=== PATIENT | male | born 1975 | race Caucasian/White ===

== ENCOUNTER → 2017-08-21 | Outpatient (CLI) | payer OTHER ==
[~2017-08-21] MED LIST: ACHD5005 PO; AMOX500C2 PO; ARPZ20T PO; ASP81TEC PO; ATOR40TA70; CANA100T; CLIN300C3 PO; CYCL10TA9 PO; DICY20TA33 PO; GLIP-164; GLIP5TAB13 PO; GLYB5TAB6 PO; HYDR-707 PO; IBP800T PO; LISI1TAB6 PO; LOSA25TA5 PO; METF-380 PO; METOPROLOL; NAPR-243 PO; OMEP20CA12; OMEP20TA2 PO; PRD10T PO; PRM25T PO; QUIN20TA15 PO; SERT100T PO; SRTR100T PO; SULF1TAB35 PO; SULF1TAB38 PO
--- NOTE | 2017-08-21 11:33 | Diagnostic Imaging Report ---
INDICATION: Constipation KUB 11:43 AM Bowel gas pattern is normal. There are no pathologic masses or calcifications. IMPRESSION: Negative abdomen. There does not appear to be fecal stasis. Dictated by: Dictated on workstation # [id number]
== END ==
LOC: RAD 11:03
PROVIDERS: ATTEND Nurse Practitioner Community Health
DX: K59.00 Constipation, unspecified (principal)
CPT/HCPCS: 74018

== ENCOUNTER → 2017-12-04 | Outpatient (CLI) | payer OTHER ==
--- NOTE | 2017-12-04 17:04 | Diagnostic Imaging Report ---
CLINICAL INDICATION: Patient with right knee pain. Knee buckled Monday and having pain since then. EXAM: X-ray of the right knee, three views. COMPARISON: None. FINDINGS AND IMPRESSION: 1: There appears to be a afua of calcification or bony excrescence seen posterior to the knee on lateral view. This is seen posterior to the tibia. This is not seen on the other imaging. Correlation for pain in this region would better evaluate for fracture versus bony excrescence. 2: Possible small right knee effusion. 3: The remainder of the right knee is unremarkable. Dictated by: Dictated on workstation # [id number]
== END ==
LOC: RAD 16:00
PROVIDERS: ATTEND Nurse Practitioner Family
DX: M25.561 Pain in right knee (principal)
CPT/HCPCS: 73562

== ENCOUNTER 2018-10-04 14:30 | Outpatient (RCR) | payer OTHER ==
[~2018-10-04 14:30] MED LIST changes: -OMEP20CA12; +OMEP20CA13
== END 2018-11-06 08:55 | disposition home or self-care (01) ==
PROVIDERS: ATTEND Nurse Practitioner
DX: M94.261 Chondromalacia, right knee (principal)

== ENCOUNTER 2019-01-30 20:45 | Emergency (ER) | payer SELFPAY ==
[~2019-01-30] VITALS: Ht 177.8 cm; Wt 147.7 kg
[2019-01-30] MEDS ORDERED: AMOXICILLIN 500 MG (POLYMOX) CAP PO STA (21:00)
[2019-01-30] MEDS ORDERED: ACETAMINOPHEN 500 MG TAB (TYLENOL) PO ONE (21:00)
[2019-01-30] MEDS ORDERED: AMOX500C2 PO (21:06)
--- NOTE | 2019-01-30 21:06 | ED General ---
General Chief Complaint: Dental Problems/Pain Stated Complaint: HIGH BLOOD PRESSURE Source of Information: Patient Exam Limitations: No Limitations History of Present Illness Date Seen by Provider: Jan 30, 2019 Time Seen by Provider: 20:45 Initial Comments This 43-year-old gentleman presents to the emergency room with concerns about h ypertension. He routinely checks his blood pressure and noted systolic blood pressure in the 170s today. He complains about muscle tension and pain in the left neck and left upper mouth pain from dental decay. He took Aleve earlier today for the pain. He denies any use of stimulants or drugs that could have increased his blood pressure. Allergies and Home Medications Allergies Coded Allergies: losartan (Verified Allergy, Unknown, 02/10/16) Home Medications Amoxicillin 500 Mg Capsule, 1,000 MG PO BID Prescribed by: EDGAR HEREDIA on 01/30/192105 Dicyclomine HCl 20 Mg Tablet, 20 MG PO ACHS Prescribed by: DREW VALDIVIA on 02/11/16 0020 Patient Home Medication List Home Medication List Reviewed: Yes Review of Systems Review of Systems Constitutional: no symptoms reported EENTM: see HPI Respiratory: no symptoms reported Cardiovascular: see HPI Gastrointestinal: no symptoms reported Genitourinary: no symptoms reported Musculoskeletal: see HPI Skin: no symptoms reported Psychiatric/Neurological: No Symptoms Reported Hematologic/Lymphatic: No Symptoms Reported Immunological/Allergic: no symptoms reported Past Anykzsn-Tlbwjr-Kirumc Hx Past Med/Social Hx: Reviewed Nursing Past Med/Soc Hx Patient Social History Type Used: Cigarettes Recent Foreign Travel: No Contact w/Someone Who Travel: No Recent Hopitalizations: No Immunizations Up To Date Tetanus Booster (TDap): Unknown Date of Pneumonia Vaccine: Nov 25, 2009 Date of Influenza Vaccine: Oct 22, 2011 Past Medical History Surgeries: No Respiratory: Yes Sleep Apnea Cardiac: Yes Hypertension Neurological: No Reproductive Disorders: No Sexually Transmitted Disease: No HIV/AIDS: No Genitourinary: No Gastrointestinal: No Musculoskeletal: No Endocrine: Yes Diabetes, Non-Insulin dep HEENT: No Cancer: No Psychosocial: Yes Anxiety, Depression Integumentary: No Adverse Reaction/Blood Tranf: No Physical Exam Vital Signs Vital Signs - First Documented 01/30/19 20:46 Temp 36.6 Pulse 87 Resp 18 B/P (MAP) 151/102 (118) Pulse Ox 98 O2 Delivery Room Air Capillary Refill : Height, Weight, BMI Height: 5'10" Weight: 300lbs. oz. 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 Norm as Tested Skin: Normal Color, Warm/Dry Progress/Results/Core Measures Suspected Sepsis SIRS Temperature: Pulse: Respiratory Rate: Blood Pressure / Mean: Results/Orders My Orders Orders - EDGAR BLANC MD Tramadol Tablet (Ultram Tablet) (01/30/19 21:00) Acetaminophen Tablet (Tylenol Tablet) (01/30/19 21:00) Amoxicillin Capsule (Polymox Capsule) (01/30/19 21:00) Medications Given in ED Current Medications Medications Dose Ordered Sig/Jennifer Route Start Time Stop Time Status Last Admin Dose Admin Acetaminophen 1,000 mg ONCE ONCE PO 01/30/19 21:00 01/30/19 21:01 DC 01/30/19 21:09 1,000 MG Tramadol HCl 50 mg ONCE ONCE PO 01/30/19 21:00 01/30/19 21:01 DC 01/30/19 21:09 50 MG Vital Signs/I&O 01/30/19 01/30/19 20:46 21:11 Temp 36.6 36.6 Pulse 87 93 Resp 18 18 B/P (MAP) 151/102 (118) 157/97 (118) Pulse Ox 98 98 O2 Delivery Room Air Capillary Refill : Progress Note : Progress Note Blood pressure was trending down after rest. Pain was treated with Tylenol and Ultram. Dental pain was also treated with amoxicillin. Increase in blood pressure is likely due to pain in the tooth and neck. Follow up with the dentist and his primary care provider was recommended. Bedbugs were noted on the patient and professional extermination was recommended. Departure Impression Primary Impression: Hypertension Qualified Codes: I10 - Essential (primary) hypertension Additional Impressions: Dental decay Neck muscle strain Qualified Codes: S16.1XXA - Strain of muscle, fascia and tendon at neck level, initial encounter Infestation by bed bug Disposition: HOME, SELF-CARE Condition: Improved Departure-Patient Inst. Decision time for Depature: 21:00 Referrals: JERRY AVILEZ (PCP) Primary Care Physician [facility] (Family) Primary Care Physician Patient Instructions: Bedbugs, High Blood Pressure (DC), Tooth Decay, Adult Add. Discharge Instructions: 1. Your high blood pressure flare up is likely related to pain and dental infection. Continue taking your blood pressure medications and follow-up with your primary care provider within the next week. 2. For pain you may take a combination of Aleve (naproxen) and Tylenol (acetaminophen). You may take Aleve (naproxen) up to 500 mg twice daily and Tylenol (acetaminophen) up to 1000 mg every 6 hours. 3. Boone your teeth gently twice daily with a soft bristle toothbrush and see a dentist as soon as possible. Complete your antibiotics as prescribed. 4. Gentle heat applied to your neck may help relax your neck muscles and reduce pain. 5. Drink plenty of clear liquids and eat a low-salt diet to help with your blo od pressure. 6. Bedbugs may be difficult to day care home provider. Consider consulted with a professional day care home provider to eradicate the bedbugs. All discharge instructions reviewed with patient and/or family. Voiced understanding. Scripts Amoxicillin (Amoxicillin) 500 Mg Capsule 1000 MG PO BID, #40 CAP 0 Refills Prov: EDGAR BLANC MD 01/30/19 Copy Copies To 1: LA LINTON JOSHUA T MD Jan 30, 2019 21:06 POS
[2019-01-30 21:11] VITALS: BP 157/97
== END 2019-01-30 21:12 | disposition home or self-care (01) ==
LOC: EDUNIT# 20:45 → ER 20:46
DX: S16.1XXA Strain of muscle, fascia and tendon at neck level, initial encounter (principal); I10 Essential (primary) hypertension; K02.9 Dental caries, unspecified; B88.9 Infestation, unspecified; E11.9 Type 2 diabetes mellitus without complications; F41.9 Anxiety disorder, unspecified; F32.9 Major depressive disorder, single episode, unspecified; Z88.8 Allergy status to other drugs, medicaments and biological substances; X58.XXXA Exposure to other specified factors, initial encounter
CPT/HCPCS: 99283

== ENCOUNTER 2019-06-13 19:57 | Emergency (ER) | payer OTHER ==
[~2019-06-13] VITALS: Ht 180 cm; Wt 145.1 kg
[~2019-06-13 19:57] MED LIST changes: -OMEP20CA13; +OMEP20CA18
--- OUTSIDE RECORDS SUMMARY | 2019-06-13 20:05 | XMS REPORT ---
Author Author [employer] 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 Role Phone BILLIE, SUSAN Unavailable Unavailable HENRIK PATEL Unavailable Unavailable BILLIE, SUSAN Unavailable ELISSA BETH Unavailable Unavailable BALBINA PADILLA Unavailable Unavailable [facility] Unavailable [phone] [facility] Unavailable [phone] BILLIE, SUSAN Unavailable BILLIE, SUSAN Unavailable BILLIE, SUSAN Unavailable BILLIE, SUSAN Unavailable BILLIE, SUSAN Unavailable BILLIE, SUSAN Unavailable BILLIE, SUSAN Unavailable BILLIE, SUSAN Unavailable BILLIE, SUSAN Unavailable BILLIE, SUSAN Unavailable BILLIE, SUSAN Unavailable BILLIE, SUSAN Unavailable BILLIE, SUSAN Unavailable BILLIE, SUSAN Unavailable BILLIE, SUSAN Unavailable BILLIE, SUSAN Unavailable ELISSA BETH Unavailable BILLIE, SUSAN Unavailable BILLIE, SUSAN Unavailable BILLIE, SUSAN Unavailable BILLIE, SUSAN Unavailable BILLIE, SUSAN Unavailable BILLIE, SUSAN Unavailable BILLIE, SUSAN Unavailable BILLIE, SUSAN Unavailable BILLIE, SUSAN Unavailable BILLIE, SUSAN Unavailable BILLIE, SUSAN Unavailable BILLIE, SUSAN Unavailable BILLIE, SUSAN Unavailable BILLIE, SUSAN Unavailable BILLIE, SUSAN Unavailable BILLIE, SUSAN Unavailable BILLIE, SUSAN Unavailable BILLIE, SUSAN Unavailable BILLIE, SUSAN Unavailable BILLIE, SUSAN Unavailable TRUMAN QUIROZ Unavailable BILLIE, SUSAN Unavailable TRUMAN QUIROZ Unavailable BILLIE, SUSAN Unavailable Migration, Doctor Unavailable Unavailable Migration, Doctor Unavailable Unavailable Migration, Doctor Unavailable Unavailable BILLIE, SUSAN Unavailable BILLIE, SUSAN Unavailable BILLIE, SUSAN Unavailable BILLIE, SUSAN Unavailable BILLIE, SUSAN Unavailable GUILLAUME, KATARZYNA Unavailable BILLIE, SUSAN Unavailable JERRY AVILEZ Unavailable Unavailable DREW VALDIVIA MD Unavailable Unavailable BILLIE, SUSAN ROLLER MACHINE OPERATOR Unavailable Unavailable ANGELES YANEZ DO Unavailable Unavailable LEIDY WHITNEYP Unavailable Unavailable BILLIE, SUSAN Unavailable BILLIE, SUSAN Unavailable Migration, Doctor Unavailable Unavailable JERRY AVILEZP PCP Migration, Doctor Unavailable Unavailable Migration, Doctor Unavailable Unavailable BILLIE, SUSAN S Unavailable Unavailable [facility] PCP JAYASHREE GAMEZ, EDGAR Monae Unavailable Unavailable Migration, Doctor Unavailable Unavailable BILLIE, SUSAN Unavailable BILLIE, SUSAN Unavailable mariselVickeyJAVANVASU CARRASCO Unavailable Migration, Doctor Unavailable Unavailable BILLIE, SUSAN Unavailable BILLIE, SUSNA Unavailable Migration, Doctor Unavailable Unavailable BILLIE, SUSAN Unavailable Unavailable Unavailable BILLIE, SUSAN Unavailable BILLIE, SUSAN Unavailable Migration, Doctor Unavailable Unavailable BILLIE, SUSAN Unavailable Migration, Doctor Unavailable Unavailable BILLIE, SUSAN Unavailable BILLIE, SUSAN Unavailable BILLIE, SUSAN Unavailable Allergies The data below is from unstructured sourcesNo Known Allergies No Known Allergies No Known Allergies No Known Allergies No Known Allergies No Known Allergies No Known Allergies No Known Allergies No Known Allergies No Known Allergies No Known Allergies No Known Allergies No Known Allergies No Known Allergies No Known Allergies No Known Allergies No Known Allergies No Known Allergies No Known Allergies No Known Allergies No Known Allergies Unknown Allergies Unknown Allergies Unknown Allergies Unknown Allergies No Information No Information No Information No Information No Information No Information No Information No Information No Information No Information No Information No Information No Information No Information No Information No Information No Information No Information No Information No Information No Information No Information No Information No Information No Information No Information No Information No Information No Information No Information No Information No Information No Information No Information No Information No Information No Information No Information No Information No Information No Information No Information No Information No Information No Information No Information No Information No Information No Information No Information No Information No Information No Information No Information No Information No Information No Information No Information No Information No Information No Information No Information No Information No Information No Information No Information No Information No Information No Information No Information No Information No Information No Information No Information No Information No Information No Information No Information No Information No Information No Information No Information No Information No Information No Information No Information No Information No Information No Information No Information No Information No Information No Information No Information No Information No Information No Information No Information No Information No Information No Information No Information No Information No Information Medications Current Medications Medication Ingredient Drug Dose Dates Status Sig Sig Care Class(es) (Normalized) (Original) Provid er no BD Pen no 10-28-19 Active no BD Pen no information Needle Claudia information 18 information Needle Claudia name (1 source.) U/F 32G X 4 U/F 32G X 4 (no MM MM as phone) Translation directed 07 s: [ BD Pen Oct, 2017 Needle Claudia Active U/F 32G X 4 MM] no Blood no 05-18-19 Active no Blood no information Glucose information 17 information Glucose name (1 source.) Monitor Monitor (no System System phone) w/Device w/Device Translation test blood s: [ Blood sugar 12h 28 Glucose Apr, 2016 Monitor Active System w/Device] diclofenac diclofenac Nonsteroida 50 mg 10-17-19 Active no Diclofenac no sodium 50 Translation l 18 - information Sodium 50 mg name mg delayed s: [ Anti-inflam 02-14-20 Orally Three (no release Diclofenac matory Drug 18 times a day phone) oral tablet Sodium 50 1 tablet (2 mg, with food or sources.) Diclofenac milk 8h 27 Sodium 50 Sep, 2017 25 mg] Jan, 2018 30 day(s) Active no Ventolin no 2 08-29-19 Active take 2 Ventolin HF A no information HFA 90 information puff(s 14 puff(s) by 90 n heydi (1 source.) mcg/actuati ) inhalation mcg/actuatio (no on every six n inhale 2 phone) hours as puff by needed Inhalation route as needed every 6 hours Use prn shortness of breath Aug, Active Completed/Discontinued Medications Medication Ingredient Drug Dose Dates Status Sig Sig Care Class(es) (Normalized) (Original) Provid er no Acetaminoph no 02-13-20 Complete no Acetaminophe Timoth information en/Hydrocod information 12 - d information n/ Hydrocodon y D (1 source.) one Bitart 04-12-19 e Bitart Stebbi (Lortab 5 13 (Lortab 5 Mg ns (no Mg Tablet) Tablet) 1 phone) 1 Each Each Tablet, Tablet, 1 - 1 - 2 Each 2 Each Oral Oral Every 6 Hours as needed 02/13/12 Discontinued no Acetaminoph no 06-20-19 Complete no Acetaminophe Chester information en/Hydrocod information 10 - d information n/ Hydrocodon W (1 source.) one Bitart 04-25-19 e Bitart Eppler (Lortab 12 (Lortab (no 5-500 5-500 phone) Tablet) 1 Tablet) 1 Each Each Tablet, Tablet, 1 1 Each Oral Each Oral Q 4 - 6 Hr Prn 06/19/09 Discontinued no Amoxicillin no 12-14-19 Complete no Amoxicillin ( no information 500 Mg information 12 d information 500 Mg phone) (1 source.) Capsule, 1 Capsule, 1 Each Oral Each Oral Give Every 8 Hrs On Schedule Discontinued no Aripiprazol no 02-10-20 Complete take 1 Aripiprazole (no information e (Abilify information 16 d tablet by (Abil olya 20 phone) (1 source.) 20 Mg) 20 mouth once Mg) 20 Mg Mg Tab, 1 daily Tab, 1 Tab Tab Oral Oral Daily Discontinued no Aspirin no 02-10-20 Complete no Aspirin (no information (Aspirin Ec information 16 d information (A spirin Ec phone) (1 source.) 81 Mg) 81 81 Mg) 81 Mg Mg Tabec, Tabec, 81 Mg 81 Mg Oral Oral Daily Discontinued no Cyclobenzap no 12-14-19 Complete no Cyclobenzapr [place] K information rine Hcl 10 information 12 - d information in e Hcl 10 [place] (1 source.) Mg Tablet, 02-12-20 Mg Tablet, 1 (no 1 Each Oral 12 Each Oral phone) Q8hr Prn 12/14/11 Discontinued dicyclomine Dicyclomine Anticholine 20 mg 02-11-20 Complete take 1 Dicyclomine Drew hydrochlori rgic 16 d tablet by Hcl (Bentyl) A de 20 mg mouth at 20 Mg Tablet Maria Teresa oral tablet bedtime 20 Mg ORAL (no (2 Before Meals phone) sources.) And At Bedtime 14 Tab 02/11/16 02-11-2016 Completed no Dicyclom no name - inform ine Hcl (no 02-11-2016 ation Disconti phone) - nued 20 02-11-2016 ORAL Before Meals And At Bedtime February 11, 2016 12:20am (One-Yuan e) no Glipizide 5 no 02-10-20 Complete no Glipizide 5 ( no information Mg Tablet, information 16 d information Mg Tablet, 1 phone) (1 source.) 1 Each Oral Each Oral Twice A Day Discontinued no Glyburide 5 no 03-23-19 Complete no Glyburide 5 ( no information Mg Tablet, information 15 d information Mg Tablet, 1 phone) (1 source.) 1 Each Oral Each Oral Daily Discontinued no Hctz/Lisino no 04-12-19 Complete no Hctz/Lisinop no information pril information 13 d information ril name (1 source.) Discontinued (no 1 ORAL Daily phone) April 12, 2012 no Hctz/Lisino no 04-12-19 Complete take 10-12.5 Hctz/Lis inop (no information pril information 13 d tablets by ril phone) (1 source.) (Lisinopril mouth once (Lisinopril- -Hctz daily Hctz 10-12.5 10-12.5 Mg Mg Tab) 1 Tab) 1 Each Each Tablet, Tablet, 1 1 Each Oral Each Oral Daily Discontinued no Ibuprofen no 02-13-20 Complete no Ibuprofen Timot h information (Motrin) information 12 - d information (Motr in) 800 y D (1 source.) 800 Mg Tab, 02-09-20 Mg Tab, 800 Stebbi 800 Mg Oral 16 Mg Oral Give ns (no Every 8 Hrs phone) On Schedule as needed 02/13/12 Discontinued no Metformin no 02-10-20 Complete no Metformin (no information Hcl information 16 d information Hcl phone) (1 source.) (Metformin (Metformin 1000 Mg) 1000 Mg) 1,000 Mg 1,000 Mg Tablet, 1 Tablet, 1 Each Oral Each Oral Twice A Day With Meals Discontinued no Metoprolol no 02-10-20 Complete no Metoprolol , ( no information , Not information 16 d information Not phone) (1 source.) Applicable Applicable Discontinued no Omeprazole no 02-10-20 Complete no Omeprazole (no information 20 Mg information 16 d information 20 Mg phone) (1 source.) Tablet.dr, Tablet.dr, 20 Mg Oral 20 Mg Oral Daily Discontinued no Prednisone no 12-14-19 Complete no Prednisone (no information 10 Mg Tab, information 12 d information 10 Mg Tab, phone) (1 source.) 10 Mg Oral 10 Mg Oral Three Times A Day Discontinued no Trimethopri no 06-20-19 Complete no Trimethoprim [place] information m/Sulfameth information 10 - d information /S ulfamethox W (1 source.) oxazole 04-25-19 azole Eppler (Bactrim 12 (Bactrim Ds) (no Ds) 1 Ea 1 Ea Tablet, phone) Tablet, 1 1 Ea Oral Ea Oral Twice A Day 06/19/09 Discontinued Problems Active Problems Problem Normalized Date of Normalized Normalized Provider Fac ility Classification Problem(s) Problem Problem Problem Sta tus Onset/Resoluti Duration on Allergic Allergy status 04-01-2019 - Episodic Active [facility] reactions (2 to other Imelda BLANC sources.) drugs, [facility] - medicaments Watson and biological ([id number]) substances status Other Elevated 04-01-2019 - Episodic Active [facility] V ia circulatory blood-pressure Imelda BLANC disease (2 [facility] - sources.) without Watson diagnosis of (94962) hypertension External cause Exposure to 04-01-2019 - Episodic Active [facility] Via codes: other Imelda BLANC Natural/enviro specified [facility] - nment (2 factors, Watson sources.) initial (53671) encounter Other Infestation by Episodic Active [facility] infections; bed bug [facility] [place] including [address] [facility] parasitic (1 (96825) source.) Other Infestation, 04-01-2019 - Episodic Active [facility] Via infections; unspecified Imelda BLANC including [facility] - parasitic (2 Watson sources.) (57075) Other youth care specialist Episodic Active STAS [facility] Via aftercare (2 (current) use MD [place] sources.) of oral [facility] - hypoglycemic Watson drugs (94272) Mood disorders Major 04-01-2019 - Chronic Active [facility] Via (2 sources.) depressive Imelda BLANC disorder, [facility] - single Watson episode, (41236) unspecified Other Other long Episodic Active STAS YEUNG Vi a aftercare (4 term (current) MD [place] sources.) drug therapy [facility] (57929) Abdominal pain Right upper Episodic Active STAS YEUNG Via (7 sources.) quadrant pain MD [facility] (93221) Past or Other Problems Problem Normalized Date of Normalized Normalized Provider Fac ility Classification Problem(s) Problem Problem Problem Sta tus Onset/Resoluti Duration on Other skilled nursing no information no information STAS YEUNG Via aftercare (2 (current) use [facility] sources.) of oral [facility] drugs (62353) Procedures Procedure Normalized Procedure Procedure Result Performer Facility Date 02-22-2017 Assay thyroid stim no information no name (no phone ) [facility] hormone [facility] ([id number]) 02-22-2017 Comprehen metabolic no information no name (no phon e) [facility] panel [facility] (95637) 01-04-2012 Gluc bld gluc mntr dev no information no name (no p radha) [facility] cleared fda spec home [facility] (71018) 02-05-2018 Hemoglobin no information no name (no phone) [facility] glycosylated a1c [facility] (68730) 10-16-2017 Hemoglobin no information no name (no phone) [facility] glycosylated a1c [facility] (35252) 05-01-2014 Hemoglobin no information no name (no phone) [facility] glycosylated a1c [facility] (66230) 01-04-2012 Hemoglobin no information no name (no phone) [facility] glycosylated a1c [facility] (99400) 01-03-2017 NAIL REMOVAL PERMANENT no information no name (no p radha) [facility] (PARTIAL OR COMPLETE) [facility] (33602) 01-03-2017 Removal of nail bed no information no name (no phon e) [facility] (00718) 02-22-2017 Routine venipuncture no information no name (no nicole ne) [facility] (25436) 05-01-2014 Urine albumin no information no name (no phone) [facility] (07109) 09-03-2013 Urine albumin no information no name (no phone) [facility] (45821) 05-01-2014 Urine albumin no information no name (no phone) [facility] semiquantitative [facility] (00786) 09-03-2013 Urnls dip stick/tablet no information no name (no p radha) [facility] rgnt auto w/o [facility] (37758) 02-22-2017 WBC (Leukocytes) no information no name (no phone) [facility] (90999) Immunizations Normalized Immunization Date Notes Care Provider Facili ty Immunization influenza, seasonal, 11-14-2018 no information no name [facility] injectable [facility] (39419) Vaccination no information JERRY FATMATA [address] [place] Via Translations: [ [facility] vaccine] (76956) no information 01-30-2019 - no information [facility] [place] Via 01-30-2019 [address] [facility] (46068) Results Test Name Value Interpretation Reference Range Date Time Fa cility (Normalized) (Normalized) (Medline Reference) xray : kub on null NEGATED: no information (no code) [facility] Highlighted [facility] (32928) a1c (in house) on null Hemoglobin 7.8 % (no code) 0 - 5.7 % formerly [facility] A1c/Hemoglobin.t [facility] fraction ([facility]) (81217) Hemoglobin 8.3 % (no code) 0 - 5.7 % [facility] A1c/Hemoglobin.t [facility] ([facility]) (35170) A1C (IN HOUSE) 0856 (no code) [facility] (81416) A1C (IN HOUSE) 04/2019 (no code) [facility] (27531) A1C (IN HOUSE) 0932 (no code) [facility] (37486) A1C (IN HOUSE) 10/2019 (no code) [facility] (53243) No panel information on null Exp date 10/2019 (no code) [facility] (50998) Exp date 04/2020 (no code) [facility] (87632) Lot 8.3~7.8~0932 (no code) [facility] (46731) Lot 10.8~10.4~0993 (no code) [facility] (18824) No panel information on 2019-04-22 Color (U) 09/2019~clear~ye (no code) [facility] (15853) Control <30~+ (no code) [facility] (79412) CRE 30~100 (no code) [facility] (98060) Exp date 01/2021 (no code) [facility] (49467) Lot 7.8~7.1~0610 (no code) [facility] (17604) Lot # [id number] (no code) [facility] (10794) MICROALBUMIN normal (no code) [facility] (49463) No panel information on 2018-06-04 Exp date 11/2019 (no code) [facility] (35515) Lot 10.4~8.3~0941 (no code) [facility] (98580) No panel information on 2017-10-16 Exp date 04/2019 (no code) [facility] (51299) Lot 7.8~9.9~0856 (no code) [facility] (30117) No panel information on 2017-05-31 Albumin mass 3.8 g/dL (N) 3.4 - 5.4 g/dL [facility] (28274) Albumin/Globulin 1.1 (N) [facility] mass ratio [facility] (90895) ALP enzyme 118 U/L (H) 44 - 147 U/L [facility] act/vol [facility] (82207) ALT enzyme 40 U/L (N) 4 - 40 U/L [facility] act/vol [facility] (88133) AST enzyme 30 U/L (N) 10 - 34 U/L [facility] act/vol [facility] (37940) Bilirubin mass 0.4 mg/dL (N) 0.1 - 1.2 mg/dL [facility] (55495) Calcium mass 9.2 mg/dL (N) 8.5 - 10.2 mg/dL [facility] (79048) Chloride molar 103 mmol/L (N) 95 - 106 mmol/L [facility] (03118) Cholesterol in 26 mg/dL (L) [facility] HDL mass conc [facility] (62919) Cholesterol in 44 (N) [facility] LDL mass conc [facility] (06643) Cholesterol mass 102 mg/dL (N) 180 - 200 mg/dL [facility] (91998) Cholesterol non 76 (N) [facility] HDL mass conc [facility] (59314) Cholesterol.tota 3.9 (N) [facility] l/Cholesterol in [facility] HDL mass ratio [facility] (56442) CO2 molar conc 27 mmol/L (N) 23 - 29 mmol/L [facility] (79444) Creatinine mass 1.25 mg/dL (N) [facility] (02472) GFR/1.73 sq M 82 (N) 90 - 120 Pending sale to [facility] predicted among mL/min/{1.73_m2} mL/min/{1.73_m2} Center o f [facility] blacks MDRD vol [facility] rate/area (72262) (S/P/Bld) GFR/1.73 sq 71 (N) 90 - 120 formerly [facility] M.predicted MDRD mL/min/{1.73_m2} mL/min/{1.73_m2} Center of [facility] rate/area [facility] (68083) Globulin 3.6 (N) [facility] Cal[facility] mass Center [facility] (S) [facility] (56358) Glucose mass 185 mg/dL (H) 60 - 125 mg/dL [facility] (59767) Potassium molar 4.7 mmol/L (N) 3.7 - 5.2 mmol/L [facility] (02827) Protein mass 7.4 g/dL (N) 6.4 - 8.3 g/dL [facility] (54633) Sodium molar 136 mmol/L (N) 135 - 145 mmol/L [facility] (21775) Triglyceride 304 mg/dL (H) 0 - 150 mg/dL [facility] (77785) Urea nitrogen 20 mg/dL (N) 7 - 20 mg/dL [facility] (75713) Urea NOT APPLICABLE (no code) [facility]/Creatin [facility] (02699) No panel information on 2017-05-24 Color Nom (U) 01/2018~clear~ye (no code) [facility] (89486) Control 30-300~normal (no code) [facility] (11268) CRE 10~50 (no code) [facility] (83029) Exp date 12/2018 (no code) [facility] (89130) Lot 9.9~7.1~0812 (no code) [facility] (08866) Lot # [id number] (no code) [facility] (60953) MICROALBUMIN abnormal (no code) [facility] (99540) No panel information on 2016-04-01 Albumin 4.1 g/dL (no code) 3.4 - 5.4 g/dL 04-01-2016 Not Anna ilable [Mass/Vol] 09: (45231) Albumin/Globulin 1.4 {ratio} (no code) 1 - 2.5 {ratio} 7 Not Available [Mass ratio] 09: (63047) ALP [Catalytic 113 U/L (no code) 44 - 147 U/L 04-01-2016 Not Available activity/Vol] 09: (84222) ALT [Catalytic 44 U/L (no code) 4 - 40 U/L 04-01-2016 Not Av ailable activity/Vol] 09: (82539) AST [Catalytic 32 U/L (no code) 10 - 34 U/L 04-01-2016 Not A vailable activity/Vol] 09: (32582) Bilirubin 0.5 mg/dL (no code) 0.1 - 1.2 mg/dL 04-01-2016 Not Av ailable [Mass/Vol] 09: (67507) Calcium 9.3 mg/dL (no code) 8.5 - 10.2 mg/dL 04-01-2016 Not A vailable [Mass/Vol] 09: (17925) Chloride 96 mmol/L (no code) 95 - 106 mmol/L 04-01-2016 Not Av ailable [Moles/Vol] 09: (17052) Cholesterol 115 mg/dL (no code) 180 - 200 mg/dL 04-01-2016 Not Available [Mass/Vol] 09: (07972) Cholesterol in 27 mg/dL (L) 04-01-2016 Not Availab le HDL [Mass/Vol] 09: (60798) Cholesterol in 33 mg/dL (no code) 0 - 100 mg/dL 04-01-2016 Not Available LDL [Mass/Vol] 09:0 (51913) Cholesterol in 55 mg/dL (H) 04-01-2016 Not Availab le VLDL [Mass/Vol] 09: (88167) CO2 [Moles/Vol] 21 mmol/L (no code) 23 - 29 mmol/L 04-01-2016 N ot Available : (79516) Creatinine 1.05 mg/dL (no code) 04-01-2016 Not Available [Mass/Vol] 09: (85973) GFR/1.73 sq M 101 (no code) 90 - 120 04-01-2016 Not Avai lable predicted among mL/min/{1.73_m2} mL/min/{1.73_m2} 09: (42486) blacks MDRD (S/P/Bld) [Vol rate/Area] GFR/1.73 sq M 88 (no code) 90 - 120 04-01-2016 Not Avai lable predicted among mL/min/{1.73_m2} mL/min/{1.73_m2} 09: (09621) non-blacks MDRD (S/P/Bld) [Vol rate/Area] Globulin (S) 3.0 g/dL (no code) 2 - 3.5 g/dL 04-01-2016 Not Av ailable [Mass/Vol] 09: (19844) Glucose 168 mg/dL (H) 60 - 125 mg/dL 04-01-2016 Not Anna ilable [Mass/Vol] 09: (41559) Potassium 4.6 mmol/L (no code) 3.7 - 5.2 mmol/L 04-01-2016 Not Available [Moles/Vol] 09: (34717) Protein 7.1 g/dL (no code) 6.4 - 8.3 g/dL 04-01-2016 Not Anna ilable [Mass/Vol] 09: (34713) Sodium 136 mmol/L (no code) 135 - 145 mmol/L 04-01-2016 Not Available [Moles/Vol] 09: (99749) Triglyceride 277 mg/dL (H) 0 - 150 mg/dL 04-01-2016 Not A vailable [Mass/Vol] 09: (08501) Urea nitrogen 12 mg/dL (no code) 7 - 20 mg/dL 04-01-2016 Not A vailable [Mass/Vol] 09: (56013) Urea 11 mg/mg (no code) 6 - 22 mg/mg 04-01-2016 Not Avail able nitrogen/Creatin : (00286) ine [Mass ratio] Vital Signs Vital Sign Value Interpretation Reference Date Time Care Prov ider Facility (Normalized) (Normalized) Range BMI (Body Mass 46.48 kg/m2 (no code) 15 - 25 kg/m2 02-05-2018 [facility] Community Index) 14:00-0500 94314 [facility] (62325) BMI (Body Mass 48.19 kg/m2 (no code) 15 - 25 kg/m2 10-16-2017 Jessica WISE Community Index) 16:00-0400 78843 [facility] (24880) BMI (Body Mass 44.36 kg/m2 (no code) 15 - 25 kg/m2 01-03-2017 Cristy AKHTAR KIRIT Community Index) 16:20-0500 46587 [facility] (45629) Body 98.2 [degF] (no code) 97.8 - 99.0 02-05-2018 [facility] Children Temperature [degF] 14:00-0500 [id number] [facility] ([id number]) Body 98 [degF] (no code) 97.8 - 99.0 10-16-2017 SUSAN KAY [facility] Temperature [degF] 16:00-0400 [id number] [facility] ([id number]) Body 98.6 [degF] (no code) 97.8 - 99.0 01-03-2017 ELISSA RUSSO [facility] Temperature [degF] 16:20-0500 87089 [facility] ([id number]) Body 98.2 [degF] (no code) 97.8 - 99.0 05-01-2014 [facility] Temperature [degF] 11:45-0400 70552 [facility] ([id number]) Body 98 [degF] (no code) 97.8 - 99.0 09-03-2013 [facility] Temperature [degF] 15:03-0400 23786 [facility] ([id number]) Body 97.6 [degF] (no code) 97.8 - 99.0 01-04-2012 [facility] Temperature [degF] 14:30-0500 25064 [facility] ([id number]) Body weight 147.42 kg (no code) kg 05-01-2014 [facility] 11:45-0400 94766 [facility] ([id number]) Body weight 151.05 kg (no code) kg 09-03-2013 [facility] 15:03-0400 90568 [facility] ([id number]) Body weight 155.49 kg (no code) kg 01-04-2012 [facility] 14:30-[address] [place] [address] ([id number]) Head 71 cm (no code) cm 01-04-[address] [facility] Circumference 14:30-[address] [place] [address] ([id number]) Height 177.8 cm (no code) cm 02-05-[address] [facility] 14:00-[address] [place] [address] ([id number]) Height 177.8 cm (no code) cm 10-16-[address] [facility] 16:00-[address] [place] [address] ([id number]) Height 177.8 cm (no code) cm 01-03-2017 ELISSA Odell [facility] [id number] [address] [place] [address] ([id number]) Height 177.8 cm (no code) cm 05-01-[address] [facility] 11:45-[address] [place] [address] ([id number]) Height 177.8 cm (no code) cm 09-03-[address] [facility] 15:03-[address] [place] [address] ([id number]) Weight 146.97 kg (no code) kg 02-05-[address] [facility] 14:00-[address] [place] [address] ([id number]) Weight 152.36 kg (no code) kg 10-16-[address] [facility] 16:00-[address] [place] [address] ([id number]) Weight 140.25 kg (no code) kg 01-03-2017 ELISSA Ogden [facility] 16:20-[address] [place] [address] ([id number]) Interventions No Information Plan of Treatment Normalized Care Care Detail Care Activity Date Care Provider F acility Activity (CHM) Chronic Health [facility] 02-05-2018 TRUMAN QUIROZ [address] [facility] ([id number]) Patient Education no information no information [facility] [place] [facility] [address] [place] [address] ([id number]) Patient encounter [facility] 01-25-2018 - TRUMAN QUIROZ [id number] formerly [facility] 01-25-2018 - [facility] 01-25-2018 [place] ([id number]) Patient referral no information no information [facility] [place] [address] [place] [address] ([id number]) Goals Patient Goal Desired Goal no information no information Social History Normalized Code Original Code Date Value Tobacco smoking status Tobacco smoking status no information Ex-smoker (finding) SDIS SDIS no information no information 03-23-2014 Regular Use no information no information 03-23-2014 No no information no information 01-30-2019 Denies no information no information 01-30-2019 Former Smoker no information no information 01-30-2019 Cigarettes Sex Assigned At Sex Assigned At no information M jocelyn Functional Status Status Assessment Result Care Provider Facility Functional status [facility] 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[place] [facility] Sedation Scale (POSS) [address] [place] [address] ([id number]) Awake and alert Mental Status Status Assessment Result Care Provider Facility Cognitive function [facility] 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[place] [facility] Sedation Scale (POSS) [address] [place] [address] ([id number]) Awake and alert Encounters Encounter Normalized Encounter Encounter Diagnosis Care Provi maggie Organization Date Type 08-15-2018 (ACUTE) Acute Visit no information SUSAN WISE ( no [facility] phone) (no phone) 10-04-2018 Discharged Recurring no information JERRY WEST AW Work no organization name - (no phone) 11-06-2018 01-30-2019 Emergency department no information (no phone) [facility] - patient visit Hospital (no phone) 01-31-2019 01-30-2019 Emergency department no information EDGAR MCCLELLAND [address] - patient visit (no phone) [facility] 01-30-2019 (no phone) 02-10-2016 Emergency department no information no name (no nicole ne) no organization name - patient visit (no phone) 02-11-2016 02-10-2016 Emergency department no information no name (no nicole ne) no organization name - patient visit (no phone) 02-10-2016 04-12-2012 Emergency department no information no name (no nicole ne) no organization name - patient visit (no phone) 04-12-2012 12-04-2017 Patient encounter no information no name (no phone) no organization name (no phone) 10-16-2017 Patient encounter no information no name (no phone) no organization name (no phone) 08-21-2017 Patient encounter no information no name (no phone) no organization name (no phone) 08-18-2017 Patient encounter no information no name (no phone) no organization name (no phone) 05-31-2017 Patient encounter no information no name (no phone) no organization name (no phone) 05-24-2017 Patient encounter no information no name (no phone) no organization name (no phone) 01-03-2017 Patient encounter no information no name (no phone) no organization name (no phone) 04-22-2019 Patient encounter no information SUSAN S BILLIE ( [facility] phone) [facility] (no phone) 04-21-2019 Patient encounter no information (no phone) [facility] Health procedure [facility] (no phone) 04-06-2019 Patient encounter no information SUSAN S BILLIE ( no [facility] procedure phone) [facility] (no phone) 04-04-2019 Patient encounter no information SUSAN S BILLIE ( no [facility] procedure phone) [facility] (no phone) 04-01-2019 Patient encounter no information SUSAN S BILLIE ( no [facility] procedure phone) [facility] (no phone) 01-30-2019 Patient encounter no information no name (no phone) no organization name procedure (no phone) 01-16-2019 Patient encounter no information no name (no phone) no organization name procedure (no phone) 11-14-2018 Patient encounter no information no name (no phone) no organization name procedure (no phone) 10-08-2018 Patient encounter no information no name (no phone) no organization name procedure (no phone) 10-04-2018 Patient encounter no information no name (no phone) no organization name - procedure (no phone) 11-06-2018 10-04-2018 Patient encounter no information no name (no phone) no organization name - procedure (no phone) 11-06-2018 10-01-2018 Patient encounter no information no name (no phone) no organization name procedure (no phone) 09-27-2018 Patient encounter no information no name (no phone) no organization name procedure (no phone) 09-27-2018 Patient encounter no information no name (no phone) no organization name procedure (no phone) 09-21-2018 Patient encounter no information no name (no phone) no organization name procedure (no phone) 09-17-2018 Patient encounter no information no name (no phone) no organization name procedure (no phone) 09-12-2018 Patient encounter no information no name (no phone) no organization name procedure (no phone) 09-05-2018 Patient encounter no information no name (no phone) no organization name procedure (no phone) 07-30-2018 Patient encounter no information no name (no phone) no organization name procedure (no phone) 06-04-2018 Patient encounter no information no name (no phone) no organization name procedure (no phone) 04-07-2018 Patient encounter no information no name (no phone) no organization name procedure (no phone) 04-05-2018 Patient encounter no information no name (no phone) no organization name procedure (no phone) 03-23-2018 Patient encounter no information no name (no phone) no organization name procedure (no phone) 02-09-2018 Patient encounter no information no name (no phone) no organization name procedure (no phone) 02-05-2018 Patient encounter no information no name (no phone) no organization name procedure (no phone) 08-21-2017 Patient encounter no information no name (no phone) no organization name procedure (no phone) no information Encounter for dental no name (no phone) no or ganization name examination and (no phone) cleaning without abnormal findings Medical Equipment Equipment Code (if Equipment Original Equipment Identifier P rocedure Code (if Dates provided) Text (if provided) (if provided) provided) no information as directed no information (no no information 0 10-27-2017 named assigning authority) no information test blood sugar no information (no no informati on 05-17-2016 named assigning authority) no information for use with Victoza no information (no no infor mation 11-01-2014 as directed named assigning authority) Payers The data below is from unstructured sources Payer Name Policy Number Subscriber Name Relationship Self Pay Doug Hebert 01 Self / Same As Patient Evaluation note Note Type Note Facility Evaluation No Assessments Information Available A scension note [facility] ([id number]) History general Narrative - Reported Note Type Note Facility History general Narrative - Reported Type Medical Diabetes History Medical hypertension History Medical uses inhaler but not dx wit h asthma or COPD History Medical high cholestoral History Surgical heart cath 2002 History [facility] ([id number]) Summary Purpose eClinicalWorks SubmissioneClinicalWorks SubmissioneClinicalWorks SubmissioneClinicalWorks SubmissioneClinicalWorks SubmissioneClinicalWorks SubmissioneClinicalWorks SubmissioneClinicalWorks SubmissioneClinicalWorks SubmissioneClinicalWorks SubmissioneClinicalWorks Submission Advance Directives Directive Response Recor ded Date/Time Advance Directives No 2:13am Health Care Power of Power System Dispatcher No 03/23/14 2:13am Organ Donor No 03/23/14 2:13am Resuscitation Status Full Code 03/23/14 2:13am Directive Response Recor ded Date Advance Directives N 2:49am Health Care Power of Power System Dispatcher N 12/07/12 2:49am Organ Donor N 12/07/12 2 :49am Directive Response Recor ded Date/Time Advance Directives No 11:23pm Health Care Power of Power System Dispatcher No 02/10/16 11:23pm Organ Donor No 02/10/16 11:23pm Advance Directive Response Recorded Date/Time Advance Directives No 2018 8:46pm Health Care Power of Power System Dispatcher No January 30, 2019 8:46pm Organ Donor No January 30, 2019 8:46pm Resuscitation Status Full Code January 30, 2019 8:46pm Discharge Instructions No hospital discharge instructions.No hospital discharge instruction information available. Chief Complaint and Reason for Visit Chief Complaint Dental Problems/Pain Reason for Visit [id number] Additional Source Comments This clinical document has been generated using [employer] software that has been certified by the Office of the National Coordinator for Health Information Technology (ONC 15.99.04.3023.Diam.[id number]) and the National Committee for Conductor/Brakeman (NCQA, as an eMeasure certified technology). FOR RECORDS PERTAINING TO PATIENTS WHO ARE OR HAVE BEEN ENROLLED IN A CHEMICAL D EPENDENCY/SUBSTANCE ABUSE PROGRAM, SOME INFORMATION MAY BE OMITTED. This clinica l summary was aggregated from multiple sources. Caution should be exercised in using it in the provision of clinical care. This summary normalizes information from multiple sources, and as a consequence, information in this document may ma terially change the coding, format and clinical context of patient data. In jami tion, data may be omitted in some cases. CLINICAL DECISIONS SHOULD BE BASED ON T HE PRIMARY CLINICAL RECORDS. [employer] [facility]. provides no warranty or guara ntee of the accuracy or completeness of information in this document.The followi information is based on time limited clinical information UNRECOGNIZED CONTENT PROVIDED BELOW FOR UNRECOGNIZED SECTION MEDICAL (GENERAL) HISTORY Type Description Date Medical History Diabetes Medical History hypertension Medical History uses inhaler but not dx with asthma or COPD Surgical History heart cath 2001 UNRECOGNIZED CONTENT PROVIDED BELOW FOR UNRECOGNIZED SECTION REASON FOR VISIT ConstipationSamples RequestLab order questionsRefill request/LVMRequests return callDiabetes [facility] Rx clarificationRefill RequestRequests retur n callMedication refill requestRequests return callPAI Formsign releaseDiabetes --BERTHA DamonPBSOP-EvrBFW-QgxIFG-Arnulfo
--- OUTSIDE RECORDS SUMMARY | 2019-06-13 20:06 | XMS REPORT ---
Author Author Doug WISE Organization [facility] Address [address] [place] [address] Care Team Providers Care Fisher Trot Line Name Role Phone SUSAN WISE Unavailable PROBLEMS Type Condition ICD9-CM Code XJB11-BJ Code Onset Dates Condition S tatus SNOMED Code Problem Diabetes E11.9 Active 289668238 Problem Essential (primary) hypertension I10 Active 70282968 Problem Sleep apnea G47.30 Active 92828198 Problem Schizophrenia F20.9 Active 409934 04 Problem DM neuro manif type II E11.49 Active 10183698 Problem Flat foot [pes planus] (acquired), unspecified foot M21.40 Active 02688389 Problem Chronic obstructive pulmonary disease, unspecified COPD ty pe J44.9 Active 13382203 Problem Chronic GERD K21.9 Active 7939098 09 Problem Anxiety F41.9 Active 51610047 Problem skilled nursing (current) use of insulin Z79.4 Active 619503886 Problem Gastroesophageal reflux disease without esophagitis K21.9 Active 865587876 Problem Type 2 diabetes mellitus with other specified complication E11.69 Active 85913828 Problem Mixed hyperlipidemia E78.2 Active 642403052 Problem Constipation, unspecified constipation type K59.00 Active 49037041 Problem Uncontrolled type 2 diabetes mellitus with hyperglycemia E11.65 Active 942991252 Problem Atopic dermatitis, unspecified type L20.9 Active 12013996 Problem Acute gout of right foot, unspecified cause M10.9 Active 289231242 ALLERGIES No Information ENCOUNTERS Encounter Location Date Diagnosis [facility] [address] [facility] [id number] [address] [place] [address] Jul, [facility] [address] [facility] [id number] [address] [place] [address] May, [facility] [address] [facility] [id number] [address] [place] [address] Apr, Mixed hyperlipidemia E78.2 [place] [address] [address] 19 Apr, 2019 Diabetes E11.9 [place] [address] 16 Apr, 2019 Diabetes E11.9 and Essential (primary) hypertension I10 [place] [address] [address] 11 Apr, 2019 Essential (primary) hyperten ana I10 [place] [address] [address] 05 Apr, 2019 Essential (primary) hyperten ana I10 and Diabetes E11.9 [place] [address] [address] 03 Apr, 2019 Mouth pain K13.[address] [address] 02 Apr, 2019 Dental examination Z01.20 [place] [address] [address] 02 Apr, 2019 Type 2 diabetes mellitus wit h other specified complication E11.69 ; skilled nursing (current) use of insulin Z79.4 and Mouth pain K13.79 [place] [address] [address] 27 Mar, 2019 Diabetes E11.9 ; Essential ( primary) hypertension I10 ; Mixed hyperlipidemia E78.2 and Dysuria R30.0 [place] [address] [address] 24 Mar, 2019 Diabetes E11.9 [facility] [address] [place] [address] 15 Mar, 2019 Abscess L02.91 [facility] [place] [address] [address] 13 Mar, 2019 Abscess L02.91 [place] [address] [address] [facility] [id number] [address] [place] [address] 13 Mar, 2019 [facility] [address] [facility] [id number] [address] [place] [address] 10 Mar, 2019 Abscess L02.91 and Mouth radhika n K13.79 [facility] [address] [facility] [id number] [address] [place] [address] Feb, Diabetes E11.9 [facility] [address] [facility] [id number] [address] [place] [address] Feb, [facility] [address] [facility] [id number] [address] [place] [address] Feb, Diabetes E11.9 [facility] [address] [facility] [id number] [address] [place] [address] Jan, [facility] [address] [facility] [id number] [address] [place] [address] Dec, Diabetes E11.9 and DM neuro manif type II E11.49 [facility] [address] [facility] [id number] [address] [place] [address] Dec, Diabetes E11.9 [facility] [address] [facility] [id number] [address] [place] [address] Dec, [facility] [address] [facility] [id number] [address] [place] [id number] Dec, Dental examination Z01.20 [address] d Caries K02.9 [facility] [address] [facility] [id number] [address] [place] [address] Nov, [facility] [address] [facility] [id number] [address] [place] [address] Nov, Hyperglycemia R73.9 [address]es E11.9 [facility] [address] [facility] [id number] [address] [place] [address] 14 Nov, 2018 [facility] [address] [facility] [id number] [address] [place] [address] Oct, Diabetes E11.9 ; Hyperglycem ia R73.9 ; Essential (primary) hypertension I10 ; Tobacco abuse Z72.0 ; Schizophrenia F20.9 and Encounter for immunization Z23 [facility] [address] [facility] [id number] [address] [place] [address] Oct, [facility] [address] [facility] [id number] [address] [place] [address] Oct, Hyperglycemia R73.9 [address] Diab etes E11.9 [facility] [address] [facility] [id number] [address] [place] [address] Sep, [facility] [address] [facility] [id number] [address] [place] [address] Sep, [facility] [address] [facility] [id number] [address] [place] [address] Sep, Diabetes E11.9 ; Hyperglycem ia R73.9 and Morbid obesity E66.01 [facility] [address] [facility] [id number] [address] [place] [address] Sep, Hyperglycemia R73.9 [facility] [address] [facility] [id number] [address] [place] [address] Sep, Diabetes E11.9 [facility] [address] [facility] [id number] [address] [place] [address] Aug, Diabetes E11.9 [facility] [address] [facility] [id number] [address] [place] [address] Aug, Hyperglycemia R73.9 [facility] [address] [facility] [id number] [address] [place] [address] Jul, [facility] [address] [facility] [id number] [address] [place] [address] Jul, Acute gout of right foot, un specified cause M10.[address] [facility] [address] [facility] [id number] [address] [place] [address] June, [place] [address] [address] June, [place] [address] [address] 15 May, 2018 Mouth pain K13.79 ; Diabetes E11.9 ; Hyperglycemia R73.9 and Morbid obesity E66.[address] [address] Apr, Diabetes E11.9 [facility] [address] [address] 16 Mar, 2018 Mouth pain K13.79 and Dental caries K02.9 [place] [address] [address] 14 Mar, 2018 Chondromalacia of right knee M94.261 [facility] [address] [address] 01 Mar, 2018 Atopic dermatitis, unspecifi ed type L20.9 and BMI 45.0- 49.9, adult Z68.[address] [address] Feb, [place] [address] [address] Feb, [place] [address] [address] Feb, Diabetes E11.9 and DM neuro manif type II E11.49 [place] [address] [address] Jan, Mixed hyperlipidemia E78.[address] [address] Jan, Diabetes E11.9 and BMI 45.0- 49.9, adult Z68.[address] [address] Jan, Chondromalacia of right knee M94.261 and Sprain of anterior cruciate ligament of right knee, initial encounter S83.511A [facility] [address] [place] [id number] [address] [place] [address] Jan, [facility] [address] [facility] [id number] [address] [place] [address] Dec, [facility] [address] [place] [address] Dec, [place] [address] [place] [id number] [address] [place] [address] Nov, [place] [address] [place] [id number] [place] [address] Nov, [place] [address] [place] [id number] [place] [address] Nov, Injury of right knee, initia l encounter S89.91XA and BMI 45.0-49.9, adult Z68.42 [facility] [address] [facility] [id number] [address] [place] [address] Nov, Right knee pain M25.561 and BMI 45.0-49.9, adult Z68.42 [facility] [address] [facility] [id number] [address] [place] [address] Oct, [facility] [address] [place] [id number] [address] [place] [address] Sep, [place] [address] [address] [place] [id number] [address] [place] [address] Sep, Diabetes E11.9 and Arthralgi a, unspecified joint M25.50 [facility] [address] [facility] [id number] [address] [place] [address] Sep, Anxiety F41.9 and Hyper[address] R73.9 [facility] [address] [facility] [id number] [address] [place] [address] Sep, DM neuro manif type II E11.4 9 ; Hyperglycemia R73.9 and Uncontrolled type 2 diabetes mellitus with hyperglycemia E11.65 [place] [address] [address] [place] [id number] [address] [place] [address] Sep, Anxiety F41.9 ; DM neuro man if type II E11.[address] [facility] [address] [place] [id number] [address] [place] [address] Sep, [facility] [address] [place] [id number] [address] [place] [address] Aug, [facility] [address] [place] [id number] [address] [place] [address] Aug, [place] [address] [address] Jul, Constipation, unspecified co nstipation type K59.00 [place] [address] [address] Jul, Hyperglycemia R73.9 [place] [address] [address] [place] [id number] [address] [place] [address] June, Essential (primary) hyperten ana I10 [place] [address] [address] May, Essential (primary) hyperten ana I10 [place] [address] [address] May, Mixed hyperlipidemia E78.2 [place] [address] [address] [place] [id number] [address] [place] [address] May, Diabetes E11.9 [place] [address] [address] May, Diabetes E11.9 ; Hyperglycem ia R73.9 ; Pain in right knee M25.561 ; Pain in left knee M25.562 and BMI 45.0-49.9, adult Z68.42 [place] [address] [address] [place] [id number] [address] [place] [address] Apr, [facility] [address] [id number] [address] [place] [address] Mar, [facility] [address] [id number] [address] [place] [address] Feb, DM neuro manif type II E11.[address] [facility] [address] [id number] [address] [place] [address] Feb, DM neuro manif type II E11.[address] [facility] [address] [id number] [address] [place] [address] Feb, DM neuro manif type II E11.[address] [facility] [address] [facility] [id number] [address] [place] [address] Feb, Diabetes E11.9 [facility] [address] [facility] [id number] [address] [place] [address] Feb, Fatigue, unspecified type R5 3.83 [facility] [address] [id number] [address] [place] [address] Jan, Fatigue, unspecified type R5 3.83 [facility] [address] [facility] [id number] [address] [place] [address] Dec, [facility] [address] [facility] [id number] [address] [place] [address] Dec, Onychomycosis B35.1 and Ingr owing nail L60.0 [facility] [address] [id number] [address] [place] [address] 14 Dec, 2016 DM neuro manif type II E11.4 [address] [facility] [address] [facility] [id number] [address] [place] [address] 07 Dec, 2016 DM neuro manif type II E11.[address] [facility] [address] [facility] [id number] [address] [place] [address] Nov, Diabetes E11.9 [facility] [address] [id number] [address] [place] [address] 18 Nov, 2016 Diabetes E11.9 and Ingrown n ail L60.0 [facility] [address] [id number] [address] [place] [address] 11 Oct, [address] [facility] [address] [id number] [address] [place] [address] 06 Oct, 2016 Diabetes E11.9 and Anxiety F 41.9 [facility] [address] [id number] [address] [place] [address] Sep, [facility] [address] [id number] [address] [place] [address] Sep, Diabetes E11.9 and DM neuro manif type II E11.49 [facility] [address] [id number] [address] [place] [address] Sep, [facility] [address] [id number] [address] [place] [address] Aug, Diabetes E11.9 [address] An[address] F 41.[address] [facility] [address] [id number] [address] [place] [address] Aug, DM neuro manif type II E11.4 9 [facility] [address] [id number] [address] [place] [id number] Jul, Dental examination Z01.20 [facility] [address] [id number] [address] [place] [address] Jul, Dental examination Z01.20 [facility] [address] [id number] [address] [place] [address] Jul, Diabetes E11.9 and Abscessed tooth K04.7 [facility] [address] [id number] [address] [place] [id number] June, [facility] [address] [id number] [address] [place] [address] [id number] June, [facility] [address] [id number] [address] [place] [address] [id number] May, Dental examination Z01.20 [facility] [address] [id number] [address] [place] [address] Apr, [facility] [address] [facility] [id number] [address] [place] [address] Apr, DM neuro manif type II E11.[address] [facility] [address] [id number] [address] [place] [address] Apr, [facility] [address] [id number] [address] [place] [address] Apr, Essential (primary) hyperten ana I10 [facility] [address] [facility] [id number] [address] [place] [address] Apr, [facility] [address] [facility] [id number] [address] [place] [address] Mar, Diabetes E11.9 [facility] [address] [facility] [id number] [address] [place] [address] Mar, Diabetes E11.9 ; Mixed hyper lipidemia E78.2 ; Essential (primary) hypertension I10 and Hemorrhoids, unspecified hemorrhoid type K64.9 [facility] [address] [facility] [id number] [address] [place] [address] Mar, [facility] [address] [facility] [id number] [address] [place] [address] Mar, [facility] [address] [facility] [id number] [address] [place] [address] Feb, Diabetes E11.9 [facility] [address] [facility] [id number] [address] [place] [address] Feb, [facility] [address] [facility] [id number] [address] [place] [address] Feb, [facility] [address] [id number] [address] [place] [address] Feb, Essential (primary) hyperten ana I10 ; Mixed hyperlipidemia E78.2 ; Diabetes E11.9 ; Chronic obstructive pulmonary disease, unspecified COPD type J44.9 and Gastroesophageal reflux disease without esophagitis K21.9 [facility] [address] [id number] [address] [place] [address] Feb, [facility] [address] [facility] [id number] [address] [place] [address] Jan, Essential (primary) hyperten ana I10 [facility] [address] [id number] [address] [place] [address] Jan, Mixed hyperlipidemia E78.2 a nd Tobacco abuse Z72.0 [facility] [address] [facility] [id number] [address] [place] [address] Jan, [facility] [address] [facility] [id number] [address] [place] [address] Dec, [facility] [address] [facility] [id number] [address] [place] [address] Dec, [facility] [address] [facility] [id number] [place] [address] Dec, Diabetes E11.9 ; Encounter f or immunization Z23 and Tooth pain K08.89 [facility] [address] [id number] [address] [place] [address] Nov, [facility] [address] [facility] [id number] [address] [place] [address] Nov, [facility] [address] [id number] [address] [place] [address] Oct, Essential (primary) hyperten ana I10 [facility] [address] [facility] [id number] [address] [place] [address] Oct, [facility] [address] [facility] [id number] [address] [place] [address] Sep, [place] [address] [address] Sep, Flat foot [pes planus] (acqu ired), left foot M21.42 ; Flat foot [pes planus] (acquired), right foot M21.41 and DM neuro manif type II E11.49 [place] [address] [address] Sep, Diabetes E11.9 [place] [address] [address] Aug, [place] [address] [address] Aug, [place] [address] [address] Jul, Essential (primary) hyperten ana I10 [place] [address] [address] June, [place] [address] [address] June, Diabetes E11.9 [place] [address] [address] June, Onychomycosis B35.1 and Nail ingrowing L60.0 [place] [address] [address] June, Diabetes E11.9 ; Flat foot [ pes planus] (acquired), unspecified foot M21.40 and Ingrown toenail L60.0 [place] [address] [address] May, [place] [address] [address] May, Diabetes E11.9 [place] [address] [address] Apr, Diabetes E11.9 and Schizophr enia F20.9 [facility] [address] [facility] [id number] [address] [place] [address] Apr, [facility] [address] [place] [id number] [address] [place] [address] Apr, Diabetes E11.9 ; Schizophren ia F20.9 and Essential (primary) hypertension I10 [facility] [address] [place] [id number] [address] [place] [address] Dec, [facility] [address] [facility] [id number] [address] [place] [address] Dec, Niko [facility] [id number] [place] [id number] Nov, [facility] [address] [place] [id number] [address] [place] [address] Oct, Diabetes mellitus without me ntion of complication, type II or unspecified type, uncontrolled 250.02 and Flat feet, bilateral 734 [facility] [address] [place] [id number] [address] [place] [address] Oct, [facility] [address] [place] [id number] [address] [place] [address] Sep, [facility] [address] [address] Jul, [facility] [address] [place] [id number] [address] [place] [address] June, [facility] [address] [place] [id number] [address] [place] [address] May, [facility] [address] [place] [id number] [address] [place] [address] May, [facility] [address] [place] [id number] [address] [place] [address] Apr, [facility] [address] [place] [id number] [address] [place] [address] 18 Apr, 2014 [facility] [address] [id number] [address] [place] [address], [place] [address] 13 Apr, 2014 [facility] [address] [id number] [address] [place] [address], [place] [address] 13 Apr, 2014 [facility] [address] [id number] [address] [place] [address], [place] [address] Apr, [facility] [address] [id number] [address] [place] [address], [place] [address] Apr, [facility] [address] [id number] [address] [place] [address], [place] [address] Feb, [facility] [address] [id number] [address] [place] [address], [place] [address] Feb, [facility] [address] [id number] [address] [place] [address], [place] [address] Jan, [facility] [address] [id number] [address] [place] [address], [place] [address] Jan, [facility] [address] [id number] [address] [place] [address], [place] [address] Jan, [facility] [address] [id number] [address] [place] [address], [place] [address] Jan, [facility] [address] [id number] [address] [place] [address], [place] [address] Dec, [facility] [address] [id number] [address] [place] [address], [place] [address] Dec, [facility] [address] [id number] [address] [place] [address], [place] [address] Dec, [facility] [address] [id number] [address] [place] [address], [place] [address] Dec, [facility] [address] [id number] [address] [place] [address], [place] [address] Nov, [facility] [address] [id number] [address] [place] [address], [place] [address] Nov, [facility] [address] [id number] [address] [place] [address], [place] [address] Nov, [facility] [address] [id number] [address] [place] [address], [place] [address] Nov, [facility] [address] [id number] [address] [place] [address], [place] [address] Oct, [facility] [address] [id number] [address] [place] [address], [place] [address] Oct, [facility] [address] [id number] [address] [place] [address], [place] [address] Oct, [facility] [address] [id number] [address] [place] [address], [place] [address] Oct, [facility] [address] [id number] [address] [place] [address], [place] [address] Oct, [facility] [address] [id number] [address] [place] [address], [place] [address] Oct, [facility] [address] [id number] [address] [place] [address], [place] [address] Sep, [facility] [address] [id number] [address] [place] [address], [place] [address] Sep, [facility] [address] [id number] [address] [place] [address], [place] [address] Sep, [facility] [facility] [address] [id number] [address] [place] [address], [place] [address] Sep, [facility] [address] [id number] [address] [place] [address], [place] [address] Sep, [facility] [address] [id number] [address] [place] [address], [place] [address] Sep, [facility] [address] [id number] [address] [place] [address], [place] [address] Sep, [facility] [address] [id number] [facility] [place] [address] Aug, [facility] [address] [id number] [address] [place] [address], [place] [address] Aug, [facility] [address] [id number] [address] [place] [address], [place] [address] Aug, [facility] [address] [id number] [address] [place] [address], [place] [address] Aug, [facility] [address] [id number] [address] [place] [address], [place] [address] Aug, [facility] [address] [id number] [address] [place] [address], [place] [address] Aug, [facility] [address] [id number] [address] [place] [address], [place] [address] Aug, [facility] [address] [id number] [address] [place] [address], [place] [address] Aug, [facility] [address] [id number] [address] [place] [address], [place] [address] Aug, [facility] [address] [id number] [address] [place] [address], [place] [address] Aug, [facility] [address] [id number] [address] [place] [address], [place] [address] Aug, [facility] [address] [id number] [address] [place] [address], [place] [id number] Aug, [facility] [address] [id number] [address] [place] [address], [place] [address] Aug, [facility] [address] [id number] [address] [place] [address], [place] [address] Aug, [facility] [address] [id number] [address] [place] [address], [place] [address] Jul, [facility] [address] [id number] [address] [place] [address], [place] [address] Jul, [facility] [address] [id number] [address] [place] [address], [place] [address] Jul, [facility] [address] [id number] [address] [place] [address], [place] [address] Jul, [facility] [address] [id number] [address] [place] [address], [place] [address] May, [facility] [address] [id number] [address] [place] [address], [place] [address] May, [facility] [address] [id number] [address] [place] [address], [place] [address] Apr, [facility] [address] [id number] [address] [place] [address], [place] [address] Apr, [facility] [address] [id number] [address] [place] [address], [place] [address] Apr, [facility] [address] [id number] [address] [place] [address], [place] [address] Apr, [facility] [address] [id number] [address] [place] [address], [place] [address] Apr, [facility] [address] [id number] [address] [place] [address], [place] [address] Apr, [facility] [address] [id number] [address] [place] [address], [place] [address] Apr, [facility] [address] [id number] [address] [place] [address], [place] [address] Feb, [facility] [address] [id number] [address] [place] [address], [place] [address] Feb, [facility] [address] [id number] [address] [place] [address], [place] [address] Feb, [facility] [address] [id number] [address] [place] [address], [place] [address] Feb, [facility] [address] [id number] [address] [place] [address], [place] [address] Dec, [facility] [address] [id number] [address] [place] [address], [place] [address] Dec, [facility] [address] [id number] [address] [place] [address], [place] [address] Dec, [facility] [address] [id number] [address] [place] [address], [place] [address] Dec, [facility] [address] [id number] [address] [place] [address], [place] [address] Nov, [facility] [address] [id number] [address] [place] [address], [place] [address] Nov, [facility] [address] [id number] [address] [place] [address], [place] [address] Oct, [facility] [address] [id number] [address] [place] [address], [place] [address] Oct, [facility] [address] [id number] [address] [place] [address], [place] [address] 17 Oct, 2012 [facility] [address] [id number] [address] [place] [address], [place] [address] 05 Oct, 2012 [facility] [address] [id number] [address] [place] [address], [place] [address] Sep, [facility] [address] [id number] [address] [place] [address], [place] [address] Sep, [facility] [address] [id number] [address] [place] [address], [place] [address] Sep, [facility] [address] [id number] [address] [place] [address], [place] [address] Aug, [facility] [address] [id number] [address] [place] [address], [place] [address] Aug, [facility] [address] [id number] [address] [place] [address], [place] [address] Jul, [facility] [address] [id number] [address] [place] [address] Mar, [facility] [address] [id number] [address] [place] [address] Feb, [facility] [address] [id number] [address] [place] [address] Jan, [facility] [address] [id number] [address] [place] [address] Jan, [facility] [address] [id number] [address] [place] [address] Jan, [facility] [address] [id number] [address] [place] [address] Jan, [facility] [address] [id number] [address] [place] [address] Jan, [facility] [address] [id number] [address] [place] [address] Jan, [facility] [address] [id number] [address] [place] [address] Dec, [facility] [address] [id number] [address] [place] [address] Dec, [facility] [address] [id number] [address] [place] [address] Dec, [facility] [address] [id number] [address] [place] [address] Dec, IMMUNIZATIONS No Known Immunizations SOCIAL HISTORY Never Assessed REASON FOR VISIT PLAN OF CARE VITAL SIGNS MEDICATIONS Unknown Medications RESULTS No Results PROCEDURES No Known procedures INSTRUCTIONS MEDICATIONS ADMINISTERED No Known Medications MEDICAL (GENERAL) HISTORY Type Description Date Medical History Diabetes Medical History hypertension Medical History uses inhaler but not dx with asthma or C OPD Medical History high cholestoral Surgical History heart cath 2001
--- OUTSIDE RECORDS SUMMARY | 2019-06-13 20:06 | XMS REPORT ---
Author Author Doug WISE Organization [facility] Address [address] [place] [address] Care Team Providers Care Model Maker [employer] Name Role Phone SUSAN WISE Unavailable PROBLEMS Type Condition ICD9-CM Code TUQ96-XT Code Onset Dates Condition S tatus SNOMED Code Problem Diabetes E11.9 Active 037020999 Problem Essential (primary) hypertension I10 Active 13033349 Problem Sleep apnea G47.30 Active 92307254 Problem Schizophrenia F20.9 Active 022552 04 Problem DM neuro manif type II E11.49 Active 23833420 Problem Flat foot [pes planus] (acquired), unspecified foot M21.40 Active 86055502 Problem Chronic obstructive pulmonary disease, unspecified COPD ty pe J44.9 Active 48193179 Problem Chronic GERD K21.9 Active 5570826 09 Problem Anxiety F41.9 Active 65252130 Problem senior living (current) use of insulin Z79.4 Active 250922717 Problem Gastroesophageal reflux disease without esophagitis K21.9 Active 640838066 Problem Type 2 diabetes mellitus with other specified complication E11.69 Active 85092399 Problem Mixed hyperlipidemia E78.2 Active 165113537 Problem Constipation, unspecified constipation type K59.00 Active 69939791 Problem Uncontrolled type 2 diabetes mellitus with hyperglycemia E11.65 Active 388231603 Problem Atopic dermatitis, unspecified type L20.9 Active 05679573 Problem Acute gout of right foot, unspecified cause M10.9 Active 405795149 ALLERGIES No Information ENCOUNTERS Encounter Location Date Diagnosis [facility] [address] [facility] [id number] [address] [place] [phone] Jul, [facility] [address] [facility] [id number] [address] [place] [phone] Apr, Mixed hyperlipidemia E78.2 [facility] [address] [facility] [id number] [address] [place] [id number] 19 Apr, 2019 Diabetes E11.9 [place] [address] [address] 16 Apr, 2019 Diabetes E11.9 and Essential (primary) hypertension I10 [place] [address] [address] 11 Apr, 2019 Essential (primary) hyperten ana I10 [place] [address] [address] 05 Apr, 2019 Essential (primary) hyperten ana I10 and Diabetes E11.9 [place] [address] [address] 03 Apr, 2019 Mouth pain K13.79 [place] [address] [address] 02 Apr, 2019 Dental examination Z01.[address] [address] 02 Apr, 2019 Type 2 diabetes mellitus wit h other specified complication E11.69 ; senior living (current) use of insulin Z79.4 and Mouth pain K13.79 [place] [address] [address] 27 Mar, 2019 Diabetes E11.9 ; Essential ( primary) hypertension I10 ; Mixed hyperlipidemia E78.2 and Dysuria R30.0 [place] [address] [address] 24 Mar, 2019 Diabetes E11.9 [facility] [address] [address] 15 Mar, 2019 Abscess L02.91 [facility] [place] [address] [address] 13 Mar, 2019 Abscess L02.91 [place] [address] [address] Mar, [facility] [address] [facility] [id number] [address] [place] [id number] 10 Mar, 2019 Abscess L02.91 and Mouth radhika n K13.79 [facility] [address] [facility] [id number] [address] [place] [phone] Feb, Diabetes E11.9 [facility] [address] [place] [id number] [address] [place] [phone] Feb, [facility] [address] [place] [id number] Feb, Diabetes E11.9 [facility] [address] [facility] [id number] [address] [place] [id number] Jan, [facility] [address] [address] Dec, Diabetes E11.9 and DM neuro manif type II E11.49 [facility] [address] [place] [id number] [address] [place] [phone] Dec, Diabetes E11.9 [facility] [address] [place] [id number] 15 Dec, 2018 [facility] [address] [place] [id number] [address] [place] [id number] 04 Dec, 2018 Dental examination Z01.20 an d Caries K02.9 [facility] [address] [place] [phone] Nov, [facility] [address] [place] [id number] [address] [place] [id number] Nov, Hyperglycemia R73.9 and Diab etes E11.9 [facility] [address] [place] [id number] 14 Nov, 2018 [facility] [address] [place] [id number] [address] [place] [phone] Oct, Diabetes E11.9 ; Hyperglycem ia R73.9 ; Essential (primary) hypertension I10 ; Tobacco abuse Z72.0 ; Schizophrenia F20.9 and Encounter for immunization Z23 [facility] [address] [facility] [id number] [address] [place] [phone] Oct, [facility] [address] [facility] [id number] [address] [place] [phone] Oct, Hyperglycemia R73.9 and Diab etes E11.9 [facility] [address] [facility] [id number] [address] [place] [phone] Sep, [facility] [address] [facility] [id number] [address] [place] [phone] Sep, [facility] [address] [facility] [id number] [address] [place] [phone] Sep, Diabetes E11.9 ; Hyperglycem ia R73.9 and Morbid obesity E66.01 [facility] [address] [facility] [id number] [address] [place] [phone] Sep, Hyperglycemia R73.9 [facility] [address] [facility] [id number] [address] [place] [phone] Sep, Diabetes E11.9 [facility] [address] [facility] [id number] [address] [place] [phone] Aug, Diabetes E11.9 [facility] [address] [facility] [id number] [address] [place] [id number] Aug, Hyperglycemia R73.9 [facility] [address] [facility] [id number] [address] [place] [phone] Jul, [facility] [address] [facility] [id number] [address] [place] [phone] Jul, Acute gout of right foot, un specified cause M10.9 and Hyperglycemia R73.9 [facility] [address] [facility] [id number] [address] [place] [phone] June, [facility] [address] [facility] [id number] [address] [place] [phone] June, [place] [id number] [facility] [id number] [address] [place] [phone] May, Mouth pain K13.79 ; Diabetes E11.9 ; Hyperglycemia R73.9 and Morbid obesity E66.01 [place] [address] [address] [facility] [id number] [address] [place] [phone] Apr, Diabetes E11.9 [facility] [address] [place] [id number] [place] [id number] 16 Mar, 2018 Mouth pain K13.79 and Dental caries K02.9 [place] [address] [address] [place] [id number] [place] [id number] 14 Mar, 2018 Chondromalacia of right knee M94.261 [facility] [place] [address] [address] [place] [id number] [place] [id number] Mar, Atopic dermatitis, unspecifi ed type L20.9 and BMI 45.0- 49.9, adult Z68.42 [place] [address] [address] Feb, [place] [address] [address] Feb, [place] [address] [address] Feb, Diabetes E11.9 and DM neuro manif type II E11.49 [place] [address] [address] Jan, Mixed hyperlipidemia E78.2 [place] [address] [address] [place] [id number] [place] [phone] Jan, Diabetes E11.9 and BMI 45.0- 49.9, adult Z68.42 [place] [address] [address] [place] [id number] [address] [place] [id number] 06 Jan, 2018 Chondromalacia of right knee M94.261 and Sprain of anterior cruciate ligament of right knee, initial encounter S83.511A [facility] [address] [facility] [id number] [address] [place] [phone] Jan, [facility] [address] [address] Dec, [facility] [address] [place] [id number] [place] [phone] Dec, [facility] [address] [address] Nov, [facility] [address] [place] [id number] [address] [place] [phone] Nov, [place] [address] [address] Nov, Injury of right knee, initia l encounter S89.91XA and BMI 45.0-49.9, adult Z68.42 [facility] [address] [place] [id number] [address] [place] [phone] Nov, Right knee pain M25.561 and BMI 45.0-49.9, adult Z68.42 [place] [address] [address] [place] [id number] [address] [place] [phone] Oct, [facility] [address] [place] [phone] Sep, [place] [address] [place] [id number] [address] [place] [id number] Sep, Diabetes E11.9 and Arthralgi a, unspecified joint M25.50 [facility] [address] [place] [id number] [address] [place] [phone] Sep, Anxiety F41.9 and Hyperglyce mars R73.9 [facility] [address] [facility] [id number] [address] [place] [phone] Sep, DM neuro manif type II E11.4 9 ; Hyperglycemia R73.9 and Uncontrolled type 2 diabetes mellitus with hyperglycemia E11.65 [place] [address] [address] Sep, Anxiety F41.9 ; DM neuro man if type II E11.49 and Hyperglycemia R73.9 [place] [address] [address] Sep, [facility] [address] [address] Aug, [place] [address] [address] Aug, [place] [address] [address] Jul, Constipation, unspecified co nstipation type K59.00 [place] [address] [address] Jul, Hyperglycemia R73.9 [place] [address] [address] June, Essential (primary) hyperten ana I10 [place] [address] [address] May, Essential (primary) hyperten ana I10 [place] [address] [address] May, Mixed hyperlipidemia E78.2 [place] [address] [address] May, Diabetes E11.9 [place] [address] [address] May, Diabetes E11.9 ; Hyperglycem ia R73.9 ; Pain in right knee M25.561 ; Pain in left knee M25.562 and BMI 45.0-49.9, adult Z68.42 [place] [address] [address] Apr, [place] [address] [address] [place] [id number] [address] [place] [phone] Mar, [facility] [address] [facility] [id number] [address] [place] [phone] Feb, DM neuro manif type II E11.4 9 [facility] [address] [facility] [id number] [address] [place] [phone] Feb, DM neuro manif type II E11.4 9 [facility] [address] [facility] [id number] [address] [place] [phone] Feb, DM neuro manif type II E11.4 9 [facility] [address] [facility] [id number] [address] [place] [phone] Feb, Diabetes E11.9 [place] [address] [address] [place] [id number] [address] [place] [id number] Feb, Fatigue, unspecified type R5 3.83 [place] [address] [address] [facility] [id number] [address] [place] [phone] Jan, Fatigue, unspecified type R5 3.83 [facility] [address] [facility] [id number] [address] [place] [phone] Dec, [place] [address] [address] [place] [id number] [address] [place] [id number] Dec, Onychomycosis B35.1 and Ingr owing nail L60.0 [facility] [address] [facility] [id number] [address] [place] [phone] 14 Dec, 2016 DM neuro manif type II E11.4 9 and Diabetes E11.9 [facility] [address] [facility] [id number] [address] [place] [phone] Dec, DM neuro manif type II E11.4 9 [facility] [address] [facility] [id number] [address] [place] [phone] Nov, Diabetes E11.9 [facility] [address] [place] [id number] [address] [place] [id number] Nov, Diabetes E11.9 and Ingrown n ail L60.0 [facility] [address] [id number] [address] [place] [id number] Oct, Anxiety F41.9 [facility] [address] [id number] [address] [place] [id number] 06 Oct, 2016 Diabetes E11.9 and Anxiety F 41.9 [facility] [address] [id number] [address] [place] [phone] Sep, [facility] [address] [id number] [address] [place] [phone] Sep, Diabetes E11.9 and DM neuro manif type II E11.49 [facility] [address] [id number] [address] [place] [phone] Sep, [facility] [address] [id number] [address] [place] [id number] Aug, Diabetes E11.9 and Anxiety F 41.9 [facility] [address] [id number] [address] [place] [phone] Aug, DM neuro manif type II E11.4 9 [facility] [address] [id number] [place] [address] [id number] Jul, Dental examination Z01.20 [facility] [address] [id number] [address] [place] [id number] Jul, Dental examination Z01.20 [facility] [address] [id number] [address] [place] [phone] Jul, Diabetes E11.9 and Abscessed tooth K04.7 [facility] [address] [id number] [address] [place] [id number] June, [facility] [address] [id number] [address] [place] [address] [id number] June, [facility] [address] [id number] [address] [place] [address] [id number] May, Dental examination Z01.20 [facility] [address] [facility] [id number] [address] [place] [phone] Apr, [facility] [address] [facility] [id number] [address] [place] [phone] Apr, DM neuro manif type II E11.4 9 [facility] [address] [facility] [id number] [address] [place] [phone] Apr, [facility] [address] [facility] [id number] [address] [place] [phone] Apr, Essential (primary) hyperten ana I10 [facility] [address] [facility] [id number] [address] [place] [id number] Apr, [facility] [address] [facility] [id number] [address] [place] [phone] Mar, Diabetes E11.9 [facility] [address] [place] [id number] [address] [place] [id number] Mar, Diabetes E11.9 ; Mixed hyper lipidemia E78.2 ; Essential (primary) hypertension I10 and Hemorrhoids, unspecified hemorrhoid type K64.9 [facility] [address] [facility] [id number] [address] [place] [phone] Mar, [facility] [address] [place] [id number] [address] [place] [phone] Mar, [facility] [address] [facility] [id number] [address] [place] [phone] Feb, Diabetes E11.9 [facility] [address] [facility] [id number] [address] [place] [phone] Feb, [facility] [address] [facility] [id number] [address] [place] [phone] Feb, [facility] [address] [facility] [id number] [address] [place] [phone] Feb, Essential (primary) hyperten ana I10 ; Mixed hyperlipidemia E78.2 ; Diabetes E11.9 ; Chronic obstructive pulmonary disease, unspecified COPD type J44.9 and Gastroesophageal reflux disease without esophagitis K21.9 [facility] [address] [place] [id number] [place] [phone] Feb, [facility] [address] [place] [id number] [address] [place] [phone] Jan, Essential (primary) hyperten ana I10 [place] [address] [address] [place] [id number] [place] [phone] Jan, Mixed hyperlipidemia E78.2 a nd Tobacco abuse Z72.0 [place] [address] [address] Jan, [place] [address] [address] Dec, [place] [address] [address] Dec, [place] [address] [address] Dec, Diabetes E11.9 ; Encounter f or immunization Z23 and Tooth pain K08.89 [place] [address] [address] [place] [id number] [address] [place] [id number] Nov, [place] [address] [address] Nov, [facility] [address] [place] [id number] [place] [phone] Oct, Essential (primary) hyperten ana I10 [facility] [address] [place] [id number] [address] [place] [phone] Oct, [facility] [address] [place] [id number] [address] [place] [phone] Sep, [facility] [address] [place] [id number] [place] [address] Sep, Flat foot [pes planus] (acqu ired), left foot M21.42 ; Flat foot [pes planus] (acquired), right foot M21.41 and DM neuro manif type II E11.49 [place] [address] [place] [address] Sep, Diabetes E11.9 [place] [address] [address] [place] [id number] [address] [place] [phone] Aug, [place] [address] [address] Aug, [place] [address] [address] Jul, Essential (primary) hyperten ana I10 [place] [address] [address] June, [place] [address] [id number] June, Diabetes E11.9 [place] [address] [address] June, Onychomycosis B35.1 and Nail ingrowing L60.0 [place] [address] [address] [place] [id number] [place] [phone] June, Diabetes E11.9 ; Flat foot [ pes planus] (acquired), unspecified foot M21.40 and Ingrown toenail L60.0 [place] [address] [address] [place] [id number] [address] [place] [phone] May, [place] [address] [address] May, Diabetes E11.9 [place] [address] [place] [id number] [address] [place] [phone] Apr, Diabetes E11.9 and Schizophr enia F20.9 [place] [address] [place] [id number] [address] [place] [phone] Apr, [facility] [address] [facility] [id number] [address] [place] [phone] Apr, Diabetes E11.9 ; Schizophren ia F20.9 and Essential (primary) hypertension I10 [facility] [address] [place] [id number] [address] [place] [phone] Dec, [facility] [address] [place] [id number] [address] [place] [phone] Dec, Niko RAVALLI [address] [facility] [id number] [place] [address] [id number] Nov, [facility] [address] [place] [id number] [address] [place] [phone] Oct, Diabetes mellitus without me ntion of complication, type II or unspecified type, uncontrolled 250.02 and Flat feet, bilateral 734 [facility] [address] [place] [id number] [address] [place] [id number] Oct, [facility] [address] [place] [id number] [address] [place] [id number] Sep, [facility] [address] [place] [id number] [address] [place] [phone] Jul, [facility] [address] [place] [id number] [address] [place] [phone] June, [facility] [address] [place] [id number] [address] [place] [phone] May, [facility] [address] [id number] [address] [place] [id number] May, [facility] [address] [id number] [address] [place] [phone] Apr, [facility] [address] [id number] [address] [place] [id number] Apr, [facility] [address] [id number] [address] [place] [id number] 13 Apr, 2014 [facility] [address] [id number] [address] [place] [address], [place] [id number] 13 Apr, 2014 [facility] [address] [id number] [address] [place] [address], [place] [id number] Apr, [facility] [address] [id number] [address] [place] [address], [place] [id number] Apr, [facility] [address] [id number] [address] [place] [address], [place] [id number] Feb, [facility] [address] [id number] [address] [place] [address], [place] [id number] Feb, [facility] [address] [id number] [address] [place] [address], [place] [id number] Jan, [facility] [address] [id number] [address] [place] [address], [place] [id number] Jan, [facility] [address] [id number] [address] [place] [address], [place] [id number] Jan, [facility] [address] [id number] [address] [place] [address], [place] [id number] Jan, [facility] [address] [id number] [address] [place] [address], [place] [id number] Dec, [facility] [address] [id number] [address] [place] [address], [place] [address] Dec, [facility] [address] [id number] [address] [place] [address], [place] [address] Dec, [facility] [address] [id number] [address] [place] [address], [place] [address] Dec, [facility] [address] [id number] [address] [place] [address], [place] [id number] Nov, [facility] [address] [id number] [address] [place] [address], [place] [address] Nov, [facility] [address] [id number] [address] [place] [address], [place] [address] Nov, [facility] [address] [id number] [address] [place] [address], [place] [address] Nov, [facility] [address] [id number] [address] [place] [address], [place] [address] Oct, [facility] [address] [id number] [address] [place] [address], [place] [address] Oct, [facility] [address] [id number] [address] [place] [address], [place] [address] Oct, [facility] [address] [id number] [address] [place] [address], [place] [address] Oct, [facility] [facility] [address] [id number] [address] [place] [address], [place] [address] Oct, [facility] [address] [id number] [address] [place] [address], [place] [address] Oct, [facility] [address] [id number] [address] [place] [address], [place] [address] Sep, [facility] [address] [id number] [address] [place] [address], [place] [address] Sep, [facility] [address] [id number] [address] [place] [address], [place] [address] Sep, [facility] [address] [id number] [address] [place] [address], [place] [address] Sep, [facility] [address] [id number] [address] [place] [address], [place] [address] Sep, [facility] [address] [id number] [address] [place] [address], [place] [address] Sep, [facility] [address] [id number] [address] [place] [address], [place] [address] Sep, [facility] [address] [id number] [address] [place] [address], [place] [address] Aug, [facility] [address] [id number] [address] [place] [address], [place] [address] Aug, 2013 [facility] [address] [id number] [address] [place] [address], [place] [address] Aug, [facility] [address] [id number] [address] [place] [address], [place] [address] Aug, 2013 [facility] [address] [id number] [address] [place] [address], [place] [address] Aug, 2013 [facility] [address] [id number] [address] [place] [address], [place] [address] Aug, [facility] [address] [id number] [address] [place] [address], [place] [address] Aug, [facility] [address] [id number] [address] [place] [address], [place] [address] Aug, [facility] [address] [id number] [address] [place] [address], [place] [address] Aug, [facility] [address] [id number] [address] [place] [address], [place] [address] Aug, [facility] [address] [id number] [address] [place] [address], [place] [address] Aug, [facility] [address] [id number] [address] [place] [id number] Aug, [facility] [address] [id number] [address] [place] [address], [place] [address] Aug, [facility] [address] [id number] [address] [place] [address], [place] [address] Aug, [facility] [address] [id number] [address] [place] [address], [place] [address] Jul, [facility] [address] [id number] [address] [place] [address], [place] [address] Jul, [facility] [address] [id number] [address] [place] [address], [place] [address] Jul, [facility] [address] [id number] [address] [place] [address], [place] [address] Jul, [facility] [address] [id number] [address] [place] [address], [place] [address] May, [facility] [address] [id number] [address] [place] [address], [place] [address] May, [facility] [address] [id number] [address] [place] [address], [place] [address] Apr, [facility] [address] [id number] [address] [place] [address], [place] [address] Apr, [facility] [address] [id number] [address] [place] [address], [place] [address] Apr, [facility] [address] [id number] [address] [place] [address], [place] [address] Apr, [facility] [address] [id number] [address] [place] [address], [place] [address] Apr, [facility] [address] [id number] [address] [place] [address], [place] [address] Apr, [facility] [address] [id number] [address] [place] [address], [place] [address] Apr, [facility] [address] [id number] [address] [place] [address], [place] [address] Feb, [facility] [address] [id number] [address] [place] [address], [place] [address] Feb, [facility] [address] [id number] [address] [place] [address], [place] [address] Feb, [facility] [address] [id number] [address] [place] [address], [place] [address] Feb, [facility] [address] [id number] [address] [place] [address], [place] [address] Dec, [facility] [address] [id number] [address] [place] [address], [place] [address] Dec, [facility] [address] [id number] [address] [place] [address], [place] [address] Dec, [facility] [address] [id number] [address] [place] [address], [place] [address] Dec, [facility] [address] [id number] [address] [place] [address], [place] [address] Nov, [facility] [address] [id number] [address] [place] [address], [place] [address] Nov, [facility] [address] [id number] [address] [place] [address], [place] [address] 25 Oct, 2012 [facility] [address] [id number] [address] [place] [address], [place] [address] Oct, [facility] [address] [id number] [address] [place] [address], [place] [address] 17 Oct, 2012 [facility] [address] [id number] [address] [place] [address], [place] [address] 05 Oct, 2012 [facility] [address] [id number] [address] [place] [address], [place] [address] Sep, [facility] [address] [id number] [address] [place] [address], [place] [address] Sep, [facility] [address] [id number] [address] [place] [address], [place] [address] Sep, [facility] [address] [id number] [address] [place] [address], [place] [address] Aug, [facility] [address] [id number] [address] [place] [address], [place] [address] Aug, [facility] [address] [id number] [address] [place] [address], [place] [address] Jul, [facility] [address] [id number] [address] [place] [address], [place] [address] Mar, [facility] [address] [id number] [address] [place] [id number] Feb, [facility] [address] [id number] [address] [place] [id number] Jan, [facility] [address] [id number] [address] [place] [id number] Jan, [facility] [address] [id number] [address] [place] [id number] Jan, [facility] [address] [id number] [address] [place] [phone] Jan, [facility] [address] [id number] [address] [place] [id number] Jan, [facility] [address] [id number] [address] [place] [id number] Jan, [facility] [address] [id number] [address] [place] [id number] Dec, [facility] [address] [id number] [address] [place] [phone] Dec, [facility] [address] [id number] [address] [place] [id number] Dec, [facility] [address] [id number] [address] [place] [phone] Dec, IMMUNIZATIONS No Known Immunizations SOCIAL HISTORY [...] History high cholestoral Surgical History heart cath 2002
--- OUTSIDE RECORDS SUMMARY | 2019-06-13 20:06 | XMS REPORT ---
Author Author Doug WISE Organization [facility] Address [address] [place] [address] Care Team Providers Care Behavioral [facility] Rn Name Role Phone SUSAN WISE Unavailable PROBLEMS Type Condition ICD9-CM Code HBP03-TE Code Onset Dates Condition S tatus SNOMED Code Problem Diabetes E11.9 Active 879999758 Problem Essential (primary) hypertension I10 Active 09468449 Problem Sleep apnea G47.30 Active 53903877 Problem Schizophrenia F20.9 Active 960418 04 Problem DM neuro manif type II E11.49 Active 13122345 Problem Flat foot [pes planus] (acquired), unspecified foot M21.40 Active 55947187 Problem Chronic obstructive pulmonary disease, unspecified COPD ty pe J44.9 Active 26264245 Problem Chronic GERD K21.9 Active 7238069 09 Problem Anxiety F41.9 Active 85249124 Problem [facility] (current) use of insulin Z79.4 Active 411790748 Problem Gastroesophageal reflux disease without esophagitis K21.9 Active 930477306 Problem Type 2 diabetes mellitus with other specified complication E11.69 Active 42298912 Problem Mixed hyperlipidemia E78.2 Active 372227132 Problem Constipation, unspecified constipation type K59.00 Active 43595432 Problem Uncontrolled type 2 diabetes mellitus with hyperglycemia E11.65 Active 254276362 Problem Atopic dermatitis, unspecified type L20.9 Active 07393053 Problem Acute gout of right foot, unspecified cause M10.9 Active 798102134 ALLERGIES No Information ENCOUNTERS Encounter Location Date Diagnosis [facility] [address] [facility] [place] [facility] [id number] [address] [place] [phone] Jul, [facility] [address] [facility] [place] [id number] [address] [place] [phone] May, [facility] [address] [facility] [place] [id number] [address] [place] [phone] Apr, Mixed hyperlipidemia E78.2 [place] [address] [address] 19 Apr, 2019 Diabetes E11.9 [place] [address] 16 Apr, 2019 Diabetes E11.9 and Essential (primary) hypertension I10 [place] [address] [address] 11 Apr, 2019 Essential (primary) hyperten ana I10 [place] [address] [address] 05 Apr, 2019 Essential (primary) hyperten ana I10 and Diabetes E11.9 [place] [address] [address] 03 Apr, 2019 Mouth pain K13.[address] [address] 02 Apr, 2019 Dental examination Z01.20 [place] [address] [address] 02 Apr, 2019 Type 2 diabetes mellitus wit h other specified complication E11.69 ; [facility] (current) use of insulin Z79.4 and Mouth pain K13.79 [place] [address] [address] 27 Mar, 2019 Diabetes E11.9 ; Essential ( primary) hypertension I10 ; Mixed hyperlipidemia E78.2 and Dysuria R30.0 [place] [address] [address] 24 Mar, 2019 Diabetes E11.9 [facility] [address] [place] [phone] 15 Mar, 2019 Abscess L02.91 [facility] [place] [address] [address] 13 Mar, 2019 Abscess L02.91 [place] [address] [facility] [place] [id number] [address] [place] [id number] 13 Mar, 2019 [facility] [address] [facility] [place] [id number] [address] [place] [phone] 10 Mar, 2019 Abscess L02.91 and Mouth radhika n K13.79 [facility] [address] [facility] [place] [id number] [address] [place] [phone] Feb, Diabetes E11.9 [facility] [address] [facility] [place] [id number] [address] [place] [phone] Feb, [facility] [address] [facility] [place] [id number] [address] [place] [phone] Feb, Diabetes E11.9 [facility] [address] [facility] [place] [id number] [address] [place] [phone] Jan, [facility] [address] [facility] [place] [id number] [address] [place] [phone] Dec, Diabetes E11.9 and DM neuro manif type II E11.49 [facility] [address] [facility] [place] [id number] [address] [place] [phone] Dec, Diabetes E11.9 [facility] [address] [facility] [place] [id number] [address] [place] [phone] Dec, [facility] [address] [facility] [id number] [address] [place] [phone] Dec, Dental examination Z01.20 an d Caries K02.9 [facility] [address] [facility] [place] [id number] [address] [place] [phone] Nov, [facility] [address] [facility] [place] [id number] [address] [place] [phone] Nov, Hyperglycemia R73.9 and Diab etes E11.9 [facility] [address] [facility] [place] [id number] [address] [place] [id number] 14 Nov, 2018 [facility] [address] [facility] [place] [id number] [address] [place] [phone] Oct, Diabetes E11.9 ; Hyperglycem ia R73.9 ; Essential (primary) hypertension I10 ; Tobacco abuse Z72.0 ; Schizophrenia F20.9 and Encounter for immunization Z23 [facility] [address] [facility] [place] [id number] [address] [place] [phone] Oct, [facility] [address] [facility] [place] [id number] [address] [place] [phone] Oct, Hyperglycemia R73.9 and Diab etes E11.9 [facility] [address] [facility] [place] [id number] [address] [place] [phone] Sep, [facility] [address] [facility] [place] [id number] [address] [place] [phone] Sep, [facility] [address] [facility] [place] [id number] [address] [place] [phone] Sep, Diabetes E11.9 ; Hyperglycem ia R73.9 and Morbid obesity E66.01 [facility] [address] [facility] [place] [id number] [address] [place] [phone] Sep, Hyperglycemia R73.9 [facility] [address] [facility] [place] [id number] [address] [place] [phone] Sep, Diabetes E11.9 [facility] [address] [facility] [place] [id number] [address] [place] [phone] Aug, Diabetes E11.9 [facility] [address] [facility] [place] [id number] [address] [place] [phone] Aug, Hyperglycemia R73.9 [facility] [address] [facility] [place] [id number] [address] [place] [phone] Jul, [facility] [address] [facility] [place] [id number] [address] [place] [phone] Jul, Acute gout of right foot, un specified cause M10.9 and Hyperglycemia R73.9 [facility] [address] [facility] [place] [id number] [address] [place] [phone] June, [place] [address] [address] June, [place] [address] [address] 15 May, 2018 Mouth pain K13.79 ; Diabetes E11.9 ; Hyperglycemia R73.9 and Morbid obesity E66.[address] [address] Apr, Diabetes E11.9 [facility] [address] [address] 16 Mar, 2018 Mouth pain K13.79 and Dental caries K02.9 [place] [address] [address] 14 Mar, 2018 Chondromalacia of right knee M94.261 [facility] [address] [address] 01 Mar, 2018 Atopic dermatitis, unspecifi ed type L20.9 and BMI 45.0- 49.9, adult Z68.[address] [address] Feb, [place] [address] [address] Feb, [place] [address] [address] Feb, Diabetes E11.9 and DM neuro manif type II E11.49 [place] [address] [address] Jan, Mixed hyperlipidemia E78.[address] [address] Jan, Diabetes E11.9 and BMI 45.0- 49.9, adult Z68.[address] [address] Jan, Chondromalacia of right knee M94.261 and Sprain of anterior cruciate ligament of right knee, initial encounter S83.511A [facility] [address] [place] [id number] [address] [place] [phone] Jan, [facility] [address] [facility] [place] [id number] [address] [place] [phone] Dec, [facility] [address] [place] [address] Dec, [place] [address] [place] [id number] [address] [place] [phone] Nov, [place] [address] [place] [id number] [place] [address] Nov, [place] [address] [place] [id number] [place] [address] Nov, Injury of right knee, initia l encounter S89.91XA and BMI 45.0-49.9, adult Z68.42 [facility] [address] [facility] [place] [id number] [address] [place] [phone] Nov, Right knee pain M25.561 and BMI 45.0-49.9, adult Z68.42 [facility] [address] [facility] [place] [id number] [address] [place] [phone] Oct, [facility] [address] [place] [id number] [address] [place] [phone] Sep, [place] [address] [place] [id number] [address] [place] [phone] Sep, Diabetes E11.9 and Arthralgi a, unspecified joint M25.50 [facility] [address] [facility] [place] [id number] [address] [place] [phone] Sep, Anxiety F41.9 and Hyperglyce mars R73.9 [facility] [address] [facility] [place] [id number] [address] [place] [phone] Sep, DM neuro manif type II E11.4 9 ; Hyperglycemia R73.9 and Uncontrolled type 2 diabetes mellitus with hyperglycemia E11.65 [place] [address] [address] [place] [id number] [address] [place] [phone] Sep, Anxiety F41.9 ; DM neuro man if type II E11.49 and Hyperglycemia R73.9 [facility] [address] [place] [id number] [address] [place] [phone] Sep, [facility] [address] [place] [id number] [address] [place] [phone] Aug, [facility] [address] [place] [id number] [address] [place] [phone] Aug, [place] [address] [address] Jul, Constipation, unspecified co nstipation type K59.00 [place] [address] [address] Jul, Hyperglycemia R73.9 [place] [address] [place] [id number] [address] [place] [phone] June, Essential (primary) hyperten ana I10 [place] [address] [address] May, Essential (primary) hyperten ana I10 [place] [address] [address] May, Mixed hyperlipidemia E78.2 [place] [address] [place] [id number] [address] [place] [phone] May, Diabetes E11.9 [place] [address] [address] May, Diabetes E11.9 ; Hyperglycem ia R73.9 ; Pain in right knee M25.561 ; Pain in left knee M25.562 and BMI 45.0-49.9, adult Z68.42 [place] [address] [place] [id number] [address] [place] [phone] Apr, [facility] [address] [id number] [address] [place] [phone] Mar, [facility] [address] [id number] [address] [place] [phone] Feb, DM neuro manif type II E11.4 9 [facility] [address] [id number] [address] [place] [phone] Feb, DM neuro manif type II E11.4 9 [facility] [address] [id number] [address] [place] [phone] Feb, DM neuro manif type II E11.4 9 [facility] [address] [facility] [place] [id number] [address] [place] [phone] Feb, Diabetes E11.9 [facility] [address] [facility] [place] [id number] [address] [place] [phone] Feb, Fatigue, unspecified type R5 3.83 [facility] [address] [id number] [address] [place] [phone] Jan, Fatigue, unspecified type R5 3.83 [facility] [address] [facility] [place] [id number] [address] [place] [phone] Dec, [facility] [address] [facility] [place] [id number] [address] [place] [address] Dec, Onychomycosis B35.1 and Ingr owing nail L60.0 [facility] [address] [id number] [address] [place] [phone] 14 Dec, 2016 DM neuro manif type II E11.4 9 and Diabetes E11.9 [facility] [address] [facility] [place] [id number] [address] [place] [id number] 07 Dec, 2016 DM neuro manif type II E11.4 9 [facility] [address] [facility] [place] [id number] [address] [place] [phone] Nov, Diabetes E11.9 [facility] [address] [id number] [address] [place] [phone] 18 Nov, 2016 Diabetes E11.9 and Ingrown n ail L60.0 [facility] [address] [id number] [address] [place] [phone] 11 Oct, 2016 Anxiety F41.9 [facility] [address] [id number] [address] [place] [phone] 06 Oct, 2016 Diabetes E11.9 and Anxiety F 41.9 [facility] [address] [id number] [address] [place] [phone] Sep, [facility] [address] [id number] [address] [place] [phone] Sep, Diabetes E11.9 and DM neuro manif type II E11.49 [facility] [address] [id number] [address] [place] [phone] Sep, [facility] [address] [id number] [address] [place] [phone] Aug, Diabetes E11.9 and Anxiety F 41.9 [facility] [address] [id number] [address] [place] [phone] Aug, DM neuro manif type II E11.4 9 [facility] [address] [id number] [address] [place] [id number] Jul, Dental examination Z01.20 [facility] [address] [id number] [address] [place] [phone] Jul, Dental examination Z01.20 [facility] [address] [id number] [address] [place] [phone] Jul, Diabetes E11.9 and Abscessed tooth K04.7 [facility] [address] [id number] [address] [place] [phone] June, [facility] [address] [id number] [address] [place] [address] [id number] June, [facility] [address] [id number] [address] [place] [phone] May, Dental examination Z01.20 [facility] [address] [id number] [address] [place] [phone] Apr, [facility] [address] [facility] [place] [id number] [address] [place] [phone] Apr, DM neuro manif type II E11.4 9 [facility] [address] [id number] [address] [place] [phone] Apr, [facility] [address] [id number] [address] [place] [phone] Apr, Essential (primary) hyperten ana I10 [facility] [address] [facility] [place] [id number] [address] [place] [phone] Apr, [facility] [address] [facility] [place] [id number] [address] [place] [phone] Mar, Diabetes E11.9 [facility] [address] [facility] [place] [id number] [address] [place] [phone] Mar, Diabetes E11.9 ; Mixed hyper lipidemia E78.2 ; Essential (primary) hypertension I10 and Hemorrhoids, unspecified hemorrhoid type K64.9 [facility] [address] [facility] [place] [id number] [address] [place] [phone] Mar, [facility] [address] [facility] [place] [id number] [address] [place] [phone] Mar, [facility] [address] [facility] [place] [id number] [address] [place] [phone] Feb, Diabetes E11.9 [facility] [address] [facility] [place] [id number] [address] [place] [phone] Feb, [facility] [address] [facility] [place] [id number] [address] [place] [phone] Feb, [facility] [address] [id number] [address] [place] [id number] Feb, Essential (primary) hyperten ana I10 ; Mixed hyperlipidemia E78.2 ; Diabetes E11.9 ; Chronic obstructive pulmonary disease, unspecified COPD type J44.9 and Gastroesophageal reflux disease without esophagitis K21.9 [facility] [address] [id number] [address] [place] [phone] Feb, [facility] [address] [facility] [place] [id number] [address] [place] [phone] Jan, Essential (primary) hyperten ana I10 [facility] [address] [id number] [address] [place] [phone] Jan, Mixed hyperlipidemia E78.2 a nd Tobacco abuse Z72.0 [facility] [address] [facility] [place] [id number] [address] [place] [phone] Jan, [facility] [address] [facility] [place] [id number] [address] [place] [phone] Dec, [facility] [address] [facility] [place] [id number] [address] [place] [phone] Dec, [facility] [address] [facility] [place] [id number] [place] [id number] Dec, Diabetes E11.9 ; Encounter f or immunization Z23 and Tooth pain K08.89 [facility] [address] [id number] [address] [place] [phone] Nov, [facility] [address] [facility] [place] [id number] [address] [place] [phone] Nov, [facility] [address] [id number] [address] [place] [phone] Oct, Essential (primary) hyperten aan I10 [facility] [address] [facility] [place] [id number] [address] [place] [phone] Oct, [facility] [address] [facility] [id number] [address] [place] [phone] Sep, [place] [address] [address] Sep, Flat foot [pes planus] (acqu ired), left foot M21.42 ; Flat foot [pes planus] (acquired), right foot M21.41 and DM neuro manif type II E11.49 [place] [address] [address] Sep, Diabetes E11.9 [place] [address] [address] Aug, [place] [address] [address] Aug, [place] [address] [address] Jul, Essential (primary) hyperten ana I10 [place] [address] [address] June, [place] [address] [address] June, Diabetes E11.9 [place] [address] [address] June, Onychomycosis B35.1 and Nail ingrowing L60.0 [place] [address] [address] June, Diabetes E11.9 ; Flat foot [ pes planus] (acquired), unspecified foot M21.40 and Ingrown toenail L60.0 [place] [address] [address] May, [place] [address] [address] May, Diabetes E11.9 [place] [address] [address] Apr, Diabetes E11.9 and Schizophr enia F20.9 [facility] [address] [facility] [place] [id number] [address] [place] [phone] Apr, [facility] [address] [place] [id number] [address] [place] [phone] Apr, Diabetes E11.9 ; Schizophren ia F20.9 and Essential (primary) hypertension I10 [facility] [address] [place] [id number] [address] [place] [id number] Dec, [facility] [address] [facility] [place]NOTE 2[place] [id number] [address] [place] [id number] Dec, Niko LAVERNECHELLE [id number] [place] [id number] Nov, [facility] [address] [id number] [address] [place] [id number] Oct, Diabetes mellitus without me ntion of complication, type II or unspecified type, uncontrolled 250.02 and Flat feet, bilateral 734 [facility] [address] [id number] [address] [place] [phone] Oct, [facility] [address] [id number] [address] [place] [phone] Sep, [facility] [address] [id number] Jul, [facility] [address] [id number] [address] [place] [phone] June, [facility] [address] [id number] [address] [place] [phone] May, [facility] [address] [id number] [address] [place] [phone] May, [facility] [address] [id number] [address] [place] [phone] Apr, [facility] [address] [id number] [address] [place] [id number] 18 Apr, 2014 [facility] [address] [id number] [address] [place] [address], [place] [id number] 13 Apr, 2014 [facility] [address] [id number] [address] [place] [address], [place] [id number] 13 Apr, 2014 [facility] [address] [id number] [address] [place] [address], [place] [id number] Apr, [facility] [address] [id number] [address] [place] [address], [place] [id number] Apr, [facility] [address] [id number] [address] [place] [address], [place] [id number] Feb, [facility] [address] [id number] [address] [place] [address], [place] [id number] Feb, [facility] [address] [id number] [address] [place] [address], [place] [id number] Jan, [facility] [address] [id number] [address] [place] [address], [place] [id number] Jan, [facility] [address] [address] [id number] [address] [place] [address], [place] [address] Jan, [facility] [address] [id number] [address] [place] [address], [place] [address] Jan, [facility] [address] [id number] [address] [place] [address], [place] [address] Dec, [facility] [address] [id number] [address] [place] [address], [place] [address] Dec, [facility] [address] [id number] [address] [place] [address], [place] [address] Dec, [facility] [address] [id number] [address] [place] [address], [place] [address] Dec, [facility] [address] [id number] [address] [place] [address], [place] [address] Nov, [facility] [address] [id number] [address] [place] [address], [place] [address] Nov, [facility] [address] [id number] [address] [place] [address], [place] [address] Nov, [facility] [address] [id number] [address] [place] [address], [place] [address] Nov, [facility] [address] [id number] [address] [place] [address], [place] [address] Oct, [facility] [address] [id number] [address] [place] [address], [place] [address] Oct, [facility] [address] [id number] [address] [place] [address], [place] [address] Oct, [facility] [address] [id number] [address] [place] [address], [place] [address] Oct, [facility] [address] [id number] [address] [place] [address], [place] [address] Oct, [facility] [address] [id number] [address] [place] [address], [place] [address] Oct, [facility] [address] [id number] [address] [place] [address], [place] [address] Sep, [facility] [address] [id number] [address] [place] [address], [place] [address] Sep, [facility] [address] [id number] [address] [place] [address], [place] [address] Sep, [facility] [address] [id number] [address] [place] [address], [place] [address] Sep, [facility] [address] [id number] [address] [place] [address], [place] [address] Sep, [facility] [address] [id number] [address] [place] [address], [place] [address] Sep, [facility] [address] [id number] [address] [place] [address], [place] [address] Sep, [facility] [address] [id number] [facility] [place] [address] Aug, [facility] [address] [id number] [address] [place] [address], [place] [address] Aug, [facility] [address] [id number] [address] [place] [address], [place] [address] Aug, [facility] [address] [id number] [address] [place] [address], [place] [address] Aug, [facility] [address] [id number] [address] [place] [address], [place] [address] Aug, [facility] [address] [id number] [address] [place] [address], [place] [address] Aug, [facility] [address] [id number] [address] [place] [address], [place] [address] Aug, [facility] [address] [id number] [address] [place] [address], [place] [address] Aug, [facility] [address] [id number] [address] [place] [address], [place] [address] Aug, [facility] [address] [id number] [address] [place] [address], [place] [address] Aug, [facility] [address] [id number] [address] [place] [address], [place] [address] Aug, [facility] [address] [id number] [address] [place] [address], [place] [id number] Aug, [facility] [address] [id number] [address] [place] [address], [place] [address] Aug, [facility] [address] [id number] [address] [place] [address], [place] [address] Aug, [facility] [address] [id number] [address] [place] [address], [place] [address] Jul, [facility] [address] [id number] [address] [place] [address], [place] [address] Jul, [facility] [address] [id number] [address] [place] [address], [place] [address] Jul, [facility] [address] [id number] [address] [place] [address], [place] [address] Jul, [facility] [address] [id number] [address] [place] [address], [place] [address] May, [facility] [address] [id number] [address] [place] [address], [place] [address] May, [facility] [address] [id number] [address] [place] [address], [place] [address] Apr, [facility] [address] [id number] [address] [place] [address], [place] [address] Apr, [facility] [address] [id number] [address] [place] [address], [place] [address] Apr, [facility] [address] [id number] [address] [place] [address], [place] [address] Apr, [facility] [address] [id number] [address] [place] [address], [place] [address] Apr, [facility] [address] [id number] [address] [place] [address], [place] [address] Apr, [facility] [address] [id number] [address] [place] [address], [place] [address] Apr, [facility] [address] [id number] [address] [place] [address], [place] [address] Feb, [facility] [address] [id number] [address] [place] [address], [place] [address] Feb, [facility] [address] [id number] [address] [place] [address], [place] [address] Feb, [facility] [address] [id number] [address] [place] [address], [place] [address] Feb, [facility] [address] [id number] [address] [place] [address], [place] [address] Dec, [facility] [address] [id number] [address] [place] [address], [place] [address] Dec, [facility] [address] [id number] [address] [place] [address], [place] [address] Dec, [facility] [address] [id number] [address] [place] [address], [place] [address] Dec, [facility] [address] [id number] [address] [place] [address], [place] [address] Nov, [facility] [address] [id number] [address] [place] [address], [place] [address] Nov, [facility] [address] [id number] [address] [place] [address], [place] [address] Oct, [facility] [address] [id number] [address] [place] [address], [place] [address] Oct, [facility] [address] [id number] [address] [place] [address], [place] [address] 17 Oct, 2012 [facility] [address] [id number] [address] [place] [address], [place] [address] 05 Oct, 2012 [facility] [address] [id number] [address] [place] [address], [place] [address] Sep, [facility] [address] [id number] [address] [place] [address], [place] [address] Sep, [facility] [address] [id number] [address] [place] [address], [place] [address] Sep, [facility] [address] [id number] [address] [place] [address], [place] [address] Aug, [facility] [address] [id number] [address] [place] [address], [place] [address] Aug, [facility] [address] [id number] [address] [place] [address], [place] [address] Jul, [facility] [address] [id number] [address] [place] [address] Mar, [facility] [address] [id number] [address] [place] [address] Feb, [facility] [address] [id number] [address] [place] [address] Jan, [facility] [address] [id number] [address] [place] [id number] Jan, [facility] [address] [id number] [address] [place] [address] Jan, [facility] [address] [id number] [address] [place] [address] Jan, [facility] [address] [id number] [address] [place] [address] Jan, [facility] [address] [id number] [address] [place] [address] Jan, [facility] [address] [id number] [address] [place] [address] Dec, [facility] [address] [id number] [address] [place] [address] Dec, [facility] [address] [id number] [address] [place] [id number] Dec, [facility] [address] [id number] [address] [place] [address] Dec, IMMUNIZATIONS No Known Immunizations SOCIAL HISTORY [...]
--- OUTSIDE RECORDS SUMMARY | 2019-06-13 20:07 | XMS REPORT ---
Author Author Doug Blackmon Doctor Organization [facility] Address Unknown Phone Unavailable Care Team Providers Care Topper Packer Name Role Phone Migration, Doctor Unavailable Unavailable PROBLEMS Type Condition ICD9-CM Code REW19-WE Code Onset Dates Condition S tatus SNOMED Code Problem Diabetes E11.9 Active 481883894 Problem Essential (primary) hypertension I10 Active 91751956 Problem Sleep apnea G47.30 Active 07498222 Problem Schizophrenia F20.9 Active 240638 04 Problem DM neuro manif type II E11.49 Active 72456647 Problem Flat foot [pes planus] (acquired), unspecified foot M21.40 Active 24401617 Problem Chronic obstructive pulmonary disease, unspecified COPD ty pe J44.9 Active 38497565 Problem Chronic GERD K21.9 Active 3034283 09 Problem Anxiety F41.9 Active 62411083 Problem snf (current) use of insulin Z79.4 Active 694423221 Problem Gastroesophageal reflux disease without esophagitis K21.9 Active 380409116 Problem Type 2 diabetes mellitus with other specified complication E11.69 Active 38392676 Problem Mixed hyperlipidemia E78.2 Active 394374201 Problem Constipation, unspecified constipation type K59.00 Active 71901178 Problem Uncontrolled type 2 diabetes mellitus with hyperglycemia E11.65 Active 938701158 Problem Atopic dermatitis, unspecified type L20.9 Active 19590100 Problem Acute gout of right foot, unspecified cause M10.9 Active [id number] ALLERGIES No Information ENCOUNTERS Encounter Location Date Diagnosis [facility] [address] [facility] [id number] [address] [place] [address] Jul, [facility] [address] [facility] [id number] [address] [place] [address] Apr, [facility] [address] [facility] [id number] [address] [place] [address] Apr, Diabetes E11.9 [facility] [address] [facility] [id number] [address] [place] [id number] 16 Apr, 2019 Diabetes E11.9 and Essential (primary) hypertension I10 [place] [address] [place] [address] 11 Apr, 2019 Essential (primary) hyperten ana I10 [place] [address] [address] 05 Apr, 2019 Essential (primary) hyperten ana I10 and Diabetes E11.9 [place] [address] [address] 03 Apr, 2019 Mouth pain K13.79 [place] [address] 02 Apr, 2019 Dental examination Z01.20 [place] [address] [address] 02 Apr, 2019 Type 2 diabetes mellitus wit h other specified complication E11.69 ; 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 and Mouth pain K13.79 [place] [address] [address] 27 Mar, 2019 Diabetes E11.9 ; Essential ( primary) hypertension I10 ; Mixed hyperlipidemia E78.2 and Dysuria R30.0 [place] [address] [address] 24 Mar, 2019 Diabetes E11.9 [facility] [address] [address] 15 Mar, 2019 Abscess L02.91 [facility] [address] 13 Mar, 2019 Abscess L02.91 [place] [address] [address] 13 Mar, 2019 [facility] [address] [address] 10 Mar, 2019 Abscess L02.91 and Mouth radhika n K13.79 [facility] [address] [facility] [id number] [address] [place] [address] Feb, Diabetes E11.9 [facility] [address] [facility] [id number] [address] [place] [address] Feb, [facility] [address] [facility] [id number] [address] [place] [address] Feb, Diabetes E11.9 [facility] [address] [facility] [id number] [address] [place] [address] Jan, [facility] [address] [facility] [id number] [address] [place] [address] Dec, Diabetes E11.9 and DM neuro manif type II E11.49 [place] [address] [place] [id number] [place] [address] Dec, Diabetes E11.9 [facility] [address] [place] [id number] [address] [place] [address] Dec, [facility] [address] [place] [id number] [address] [place] [address] [id number] 04 Dec, 2018 Dental examination Z01.20 an d Caries K02.9 [facility] [id number] [place] [address] Nov, [facility] [address] [place] [address] Nov, Hyperglycemia R73.9 and Diab etes E11.9 [facility] [address] [facility] [id number] [address] [place] [address] Nov, [facility] [address] [address] Oct, Diabetes E11.9 ; Hyperglycem ia R73.9 ; Essential (primary) hypertension I10 ; Tobacco abuse Z72.0 ; Schizophrenia F20.9 and Encounter for immunization Z23 [facility] [address] [place] [id number] [address] [place] [address] Oct, [facility] [address] [id number] [address] [place] [address] Oct, Hyperglycemia R73.9 and Diab etes E11.9 [facility] [address] [id number] [address] [place] [address] Sep, [facility] [address] [id number] [address] [place] [address] Sep, [facility] [address] [id number] [address] [place] [address] Sep, Diabetes E11.9 ; Hyperglycem ia R73.9 and Morbid obesity E66.01 [facility] [address] [id number] [address] [place] [address] Sep, Hyperglycemia R73.9 [facility] [address] [id number] [address] [place] [address] Sep, Diabetes E11.9 [facility] [address] [id number] [address] [place] [address] Aug, Diabetes E11.9 [facility] [address] [id number] [address] [place] [address] Aug, Hyperglycemia R73.9 [facility] [address] [facility] [id number] [address] [place] [address] Jul, [facility] [address] [id number] [address] [place] [address] Jul, Acute gout of right foot, un specified cause M10.9 and Hyperglycemia R73.9 [facility] [address] [id number] [address] [place] [address] June, [facility] [address] [facility] [id number] [address] [place] [address] June, [facility] [address] [facility] [id number] [address] [place] [address] May, Mouth pain K13.79 ; Diabetes E11.9 ; Hyperglycemia R73.9 and Morbid obesity E66.01 [place] [id number] [place] [address] Apr, Diabetes E11.9 [facility] [address] [place] [id number] [place] [address] 16 Mar, 2018 Mouth pain K13.79 and Dental caries K02.9 [place] [address] [address] 14 Mar, 2018 Chondromalacia of right knee M94.261 [facility] [address] [address] 01 Mar, 2018 Atopic dermatitis, unspecifi ed type L20.9 and BMI 45.0- 49.9, adult Z68.42 [place] [address] [address] Feb, [place] [address] [address] Feb, [place] [address] [address] Feb, Diabetes E11.9 and DM neuro manif type II E11.49 [place] [address] [address] Jan, Mixed hyperlipidemia E78.2 [place] [address] [address] Jan, Diabetes E11.9 and BMI 45.0- 49.9, adult Z68.42 [place] [address] [address] Jan, Chondromalacia of right knee M94.261 and Sprain of anterior cruciate ligament of right knee, initial encounter S83.511A [place] [address] [address] Jan, [place] [address] [facility] [id number] [address] [place] [address] Dec, [facility] [address] [place] [id number] [place] [address] Dec, [facility] [address] [facility] [id number] [address] [place] [address] Nov, [facility] [address] [place] [id number] [place] [address] Nov, [facility] [address] [place] [id number] [place] [address] Nov, Injury of right knee, initia l encounter S89.91XA and BMI 45.0-49.9, adult Z68.42 [facility] [address] [place] [id number] [address] [place] [address] Nov, Right knee pain M25.561 and BMI 45.0-49.9, adult Z68.42 [facility] [address] [address] Oct, [facility] [address] [address] Sep, [facility] [address] [place] [id number] [place] [address] Sep, Diabetes E11.9 and Arthralgi a, unspecified joint M25.50 [facility] [address] [place] [id number] [address] [place] [address] Sep, Anxiety F41.9 and Hyperglyce mars R73.9 [facility] [address] [facility] [id number] [address] [place] [address] Sep, DM neuro manif type II E11.4 9 ; Hyperglycemia R73.9 and Uncontrolled type 2 diabetes mellitus with hyperglycemia E11.65 [facility] [address] [facility] [id number] [address] [place] [address] Sep, Anxiety F41.9 ; DM neuro man if type II E11.49 and Hyperglycemia R73.9 [facility] [address] [place] [id number] [address] [place] [address] Sep, [facility] [address] [facility] [id number] [address] [place] [address] Aug, [facility] [address] [place] [id number] [address] [place] [address] Aug, [facility] [address] [place] [id number] [place] [address] Jul, Constipation, unspecified co nstipation type K59.00 [facility] [address] [place] [id number] [place] [address] Jul, Hyperglycemia R73.9 [facility] [address] [place] [id number] [place] [address] June, Essential (primary) hyperten ana I10 [facility] [address] [place] [id number] [place] [address] May, Essential (primary) hyperten ana I10 [facility] [address] [address] May, Mixed hyperlipidemia E78.2 [facility] [address] [place] [id number] [place] [address] May, Diabetes E11.9 [facility] [address] [address] May, Diabetes E11.9 ; Hyperglycem ia R73.9 ; Pain in right knee M25.561 ; Pain in left knee M25.562 and BMI 45.0-49.9, adult Z68.42 [facility] [address] [place] [id number] [address] [place] [address] Apr, [facility] [address] [place] [id number] [address] [place] [address] Mar, [facility] [address] [place] [id number] [place] [address] Feb, DM neuro manif type II E11.4 9 [facility] [address] [facility] [id number] [address] [place] [address] Feb, DM neuro manif type II E11.4 9 [facility] [address] [facility] [id number] [address] [place] [address] Feb, DM neuro manif type II E11.4 9 [facility] [address] [facility] [id number] [address] [place] [address] Feb, Diabetes E11.9 [facility] [address] [facility] [id number] [address] [place] [address] Feb, Fatigue, unspecified type R5 3.83 [place] [address] [facility] [id number] [address] [place] [address] Jan, Fatigue, unspecified type R5 3.83 [facility] [address] [facility] [id number] [address] [place] [address] Dec, [facility] [address] [facility] [id number] [address] [place] [address] Dec, Onychomycosis B35.1 and Ingr owing nail L60.0 [facility] [address] [facility] [id number] [address] [place] [address] Dec, DM neuro manif type II E11.4 9 and Diabetes E11.9 [facility] [address] [id number] [address] [place] [address] Dec, DM neuro manif type II E11.4 9 [facility] [address] [facility] [id number] [address] [place] [address] Nov, Diabetes E11.9 [facility] [address] [facility] [id number] [address] [place] [address] 18 Nov, 2016 Diabetes E11.9 and Ingrown n ail L60.0 [facility] [address] [facility] [id number] [address] [place] [address] Oct, Anxiety F41.9 [facility] [address] [id number] [address] [place] [address] Oct, Diabetes E11.9 and Anxiety F 41.9 [facility] [address] [id number] [address] [place] [address] Sep, [facility] [address] [id number] [address] [place] [place] [address] Sep, Diabetes E11.9 and DM neuro manif type II E11.49 [facility] [address] [id number] [address] [place] [address] Sep, [facility] [address] [id number] [address] [place] [place] [address] Aug, Diabetes E11.9 and Anxiety F 41.9 [facility] [address] [id number] [address] [place] [address] Aug, DM neuro manif type II E11.4 9 [facility] [address] [id number] [address] [place] [id number] Jul, Dental examination Z01.20 [facility] [address] [id number] [address] [place] [address] Jul, Dental examination Z01.20 [facility] [address] [id number] [address] [place] [address] Jul, Diabetes E11.9 and Abscessed tooth K04.7 [facility] [address] [id number] [address] [place] [id number] June, [facility] [address] [id number] [address] [place] [id number] June, [facility] [address] [id number] [address] [place] [address] [id number] May, Dental examination Z01.20 [facility] [address] [id number] [address] [place] [address] Apr, [facility] [address] [facility] [id number] [address] [place] [address] Apr, DM neuro manif type II E11.4 9 [facility] [address] [facility] [id number] [address] [place] [address] Apr, [facility] [address] [facility] [id number] [address] [place] [address] Apr, Essential (primary) hyperten ana I10 [facility] [address] [facility] [id number] [address] [place] [address] Apr, [facility] [address] [facility] [id number] [address] [place] [address] Mar, Diabetes E11.9 [facility] [address] [facility] [id number] [address] [place] [address] Mar, Diabetes E11.9 ; Mixed hyper lipidemia E78.2 ; Essential (primary) hypertension I10 and Hemorrhoids, unspecified hemorrhoid type K64.9 [facility] [address] [facility] [id number] [address] [place] [address] Mar, [facility] [address] [facility] [id number] [address] [place] [address] Mar, [facility] [address] [facility] [id number] [address] [place] [address] Feb, Diabetes E11.9 [facility] [address] [facility] [id number] [address] [place] [address] Feb, [facility] [address] [facility] [id number] [address] [place] [phone] Feb, [facility] [address] [facility] [id number] [address] [place] [address] Feb, Essential (primary) hyperten ana I10 ; Mixed hyperlipidemia E78.2 ; Diabetes E11.9 ; Chronic obstructive pulmonary disease, unspecified COPD type J44.9 and Gastroesophageal reflux disease without esophagitis K21.9 [facility] [address] [place] [id number] [address] [place] [id number] Feb, [facility] [address] [id number] Jan, Essential (primary) hyperten ana I10 [facility] [address] [place] [id number] [place] [address] Jan, Mixed hyperlipidemia E78.2 a nd Tobacco abuse Z72.0 [facility] [address] [place] [id number] [address] [place] [address] Jan, [facility] [address] [address] Dec, [facility] [address] [place] [id number] [place] [address] Dec, [facility] [address] [address] Dec, Diabetes E11.9 ; Encounter f or immunization Z23 and Tooth pain K08.89 [facility] [address] [place] [id number] [address] [place] [address] Nov, [facility] [address] [place] [id number] [place] [address] Nov, [facility] [address] [place] [id number] [address] [place] [phone] Oct, Essential (primary) hyperten ana I10 [facility] [address] [facility] [id number] [address] [place] [address] Oct, [facility] [address] [address] Sep, [facility] [address] [place] [id number] [place] [address] Sep, Flat foot [pes planus] (acqu ired), left foot M21.42 ; Flat foot [pes planus] (acquired), right foot M21.41 and DM neuro manif type II E11.49 [facility] [address] [place] [id number] [address] [place] [address] Sep, Diabetes E11.9 [facility] [address] [facility] [id number] [address] [place] [address] Aug, [facility] [address] [place] [id number] [address] [place] [address] Aug, [facility] [address] [place] [id number] [address] [place] [address] Jul, Essential (primary) hyperten ana I10 [place] [address] [address] June, [place] [address] [place] [id number] [address] [place] [address] June, Diabetes E11.9 [place] [address] [place] [id number] [place] [address] June, Onychomycosis B35.1 and Nail ingrowing L60.0 [place] [address] [address] June, Diabetes E11.9 ; Flat foot [ pes planus] (acquired), unspecified foot M21.40 and Ingrown toenail L60.0 [place] [address] [place] [id number] [address] [place] [address] May, [facility] [address] [place] [id number] [place] [address] May, Diabetes E11.9 [place] [address] [place] [id number] [place] [address] Apr, Diabetes E11.9 and Schizophr enia F20.9 [facility] [address] [place] [id number] [place] [address] Apr, [facility] [address] [place] [id number] [place] [phone] 08 Apr, 2015 Diabetes E11.9 ; Schizophren ia F20.9 and Essential (primary) hypertension I10 [facility] [id number] [address] [place] [id number] Dec, [facility] [address] [facility] [id number] [address] [place] [id number] Dec, mariselzCHJULIO CESAR NENZEL [address] [facility] [id number] COFFEYVIEvette [place] [id number] Nov, [facility] [id number] [address] [place] [id number] Oct, Diabetes mellitus without me ntion of complication, type II or unspecified type, uncontrolled 250.02 and Flat feet, bilateral 734 [facility] [id number] [address] [place] [id number] Oct, [facility] [id number] [address] [place] [id number] Sep, [facility] [address] [id number] [address] [place] [id number] Jul, [facility] [address] [id number] [address] [place] [id number] June, [facility] [id number] [address] [place] [id number] May, [facility] [address] [facility] [id number] [address] [place] [id number] May, [facility] [id number] [place] [id number] Apr, [facility] [id number] [address] [place] [id number] Apr, [facility] [address] [facility] [id number] [address] [place] [id number] Apr, [facility] [id number] [place] [id number] Apr, [facility] [address] [id number] [address] [place] [address], [place] [id number] Apr, [facility] [address] [id number] [address] [place] [address], [place] [phone] Apr, [facility] [address] [id number] [address] [place] [address], [place] [id number] Feb, [facility] [address] [id number] [address] [place] [address], [place] [address] Feb, [facility] [address] [id number] [address] [place] [address], [place] [id number] Jan, [facility] [address] [id number] [address] [place] [address], [place] [id number] Jan, [facility] [address] [id number] [address] [place] [address], [place] [address] Jan, [facility] [address] [id number] [address] [place] [address], [place] [address] Jan, [facility] [address] [id number] [address] [place] [address], [place] [address] Dec, [facility] [address] [id number] [address] [place] [address], [place] [address] Dec, [facility] [address] [id number] [address] [place] [address], [place] [address] Dec, [facility] [address] [id number] [address] [place] [address], [place] [address] Dec, [facility] [address] [id number] [address] [place] [address], [place] [address] Nov, [facility] [address] [id number] [address] [place] [address], [place] [address] Nov, [facility] [address] [id number] [address] [place] [address], [place] [address] Nov, [facility] [address] [id number] [address] [place] [address], [place] [address] Nov, [facility] [address] [id number] [address] [place] [address], [place] [address] Oct, [facility] [address] [id number] [address] [place] [address], [place] [address] Oct, [facility] [address] [id number] [address] [place] [address], [place] [address] Oct, [facility] [address] [id number] [address] [place] [address], [place] [address] Oct, [facility] [address] [id number] [address] [place] [address], [place] [address] Oct, [facility] [address] [id number] [address] [place] [address], [place] [address] Oct, [facility] [address] [id number] [address] [place] [address], [place] [address] Sep, [facility] [address] [id number] [address] [place] [address], [place] [address] Sep, [facility] [address] [id number] [address] [place] [address], [place] [address] Sep, [facility] [address] [id number] [address] [place] [address], [place] [address] Sep, [facility] [address] [id number] [address] [place] [address], [place] [address] Sep, [facility] [address] [id number] [address] [place] [address], [place] [address] Sep, [facility] [address] [id number] [address] [place] [address], [place] [address] Sep, [facility] [address] [id number] [address] [place] [address], [place] [address] Aug, [facility] [address] [id number] [address] [place] [address], [place] [address] Aug, [facility] [address] [id number] [address] [place] [address], [place] [address] Aug, [facility] [address] [id number] [address] [place] [address], [place] [address] Aug, [facility] [address] [id number] [address] [place] [address], [place] [address] Aug, [facility] [address] [id number] [address] [place] [address], [place] [address] Aug, [facility] [address] [id number] [address] [place] [address], [place] [address] Aug, [facility] [address] [id number] [address] [place] [address], [place] [address] Aug, [facility] [address] [id number] [address] [place] [address], [place] [address] Aug, [facility] [address] [id number] [address] [place] [address], [place] [address] Aug, [facility] [address] [id number] [address] [place] [address], [place] [address] Aug, [facility] [address] [id number] [address] [place] [address], [place] [id number] Aug, [facility] [address] [id number] [address] [place] [address], [place] [address] Aug, [facility] [address] [id number] [address] [place] [address], [place] [address] Aug, [facility] [address] [id number] [address] [place] [address], [place] [address] Jul, [facility] [address] [id number] [address] [place] [address], [place] [address] Jul, [facility] [address] [id number] [address] [place] [address], [place] [address] Jul, [facility] [address] [id number] [address] [place] [address], [place] [address] Jul, [facility] [address] [id number] [address] [place] [address], [place] [address] May, [facility] [address] [id number] [address] [place] [address], [place] [address] May, [facility] [address] [id number] [address] [place] [address], [place] [address] Apr, [facility] [address] [id number] [address] [place] [address], [place] [address] Apr, [facility] [address] [id number] [address] [place] [address], [place] [address] Apr, [facility] [address] [id number] [address] [place] [address], [place] [address] Apr, [facility] [address] [id number] [address] [place] [address], [place] [address] Apr, [facility] [address] [id number] [address] [place] [address], [place] [address] Apr, [facility] [address] [id number] [address] [place] [address], [place] [address] Apr, [facility] [address] [id number] [address] [place] [address], [place] [address] Feb, [facility] [address] [id number] [address] [place] [address], [place] [address] Feb, [facility] [address] [id number] [address] [place] [address], [place] [address] Feb, [facility] [address] [id number] [address] [place] [address], [place] [address] Feb, [facility] [address] [id number] [address] [place] [address], [place] [address] Dec, [facility] [address] [id number] [address] [place] [address], [place] [address] Dec, [facility] [address] [id number] [address] [place] [address], [place] [address] 06 Dec, 2012 [facility] [address] [id number] [address] [place] [address], [place] [address] 06 Dec, 2012 [facility] [address] [id number] [address] [place] [address], [place] [address] 16 Nov, 2012 [facility] [address] [id number] [address] [place] [address], [place] [address] 16 Nov, 2012 [facility] [address] [id number] [address] [place] [address], [place] [address] 25 Oct, 2012 [facility] [address] [id number] [address] [place] [address], [place] [address] 21 Oct, 2012 [facility] [address] [id number] [address] [place] [address], [place] [address] 17 Oct, 2012 [facility] [address] [id number] [address] [place] [address], [place] [address] 05 Oct, 2012 [facility] [address] [id number] [address] [place] [address], [place] [address] 14 Sep, 2012 [facility] [address] [id number] [address] [place] [address], [place] [address] Sep, [facility] [address] [id number] [address] [place] [address], [place] [address] Sep, [facility] [address] [id number] [address] [place] [address], [place] [address] Aug, [facility] [address] [id number] [address] [place] [address], [place] [address] Aug, [facility] [address] [id number] [address] [place] [address], [place] [address] Jul, [facility] [address] [id number] [address] [place] [address], [place] [address] Mar, [facility] [address] [id number] [address] [place] [address], [place] [address] Feb, [facility] [address] [id number] [address] [place] [address] Jan, [facility] [address] [id number] [address] [place] [address] Jan, [facility] [address] [id number] [address] [place] [address] Jan, [facility] [address] [id number] [address] [place] [address] Jan, [facility] [address] [id number] [address] [place] [address] Jan, [facility] [address] [id number] [address] [place] [address] Jan, [facility] [address] [id number] [address] [place] [address] Dec, [facility] [address] [id number] [address] [place] [address] Dec, [facility] [address] [id number] [address] [place] [address] Dec, [facility] [address] [id number] [address] [place] [address] Dec, IMMUNIZATIONS No Known Immunizations SOCIAL HISTORY [...]
--- OUTSIDE RECORDS SUMMARY | 2019-06-13 20:07 | XMS REPORT ---
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 Leader Name Role Phone Migration, Doctor Unavailable Unavailable PROBLEMS Type Condition ICD9-CM Code XMV24-CX Code Onset Dates Condition S tatus SNOMED Code Problem Diabetes E11.9 Active 092197756 Problem Essential (primary) hypertension I10 Active 68019118 Problem Sleep apnea G47.30 Active 68381747 Problem Schizophrenia F20.9 Active 920204 04 Problem DM neuro manif type II E11.49 Active 84683476 Problem Flat foot [pes planus] (acquired), unspecified foot M21.40 Active 53548625 Problem Chronic obstructive pulmonary disease, unspecified COPD ty pe J44.9 Active 79055410 Problem Chronic GERD K21.9 Active 1453022 09 Problem Anxiety F41.9 Active 67081886 Problem penitentiary (current) use of insulin Z79.4 Active 265782511 Problem Gastroesophageal reflux disease without esophagitis K21.9 Active 837991093 Problem Type 2 diabetes mellitus with other specified complication E11.69 Active 22455843 Problem Mixed hyperlipidemia E78.2 Active 955404813 Problem Constipation, unspecified constipation type K59.00 Active 04740611 Problem Uncontrolled type 2 diabetes mellitus with hyperglycemia E11.65 Active 609697206 Problem Atopic dermatitis, unspecified type L20.9 Active 70903564 Problem Acute gout of right foot, unspecified cause M10.9 Active 155363484 ALLERGIES No Information ENCOUNTERS Encounter Location Date Diagnosis [facility] [address] [facility] [id number] [address] [place] [phone] Jul, [facility] [address] [facility] [id number] [address] [place] [phone] Apr, Mixed hyperlipidemia E78.2 [facility] [address] [facility] [id number] [address] [place] [id number] Apr, Diabetes E11.9 [facility] [address] [address] [address] 16 Apr, 2019 Diabetes E11.9 and Essential (primary) hypertension I10 [place] [address] [address] [place] [id number] 11 Apr, 2019 Essential (primary) hyperten ana I10 [place] [address] [address] 05 Apr, 2019 Essential (primary) hyperten ana I10 and Diabetes E11.9 [place] [address] [address] 03 Apr, 2019 Mouth pain K13.79 [place] [address] 02 Apr, 2019 Dental examination Z01.[address] [address] 02 Apr, 2019 Type 2 diabetes mellitus wit h other specified complication E11.69 ; long 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 care 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 insulin Z79.4 and Mouth pain K13.79 [place] [address] [address] 27 Mar, 2019 Diabetes E11.9 ; Essential ( primary) hypertension I10 ; Mixed hyperlipidemia E78.2 and Dysuria R30.0 [place] [address] [address] 24 Mar, 2019 Diabetes E11.9 [facility] [address] [address] 15 Mar, 2019 Abscess L02.91 [facility] [address] [address] 13 Mar, 2019 Abscess L02.91 [place] [address] [address] 13 Mar, 2019 [facility] [place] [address] [address] 10 Mar, 2019 Abscess L02.91 and Mouth radhika n K13.79 [facility] [address] [facility] [id number] [address] [place] [phone] Feb, Diabetes E11.9 [facility] [address] [facility] [id number] [address] [place] [phone] Feb, [facility] [address] [place] [id number] [place] [phone] Feb, Diabetes E11.9 [facility] [address] [facility] [id number] [address] [place] [phone] Jan, [facility] [address] [address] Dec, Diabetes E11.9 and DM neuro manif type II E11.49 [place] [address] [address] Dec, Diabetes E11.9 [facility] [address] [address] Dec, [facility] [address] [place] [id number] [place] [id number] Dec, Dental examination Z01.20 an d Caries K02.9 [facility] [address] [address] 31 Nov, 2018 [place] [address] [address] Nov, Hyperglycemia R73.9 and Diab etes E11.9 [facility] [id number] [place] [address] 14 Nov, 2018 [place] [address] [address] Oct, Diabetes E11.9 ; Hyperglycem ia R73.9 ; Essential (primary) hypertension I10 ; Tobacco abuse Z72.0 ; Schizophrenia F20.9 and Encounter for immunization Z23 [place] [address] [place] [id number] [address] [place] [phone] Oct, [facility] [address] [id number] [address] [place] [phone] Oct, Hyperglycemia R73.9 and Diab etes E11.9 [facility] [address] [id number] [address] [place] [phone] Sep, [facility] [address] [facility] [id number] [address] [place] [phone] Sep, [facility] [address] [id number] [address] [place] [id number] Sep, Diabetes E11.9 ; Hyperglycem ia R73.9 and Morbid obesity E66.01 [facility] [address] [id number] [address] [place] [address] Sep, Hyperglycemia R73.9 [facility] [address] [facility] [id number] [address] [place] [phone] Sep, Diabetes E11.9 [facility] [address] [id number] [address] [place] [phone] Aug, Diabetes E11.9 [facility] [address] [facility] [id number] [address] [place] [phone] Aug, Hyperglycemia R73.9 [facility] [address] [facility] [id number] [address] [place] [id number] Jul, [facility] [address] [facility] [id number] [address] [place] [address] Jul, Acute gout of right foot, un specified cause M10.9 and Hyperglycemia R73.9 [facility] [address] [facility] [id number] [address] [place] [phone] June, [facility] [address] [facility] [id number] [address] [place] [phone] June, [facility] [address] [facility] [id number] [address] [place] [address] May, Mouth pain K13.79 ; Diabetes E11.9 ; Hyperglycemia R73.9 and Morbid obesity E66.01 [place] [address] [address] Apr, Diabetes E11.9 [facility] [address] [address] 16 Mar, 2018 Mouth pain K13.79 and Dental caries K02.9 [place] [address] [address] 14 Mar, 2018 Chondromalacia of right knee M94.261 [facility] [address] [address] 01 Mar, 2018 Atopic dermatitis, unspecifi ed type L20.9 and BMI 45.0- 49.9, adult Z68.42 [place] [address] [address] Feb, [place] [address] [address] Feb, [place] [address] [address] Feb, Diabetes E11.9 and DM neuro manif type II E11.49 [place] [address] [address] Jan, Mixed hyperlipidemia E78.2 [place] [address] [address] Jan, Diabetes E11.9 and BMI 45.0- 49.9, adult Z68.42 [place] [address] [address] Jan, Chondromalacia of right knee M94.261 and Sprain of anterior cruciate ligament of right knee, initial encounter S83.511A [place] [address] [address] Jan, [facility] [address] [place] [address] Dec, [facility] [address] [address] Dec, [facility] [address] [place] [id number] [address] [place] [address] Nov, [facility] [address] [address] Nov, [facility] [address] [address] Nov, Injury of right knee, initia l encounter S89.91XA and BMI 45.0-49.9, adult Z68.42 [facility] [address] [address] Nov, Right knee pain M25.561 and BMI 45.0-49.9, adult Z68.42 [facility] [address] [place] [id number] [address] [place] [address] Oct, [facility] [address] [address] Sep, [place] [address] [address] Sep, Diabetes E11.9 and Arthralgi a, unspecified joint M25.50 [facility] [address] [place] [id number] [address] [place] [address] Sep, Anxiety F41.9 and Hyperglyce mars R73.9 [facility] [address] [place] [id number] [address] [place] [address] Sep, DM neuro manif type II E11.4 9 ; Hyperglycemia R73.9 and Uncontrolled type 2 diabetes mellitus with hyperglycemia E11.65 [facility] [address] [place] [id number] [place] [address] Sep, Anxiety F41.9 ; DM neuro man if type II E11.49 and Hyperglycemia R73.9 [facility] [address] [place] [id number] [address] [place] [phone] Sep, [facility] [address] [place] [id number] [address] [place] [phone] Aug, [facility] [address] [place] [id number] [place] [address] Aug, [facility] [address] [place] [id number] [place] [address] Jul, Constipation, unspecified co nstipation type K59.00 [place] [address] [address] Jul, Hyperglycemia R73.9 [place] [address] [place] [id number] [place] [address] June, Essential (primary) hyperten ana I10 [place] [address] [address] May, Essential (primary) hyperten ana I10 [place] [address] [address] May, Mixed hyperlipidemia E78.2 [place] [address] [address] May, Diabetes E11.9 [place] [address] [place] [id number] [place] [address] May, Diabetes E11.9 ; Hyperglycem ia R73.9 ; Pain in right knee M25.561 ; Pain in left knee M25.562 and BMI 45.0-49.9, adult Z68.42 [place] [address] [place] [id number] [place] [address] Apr, [place] [address] [address] Mar, [place] [address] [id number] [address] [place] [phone] Feb, DM neuro manif type II E11.4 9 [facility] [address] [id number] [address] [place] [address] Feb, DM neuro manif type II E11.4 9 [facility] [address] [id number] [address] [place] [phone] Feb, DM neuro manif type II E11.4 9 [facility] [address] [id number] [address] [place] [address] Feb, Diabetes E11.9 [facility] [address] [facility] [id number] [address] [place] [address] Feb, Fatigue, unspecified type R5 3.83 [facility] [address] [facility] [id number] [address] [place] [id number] Jan, Fatigue, unspecified type R5 3.83 [facility] [address] [id number] [address] [place] [phone] Dec, [facility] [address] [facility] [id number] [address] [place] [address] Dec, Onychomycosis B35.1 and Ingr owing nail L60.0 [facility] [address] [facility] [id number] [address] [place] [address] Dec, DM neuro manif type II E11.4 9 and Diabetes E11.9 [facility] [address] [id number] [address] [place] [phone] 07 Dec, 2016 DM neuro manif type II E11.4 9 [facility] [address] [id number] [address] [place] [phone] Nov, Diabetes E11.9 [facility] [address] [facility] [id number] [address] [place] [address] 18 Nov, 2016 Diabetes E11.9 and Ingrown n ail L60.0 [facility] [address] [id number] [address] [place] [address] 11 Oct, 2016 Anxiety F41.9 [facility] [address] [id number] [address] [place] [id number] 06 Oct, 2016 Diabetes E11.9 and Anxiety F 41.9 [facility] [address] [id number] [address] [place] [phone] Sep, [facility] [address] [id number] [address] [place] [address] Sep, Diabetes E11.9 and DM neuro manif type II E11.49 [facility] [address] [id number] [address] [place] [address] Sep, [facility] [address] [id number] [address] [place] [address] Aug, Diabetes E11.9 and Anxiety F 41.9 [facility] [address] [id number] [address] [place] [address] Aug, DM neuro manif type II E11.4 9 [facility] [address] [id number] [address] [place] [id number] Jul, Dental examination Z01.20 [facility] [address] [id number] [address] [place] [address] Jul, Dental examination Z01.20 [facility] [address] [id number] [address] [place] [phone] Jul, Diabetes E11.9 and Abscessed tooth K04.7 [facility] [address] [id number] [address] [place] [address] [id number] June, [facility] [address] [id number] [address] [place] [phone] June, [facility] [address] [id number] [address] [place] [address] [id number] May, Dental examination Z01.20 [facility] [address] [id number] [address] [place] [phone] Apr, [facility] [address] [facility] [id number] [address] [place] [phone] Apr, DM neuro manif type II E11.4 9 [facility] [address] [facility] [id number] [address] [place] [phone] Apr, [facility] [address] [facility] [id number] [address] [place] [phone] Apr, Essential (primary) hyperten ana I10 [facility] [address] [facility] [id number] [address] [place] [phone] Apr, [facility] [address] [facility] [id number] [address] [place] [phone] Mar, Diabetes E11.9 [facility] [address] [facility] [id number] [address] [place] [phone] Mar, Diabetes E11.9 ; Mixed hyper lipidemia E78.2 ; Essential (primary) hypertension I10 and Hemorrhoids, unspecified hemorrhoid type K64.9 [facility] [address] [facility] [id number] [address] [place] [phone] Mar, [facility] [address] [facility] [id number] [address] [place] [phone] Mar, [facility] [address] [facility] [id number] [address] [place] [phone] Feb, Diabetes E11.9 [facility] [address] [facility] [id number] [address] [place] [phone] Feb, [facility] [address] [facility] [id number] [address] [place] [phone] Feb, [facility] [address] [facility] [id number] [address] [place] [phone] Feb, Essential (primary) hyperten ana I10 ; Mixed hyperlipidemia E78.2 ; Diabetes E11.9 ; Chronic obstructive pulmonary disease, unspecified COPD type J44.9 and Gastroesophageal reflux disease without esophagitis K21.9 [facility] [address] [facility] [id number] [address] [place] [id number] Feb, [facility] [address] [place] [id number] [place] [address] Jan, Essential (primary) hyperten ana I10 [facility] [address] [place] [id number] [place] [phone] Jan, Mixed hyperlipidemia E78.2 a nd Tobacco abuse Z72.0 [facility] [address] [place] [id number] [address] [place] [phone] Jan, [facility] [address] [address] Dec, [place] [address] [place] [id number] [place] [address] Dec, [facility] [address] [address] Dec, Diabetes E11.9 ; Encounter f or immunization Z23 and Tooth pain K08.89 [place] [address] [place] [id number] [address] [place] [address] Nov, [facility] [address] [place] [id number] [place] [address] Nov, [facility] [address] [place] [id number] [place] [phone] Oct, Essential (primary) hyperten ana I10 [facility] [address] [facility] [id number] [address] [place] [phone] Oct, [facility] [address] [place] [id number] [place] [address] Sep, [facility] [address] [place] [id number] [address] [place] [id number] Sep, Flat foot [pes planus] (acqu ired), left foot M21.42 ; Flat foot [pes planus] (acquired), right foot M21.41 and DM neuro manif type II E11.49 [facility] [address] [facility] [id number] [address] [place] [id number] Sep, Diabetes E11.9 [facility] [address] [facility] [id number] [address] [place] [phone] Aug, [facility] [address] [facility] [id number] [address] [place] [phone] Aug, [facility] [address] [facility] [id number] [address] [place] [id number] Jul, Essential (primary) hyperten ana I10 [place] [address] [place] [id number] [address] [place] [phone] June, [place] [address] [place] [id number] [place] [phone] June, Diabetes E11.9 [place] [address] [facility] [id number] [address] [place] [phone] June, Onychomycosis B35.1 and Nail ingrowing L60.0 [place] [address] [place] [id number] [address] [place] [address] June, Diabetes E11.9 ; Flat foot [ pes planus] (acquired), unspecified foot M21.40 and Ingrown toenail L60.0 [facility] [address] [facility] [id number] [address] [place] [phone] May, [facility] [address] [facility] [id number] [address] [place] [phone] May, Diabetes E11.9 [facility] [address] [place] [id number] [address] [place] [phone] Apr, Diabetes E11.9 and Schizophr enia F20.9 [facility] [address] [facility] [id number] [address] [place] [phone] Apr, [facility] [address] [place] [id number] [address] [place] [id number] 08 Apr, 2015 Diabetes E11.9 ; Schizophren ia F20.9 and Essential (primary) hypertension I10 [facility] [address] [place] [id number] [address] [place] [phone] Dec, [facility] [address] [place] [id number] [address] [place] [phone] Dec, mariselzCHJULIO CESAR [place] [id number] [place] [id number] [place] [id number] Nov, [facility] [address] [id number] [address] [place] [id number] Oct, Diabetes mellitus without me ntion of complication, type II or unspecified type, uncontrolled 250.02 and Flat feet, bilateral 734 [facility] [address] [id number] [address] [place] [phone] Oct, [facility] [address] [id number] [address] [place] [id number] Sep, [facility] [address] [id number] [address] [place] [phone] Jul, [facility] [address] [id number] June, [facility] [address] [id number] [address] [place] [phone] May, [facility] [address] [id number] [address] [place] [id number] May, [facility] [address] [id number] [address] [place] [id number] Apr, [facility] [address] [id number] [address] [place] [id number] Apr, [facility] [address] [id number] [address] [place] [id number] Apr, [facility] [address] [id number] [address] [place] [phone] Apr, [facility] [address] [id number] [address] [place] [address], [place] [id number] Apr, [facility] [address] [id number] [address] [place] [address], [place] [id number] Apr, [facility] [address] [id number] [address] [place] [address], [place] [id number] Feb, [facility] [address] [id number] [address] [place] [address], [place] [id number] Feb, [facility] [address] [id number] [address] [place] [address], [place] [id number] Jan, [facility] [address] [id number] [address] [place] [address], [place] [id number] Jan, [facility] [address] [id number] [address] [place] [address], [place] [id number] Jan, [facility] [address] [id number] [address] [place] [address], [place] [id number] Jan, [facility] [address] [id number] [address] [place] [address], [place] [id number] Dec, [facility] [address] [id number] [address] [place] [address], [place] [id number] Dec, [facility] [address] [id number] [address] [place] [address], [place] [id number] Dec, [facility] [address] [id number] [address] [place] [id number] Dec, [facility] [address] [id number] [address] [place] [address], [place] [id number] Nov, [facility] [address] [id number] [address] [place] [address], [place] [id number] Nov, [facility] [address] [id number] [address] [place] [address], [place] [id number] Nov, [facility] [address] [id number] [facility] [address] Nov, [facility] [address] [id number] [facility] [address] Oct, [facility] [address] [id number] [address] [place] [address], [place] [id number] Oct, [facility] [address] [id number] [address] [place] [address], [place] [id number] Oct, [facility] [address] [id number] [address] [place] [address], [place] [id number] Oct, [facility] [address] [id number] [address] [place] [address], [place] [id number] Oct, [facility] [address] [id number] [address] [place] [address], [place] [id number] Oct, [facility] [address] [id number] [address] [place] [address], [place] [id number] Sep, [facility] [address] [id number] [address] [place] [address], [place] [id number] Sep, [facility] [address] [id number] [address] [place] [address], [place] [id number] Sep, [facility] [address] [id number] [address] [place] [address], [place] [id number] Sep, [facility] [address] [id number] [address] [place] [address], [place] [id number] Sep, [facility] [address] [id number] [address] [place] [address], [place] [id number] Sep, [facility] [address] [id number] [address] [place] [address], [place] [id number] Sep, [facility] [address] [id number] [address] [place] [address], [place] [id number] Aug, [facility] [address] [id number] [address] [place] [address], [place] [id number] Aug, [facility] [address] [id number] [facility] [id number] Aug, 2013 [facility] [address] [id number] [address] [place] [address], [place] [id number] Aug, 2013 [facility] [address] [id number] [address] [place] [address], [place] [id number] Aug, 2013 [facility] [address] [id number] [address] [place] [address], [place] [id number] Aug, 2013 [facility] [address] [id number] [address] [place] [address], [place] [id number] Aug, 2013 [facility] [address] [id number] [address] [place] [address], [place] [id number] Aug, 2013 [facility] [address] [id number] [address] [place] [address], [place] [id number] Aug, [facility] [address] [id number] [address] [place] [address], [place] [id number] Aug, [facility] [address] [id number] [address] [place] [address], [place] [id number] Aug, [facility] [address] [id number] [address] [place] [address], [place] [id number] Aug, [facility] [address] [id number] [address] [place] [address], [place] [id number] Aug, [facility] [address] [id number] [address] [place] [address], [place] [id number] Aug, [facility] [address] [id number] [address] [place] [address], [place] [id number] Jul, [facility] [address] [id number] [address] [place] [address], [place] [id number] Jul, [facility] [address] [id number] [address] [place] [address], [place] [id number] Jul, [facility] [address] [id number] [address] [place] [address] [place] [id number] Jul, [facility] [address] [id number] [address] [place] [address], [place] [id number] May, [facility] [address] [id number] [address] [place] [address], [place] [id number] May, [facility] [address] [id number] [address] [place] [address], [place] [id number] Apr, [facility] [address] [id number] [address] [place] [address], [place] [id number] Apr, [facility] [address] [id number] [address] [place] [address], [place] [id number] Apr, [facility] [address] [id number] [address] [place] [address], [place] [id number] Apr, [facility] [address] [id number] [address] [place] [address], [place] [id number] Apr, [facility] [address] [id number] [address] [place] [address], [place] [id number] Apr, [facility] [address] [id number] [address] [place] [address], [place] [id number] Apr, [facility] [address] [id number] [address] [place] [address], [place] [id number] Feb, [facility] [address] [id number] [address] [place] [address], [place] [id number] Feb, [facility] [address] [id number] [address] [place] [address], [place] [id number] Feb, [facility] [address] [id number] [address] [place] [address], [place] [id number] Feb, [facility] [address] [id number] [address] [place] [address], [place] [id number] Dec, [facility] [address] [id number] [address] [place] [address], [place] [id number] Dec, [facility] [address] [id number] [address] [place] [address], [place] [id number] 06 Dec, 2012 [facility] [address] [id number] [address] [place] [address], [place] [id number] Dec, [facility] [address] [id number] [address] [place] [address], [place] [id number] 16 Nov, 2012 [facility] [address] [id number] [address] [place] [address], [place] [id number] 16 Nov, 2012 [facility] [address] [id number] [address] [place] [address], [place] [id number] 25 Oct, 2012 [facility] [address] [id number] [address] [place] [address], [place] [id number] 21 Oct, 2012 [facility] [address] [id number] [address] [place] [address], [place] [id number] 17 Oct, 2012 [facility] [address] [id number] [address] [place] [address], [place] [id number] 05 Oct, 2012 [facility] [address] [id number] [address] [place] [address], [place] [id number] Sep, [facility] [address] [id number] [address] [place] [address], [place] [id number] Sep, [facility] [address] [id number] [address] [place] [address], [place] [id number] Sep, [facility] [address] [id number] [address] [place] [address], [place] [id number] Aug, [facility] [address] [id number] [address] [place] [address], [place] [id number] Aug, [facility] [address] [id number] [address] [place] [address], [place] [id number] Jul, [facility] [address] [id number] [address] [place] [address], [place] [id number] Mar, [facility] [address] [id number] [address] [place] [address], [place] [id number] Feb, [facility] [address] [id number] [address] [place] [id number] Jan, [facility] [address] [id number] [address] [place] [id number] Jan, [facility] [address] [id number] [address] [place] [id number] Jan, [facility] [address] [id number] [address] [place] [id number] Jan, [facility] [address] [id number] [address] [place] [id number] Jan, [facility] [address] [id number] [address] [place] [id number] Jan, [facility] [address] [id number] [address] [place] [id number] Dec, [facility] [address] [id number] [address] [place] [id number] Dec, [facility] [address] [id number] [address] [place] [id number] Dec, [facility] [address] [id number] [address] [place] [id number] Dec, IMMUNIZATIONS No Known Immunizations SOCIAL HISTORY [...]
--- OUTSIDE RECORDS SUMMARY | 2019-06-13 20:07 | XMS REPORT ---
Author Author Doug WISE Organization [facility] Address [address] [place] [address] Care Team Providers Care Ssas Developer Name Role Phone SUSAN WISE Unavailable PROBLEMS Type Condition ICD9-CM Code CIH01-IR Code Onset Dates Condition S tatus SNOMED Code Problem Diabetes E11.9 Active 961953738 Problem Essential (primary) hypertension I10 Active 85830423 Problem Sleep apnea G47.30 Active 24736299 Problem Schizophrenia F20.9 Active 089781 04 Problem DM neuro manif type II E11.49 Active 43749273 Problem Flat foot [pes planus] (acquired), unspecified foot M21.40 Active 44156141 Problem Chronic obstructive pulmonary disease, unspecified COPD ty pe J44.9 Active 25523546 Problem Chronic GERD K21.9 Active 5244341 09 Problem Anxiety F41.9 Active 36204820 Problem skilled nursing (current) use of insulin Z79.4 Active 951095380 Problem Gastroesophageal reflux disease without esophagitis K21.9 Active 988387683 Problem Type 2 diabetes mellitus with other specified complication E11.69 Active 73376535 Problem Mixed hyperlipidemia E78.2 Active 650273005 Problem Constipation, unspecified constipation type K59.00 Active 63046849 Problem Uncontrolled type 2 diabetes mellitus with hyperglycemia E11.65 Active 973393766 Problem Atopic dermatitis, unspecified type L20.9 Active 07048319 Problem Acute gout of right foot, unspecified cause M10.9 Active 321520750 ALLERGIES No Information ENCOUNTERS Encounter Location Date Diagnosis [facility] [id number] [place] [address] Jul, [facility] [address] [id number] [place] [address] Apr, Diabetes E11.9 [facility] [address] [id number] [place] [address] 16 Apr, 2019 Diabetes E11.9 and Essential (primary) h ypertension I10 [place] [address] [address] 11 Apr, 2019 Essential (primary) hypertension I10 [place] [address] [address] [id number] 05 Apr, 2019 Essential (primary) hypertension I10 and Diabetes E11.9 [place] [address] [address] 03 Apr, 2019 Mouth pain K13.79 [place] [address] [address] 02 Apr, 2019 Dental examination Z01.20 [place] [address] [address] 02 Apr, 2019 Type 2 diabetes mellitus with other spec ified complication E11.69 ; 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 and Mouth pain K13.79 [place] [address] [address] 27 Mar, 2019 Diabetes E11.9 ; Essential (primary) hyp ertension I10 ; Mixed hyperlipidemia E78.2 and Dysuria R30.0 [place] [address] [address] 24 Mar, 2019 Diabetes E11.9 [facility] [address] [address] 15 Mar, 2019 Abscess L02.91 [facility] [address] [place] [address] 13 Mar, 2019 Abscess L02.91 [place] [address] [address] 13 Mar, 2019 [facility] [address] [address] 10 Mar, 2019 Abscess L02.91 and Mouth radhika n K13.79 [place] [address] [address] Feb, Diabetes E11.9 [facility] [id number] [place] [address] Feb, [facility] [address] [address] Feb, Diabetes E11.9 [facility] [address] [address] Jan, [facility] [address] [address] Dec, Diabetes E11.9 and DM neuro manif type I I E11.49 [place] [address] [address] Dec, Diabetes E11.9 [facility] [address] [address] Dec, [facility] [address] [id number] Dec, Dental examination Z01.20 and Caries K02 .9 [place] [id number] [place] [address] Nov, [place] [address] [address] Nov, Hyperglycemia R73.9 and Diabetes E11.9 [place] [address] [address] Nov, [facility] [address] [address] Oct, Diabetes E11.9 ; Hyperglycemia R73.9 ; E ssential (primary) hypertension I10 ; Tobacco abuse Z72.0 ; Schizophrenia F20.9 and Encounter for immunization Z23 [facility] [id number] [place] [address] Oct, [facility] [address] [address] Oct, Hyperglycemia R73.9 and Diabetes E11.9 [place] [id number] [place] [address] Sep, [facility] [address] [address] Sep, [facility] [address] [address] Sep, Diabetes E11.9 ; Hyperglycemia R73.9 and Morbid obesity E66.01 [facility] [address] [address] Sep, Hyperglycemia R73.9 [facility] [id number] [place] [address] Sep, Diabetes E11.9 [facility] [id number] [place] [address] Aug, Diabetes E11.9 [place] [address] [address] Aug, Hyperglycemia R73.9 [facility] [id number] [place] [address] Jul, [facility] [address] [address] Jul, Acute gout of right foot, unspecified ca use M10.9 and Hyperglycemia R73.9 [facility] [id number] [place] [address] June, [facility] [address] [address] June, [facility] [id number] [place] [address] May, Mouth pain K13.79 ; Diabetes E11.9 ; Hyp erglycemia R73.9 and Morbid obesity E66.01 [facility] [id number] [place] [address] Apr, Diabetes E11.9 [facility] [address] [facility] [id number] [address] [place] [address] 16 Mar, 2018 Mouth pain K13.79 and Dental caries K02.9 [facility] [address] [address] 14 Mar, 2018 Chondromalacia of right knee M94.261 [facility] [address] [facility] [id number] [address] [place] [address] Mar, Atopic dermatitis, unspecifi ed type L20.9 and BMI 45.0- 49.9, adult Z68.42 [facility] [address] [address] Feb, [place] [address] [address] Feb, [place] [address] [address] Feb, Diabetes E11.9 and DM neuro manif type I I E11.49 [place] [address] [address] Jan, Mixed hyperlipidemia E78.2 [place] [address] [address] Jan, Diabetes E11.9 and BMI 45.0-49.9, adult Z68.42 [place] [address] [address] Jan, Chondromalacia of right knee M94.261 and Sprain of anterior cruciate ligament of right knee, initial encounter S83.511A [facility] [address] [address] Jan, [place] [address] [address] Dec, [place] [address] [address] Dec, [facility] [address] [address] Nov, [place] [address] [address] [place] [address] Nov, [facility] [address] [address] Nov, Injury of right knee, initial encounter S89.91XA and BMI 45.0-49.9, adult Z68.42 [facility] [address] [facility] [id number] [address] [place] [address] 15 Nov, 2017 Right knee pain M25.561 and BMI 45.0-49.9, adult Z68.42 [facility] [address] [address] Oct, [place] [address] [address] Sep, [place] [address] [address] Sep, Diabetes E11.9 and Arthralgia, unspecifi ed joint M25.50 [place] [address] [address] Sep, Anxiety F41.9 and Hyperglycemia R73.9 [place] [address] [address] Sep, DM neuro manif type II E11.49 ; Hypergly cemia R73.9 and Uncontrolled type 2 diabetes mellitus with hyperglycemia E11.65 [place] [address] [address] Sep, Anxiety F41.9 ; DM neuro manif type II E 11.49 and Hyperglycemia R73.9 [place] [address] [address] Sep, [place] [address] [address] Aug, [place] [address] [address] Aug, [place] [address] [address] Jul, Constipation, unspecified constipation t ype K59.00 [place] [address] [address] Jul, Hyperglycemia R73.9 [facility] [address] [address] June, Essential (primary) hypertension I10 [place] [address] [address] May, Essential (primary) hypertension I10 [place] [address] [address] May, Mixed hyperlipidemia E78.2 [place] [address] [address] May, Diabetes E11.9 [place] [address] [address] May, Diabetes E11.9 ; Hyperglycemia R73.9 ; P ain in right knee M25.561 ; Pain in left knee M25.562 and BMI 45.0-49.9, adult Z68.42 [place] [address] [address] Apr, [place] [address] [address] Mar, [place] [address] [address] Feb, DM neuro manif type II E11.49 [place] [address] [address] Feb, DM neuro manif type II E11.49 [place] [address] [address] Feb, DM neuro manif type II E11.49 [place] [address] [address] Feb, Diabetes E11.9 [facility] [address] [address] Feb, Fatigue, unspecified type R53.83 [place] [address] [address] Jan, Fatigue, unspecified type R53.83 [place] [address] [address] Dec, [place] [address] [address] Dec, Onychomycosis B35.1 and Ingrowing nail L 60.0 [place] [address] [address] Dec, DM neuro manif type II E11.49 and Diabet es E11.9 [place] [address] [address] Dec, DM neuro manif type II E11.49 [place] [address] [address] Nov, Diabetes E11.9 [place] [address] [address] Nov, Diabetes E11.9 and Ingrown nail L60.0 [place] [address] [address] Oct, Anxiety F41.[address] [address] Oct, Diabetes E11.9 and Anxiety F41.9 [place] [address] [address] Sep, [address] [address] Sep, Diabetes E11.9 and DM neuro manif type I I E11.49 [place] [address] [address] Sep, [place] [address] [address] Aug, Diabetes E11.9 and Anxiety F41.9 [facility] [address] [address] Aug, DM neuro manif type II E11.49 [facility] [address] [id number] Jul, Dental examination Z01.20 [facility] [address] [address] Jul, Dental examination Z01.20 [facility] [address] [address] Jul, Diabetes E11.9 and Abscessed tooth K04.7 [facility] [address] [id number] June, [facility] [address] [id number] June, [facility] [address] [id number] May, Dental examination Z01.20 [facility] [address] [address] Apr, [facility] [address] [address] Apr, DM neuro manif type II E11.49 [facility] [address] [address] Apr, [facility] [address] [address] Apr, Essential (primary) hypertension I10 [facility] [address] [address] Apr, [facility] [address] [place] [address] Mar, Diabetes E11.9 [facility] [address] [address] Mar, Diabetes E11.9 ; Mixed hyperlipidemia E7 8.2 ; Essential (primary) hypertension I10 and Hemorrhoids, unspecified hemorrhoid type K64.9 [place] [address] [address] Mar, [facility] [address] [address] Mar, [facility] [address] [address] Feb, Diabetes E11.9 [place] [address] [address] Feb, [place] [address] [address] Feb, [place] [address] [address] Feb, Essential (primary) hypertension I10 ; M ixed hyperlipidemia E78.2 ; Diabetes E11.9 ; Chronic obstructive pulmonary disease, unspecified COPD type J44.9 and Gastroesophageal reflux disease without esophagitis K21.9 [place] [address] [address] Feb, [place] [address] [address] Jan, Essential (primary) hypertension I10 [place] [address] [address] Jan, Mixed hyperlipidemia E78.2 and Tobacco a buse Z72.0 [place] [address] [address] Jan, [place] [address] [address] Dec, [place] [address] [address] Dec, [place] [address] [address] Dec, Diabetes E11.9 ; Encounter for immunizat ion Z23 and Tooth pain K08.89 [place] [address] [address] 14 Nov, 2015 [place] [address] [address] Nov, [place] [address] [address] Oct, Essential (primary) hypertension I10 [place] [address] [address] Oct, [place] [address] [address] Sep, [place] [address] [address] Sep, Flat foot [pes planus] (acquired), left foot M21.42 ; Flat foot [pes planus] (acquired), right foot M21.41 and DM neuro manif type II E11.49 [place] [address] [address] Sep, Diabetes E11.9 [place] [address] [address] Aug, [place] [address] [address] Aug, [place] [address] [address] Jul, Essential (primary) hypertension I10 [place] [address] [address] June, [place] [address] [address] June, Diabetes E11.9 [place] [address] [address] June, Onychomycosis B35.1 and Nail ingrowing L 60.0 [place] [address] [address] June, Diabetes E11.9 ; Flat foot [pes planus] (acquired), unspecified foot M21.40 and Ingrown toenail L60.0 [place] [address] [address] May, [place] [address] [address] May, Diabetes E11.9 [place] [address] [address] Apr, Diabetes E11.9 and Schizophrenia F20.9 [place] [address] [address] Apr, [place] [address] [address] Apr, Diabetes E11.9 ; Schizophrenia F20.9 and Essential (primary) hypertension I10 [place] [address] [address] Dec, [place] [address] [address] Dec, [facility] [address] [facility] [id number] [place] [id number] Nov, [place] [address] [address] Oct, Diabetes mellitus without mention of com plication, type II or unspecified type, uncontrolled 250.02 and Flat feet, bilateral 734 [place] [address] [address] Oct, [place] [address] [address] Sep, [place] [address] [address] Jul, [place] [address] [address] June, [place] [address] [id number] [place] [address] 14 May, 2014 [facility] [address] [id number] [place] [address] 13 May, 2014 [facility] [address] [id number] [place] [address] 18 Apr, 2014 [facility] [address] [id number] [place] [address] 18 Apr, 2014 [facility] [address] [id number] [place] [address] 13 Apr, 2014 [facility] [address] [id number] [place] [address] 13 Apr, 2014 [facility] [address] [id number] [place] [address] 12 Apr, 2014 [facility] [address] [id number] [place] [address] Apr, [facility] [address] [id number] [place] [address] Feb, [facility] [address] [id number] [place] [address] Feb, [facility] [address] [id number] [place] [address] Jan, [facility] [address] [id number] [place] [address] 31 Jan, 2014 [facility] [address] [id number] [place] [address] Jan, [facility] [address] [id number] [place] [address] Jan, [facility] [address] [id number] [place] [address] Dec, [facility] [address] [id number] [place] [address] Dec, [facility] [address] [id number] [place] [address] Dec, [facility] [address] [facility] [id number] [place] [address] Dec, [facility] [address] [facility] [id number] [place] [address] Nov, [facility] [address] [id number] [place] [address] Nov, [facility] [address] [id number] [place] [address] Nov, [facility] [address] [facility] [id number] [place] [address] Nov, [facility] [address] [id number] [place] [address] Oct, [facility] [address] [id number] [place] [address] Oct, [facility] [address] [id number] [place] [address] Oct, [facility] [address] [id number] [place] [address] Oct, [facility] [address] [id number] [place] [address] Oct, [facility] [address] [id number] [place] [address] Oct, [facility] [address] [id number] [place] [address] Sep, [facility] [address] [id number] [place] [address] Sep, [facility] [address] [id number] [place] [address] Sep, [facility] [address] [id number] [place] [address] Sep, [facility] [address] [id number] [place] [address] Sep, [facility] [address] [id number] [place] [address] Sep, 2013 [facility] [address] [id number] [place] [address] Sep, [facility] [address] [facility] [id number] [place] [address] Aug, [facility] [address] [facility] [id number] [place] [address] Aug, [facility] [address] [facility] [id number] [place] [address] Aug, [facility] [address] [facility] [id number] [place] [address] Aug, [facility] [address] [facility] [id number] [place] [address] Aug, [facility] [address] [id number] [place] [address] Aug, 2013 [facility] [address] [id number] [place] [address] Aug, 2013 [facility] [address] [facility] [id number] [place] [address] Aug, 2013 [facility] [address] [id number] [place] [address] Aug, [facility] [address] [id number] [place] [address] Aug, 2013 [facility] [address] [facility] [id number] [place] [address] Aug, 2013 [facility] [address] [id number] [place] [id number] Aug, 2013 [facility] [address] [facility] [id number] [place] [address] Aug, [facility] [address] [facility] [id number] [place] [address] Aug, [facility] [address] [id number] [place] [address] Jul, [facility] [address] [facility] [id number] [place] [address] Jul, [facility] [address] [facility] [id number] [place] [address] Jul, [facility] [address] [id number] [place] [address] Jul, [facility] [address] [id number] [place] [address] May, [facility] [address] [id number] [place] [address] May, [facility] [address] [id number] [place] [address] Apr, [facility] [address] [id number] [place] [address] Apr, [facility] [address] [id number] [place] [address] Apr, [facility] [address] [id number] [place] [address] Apr, [facility] [address] [id number] [place] [address] Apr, [facility] [address] [id number] [place] [address] Apr, [facility] [address] [id number] [place] [address] Apr, [facility] [address] [id number] [place] [address] Feb, [facility] [address] [id number] [place] [address] Feb, [facility] [address] [id number] [place] [address] Feb, [facility] [address] [id number] [place] [address] Feb, [facility] [address] [id number] [place] [address] Dec, [facility] [address] [id number] [place] [address] Dec, [facility] [address] [id number] [place] [address] Dec, [facility] [address] [id number] [place] [address] Dec, [facility] [address] [id number] [place] [address] Nov, [facility] [address] [id number] [place] [address] Nov, [facility] [address] [id number] [place] [address] Oct, [facility] [address] [id number] [place] [address] Oct, [facility] [address] [id number] [place] [address] Oct, [facility] [address] [id number] [place] [address] Oct, [facility] [address] [id number] [place] [address] Sep, [facility] [address] [id number] [place] [address] Sep, [facility] [address] [id number] [place] [address] Sep, [facility] [address] [id number] [place] [address] Aug, [facility] [address] [id number] [place] [address] Aug, [facility] [address] [id number] [place] [address] Jul, [facility] [address] [id number] [place] [address] Mar, [facility] [address] [id number] [place] [address] Feb, [facility] [address] [id number] [place] [address] Jan, [facility] [address] [id number] [place] [address] Jan, [facility] [address] [id number] [place] [address] Jan, [facility] [id number] [place] [address] Jan, [facility] [address] [id number] [place] [address] Jan, [facility] [address] [id number] [place] [address] Jan, [facility] [address] [id number] [place], [place] [address] Dec, [facility] [address] [id number] [place] [address] Dec, [facility] [address] [id number] [place] [address] Dec, [facility] [address] [id number] [place] [address] Dec, IMMUNIZATIONS No Known Immunizations SOCIAL HISTORY [...]
--- OUTSIDE RECORDS SUMMARY | 2019-06-13 20:07 | XMS REPORT ---
Author Author Doug WISE Organization [facility] Address [address] [place] [address] Care Team Providers Care [employer] P[employer] Dispatcher Name Role Phone SUSAN WISE Unavailable PROBLEMS Type Condition ICD9-CM Code PIE06-SL Code Onset Dates Condition S tatus SNOMED Code Problem Diabetes E11.9 Active 996571240 Problem Essential (primary) hypertension I10 Active 35640074 Problem Sleep apnea G47.30 Active 66014603 Problem Schizophrenia F20.9 Active 909897 04 Problem DM neuro manif type II E11.49 Active 99134021 Problem Flat foot [pes planus] (acquired), unspecified foot M21.40 Active 98459917 Problem Chronic obstructive pulmonary disease, unspecified COPD ty pe J44.9 Active 98661536 Problem Chronic GERD K21.9 Active 9988981 09 Problem Anxiety F41.9 Active 61883573 Problem prison (current) use of insulin Z79.4 Active 321429194 Problem Gastroesophageal reflux disease without esophagitis K21.9 Active 762877605 Problem Type 2 diabetes mellitus with other specified complication E11.69 Active 15520091 Problem Mixed hyperlipidemia E78.2 Active 368972238 Problem Constipation, unspecified constipation type K59.00 Active 91271648 Problem Uncontrolled type 2 diabetes mellitus with hyperglycemia E11.65 Active 792500994 Problem Atopic dermatitis, unspecified type L20.9 Active 70217358 Problem Acute gout of right foot, unspecified cause M10.9 Active 980153890 ALLERGIES No Information ENCOUNTERS Encounter Location Date Diagnosis [facility] [address] [facility] [id number] [address] [place] [address] Jul, [facility] [address] [facility] [id number] [address] [place] [address] Apr, Mixed hyperlipidemia E78.2 [facility] [address] [facility] [id number] [address] [place] [id number] 19 Apr, 2019 Diabetes E11.9 [place] [address] 16 Apr, 2019 Diabetes E11.9 and Essential (primary) hypertension I10 [place] [address] [address] 11 Apr, 2019 Essential (primary) hyperten ana I10 [place] [address] [address] 05 Apr, 2019 Essential (primary) hyperten ana I10 and Diabetes E11.9 [place] [address] 03 Apr, 2019 Mouth pain K13.79 [place] [address] [address] 02 Apr, 2019 Dental examination Z01.[address] [address] 02 Apr, 2019 Type 2 diabetes mellitus wit h other specified complication E11.69 ; prison (current) use of insulin Z79.4 and Mouth pain K13.79 [place] [address] [address] 27 Mar, 2019 Diabetes E11.9 ; Essential ( primary) hypertension I10 ; Mixed hyperlipidemia E78.2 and Dysuria R30.0 [place] [address] [address] 24 Mar, [address] [facility] [address] [address] 15 Mar, 2019 Abscess L02.91 [facility] [place] [address] [address] 13 Mar, 2019 Abscess L02.91 [place] [address] [address] Mar, [facility] [address] [facility] [id number] [address] [place] [address] 10 Mar, 2019 Abscess L02.91 and Mouth radhika n K13.79 [facility] [address] [facility] [id number] [address] [place] [address] Feb, Diabetes E11.9 [facility] [address] [place] [id number] [address] [place] [phone] Feb, [facility] [address] [place] [address] Feb, Diabetes E11.9 [facility] [address] [facility] [id number] [address] [place] [address] Jan, [facility] [address] [address] Dec, Diabetes E11.9 and DM neuro manif type II E11.49 [facility] [address] [place] [id number] [address] [place] [address] Dec, Diabetes E11.9 [facility] [address] [place] [address] 15 Dec, 2018 [facility] [address] [place] [id number] [address] [place] [id number] 04 Dec, 2018 Dental examination Z01.20 an d Caries K02.9 [facility] [address] [place] [address] Nov, [facility] [address] [place] [id number] [address] [place] [address] Nov, Hyperglycemia R73.9 and Diab etes E11.9 [facility] [address] [place] [address] 14 Nov, 2018 [facility] [address] [place] [id number] [address] [place] [address] Oct, Diabetes E11.9 ; Hyperglycem ia R73.9 ; Essential (primary) hypertension I10 ; Tobacco abuse Z72.0 ; Schizophrenia F20.9 and Encounter for immunization Z23 [facility] [address] [facility] [id number] [address] [place] [address] Oct, [facility] [address] [facility] [id number] [address] [place] [address] Oct, Hyperglycemia R73.9 and Diab etes E11.9 [facility] [address] [facility] [id number] [address] [place] [address] Sep, [facility] [address] [facility] [id number] [address] [place] [address] Sep, [facility] [address] [facility] [id number] [address] [place] [address] Sep, Diabetes E11.9 ; Hyperglycem ia R73.9 and Morbid obesity E66.01 [facility] [address] [facility] [id number] [address] [place] [address] Sep, Hyperglycemia R73.9 [facility] [address] [facility] [id number] [address] [place] [address] Sep, Diabetes E11.9 [facility] [address] [facility] [id number] [address] [place] [address] Aug, Diabetes E11.9 [facility] [address] [facility] [id number] [address] [place] [address] Aug, Hyperglycemia R73.9 [facility] [address] [facility] [id number] [address] [place] [address] Jul, [facility] [address] [facility] [id number] [address] [place] [address] Jul, Acute gout of right foot, un specified cause M10.9 and Hyperglycemia R73.9 [facility] [address] [facility] [id number] [address] [place] [address] June, [facility] [address] [facility] [id number] [address] [place] [address] June, [place] [address] [facility] [id number] [address] [place] [address] May, Mouth pain K13.79 ; Diabetes E11.9 ; Hyperglycemia R73.9 and Morbid obesity E66.01 [place] [address] [facility] [id number] [address] [place] [address] Apr, Diabetes E11.9 [facility] [address] [place] [id number] [place] [id number] 16 Mar, 2018 Mouth pain K13.79 and Dental caries K02.9 [place] [address] [place] [id number] [place] [address] 14 Mar, 2018 Chondromalacia of right knee M94.261 [facility] [place] [address] [place] [id number] [place] [address] Mar, Atopic dermatitis, unspecifi ed type L20.9 and BMI 45.0- 49.9, adult Z68.42 [place] [address] [address] Feb, [place] [address] [address] Feb, [place] [address] [address] Feb, Diabetes E11.9 and DM neuro manif type II E11.49 [place] [address] [address] Jan, Mixed hyperlipidemia E78.2 [place] [address] [place] [id number] [place] [address] Jan, Diabetes E11.9 and BMI 45.0- 49.9, adult Z68.42 [place] [address] [place] [id number] [address] [place] [address] 06 Jan, 2018 Chondromalacia of right knee M94.261 and Sprain of anterior cruciate ligament of right knee, initial encounter S83.511A [facility] [address] [facility] [id number] [address] [place] [address] Jan, [facility] [address] [address] Dec, [facility] [address] [place] [id number] [place] [address] Dec, [facility] [address] [address] Nov, [facility] [address] [place] [id number] [address] [place] [address] Nov, [place] [address] [address] Nov, Injury of right knee, initia l encounter S89.91XA and BMI 45.0-49.9, adult Z68.42 [facility] [address] [place] [id number] [address] [place] [address] Nov, Right knee pain M25.561 and BMI 45.0-49.9, adult Z68.42 [place] [address] [place] [id number] [address] [place] [address] Oct, [facility] [address] [place] [address] Sep, [place] [address] [place] [id number] [address] [place] [address] Sep, Diabetes E11.9 and Arthralgi a, unspecified joint M25.50 [facility] [address] [place] [id number] [address] [place] [address] Sep, Anxiety F41.9 and Hyperglyce mars R73.9 [facility] [address] [facility] [id number] [address] [place] [address] Sep, DM neuro manif type II E11.4 9 ; Hyperglycemia R73.9 and Uncontrolled type 2 diabetes mellitus with hyperglycemia E11.65 [place] [address] [address] Sep, Anxiety F41.9 ; DM neuro man if type II E11.49 and Hyperglycemia R73.9 [place] [address] [address] Sep, [facility] [address] [address] Aug, [place] [address] [address] Aug, [place] [address] [address] Jul, Constipation, unspecified co nstipation type K59.00 [place] [address] [address] Jul, Hyperglycemia R73.9 [place] [address] [address] June, Essential (primary) hyperten ana I10 [place] [address] [address] May, Essential (primary) hyperten ana I10 [place] [address] [address] May, Mixed hyperlipidemia E78.2 [place] [address] [address] May, Diabetes E11.9 [place] [address] [address] May, Diabetes E11.9 ; Hyperglycem ia R73.9 ; Pain in right knee M25.561 ; Pain in left knee M25.562 and BMI 45.0-49.9, adult Z68.42 [place] [address] [address] Apr, [place] [address] [place] [id number] [address] [place] [address] Mar, [facility] [address] [facility] [id number] [address] [place] [address] Feb, DM neuro manif type II E11.4 9 [facility] [address] [facility] [id number] [address] [place] [address] Feb, DM neuro manif type II E11.4 9 [facility] [address] [facility] [id number] [address] [place] [address] Feb, DM neuro manif type II E11.4 9 [facility] [address] [facility] [id number] [address] [place] [address] Feb, Diabetes E11.9 [place] [address] [place] [id number] [address] [place] [address] Feb, Fatigue, unspecified type R5 3.83 [place] [address] [facility] [id number] [address] [place] [address] Jan, Fatigue, unspecified type R5 3.83 [facility] [address] [facility] [id number] [address] [place] [address] Dec, [place] [address] [place] [id number] [address] [place] [address] Dec, Onychomycosis B35.1 and Ingr owing nail L60.0 [facility] [address] [facility] [id number] [address] [place] [address] 14 Dec, 2016 DM neuro manif type II E11.4 9 and Diabetes E11.9 [facility] [address] [facility] [id number] [address] [place] [address] Dec, DM neuro manif type II E11.4 9 [facility] [address] [facility] [id number] [address] [place] [address] Nov, Diabetes E11.9 [facility] [address] [place] [id number] [address] [place] [address] Nov, Diabetes E11.9 and Ingrown n ail L60.0 [facility] [address] [id number] [address] [place] [address] Oct, Anxiety F41.9 [facility] [address] [id number] [address] [place] [address] 06 Oct, 2016 Diabetes E11.9 and Anxiety F 41.9 [facility] [address] [id number] [address] [place] [address] Sep, [facility] [address] [id number] [address] [place] [address] Sep, Diabetes E11.9 and DM neuro manif type II E11.49 [facility] [address] [id number] [address] [place] [address] Sep, [facility] [address] [id number] [address] [place] [address] Aug, Diabetes E11.9 and Anxiety F 41.9 [facility] [address] [id number] [address] [place] [address] Aug, DM neuro manif type II E11.4 9 [facility] [id number] [place] [id number] Jul, Dental examination Z01.20 [facility] [address] [id number] [address] [place] [address] Jul, Dental examination Z01.20 [facility] [address] [id number] [address] [place] [address] Jul, Diabetes E11.9 and Abscessed tooth K04.7 [facility] [address] [id number] [address] [place] [address] [id number] June, [facility] [address] [id number] [address] [place] [id number] June, [facility] [address] [id number] [address] [place] [address] [id number] May, Dental examination Z01.20 [facility] [address] [facility] [id number] [address] [place] [address] Apr, [facility] [address] [facility] [id number] [address] [place] [address] Apr, DM neuro manif type II E11.4 9 [facility] [address] [facility] [id number] [address] [place] [address] Apr, [facility] [address] [facility] [id number] [address] [place] [address] Apr, Essential (primary) hyperten ana I10 [facility] [address] [facility] [id number] [address] [place] [address] Apr, [facility] [address] [facility] [id number] [address] [place] [address] Mar, Diabetes E11.9 [facility] [address] [place] [id number] [address] [place] [address] Mar, Diabetes E11.9 ; Mixed hyper lipidemia E78.2 ; Essential (primary) hypertension I10 and Hemorrhoids, unspecified hemorrhoid type K64.9 [facility] [address] [facility] [id number] [address] [place] [address] Mar, [facility] [address] [place] [id number] [address] [place] [address] Mar, [facility] [address] [facility] [id number] [address] [place] [address] Feb, Diabetes E11.9 [facility] [address] [facility] [id number] [address] [place] [address] Feb, [facility] [address] [facility] [id number] [address] [place] [address] Feb, [facility] [address] [facility] [id number] [address] [place] [address] Feb, Essential (primary) hyperten ana I10 ; Mixed hyperlipidemia E78.2 ; Diabetes E11.9 ; Chronic obstructive pulmonary disease, unspecified COPD type J44.9 and Gastroesophageal reflux disease without esophagitis K21.9 [facility] [address] [place] [id number] [place] [address] Feb, [facility] [address] [place] [id number] [address] [place] [address] Jan, Essential (primary) hyperten ana I10 [place] [address] [place] [id number] [place] [address] Jan, Mixed hyperlipidemia E78.2 a nd Tobacco abuse Z72.0 [place] [address] [address] Jan, [place] [address] [address] Dec, [place] [address] [address] Dec, [place] [address] [address] Dec, Diabetes E11.9 ; Encounter f or immunization Z23 and Tooth pain K08.89 [place] [address] [place] [id number] [address] [place] [address] Nov, [place] [address] [address] Nov, [facility] [address] [place] [id number] [place] [address] Oct, Essential (primary) hyperten ana I10 [facility] [address] [place] [id number] [address] [place] [phone] Oct, [facility] [address] [place] [id number] [address] [place] [address] Sep, [facility] [address] [place] [id number] [place] [address] Sep, Flat foot [pes planus] (acqu ired), left foot M21.42 ; Flat foot [pes planus] (acquired), right foot M21.41 and DM neuro manif type II E11.49 [place] [address] [place] [address] Sep, Diabetes E11.9 [place] [address] [place] [id number] [address] [place] [address] Aug, [place] [address] [address] Aug, [place] [address] [address] Jul, Essential (primary) hyperten ana I10 [place] [address] [address] June, [place] [address] [address] June, Diabetes E11.9 [place] [address] [address] June, Onychomycosis B35.1 and Nail ingrowing L60.0 [place] [address] [place] [id number] [place] [address] June, Diabetes E11.9 ; Flat foot [ pes planus] (acquired), unspecified foot M21.40 and Ingrown toenail L60.0 [place] [address] [place] [id number] [address] [place] [address] May, [place] [address] [address] May, Diabetes E11.9 [place] [address] [place] [id number] [address] [place] [address] Apr, Diabetes E11.9 and Schizophr enia F20.9 [place] [address] [place] [id number] [address] [place] [address] Apr, [facility] [address] [facility] [id number] [address] [place] [address] Apr, Diabetes E11.9 ; Schizophren ia F20.9 and Essential (primary) hypertension I10 [facility] [address] [place] [id number] [address] [place] [address] Dec, [facility] [address] [place] [id number] [address] [place] [address] Dec, [facility]o [place] [address] [facility] [id number] [place] [address] [id number] Nov, [facility] [address] [place] [id number] [address] [place] [address] Oct, Diabetes mellitus without me ntion of complication, type II or unspecified type, uncontrolled 250.02 and Flat feet, bilateral 734 [facility] [address] [place] [id number] [address] [place] [address] Oct, [facility] [address] [place] [id number] [address] [place] [address] Sep, [facility] [address] [place] [id number] [address] [place] [address] Jul, [facility] [address] [place] [id number] [address] [place] [address] June, [facility] [address] [place] [id number] [address] [place] [address] May, [facility] [address] [place] [id number] [address] [place] [address] May, [facility] [address] [place] [id number] [address] [place] [address] Apr, [facility] [address] [place] [id number] [address] [place] [address] Apr, [facility] [address] [place] [id number] [address] [place] [address] 13 Apr, 2014 [facility] [address] [id number] [address] [place] [address], [place] [address] 13 Apr, 2014 [facility] [address] [id number] [address] [place] [address], [place] [address] Apr, [facility] [address] [id number] [address] [place] [address], [place] [address] Apr, [facility] [address] [id number] [address] [place] [address], [place] [address] Feb, [facility] [address] [id number] [address] [place] [address], [place] [address] Feb, [facility] [address] [id number] [address] [place] [address], [place] [address] Jan, [facility] [address] [id number] [address] [place] [address], [place] [address] Jan, [facility] [address] [id number] [address] [place] [address], [place] [address] Jan, [facility] [address] [id number] [address] [place] [address], [place] [address] Jan, [facility] [address] [id number] [address] [place] [address], [place] [address] Dec, [facility] [address] [id number] [address] [place] [address], [place] [address] Dec, [facility] [address] [id number] [address] [place] [address], [place] [address] Dec, [facility] [address] [id number] [address] [place] [address], [place] [address] Dec, [facility] [address] [id number] [address] [place] [address], [place] [address] Nov, [facility] [address] [id number] [address] [place] [address], [place] [address] Nov, [facility] [address] [id number] [address] [place] [address], [place] [address] Nov, [facility] [address] [id number] [address] [place] [address], [place] [address] Nov, [facility] [address] [id number] [address] [place] [address], [place] [address] Oct, [facility] [address] [id number] [address] [place] [address], [place] [address] Oct, [facility] [address] [id number] [address] [place] [address], [place] [address] Oct, [facility] [address] [id number] [address] [place] [address], [place] [address] Oct, [facility] [address] [id number] [address] [place] [address], [place] [address] Oct, [facility] [address] [id number] [address] [place] [address], [place] [address] Oct, [facility] [address] [id number] [address] [place] [address], [place] [address] Sep, [facility] [address] [id number] [address] [place] [address], [place] [address] Sep, [facility] [address] [id number] [address] [place] [address], [place] [address] Sep, [facility] [address] [id number] [address] [place] [address], [place] [address] Sep, [facility] [address] [id number] [address] [place] [address], [place] [address] Sep, [facility] [address] [id number] [address] [place] [address], [place] [address] Sep, [facility] [address] [id number] [address] [place] [address], [place] [address] Sep, [facility] [address] [id number] [address] [place] [address], [place] [address] Aug, [facility] [address] [id number] [address] [place] [address], [place] [address] Aug, 2013 [facility] [address] [id number] [address] [place] [address], [place] [address] Aug, [facility] [address] [id number] [address] [place] [address], [place] [address] Aug, 2013 [facility] [address] [id number] [address] [place] [address], [place] [address] Aug, 2013 [facility] [address] [id number] [address] [place] [address], [place] [address] Aug, [facility] [address] [id number] [address] [place] [address], [place] [address] Aug, [facility] [address] [id number] [address] [place] [address], [place] [address] Aug, [facility] [address] [id number] [address] [place] [address], [place] [address] Aug, [facility] [address] [id number] [address] [place] [address], [place] [address] Aug, [facility] [address] [id number] [address] [place] [address], [place] [address] Aug, [facility] [address] [id number] [address] [place] [id number] Aug, [facility] [address] [id number] [address] [place] [address], [place] [address] Aug, [facility] [address] [id number] [address] [place] [address], [place] [address] Aug, [facility] [address] [id number] [address] [place] [address], [place] [address] Jul, [facility] [address] [id number] [address] [place] [address], [place] [address] Jul, [facility] [address] [id number] [address] [place] [address], [place] [address] Jul, [facility] [address] [id number] [address] [place] [address], [place] [address] Jul, [facility] [address] [id number] [address] [place] [address], [place] [address] May, [facility] [address] [id number] [address] [place] [address], [place] [address] May, [facility] [address] [id number] [address] [place] [address], [place] [address] Apr, [facility] [address] [id number] [address] [place] [address], [place] [address] Apr, [facility] [address] [id number] [address] [place] [address], [place] [address] Apr, [facility] [address] [id number] [address] [place] [address], [place] [address] Apr, [facility] [address] [id number] [address] [place] [address], [place] [address] Apr, [facility] [address] [id number] [address] [place] [address], [place] [address] Apr, [facility] [address] [id number] [address] [place] [address], [place] [address] Apr, [facility] [address] [id number] [address] [place] [address], [place] [address] Feb, [facility] [address] [id number] [address] [place] [address], [place] [address] Feb, [facility] [address] [id number] [address] [place] [address], [place] [address] Feb, [facility] [address] [id number] [address] [place] [address], [place] [address] Feb, [facility] [address] [id number] [address] [place] [address], [place] [address] Dec, [facility] [address] [id number] [address] [place] [address], [place] [address] Dec, [facility] [address] [id number] [address] [place] [address], [place] [address] Dec, [facility] [address] [id number] [address] [place] [address], [place] [address] Dec, [facility] [address] [id number] [address] [place] [address], [place] [address] Nov, [facility] [address] [id number] [address] [place] [address], [place] [address] Nov, [facility] [address] [id number] [address] [place] [address], [place] [address] 25 Oct, 2012 [facility] [address] [id number] [address] [place] [address], [place] [address] Oct, [facility] [address] [id number] [address] [place] [address], [place] [address] 17 Oct, 2012 [facility] [address] [id number] [address] [place] [address], [place] [address] 05 Oct, 2012 [facility] [address] [id number] [address] [place] [address], [place] [address] Sep, [facility] [address] [id number] [address] [place] [address], [place] [address] Sep, [facility] [address] [id number] [address] [place] [address], [place] [address] Sep, [facility] [address] [id number] [address] [place] [address], [place] [address] Aug, [facility] [address] [id number] [address] [place] [address], [place] [address] Aug, [facility] [address] [id number] [address] [place] [address], [place] [address] Jul, [facility] [address] [id number] [address] [place] [address], [place] [address] Mar, [facility] [address] [id number] [address] [place] [address] Feb, [facility] [address] [id number] [address] [place] [address] Jan, [facility] [address] [id number] [address] [place] [address] Jan, [facility] [address] [id number] [address] [place] [address] Jan, [facility] [address] [id number] [address] [place] [address] Jan, [facility] [address] [id number] [address] [place] [address] Jan, [facility] [address] [id number] [address] [place] [address] Jan, [facility] [address] [id number] [address] [place] [address] Dec, [facility] [address] [id number] [address] [place] [address] Dec, [facility] [address] [id number] [address] [place] [address] Dec, [facility] [address] [id number] [address] [place] [address] Dec, IMMUNIZATIONS No Known Immunizations SOCIAL HISTORY [...]
--- OUTSIDE RECORDS SUMMARY | 2019-06-13 20:08 | XMS REPORT ---
Author Author Doug WISE Organization [facility] Address [address] [place] [address] Care Team Providers Care Silk Finisher Name Role Phone SUSAN WISE Unavailable PROBLEMS Type Condition ICD9-CM Code [id number] Code Onset Dates Condition S tatus SNOMED Code Problem Diabetes E11.9 Active 490844436 Problem Essential (primary) hypertension I10 Active 86908132 Problem Sleep apnea G47.30 Active 13803007 Problem Schizophrenia F20.9 Active 418640 04 Problem Mixed hyperlipidemia E78.2 Active 769118525 Problem Gastroesophageal reflux disease without esophagitis K21.9 Active 774654550 Problem Chronic obstructive pulmonary disease, unspecified COPD ty pe J44.9 Active 39732770 Problem Atopic dermatitis, unspecified type L20.9 Active 35000963 Problem DM neuro manif type II E11.49 Active 68514730 Problem Acute gout of right foot, unspecified cause M10.9 Active 656527270 Problem Flat foot [pes planus] (acquired), unspecified foot M21.40 Active 70376471 Problem Chronic GERD K21.9 Active 4172794 09 Problem Anxiety F41.9 Active 00616128 Problem Constipation, unspecified constipation type K59.00 Active 48305274 Problem Uncontrolled type 2 diabetes mellitus with hyperglycemia E11.65 Active 292219746 ALLERGIES No Information ENCOUNTERS Encounter Location Date Diagnosis [facility] [id number] [place] [address] Apr, [facility] [address] [address] Mar, Diabetes E11.9 ; Essential (primary) hyp ertension I10 ; Mixed hyperlipidemia E78.2 and Dysuria R30.0 [facility] [address] [address] Mar, Diabetes E11.9 [facility] [address] [facility] [place] [place] [id number] [place] [address] 15 Mar, 2019 Abscess L02.91 [facility] [address] [facility] [place] [id number] [place] [address] 13 Mar, 2019 Abscess L02.91 [facility] [address] [address] 13 Mar, 2019 [facility] [address] [facility] [place] [place] [id number] [place] [address] 10 Mar, 2019 Abscess L02.91 and Mouth radhika n K13.79 [facility] [address] [address] Feb, Diabetes E11.9 [facility] [address] [address] Feb, [facility] [address] [address] Feb, Diabetes E11.9 [facility] [address] [address] Jan, [facility] [address] [address] Dec, Diabetes E11.9 and DM neuro manif type I I E11.49 [facility] [address] [address] Dec, Diabetes E11.9 [facility] [id number] [place] [address] Dec, [facility] [id number] [place] [id number] 04 Dec, 2018 Dental examination Z01.20 and Caries K02 .9 [facility] [id number] [place] [address] Nov, [facility] [address] [address] Nov, Hyperglycemia R73.9 and Diabetes E11.9 [facility] [address] [address] Nov, [place] [address] [address] Oct, Diabetes E11.9 ; Hyperglycemia R73.9 ; E ssential (primary) hypertension I10 ; Tobacco abuse Z72.0 ; Schizophrenia F20.9 and Encounter for immunization Z23 [place] [address] [address] Oct, [place] [address] [address] Oct, Hyperglycemia R73.9 and Diabetes E11.9 [place] [address] [address] Sep, [place] [address] [address] Sep, [place] [address] [address] Sep, Diabetes E11.9 ; Hyperglycemia R73.9 and Morbid obesity E66.01 [place] [address] [address] Sep, Hyperglycemia R73.9 [place] [address] [address] Sep, Diabetes E11.9 [place] [address] [address] Aug, Diabetes E11.9 [place] [address] [address] Aug, Hyperglycemia R73.9 [place] [address] [address] Jul, [place] [address] [address] Jul, Acute gout of right foot, unspecified ca use M10.9 and Hyperglycemia R73.9 [place] [address] [address] June, [place] [address] [address] June, [place] [address] [address] May, Mouth pain K13.79 ; Diabetes E11.9 ; Hyp erglycemia R73.9 and Morbid obesity E66.01 [place] [address] [address] Apr, Diabetes E11.9 [facility] [place] [address] [address] 16 Mar, 2018 Mouth pain K13.79 and Dental caries K02.9 [place] [address] [address] 14 Mar, 2018 Chondromalacia of right knee M94.261 [facility] [place] [address] [address] 01 Mar, 2018 Atopic dermatitis, unspecifi ed type L20.9 and BMI 45.0- 49.9, adult Z68.42 [place] [address] [address] Feb, [place] [address] [address] Feb, [place] [address] [address] Feb, Diabetes E11.9 and DM neuro manif type I I E11.49 [place] [address] [address] Jan, Mixed hyperlipidemia E78.[address] [address] Jan, Diabetes E11.9 and BMI 45.0-49.9, adult Z68.42 [place] [address] [address] Jan, Chondromalacia of right knee M94.261 and Sprain of anterior cruciate ligament of right knee, initial encounter S83.511A [place] [address] [address] Jan, [facility] [address] [address] Dec, [place] [address] [address] Dec, [place] [address] [address] Nov, [place] [address] [address] Nov, [place] [address] [address] Nov, Injury of right knee, initial encounter S89.91XA and BMI 45.0-49.9, adult Z68.42 [facility] [address] [facility] [place] [id number] [address] [place] [address] Nov, Right knee pain M25.561 and BMI 45.0-49.9, adult Z68.42 [facility] [address] [address] Oct, [place] [address] [address] Sep, [place] [address] [address] Sep, Diabetes E11.9 and Arthralgia, unspecifi ed joint M25.50 [place] [address] [address] Sep, Anxiety F41.9 and Hyperglycemia R73.9 [facility] [address] [address] Sep, DM neuro manif type II E11.49 ; Hypergly cemia R73.9 and Uncontrolled type 2 diabetes mellitus with hyperglycemia E11.65 [place] [address] [address] 13 Sep, 2017 Anxiety F41.9 ; DM neuro manif type II E 11.49 and Hyperglycemia R73.9 [place] [address] [address] Sep, [place] [address] [address] Aug, [place] [address] [address] Aug, [place] [address] [address] Jul, Constipation, unspecified constipation t ype K59.00 [place] [address] [address] Jul, Hyperglycemia R73.9 [place] [address] [address] June, Essential (primary) hypertension I10 [place] [address] [address] May, Essential (primary) hypertension I10 [place] [address] [address] May, Mixed hyperlipidemia E78.2 [place] [address] [address] May, Diabetes E11.9 [place] [address] [address] May, Diabetes E11.9 ; Hyperglycemia R73.9 ; P ain in right knee M25.561 ; Pain in left knee M25.562 and BMI 45.0-49.9, adult Z68.42 [place] [address] [address] Apr, [place] [address] [address] Mar, [place] [address] [address] Feb, DM neuro manif type II E11.49 [place] [address] [address] Feb, DM neuro manif type II E11.49 [place] [address] [address] Feb, DM neuro manif type II E11.49 [place] [address] [address] Feb, Diabetes E11.9 [place] [address] [address] Feb, Fatigue, unspecified type R53.83 [place] [address] [address] Jan, Fatigue, unspecified type R53.83 [place] [address] [address] Dec, [place] [address] [address] Dec, Onychomycosis B35.1 and Ingrowing nail L 60.0 [place] [address] [address] Dec, DM neuro manif type II E11.49 and Diabet es E11.9 [place] [address] [address] Dec, DM neuro manif type II E11.49 [place] [address] [address] Nov, Diabetes E11.9 [place] [address] [address] Nov, Diabetes E11.9 and Ingrown nail L60.0 [place] [address] [address] Oct, Anxiety F41.9 [facility] [address] [address] Oct, Diabetes E11.9 and Anxiety F41.9 [facility] [address] [address] Sep, [facility] [address] [address] Sep, Diabetes E11.9 and DM neuro manif type I I E11.49 [facility] [address] [address] Sep, [facility] [address] [address] Aug, Diabetes E11.9 and Anxiety F41.9 [facility] [address] [address] Aug, DM neuro manif type II E11.49 [facility] [address] [id number] Jul, Dental examination Z01.20 [facility] [address] [address] Jul, Dental examination Z01.20 [facility] [address] [address] Jul, Diabetes E11.9 and Abscessed tooth K04.7 [facility] [address] [id number] June, [facility] [address] [id number] June, [facility] [address] [id number] May, Dental examination Z01.20 [facility] [address] [address] Apr, [facility] [address] [address] Apr, DM neuro manif type II E11.49 [facility] [id number] [place] [address] Apr, [facility] [address] [address] Apr, Essential (primary) hypertension I10 [facility] [id number] [place] [address] Apr, [facility] [address] [address] Mar, Diabetes E11.9 [facility] [address] [place] [address] Mar, Diabetes E11.9 ; Mixed hyperlipidemia E7 8.2 ; Essential (primary) hypertension I10 and Hemorrhoids, unspecified hemorrhoid type K64.9 [facility] [id number] [place] [address] Mar, [facility] [address] [address] Mar, [facility] [address] [address] Feb, Diabetes E11.9 [facility] [id number] [place] [address] Feb, [facility] [address] [address] Feb, [facility] [address] [address] Feb, Essential (primary) hypertension I10 ; M ixed hyperlipidemia E78.2 ; Diabetes E11.9 ; Chronic obstructive pulmonary disease, unspecified COPD type J44.9 and Gastroesophageal reflux disease without esophagitis K21.9 [facility] [id number] [place] [address] Feb, [facility] [address] [address] Jan, Essential (primary) hypertension I10 [facility] [address] [address] Jan, Mixed hyperlipidemia E78.2 and Tobacco a buse Z72.[address] [address] Jan, [place] [address] [address] Dec, [address] [address] Dec, [address] [address] Dec, Diabetes E11.9 ; Encounter for immunizat ion Z23 and Tooth pain K08.[address] [address] Nov, [address] [address] Nov, [address] [address] Oct, Essential (primary) hypertension I10 [address] [address] Oct, [address] [address] Sep, [address] [address] Sep, Flat foot [pes planus] (acquired), left foot M21.42 ; Flat foot [pes planus] (acquired), right foot M21.41 and DM neuro manif type II E11.[address] [address] Sep, Diabetes E11.[address] [address] Aug, [address] [address] Aug, [place] [address] [address] Jul, Essential (primary) hypertension I10 [place] [address] [address] June, [place] [address] [address] June, Diabetes E11.9 [place] [address] [address] June, Onychomycosis B35.1 and Nail ingrowing L 60.0 [place] [address] [address] June, Diabetes E11.9 ; Flat foot [pes planus] (acquired), unspecified foot M21.40 and Ingrown toenail L60.0 [place] [address] [address] May, [place] [address] [address] May, Diabetes E11.9 [place] [address] [address] Apr, Diabetes E11.9 and Schizophrenia F20.9 [place] [address] [address] Apr, [place] [address] [address] Apr, Diabetes E11.9 ; Schizophrenia F20.9 and Essential (primary) hypertension I10 [place] [address] [address] Dec, [place] [address] [address] Dec, Niko STEVEN [address] [facility] [id number] [place] [id number] Nov, [place] [address] [place] [address] Oct, Diabetes mellitus without mention of com plication, type II or unspecified type, uncontrolled 250.02 and Flat feet, bilateral [address] [facility] [id number] [place] [address] Oct, [facility] [id number] [place] [address] Sep, [facility] [id number] [place] [address] Jul, [facility] [id number] [place] [address] June, [facility] [address] [address] May, [facility] [id number] [place] [address] May, [facility] [address] [place] [address] Apr, [facility] [id number] [place] [address] Apr, [facility] [address] [address] Apr, [facility] [id number] [place] [address] Apr, [facility] [id number] [place] [address] Apr, [facility] [id number] [place] [address] Apr, [facility] [id number] [place] [address] Feb, [facility] [id number] [place] [address] Feb, [facility] [id number] [place] [address] Jan, [facility] [place] [facility] [address] [id number] [place] [address] Jan, [facility] [place] [facility] [address] [id number] [place] [address] Jan, [facility] [place] [facility] [address] [id number] [place] [address] Jan, [facility] [place] [facility] [address] [id number] [place] [address] Dec, [facility] [place] [facility] [address] [id number] [place] [address] Dec, [facility] [place] [facility] [address] [id number] [place] [address] Dec, [facility] [place] [facility] [address] [id number] [place] [address] Dec, [facility] [place] [facility] [address] [id number] [place] [address] Nov, [facility] [place] [facility] [address] [id number] [place] [address] Nov, [facility] [place] [facility] [address] [id number] [place] [address] Nov, [facility] [place] [facility] [address] [id number] [place] [address] Nov, [facility] [place] [facility] [address] [id number] [place] [address] Oct, [facility] [place] [facility] [address] [id number] [place] [address] 22 Oct, 2013 [facility] [place] [facility] [address] [id number] [place] [address] 15 Oct, 2013 [facility] [place] [facility] [address] [id number] [place] [address] 15 Oct, 2013 [facility] [place] [facility] [address] [id number] [place] [address] Oct, [facility] [place] [facility] [address] [id number] [place] [address] Oct, [facility] [place] [facility] [address] [facility] [place] [id number] [place] [address] Sep, [facility] [place] [facility] [address] [facility] [place] [id number] [place] [address] Sep, [facility] [place] [facility] [address] [facility] [place] [id number] [place] [address] Sep, [facility] [place] [facility] [address] [facility] [place] [id number] [place] [address] Sep, [facility] [place] [facility] [address] [facility] [place] [id number] [place] [address] Sep, [facility] [place] [facility] [address] [facility] [place] [id number] [place] [address] Sep, [facility] [place] [facility] [address] [id number] [place] [address] Sep, [facility] [place] [facility] [address] [id number] [place] [address] Aug, [facility] [place] [facility] [address] [facility] [place] [id number] [place] [address] Aug, [facility] [place] [facility] [address] [id number] [place] [address] Aug, [facility] [place] [facility] [address] [id number] [place] [address] Aug, [facility] [place] [facility] [address] [id number] [place] [address] Aug, [facility] [place] [facility] [address] [facility] [place] [id number] [place] [address] Aug, [facility] [place] [facility] [address] [facility] [place] [id number] [place] [address] Aug, [facility] [place] [facility] [address] [facility] [place] [id number] [place] [address] Aug, [facility] [place] [facility] [address] [id number] [place] [address] Aug, [facility] [place] [facility] [address] [id number] [place] [address] 08 Aug, 2013 [facility] [place] [facility] [address] [facility] [place] [id number] [place] [address] Aug, 2013 [facility] [place] [facility] [address] [facility] [id number] [place] [facility] [place] [id number] Aug, [facility] [place] [facility] [address] [id number] [place] [address] Aug, [facility] [place] [facility] [address] [id number] [place] [address] Aug, [facility] [place] [facility] [address] [id number] [place] [address] Jul, [facility] [place] [facility] [address] [id number] [place] [address] Jul, [facility] [place] [facility] [address] [id number] [place] [address] Jul, [facility] [place] [facility] [address] [id number] [place] [address] Jul, [facility] [place] [facility] [address] [id number] [place] [address] May, [facility] [place] [facility] [address] [id number] [place] [address] May, [facility] [place] [facility] [address] [id number] [place] [address] Apr, [facility] [place] [facility] [address] [id number] [place] [address] Apr, [facility] [place] [facility] [address] [id number] [place] [address] Apr, [facility] [place] [facility] [address] [id number] [place] [address] Apr, [facility] [place] [facility] [address] [id number] [place] [address] Apr, [facility] [address] [id number] [place] [address] Apr, [facility] [address] [id number] [place] [address] Apr, [facility] [address] [id number] [place] [address] Feb, [facility] [address] [id number] [place] [address] Feb, [facility] [address] [id number] [place] [address] Feb, [facility] [address] [id number] [place] [address] Feb, [facility] [address] [id number] [place] [address] Dec, [facility] [address] [id number] [place] [address] Dec, [facility] [address] [id number] [place] [address] Dec, [facility] [address] [id number] [place] [address] Dec, [facility] [address] [id number] [place] [address] Nov, [facility] [address] [id number] [place] [address] Nov, [facility] [address] [id number] [place] [address] Oct, [facility] [address] [id number] [place] [address] 21 Oct, 2012 [facility] [address] [id number] [place] [address] 17 Oct, 2012 [facility] [address] [id number] [place] [address] 05 Oct, 2012 [facility] [address] [id number] [place] [address] Sep, [facility] [address] [id number] [place] [address] Sep, [facility] [address] [id number] [place] [address] Sep, [facility] [id number] [place] [address] Aug, [facility] [address] [id number] [place] [address] Aug, [facility] [id number] [place] [address] Jul, [facility] [address] [id number] [place] [address] Mar, [facility] [id number] [place] [address] Feb, [facility] [id number] [place] [address] Jan, [facility] [id number] [place] [address] Jan, [facility] [id number] [place] [address] Jan, [facility] [id number] [place] [address] Jan, [facility] [id number] [place] [address] Jan, [facility] [id number] [place] [address] Jan, [facility] [id number] [place] [address] Dec, [facility] [id number] [place] [address] Dec, [facility] [id number] [place] [address] Dec, [facility] [id number] [place] [address] Dec, IMMUNIZATIONS No Known Immunizations SOCIAL HISTORY Never Assessed REASON FOR VISIT PLAN OF CARE VITAL SIGNS Height 70 in 2013-04-23 Weight 344.3 lbs 2013-04-23 Temperature 99.6 degrees Fahrenheit 2013-04-23 Heart Rate 120 bpm 2013-04-23 Respiratory Rate 24 2013-04-23 Blood pressure systolic 138 mmHg 2013-04-23 Blood pressure diastolic 90 mmHg 2013-04-23 MEDICATIONS Unknown Medications RESULTS No Results PROCEDURES Procedure Date Ordered Result Body Site GLYCATED HEMOGLOBIN TEST April 23, 2013 MICROALBUMIN, SEMIQUANT April 23, 2013 MICROALBUMIN, QUANTITATIVE April 23, 2013 INSTRUCTIONS MEDICATIONS ADMINISTERED No Known Medications MEDICAL (GENERAL) HISTORY Type Description Date Medical History Diabetes Medical History hypertension Medical History uses inhaler but not dx with asthma or C OPD Medical History high cholestoral Surgical History heart cath 2001
--- OUTSIDE RECORDS SUMMARY | 2019-06-13 20:08 | XMS REPORT ---
Author Author Doug Blackmon Doctor Organization [facility] Address Unknown Phone Unavailable Care Team Providers Care People Manager Name Role Phone Migration, Doctor Unavailable Unavailable PROBLEMS Type Condition ICD9-CM Code SZZ71-WI Code Onset Dates Condition S tatus SNOMED Code Problem Diabetes E11.9 Active 737872983 Problem Essential (primary) hypertension I10 Active 77480628 Problem Sleep apnea G47.30 Active 15074725 Problem Schizophrenia F20.9 Active 090149 04 Problem Mixed hyperlipidemia E78.2 Active 175246165 Problem Gastroesophageal reflux disease without esophagitis K21.9 Active 516675798 Problem Chronic obstructive pulmonary disease, unspecified COPD ty pe J44.9 Active 37494694 Problem Atopic dermatitis, unspecified type L20.9 Active 09334079 Problem DM neuro manif type II E11.49 Active 30392070 Problem Acute gout of right foot, unspecified cause M10.9 Active 686181882 Problem Flat foot [pes planus] (acquired), unspecified foot M21.40 Active 41005482 Problem Chronic GERD K21.9 Active 0449215 09 Problem Anxiety F41.9 Active 17540838 Problem Constipation, unspecified constipation type K59.00 Active 55152081 Problem Uncontrolled type 2 diabetes mellitus with hyperglycemia E11.65 Active 621194912 ALLERGIES No Information ENCOUNTERS Encounter Location Date Diagnosis [facility] [address] [id number] [place] [address] Apr, [facility] [address] [id number] [place] [address] Mar, [facility] [address] [id number] [place] [address] Mar, Diabetes E11.9 [facility] [address] [facility] [id number] [address] [place] [address] 15 Mar, 2019 Abscess L02.91 [facility] [address] [place] [id number] [address] [place] [address] 13 Mar, 2019 Abscess L02.91 [facility] [address] [address] 13 Mar, 2019 [facility] [address] [facility] [id number] [place] [address] 10 Mar, 2019 Abscess L02.91 and Mouth radhika n K13.79 [facility] [address] [address] Feb, Diabetes E11.9 [facility] [address] [address] Feb, [facility] [address] [address] Feb, Diabetes E11.9 [facility] [address] [address] Jan, [facility] [address] [address] Dec, Diabetes E11.9 and DM neuro manif type I I E11.49 [facility] [address] [address] Dec, Diabetes E11.9 [facility] [address] [address] Dec, [facility] [address] [id number] [place] [id number] 04 Dec, 2018 Dental examination Z01.20 and Caries K02 .9 [facility] [address] [address] Nov, [facility] [address] [address] Nov, Hyperglycemia R73.9 and Diabetes E11.9 [facility] [address] [address] Nov, [facility] [address] [address] Oct, Diabetes E11.9 ; Hyperglycemia R73.9 ; E ssential (primary) hypertension I10 ; Tobacco abuse Z72.0 ; Schizophrenia F20.9 and Encounter for immunization Z23 [facility] [address] [address] Oct, [facility] [address] [address] Oct, Hyperglycemia R73.9 and Diabetes E11.9 [facility] [address] [address] Sep, [facility] [address] [address] Sep, [facility] [address] [address] Sep, Diabetes E11.9 ; Hyperglycemia R73.9 and Morbid obesity E66.01 [facility] [address] [address] Sep, Hyperglycemia R73.9 [facility] [address] [address] Sep, Diabetes E11.9 [facility] [address] [address] Aug, Diabetes E11.9 [facility] [address] [address] Aug, Hyperglycemia R73.9 [facility] [address] [address] Jul, [facility] [address] [address] Jul, Acute gout of right foot, unspecified ca use M10.9 and Hyperglycemia R73.9 [facility] [address] [address] June, [facility] [address] [address] June, [place] [address] [address] May, Mouth pain K13.79 ; Diabetes E11.9 ; Hyp erglycemia R73.9 and Morbid obesity E66.01 [place] [address] [address] Apr, Diabetes E11.9 [facility] [address] [place] [id number] [address] [place] [address] 16 Mar, 2018 Mouth pain K13.79 and Dental caries K02.9 [place] [address] [address] 14 Mar, 2018 Chondromalacia of right knee M94.261 [facility] [place] [address] [place] [id number] [address] [place] [address] Mar, Atopic dermatitis, unspecifi ed type L20.9 and BMI 45.0- 49.9, adult Z68.42 [place] [address] [address] Feb, [place] [address] [address] Feb, [place] [address] [address] Feb, Diabetes E11.9 and DM neuro manif type I I E11.49 [place] [address] [address] Jan, Mixed hyperlipidemia E78.2 [place] [address] [address] Jan, Diabetes E11.9 and BMI 45.0-49.9, adult Z68.42 [place] [address] [address] 06 Jan, 2018 Chondromalacia of right knee M94.261 and Sprain of anterior cruciate ligament of right knee, initial encounter S83.511A [place] [address] [address] Jan, [facility] [address] [address] Dec, [facility] [address] [address] Dec, [facility] [address] [address] Nov, [facility] [address] [address] Nov, [facility] [address] [address] Nov, Injury of right knee, initial encounter S89.91XA and BMI 45.0-49.9, adult Z68.42 [facility] [address] [facility] [id number] [address] [place] [address] Nov, Right knee pain M25.561 and BMI 45.0-49.9, adult Z68.42 [place] [address] [address] Oct, [place] [address] [address] Sep, [place] [address] [address] Sep, Diabetes E11.9 and Arthralgia, unspecifi ed joint M25.50 [place] [address] [address] Sep, Anxiety F41.9 and Hyperglycemia R73.9 [place] [address] [address] Sep, DM neuro manif type II E11.49 ; Hypergly cemia R73.9 and Uncontrolled type 2 diabetes mellitus with hyperglycemia E11.65 [place] [address] [address] Sep, Anxiety F41.9 ; DM neuro manif type II E 11.49 and Hyperglycemia R73.9 [facility] [address] [address] Sep, [facility] [address] [address] Aug, [facility] [address] [address] Aug, [facility] [address] [address] Jul, Constipation, unspecified constipation t ype K59.00 [place] [address] [address] Jul, Hyperglycemia R73.9 [place] [address] [address] June, Essential (primary) hypertension I10 [place] [address] [address] May, Essential (primary) hypertension I10 [place] [address] [address] May, Mixed hyperlipidemia E78.2 [place] [address] [address] May, Diabetes E11.9 [place] [address] [address] May, Diabetes E11.9 ; Hyperglycemia R73.9 ; P ain in right knee M25.561 ; Pain in left knee M25.562 and BMI 45.0-49.9, adult Z68.42 [place] [address] [address] Apr, [place] [address] [address] Mar, [place] [address] [address] Feb, DM neuro manif type II E11.49 [place] [address] [address] Feb, DM neuro manif type II E11.49 [place] [address] [address] Feb, DM neuro manif type II E11.49 [place] [address] [address] Feb, Diabetes E11.9 [place] [address] [address] Feb, Fatigue, unspecified type R53.83 [place] [address] [address] Jan, Fatigue, unspecified type R53.83 [place] [address] [address] Dec, [place] [address] [address] Dec, Onychomycosis B35.1 and Ingrowing nail L 60.0 [place] [address] [address] Dec, DM neuro manif type II E11.49 and Diabet es E11.9 [place] [address] [address] Dec, DM neuro manif type II E11.49 [place] [address] [address] Nov, Diabetes E11.9 [place] [address] [address] Nov, Diabetes E11.9 and Ingrown nail L60.0 [place] [address] [address] Oct, Anxiety F41.9 [place] [address] [address] 06 Oct, 2016 Diabetes E11.9 and Anxiety F41.9 [place] [address] [address] Sep, [facility] [address] [address] Sep, Diabetes E11.9 and DM neuro manif type I I E11.49 [facility] [address] [address] Sep, [facility] [address] [address] Aug, Diabetes E11.9 and Anxiety F41.9 [facility] [address] [address] Aug, DM neuro manif type II E11.49 [facility] [address] [id number] Jul, Dental examination Z01.20 [facility] [address] [address] Jul, Dental examination Z01.20 [facility] [address] [address] Jul, Diabetes E11.9 and Abscessed tooth K04.7 [facility] [address] [id number] June, [facility] [address] [id number] June, [facility] [address] [id number] May, Dental examination Z01.20 [facility] [address] [address] Apr, [facility] [address] [address] Apr, DM neuro manif type II E11.49 [facility] [address] [address] Apr, [facility] [address] [address] Apr, Essential (primary) hypertension I10 [facility] [address] [address] Apr, [facility] [address] [address] Mar, Diabetes E11.9 [facility] [address] [address] Mar, Diabetes E11.9 ; Mixed hyperlipidemia E7 8.2 ; Essential (primary) hypertension I10 and Hemorrhoids, unspecified hemorrhoid type K64.9 [facility] [address] [address] Mar, [facility] [address] [address] Mar, [facility] [address] [address] Feb, Diabetes E11.9 [facility] [address] [address] Feb, [facility] [address] [address] Feb, [facility] [address] [address] Feb, Essential (primary) hypertension I10 ; M ixed hyperlipidemia E78.2 ; Diabetes E11.9 ; Chronic obstructive pulmonary disease, unspecified COPD type J44.9 and Gastroesophageal reflux disease without esophagitis K21.9 [facility] [address] [address] Feb, [place] [address] [address] Jan, Essential (primary) hypertension I10 [place] [address] [address] Jan, Mixed hyperlipidemia E78.2 and Tobacco a buse Z72.0 [place] [address] [address] Jan, [place] [address] [address] Dec, [place] [address] [address] Dec, [place] [address] [address] Dec, Diabetes E11.9 ; Encounter for immunizat ion Z23 and Tooth pain K08.89 [place] [address] [address] Nov, [place] [address] [address] Nov, [place] [address] [address] Oct, Essential (primary) hypertension I10 [address] [address] Oct, [place] [address] [address] Sep, [place] [address] [address] Sep, Flat foot [pes planus] (acquired), left foot M21.42 ; Flat foot [pes planus] (acquired), right foot M21.41 and DM neuro manif type II E11.49 [place] [address] [address] Sep, Diabetes E11.9 [place] [address] [address] Aug, [place] [address] [address] Aug, [place] [address] [address] Jul, Essential (primary) hypertension I10 [place] [address] [address] June, [place] [address] [address] June, Diabetes E11.9 [place] [address] [address] June, Onychomycosis B35.1 and Nail ingrowing L 60.0 [place] [address] [address] June, Diabetes E11.9 ; Flat foot [pes planus] (acquired), unspecified foot M21.40 and Ingrown toenail L60.0 [place] [address] [address] May, [address] [address] May, Diabetes E11.9 [place] [address] [address] Apr, Diabetes E11.9 and Schizophrenia F20.9 [place] [address] [address] Apr, [address] [address] Apr, Diabetes E11.9 ; Schizophrenia F20.9 and Essential (primary) hypertension I10 [address] [address] Dec, [address] [address] Dec, [facility] [id number] [place] [id number] Nov, [address] [address] 28 Oct, 2014 Diabetes mellitus without mention of com plication, type II or unspecified type, uncontrolled 250.02 and Flat feet, bilateral [address] [address] [place] [address] Oct, [facility] [place] [facility] [address] [id number] [place] [address] Sep, [facility] [place] [facility] [address] [id number] [place] [address] Jul, [facility] [place] [facility] [address] [id number] [place] [address] June, [facility] [place] [facility] [address] [id number] [place] [address] May, [facility] [place] [facility] [address] [id number] [place] [address] May, [facility] [place] [facility] [address] [id number] [place] [address] Apr, [facility] [place] [facility] [address] [id number] [place] [address] Apr, [facility] [place] [facility] [address] [id number] [place] [address] Apr, [facility] [place] [facility] [address] [id number] [place] [address] Apr, [facility] [place] [facility] [address] [id number] [place] [address] Apr, [facility] [place] [facility] [address] [id number] [place] [address] Apr, [facility] [place] [facility] [address] [id number] [place] [address] Feb, [facility] [place] [facility] [address] [id number] [place] [address] Feb, [facility] [place] [facility] [address] [id number] [place] [address] Jan, [facility] [place] [facility] [address] [id number] [place] [address] Jan, [facility] [place] [facility] [address] [id number] [place] [address] Jan, [facility] [place] [facility] [address] [id number] [place] [address] Jan, [facility] [place] [facility] [address] [id number] [place] [address] Dec, [facility] [place] [facility] [address] [id number] [place] [address] Dec, [facility] [place] [facility] [address] [id number] [place] [address] Dec, [facility] [place] [facility] [address] [id number] [place] [address] Dec, [facility] [place] [facility] [address] [id number] [place] [address] Nov, [facility] [place] [facility] [address] [id number] [place] [address] Nov, [facility] [place] [facility] [address] [id number] [place] [address] Nov, [facility] [place] [facility] [address] [id number] [place] [address] Nov, [facility] [place] [facility] [address] [id number] [place] [address] Oct, [facility] [place] [facility] [address] [id number] [place] [address] Oct, [facility] [place] [facility] [address] [id number] [place] [address] 15 Oct, 2013 [facility] [place] [facility] [address] [id number] [place] [address] 15 Oct, 2013 [facility] [place] [facility] [address] [id number] [place] [address] Oct, [facility] [place] [facility] [address] [id number] [place] [address] Oct, [facility] [place] [facility] [address] [id number] [place] [address] Sep, [facility] [place] [facility] [address] [id number] [place] [address] Sep, [facility] [place] [facility] [address] [id number] [facility] [place] [address] Sep, [facility] [place] [facility] [address] [facility] [id number] [place] [address] Sep, [facility] [place] [facility] [address] [facility] [id number] [facility] [place] [address] Sep, [facility] [place] [facility] [address] [id number] [place] [address] Sep, [facility] [place] [facility] [address] [facility] [id number] [place] [address] Sep, [facility] [place] [facility] [address] [facility] [id number] [place] [address] Aug, [facility] [place] [facility] [address] [facility] [id number] [facility] [place] [address] Aug, [facility] [place] [facility] [address] [id number] [facility] [place] [address] Aug, 2013 [facility] [place] [facility] [address] [facility] [id number] [place] [address] Aug, [facility] [place] [facility] [address] [facility] [id number] [facility] [place] [address] Aug, 2013 [facility] [place] [facility] [address] [facility] [id number] [place] [address] Aug, 2013 [facility] [place] [facility] [address] [id number] [place] [address] Aug, 2013 [facility] [place] [facility] [address] [facility] [id number] [place] [address] Aug, 2013 [facility] [place] [facility] [address] [id number] [place] [address] Aug, 2013 [facility] [place] [facility] [address] [facility] [id number] [place] [address] Aug, 2013 [facility] [place] [facility] [address] [facility] [id number] [facility] [place] [address] Aug, 2013 [facility] [place] [facility] [address] [facility] [id number] [place] [id number] Aug, [facility] [place] [facility] [address] [id number] [place] [address] Aug, [facility] [place] [facility] [address] [id number] [place] [address] Aug, [facility] [place] [facility] [address] [id number] [place] [address] Jul, [facility] [place] [facility] [address] [id number] [place] [address] Jul, [facility] [place] [facility] [address] [id number] [place] [address] Jul, [facility] [place] [facility] [address] [id number] [place] [address] Jul, [facility] [place] [facility] [address] [id number] [place] [address] May, [facility] [place] [facility] [address] [id number] [place] [address] May, [facility] [place] [facility] [address] [id number] [place] [address] Apr, [facility] [place] [facility] [address] [id number] [place] [address] Apr, [facility] [place] [facility] [address] [id number] [place] [address] Apr, [facility] [place] [facility] [address] [id number] [place] [address] Apr, [facility] [place] [facility] [address] [id number] [place] [address] Apr, [facility] [place] [facility] [address] [id number] [place] [address] Apr, [facility] [place] [facility] [address] [id number] [place] [address] Apr, [facility] [place] [facility] [address] [id number] [place] [address] Feb, [facility] [place] [facility] [address] [id number] [place] [address] Feb, [facility] [place] [facility] [address] [id number] [place] [address] Feb, [facility] [place] [facility] [address] [id number] [place] [address] Feb, [facility] [place] [facility] [address] [id number] [place] [address] Dec, [facility] [place] [facility] [address] [id number] [place] [address] Dec, [facility] [address] [id number] [place] [address] Dec, [facility] [address] [id number] [place] [address] Dec, [facility] [address] [id number] [place] [address] Nov, [facility] [address] [id number] [place] [address] Nov, [facility] [address] [id number] [place] [address] 25 Oct, 2012 [facility] [address] [id number] [place] [address] Oct, [facility] [address] [id number] [place] [address] 17 Oct, 2012 [facility] [address] [id number] [place] [address] 05 Oct, 2012 [facility] [address] [id number] [place] [address] Sep, [facility] [address] [id number] [place] [address] Sep, [facility] [address] [id number] [place] [address] Sep, [facility] [address] [id number] [place] [address] Aug, [facility] [id number] [place] [address] Aug, [facility] [id number] [place] [address] Jul, [facility] [id number] [place] [address] Mar, [facility] [id number] [place] [address] Feb, [facility] [id number] [place] [address] Jan, [facility] [id number] [place] [address] Jan, [facility] [id number] [place] [address] Jan, [facility] [id number] [place] [address] Jan, [facility] [id number] [place] [address] Jan, [facility] [id number] [place] [address] Jan, [facility] [id number] [place] [address] Dec, [facility] [id number] [place] [address] Dec, [facility] [id number] [place] [address] Dec, [facility] [id number] [place] [address] Dec, IMMUNIZATIONS No Known Immunizations SOCIAL HISTORY [...]
--- OUTSIDE RECORDS SUMMARY | 2019-06-13 20:08 | XMS REPORT ---
Author Author Doug WISE Organization [facility] Address [address] [place] [address] Care Team Providers Care Tunnel Mucker Name Role Phone SUSAN WISE Unavailable PROBLEMS Type Condition ICD9-CM Code PGX02-XL Code Onset Dates Condition S tatus SNOMED Code Problem Diabetes E11.9 Active 041247923 Problem Essential (primary) hypertension I10 Active 15698647 Problem Sleep apnea G47.30 Active 97543877 Problem Schizophrenia F20.9 Active 084768 04 Problem Mixed hyperlipidemia E78.2 Active 152295078 Problem Gastroesophageal reflux disease without esophagitis K21.9 Active 619698993 Problem Chronic obstructive pulmonary disease, unspecified COPD ty pe J44.9 Active 22717676 Problem Atopic dermatitis, unspecified type L20.9 Active 78357923 Problem DM neuro manif type II E11.49 Active 77256415 Problem Acute gout of right foot, unspecified cause M10.9 Active 420415514 Problem Flat foot [pes planus] (acquired), unspecified foot M21.40 Active 53255092 Problem Chronic GERD K21.9 Active 1754403 09 Problem Anxiety F41.9 Active 22215534 Problem Constipation, unspecified constipation type K59.00 Active 15612220 Problem Uncontrolled type 2 diabetes mellitus with hyperglycemia E11.65 Active 426436335 ALLERGIES No Information ENCOUNTERS Encounter Location Date Diagnosis [facility] [address] [id number] [place] [address] Apr, [facility] [address] [facility] [id number] [address] [place] [address] 15 Mar, 2019 Abscess [address]02.[address] [facility] [address] [facility] [id number] [address] [place] [address] 13 Mar, 2019 Abscess L02.91 [facility] [address] [id number] [place] [address] 13 Mar, 2019 [facility] [address] [facility] [id number] [address] [place] [address] 10 Mar, 2019 Abscess L02.91 and Mouth radhika n K13.79 [facility] [id number] [place] [address] 29 Feb, 2019 Diabetes E11.9 [facility] [id number] [place] [address] Feb, [facility] [address] [address] Feb, Diabetes E11.9 [facility] [address] [address] Jan, [facility] [address] [address] Dec, Diabetes E11.9 and DM neuro manif type I I E11.49 [facility] [id number] [place] [address] Dec, Diabetes E11.9 [facility] [id number] [place] [address] 15 Dec, 2018 [facility] [address] [id number] [place] [id number] 04 Dec, 2018 Dental examination Z01.20 and Caries K02 .9 [facility] [id number] [place] [address] Nov, [facility] [address] [address] Nov, Hyperglycemia R73.9 and Diabetes E11.9 [facility] [id number] [place] [address] 14 Nov, 2018 [facility] [address] [address] Oct, Diabetes E11.9 ; Hyperglycemia R73.9 ; E ssential (primary) hypertension I10 ; Tobacco abuse Z72.0 ; Schizophrenia F20.9 and Encounter for immunization Z23 [facility] [address] [address] Oct, [facility] [address] [address] Oct, Hyperglycemia R73.9 and Diabetes E11.9 [facility] [address] [address] Sep, [facility] [address] [address] Sep, [facility] [address] [address] Sep, Diabetes E11.9 ; Hyperglycemia R73.9 and Morbid obesity E66.01 [facility] [address] [address] Sep, Hyperglycemia R73.9 [place] [address] [address] Sep, Diabetes E11.9 [facility] [address] [address] Aug, Diabetes E11.9 [place] [address] [address] Aug, Hyperglycemia R73.9 [place] [address] [address] Jul, [place] [address] [address] Jul, Acute gout of right foot, unspecified ca use M10.9 and Hyperglycemia R73.9 [facility] [address] [address] June, [facility] [address] [address] June, [facility] [address] [address] May, Mouth pain K13.79 ; Diabetes E11.9 ; Hyp erglycemia R73.9 and Morbid obesity E66.01 [place] [address] [address] Apr, Diabetes E11.9 [facility] [address] [facility] [id number] [address] [place] [address] 16 Mar, 2018 Mouth pain K13.79 and Dental caries K02.9 [place] [address] [address] 14 Mar, 2018 Chondromalacia of right knee M94.261 [facility] [address] [address] [id number] [address] [place] [address] 01 Mar, 2018 Atopic dermatitis, unspecifi ed type L20.9 and BMI 45.0- 49.9, adult Z68.42 [place] [address] [address] Feb, [place] [address] [address] Feb, [place] [address] [address] Feb, Diabetes E11.9 and DM neuro manif type I I E11.49 [place] [address] [address] Jan, Mixed hyperlipidemia E78.2 [place] [address] [address] Jan, Diabetes E11.9 and BMI 45.0-49.9, adult Z68.42 [place] [address] [address] 06 Jan, 2018 Chondromalacia of right knee M94.261 and Sprain of anterior cruciate ligament of right knee, initial encounter S83.511A [place] [address] [address] Jan, [place] [address] [address] Dec, [facility] [address] [address] Dec, [facility] [address] [address] Nov, [facility] [address] [address] Nov, [facility] [address] [address] Nov, Injury of right knee, initial encounter S89.91XA and BMI 45.0-49.9, adult Z68.42 [facility] [address] [facility] [id number] [address] [place] [address] 15 Nov, 2017 Right knee pain M25.561 and BMI 45.0-49.9, adult Z68.42 [place] [address] [address] Oct, [facility] [address] [address] Sep, [place] [address] [address] Sep, Diabetes E11.9 and Arthralgia, unspecifi ed joint M25.50 [place] [address] [address] Sep, Anxiety F41.9 and Hyperglycemia R73.9 [place] [address] [address] Sep, DM neuro manif type II E11.49 ; Hypergly cemia R73.9 and Uncontrolled type 2 diabetes mellitus with hyperglycemia E11.65 [place] [address] [address] Sep, Anxiety F41.9 ; DM neuro manif type II E 11.49 and Hyperglycemia R73.9 [place] [address] [address] Sep, [place] [address] [address] Aug, [place] [address] [address] Aug, [facility] [address] [address] Jul, Constipation, unspecified constipation t ype K59.00 [place] [address] [address] Jul, Hyperglycemia R73.9 [place] [address] [address] June, Essential (primary) hypertension I10 [place] [address] [address] May, Essential (primary) hypertension I10 [place] [address] [address] May, Mixed hyperlipidemia E78.2 [place] [address] [address] May, Diabetes E11.9 [place] [address] [address] May, Diabetes E11.9 ; Hyperglycemia R73.9 ; P ain in right knee M25.561 ; Pain in left knee M25.562 and BMI 45.0-49.9, adult Z68.42 [place] [address] [address] Apr, [place] [address] [address] Mar, [place] [address] [address] Feb, DM neuro manif type II E11.49 [place] [address] [address] Feb, DM neuro manif type II E11.49 [place] [address] [address] Feb, DM neuro manif type II E11.49 [place] [address] [address] Feb, Diabetes E11.9 [place] [address] [address] Feb, Fatigue, unspecified type R53.83 [place] [address] [address] Jan, Fatigue, unspecified type R53.83 [place] [address] [address] Dec, [place] [address] [address] Dec, Onychomycosis B35.1 and Ingrowing nail L 60.0 [place] [address] [address] Dec, DM neuro manif type II E11.49 and Diabet es E11.9 [place] [address] [address] Dec, DM neuro manif type II E11.49 [place] [address] [address] Nov, Diabetes E11.9 [place] [address] [address] Nov, Diabetes E11.9 and Ingrown nail L60.0 [place] [address] [address] Oct, Anxiety F41.9 [place] [address] [address] Oct, Diabetes E11.9 and Anxiety F41.9 [place] [address] [address] Sep, [place] [address] [address] Sep, Diabetes E11.9 and DM neuro manif type I I E11.49 [facility] [address] [address] Sep, [facility] [address] [address] Aug, Diabetes E11.9 and Anxiety F41.9 [facility] [address] [address] Aug, DM neuro manif type II E11.49 [facility] [address] [id number] Jul, Dental examination Z01.20 [facility] [address] [address] Jul, Dental examination Z01.20 [facility] [address] [address] Jul, Diabetes E11.9 and Abscessed tooth K04.7 [facility] [address] [id number] June, [facility] [address] [id number] June, [facility] [address] [id number] May, Dental examination Z01.20 [facility] [address] [address] Apr, [facility] [address] [address] Apr, DM neuro manif type II E11.49 [facility] [address] [address] Apr, [facility] [address] [address] Apr, Essential (primary) hypertension I10 [address] [address] Apr, [facility] [address] [address] Mar, Diabetes E11.9 [facility] [address] [address] Mar, Diabetes E11.9 ; Mixed hyperlipidemia E7 8.2 ; Essential (primary) hypertension I10 and Hemorrhoids, unspecified hemorrhoid type K64.9 [facility] [address] [address] Mar, [facility] [address] [address] Mar, [facility] [address] [address] Feb, Diabetes E11.9 [place] [address] [address] Feb, [place] [address] [address] Feb, [facility] [address] [address] Feb, Essential (primary) hypertension I10 ; M ixed hyperlipidemia E78.2 ; Diabetes E11.9 ; Chronic obstructive pulmonary disease, unspecified COPD type J44.9 and Gastroesophageal reflux disease without esophagitis K21.9 [place] [address] [address] Feb, [facility] [address] [address] Jan, Essential (primary) hypertension I10 [place] [address] [address] Jan, Mixed hyperlipidemia E78.2 and Tobacco a buse Z72.0 [place] [address] [address] Jan, [facility] [address] [address] Dec, [place] [address] [address] Dec, [place] [address] [address] Dec, Diabetes E11.9 ; Encounter for immunizat ion Z23 and Tooth pain K08.[address] [address] Nov, [place] [address] [address] Nov, [address] [address] Oct, Essential (primary) hypertension I10 [address] [address] Oct, [address] [address] Sep, [place] [address] [address] Sep, Flat foot [pes planus] (acquired), left foot M21.42 ; Flat foot [pes planus] (acquired), right foot M21.41 and DM neuro manif type II E11.49 [place] [address] [address] Sep, Diabetes E11.9 [place] [address] [address] Aug, [place] [address] [address] Aug, [address] [address] Jul, Essential (primary) hypertension I10 [place] [address] [address] June, [address] [address] June, Diabetes E11.9 [place] [address] [address] June, Onychomycosis B35.1 and Nail ingrowing L 60.0 [place] [address] [address] June, Diabetes E11.9 ; Flat foot [pes planus] (acquired), unspecified foot M21.40 and Ingrown toenail L60.0 [place] [address] [address] May, [address] [address] May, Diabetes E11.9 [place] [address] [address] Apr, Diabetes E11.9 and Schizophrenia F20.[address] [address] Apr, [address] [address] Apr, Diabetes E11.9 ; Schizophrenia F20.9 and Essential (primary) hypertension I10 [address] [address] Dec, [address] [address] Dec, [facility] [place] [id number] [id number] [id number] Nov, [address] [address] Oct, Diabetes mellitus without mention of com plication, type II or unspecified type, uncontrolled 250.02 and Flat feet, bilateral [address] [address] Oct, [address] [address] Sep, [facility] [address] [facility] [id number] [facility] [place] [address] Jul, [facility] [address] [facility] [id number] [facility] [place] [address] June, [facility] [address] [id number] [facility] [place] [address] May, [facility] [address] [id number] [facility] [place] [address] May, [facility] [address] [facility] [id number] [facility] [place] [address] Apr, [facility] [address] [id number] [place] [address] Apr, [facility] [address] [id number] [place] [address] Apr, [facility] [address] [id number] [place] [address] Apr, [facility] [address] [id number] [place] [address] Apr, [facility] [address] [id number] [place] [address] Apr, [facility] [address] [id number] [place] [address] Feb, [facility] [address] [id number] [place] [address] Feb, [facility] [address] [facility] [id number] [facility] [place] [address] Jan, [facility] [address] [id number] [place] [address] Jan, [facility] [address] [id number] [place] [address] Jan, [facility] [address] [id number] [place] [address] Jan, [facility] [address] [facility] [id number] [place] [address] Dec, [facility] [address] [facility] [id number] [place] [address] Dec, [facility] [address] [id number] [place] [address] Dec, [facility] [address] [id number] [place] [address] Dec, [facility] [address] [id number] [place] [address] Nov, [facility] [address] [id number] [place] [address] Nov, [facility] [address] [id number] [place] [address] Nov, [facility] [address] [id number] [place] [address] Nov, [facility] [address] [id number] [place] [address] Oct, [facility] [address] [id number] [place] [address] Oct, [facility] [address] [id number] [place] [address] Oct, [facility] [address] [id number] [place] [address] Oct, [facility] [address] [id number] [place] [address] Oct, [facility] [address] [id number] [place] [address] Oct, [facility] [address] [id number] [place] [address] Sep, [facility] [address] [id number] [place] [address] Sep, [facility] [address] [id number] [place] [address] Sep, [facility] [address] [facility] [id number] [place] [address] Sep, 2013 [facility] [address] [id number] [place] [address] Sep, [facility] [address] [id number] [place] [address] Sep, 2013 [facility] [address] [id number] [place] [address] Sep, [facility] [address] [facility] [id number] [place] [address] Aug, [facility] [address] [id number] [place] [address] Aug, [facility] [address] [id number] [place] [address] Aug, [facility] [address] [id number] [place] [address] Aug, 2013 [facility] [address] [id number] [place] [address] Aug, [facility] [address] [id number] [place] [address] Aug, [facility] [address] [id number] [place] [address] Aug, 2013 [facility] [address] [id number] [place] [address] Aug, [facility] [address] [id number] [place] [address] Aug, 2013 [facility] [address] [id number] [place] [address] Aug, [facility] [address] [id number] [place] [address] Aug, 2013 [facility] [address] [facility] [id number] [place] [id number] Aug, 2013 [facility] [address] [id number] [place] [address] Aug, [facility] [address] [facility] [id number] [place] [address] Aug, [facility] [address] [id number] [place] [address] Jul, [facility] [address] [id number] [place] [address] Jul, [facility] [address] [id number] [place] [address] Jul, [facility] [address] [id number] [place] [address] Jul, [facility] [address] [id number] [place] [address] May, [facility] [address] [id number] [place] [address] May, [facility] [address] [id number] [place] [address] Apr, [facility] [address] [id number] [place] [address] Apr, [facility] [address] [id number] [place] [address] Apr, [facility] [address] [id number] [place] [address] Apr, [facility] [address] [id number] [place] [address] Apr, [facility] [address] [id number] [place] [address] Apr, [facility] [address] [id number] [place] [address] Apr, [facility] [address] [id number] [place] [address] Feb, [facility] [address] [id number] [place] [address] Feb, [facility] [address] [id number] [place] [address] Feb, [facility] [address] [id number] [place] [address] Feb, [facility] [address] [id number] [place] [address] Dec, [facility] [address] [id number] [place] [address] Dec, [facility] [address] [id number] [place] [address] Dec, [facility] [address] [id number] [place] [address] Dec, [facility] [address] [id number] [place] [address] Nov, [facility] [address] [id number] [place] [address] Nov, [facility] [address] [id number] [place] [address] Oct, [facility] [address] [id number] [place] [address] Oct, [facility] [address] [id number] [place] [address] Oct, [facility] [address] [id number] [place] [address] Oct, [facility] [address] [id number] [place] [address] Sep, [facility] [address] [id number] [place] [address] Sep, [facility] [address] [id number] [place] [address] Sep, [facility] [address] [id number] [place] [address] Aug, [facility] [address] [id number] [place] [address] Aug, [facility] [address] [id number] [place] [address] Jul, [facility] [id number] [place] [address] Mar, [facility] [address] [id number] [place] [address] Feb, [facility] [id number] [place] [address] Jan, [facility] [id number] [place] [address] Jan, [facility] [id number] [place] [address] Jan, [facility] [id number] [place] [address] Jan, [facility] [id number] [place] [address] Jan, [facility] [id number] [place] [address] Jan, [facility] [id number] [place] [address] Dec, [facility] [id number] [place] [address] Dec, [facility] [id number] [place] [address] Dec, [facility] [id number] [place] [address] Dec, IMMUNIZATIONS No Known Immunizations SOCIAL HISTORY [...]
--- OUTSIDE RECORDS SUMMARY | 2019-06-13 20:08 | XMS REPORT ---
Author Author Doug WISE Organization [facility] Address [address] [place] [address] Care Team Providers [employer] Service Team Member Name Role Phone SUSAN WISE Unavailable PROBLEMS Type Condition ICD9-CM Code XLN68-GV Code Onset Dates Condition S tatus SNOMED Code Problem Diabetes E11.9 Active 823216839 Problem Essential (primary) hypertension I10 Active 95905116 Problem Sleep apnea G47.30 Active 30314604 Problem Schizophrenia F20.9 Active 728291 04 Problem DM neuro manif type II E11.49 Active 79027342 Problem Flat foot [pes planus] (acquired), unspecified foot M21.40 Active 43109855 Problem Chronic obstructive pulmonary disease, unspecified COPD ty pe J44.9 Active 46274805 Problem Chronic GERD K21.9 Active 1750184 09 Problem Anxiety F41.9 Active 69489656 Problem [facility] (current) use of insulin Z79.4 Active 107541711 Problem Gastroesophageal reflux disease without esophagitis K21.9 Active 124007567 Problem Type 2 diabetes mellitus with other specified complication E11.69 Active 12326256 Problem Mixed hyperlipidemia E78.2 Active 499445451 Problem Constipation, unspecified constipation type K59.00 Active 13138474 Problem Uncontrolled type 2 diabetes mellitus with hyperglycemia E11.65 Active 043731581 Problem Atopic dermatitis, unspecified type L20.9 Active 67054601 Problem Acute gout of right foot, unspecified cause M10.9 Active 345499373 ALLERGIES No Information ENCOUNTERS Encounter Location Date Diagnosis [facility] [id number] [place] [address] Jul, [facility] [address] [facility] [place] [address] Apr, Diabetes E11.9 [facility] [address] [facility] [place] [address] 16 Apr, 2019 Diabetes E11.9 and Essential (primary) h ypertension I10 [place] [address] [address] 11 Apr, 2019 Essential (primary) hypertension I10 [place] [address] [id number] 05 Apr, 2019 Essential (primary) hypertension I10 and Diabetes E11.9 [place] [address] [address] 03 Apr, 2019 Mouth pain K13.79 [place] [address] [address] 02 Apr, 2019 Dental examination Z01.20 [place] [address] [address] 02 Apr, 2019 Type 2 diabetes mellitus with other spec ified complication E11.69 ; 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 and Mouth pain K13.79 [place] [address] [address] 27 Mar, 2019 Diabetes E11.9 ; Essential (primary) hyp ertension I10 ; Mixed hyperlipidemia E78.2 and Dysuria R30.0 [place] [address] [address] 24 Mar, 2019 Diabetes E11.9 [facility] [address] [address] 15 Mar, 2019 Abscess L02.91 [facility] [address] [place] [address] 13 Mar, 2019 Abscess L02.91 [place] [address] [address] 13 Mar, 2019 [facility] [address] [address] 10 Mar, 2019 Abscess L02.91 and Mouth radhika n K13.79 [place] [address] [address] Feb, Diabetes E11.9 [facility] [id number] [place] [address] Feb, [facility] [address] [address] Feb, Diabetes E11.9 [facility] [address] [address] Jan, [facility] [address] [address] Dec, Diabetes E11.9 and DM neuro manif type I I E11.49 [place] [address] [address] Dec, Diabetes E11.9 [facility] [address] [address] Dec, [facility] [address] [id number] Dec, Dental examination Z01.20 and Caries K02 .9 [place] [address] [place] [address] Nov, [place] [address] [address] Nov, Hyperglycemia R73.9 and Diabetes E11.9 [place] [address] [address] Nov, [facility] [address] [address] Oct, Diabetes E11.9 ; Hyperglycemia R73.9 ; E ssential (primary) hypertension I10 ; Tobacco abuse Z72.0 ; Schizophrenia F20.9 and Encounter for immunization Z23 [facility] [id number] [place] [address] Oct, [facility] [address] [address] Oct, Hyperglycemia R73.9 and Diabetes E11.9 [place] [id number] [place] [address] Sep, [facility] [address] [address] Sep, [facility] [address] [address] Sep, Diabetes E11.9 ; Hyperglycemia R73.9 and Morbid obesity E66.01 [facility] [address] [address] Sep, Hyperglycemia R73.9 [facility] [id number] [place] [address] Sep, Diabetes E11.9 [facility] [id number] [place] [address] Aug, Diabetes E11.9 [place] [address] [address] Aug, Hyperglycemia R73.9 [facility] [id number] [place] [address] Jul, [facility] [address] [address] Jul, Acute gout of right foot, unspecified ca use M10.9 and Hyperglycemia R73.9 [facility] [id number] [place] [address] June, [facility] [address] [address] June, [facility] [id number] [place] [address] May, Mouth pain K13.79 ; Diabetes E11.9 ; Hyp erglycemia R73.9 and Morbid obesity E66.01 [facility] [id number] [place] [address] Apr, Diabetes E11.9 [facility] [address] [facility] [id number] [address] [place] [address] 16 Mar, 2018 Mouth pain K13.79 and Dental caries K02.9 [facility] [address] [address] 14 Mar, 2018 Chondromalacia of right knee M94.261 [facility] [address] [facility] [id number] [address] [place] [address] Mar, Atopic dermatitis, unspecifi ed type L20.9 and BMI 45.0- 49.9, adult Z68.42 [facility] [address] [address] Feb, [place] [address] [address] Feb, [place] [address] [address] Feb, Diabetes E11.9 and DM neuro manif type I I E11.49 [place] [address] [address] Jan, Mixed hyperlipidemia E78.2 [place] [address] [address] Jan, Diabetes E11.9 and BMI 45.0-49.9, adult Z68.42 [place] [address] [address] Jan, Chondromalacia of right knee M94.261 and Sprain of anterior cruciate ligament of right knee, initial encounter S83.511A [facility] [address] [address] Jan, [place] [address] [address] Dec, [place] [address] [address] Dec, [facility] [address] [address] Nov, [place] [address] [place] [address] Nov, [facility] [address] [address] Nov, Injury of right knee, initial encounter S89.91XA and BMI 45.0-49.9, adult Z68.42 [facility] [address] [facility] [id number] [address] [place] [address] 15 Nov, 2017 Right knee pain M25.561 and BMI 45.0-49.9, adult Z68.42 [facility] [address] [address] Oct, [place] [address] [address] Sep, [place] [address] [address] Sep, Diabetes E11.9 and Arthralgia, unspecifi ed joint M25.50 [place] [address] [address] Sep, Anxiety F41.9 and Hyperglycemia R73.9 [place] [address] [address] Sep, DM neuro manif type II E11.49 ; Hypergly cemia R73.9 and Uncontrolled type 2 diabetes mellitus with hyperglycemia E11.65 [place] [address] [address] Sep, Anxiety F41.9 ; DM neuro manif type II E 11.49 and Hyperglycemia R73.9 [place] [address] [address] Sep, [place] [address] [address] Aug, [place] [address] [address] Aug, [place] [address] [address] Jul, Constipation, unspecified constipation t ype K59.00 [place] [address] [address] Jul, Hyperglycemia R73.9 [facility] [address] [address] June, Essential (primary) hypertension I10 [place] [address] [address] May, Essential (primary) hypertension I10 [place] [address] [address] May, Mixed hyperlipidemia E78.2 [place] [address] [address] May, Diabetes E11.9 [place] [address] [address] May, Diabetes E11.9 ; Hyperglycemia R73.9 ; P ain in right knee M25.561 ; Pain in left knee M25.562 and BMI 45.0-49.9, adult Z68.42 [place] [address] [address] Apr, [place] [address] [address] Mar, [place] [address] [address] Feb, DM neuro manif type II E11.49 [place] [address] [address] Feb, DM neuro manif type II E11.49 [place] [address] [address] Feb, DM neuro manif type II E11.49 [place] [address] [address] Feb, Diabetes E11.9 [facility] [address] [address] Feb, Fatigue, unspecified type R53.83 [place] [address] [address] Jan, Fatigue, unspecified type R53.83 [place] [address] [address] Dec, [place] [address] [address] Dec, Onychomycosis B35.1 and Ingrowing nail L 60.0 [place] [address] [address] Dec, DM neuro manif type II E11.49 and Diabet es E11.9 [place] [address] [address] Dec, DM neuro manif type II E11.49 [place] [address] [address] Nov, Diabetes E11.9 [place] [address] [address] Nov, Diabetes E11.9 and Ingrown nail L60.0 [place] [address] [address] Oct, Anxiety F41.[address] [address] Oct, Diabetes E11.9 and Anxiety F41.9 [place] [address] [address] Sep, [address] [address] Sep, Diabetes E11.9 and DM neuro manif type I I E11.49 [place] [address] [address] Sep, [place] [address] [address] Aug, Diabetes E11.9 and Anxiety F41.9 [facility] [address] [address] Aug, DM neuro manif type II E11.49 [facility] [address] [id number] Jul, Dental examination Z01.20 [facility] [address] [address] Jul, Dental examination Z01.20 [facility] [address] [address] Jul, Diabetes E11.9 and Abscessed tooth K04.7 [facility] [address] [id number] June, [facility] [address] [id number] June, [facility] [address] [id number] May, Dental examination Z01.20 [facility] [address] [address] Apr, [facility] [address] [address] Apr, DM neuro manif type II E11.49 [facility] [address] [address] Apr, [facility] [address] [address] Apr, Essential (primary) hypertension I10 [facility] [address] [address] Apr, [facility] [address] [place] [address] Mar, Diabetes E11.9 [facility] [address] [address] Mar, Diabetes E11.9 ; Mixed hyperlipidemia E7 8.2 ; Essential (primary) hypertension I10 and Hemorrhoids, unspecified hemorrhoid type K64.9 [place] [address] [address] Mar, [facility] [address] [address] Mar, [facility] [address] [address] Feb, Diabetes E11.9 [place] [address] [address] Feb, [place] [address] [address] Feb, [place] [address] [address] Feb, Essential (primary) hypertension I10 ; M ixed hyperlipidemia E78.2 ; Diabetes E11.9 ; Chronic obstructive pulmonary disease, unspecified COPD type J44.9 and Gastroesophageal reflux disease without esophagitis K21.9 [place] [address] [address] Feb, [place] [address] [address] Jan, Essential (primary) hypertension I10 [place] [address] [address] Jan, Mixed hyperlipidemia E78.2 and Tobacco a buse Z72.0 [place] [address] [address] Jan, [place] [address] [address] Dec, [place] [address] [address] Dec, [place] [address] [address] Dec, Diabetes E11.9 ; Encounter for immunizat ion Z23 and Tooth pain K08.89 [place] [address] [address] 14 Nov, 2015 [place] [address] [address] Nov, [place] [address] [address] Oct, Essential (primary) hypertension I10 [place] [address] [address] Oct, [place] [address] [address] Sep, [place] [address] [address] Sep, Flat foot [pes planus] (acquired), left foot M21.42 ; Flat foot [pes planus] (acquired), right foot M21.41 and DM neuro manif type II E11.49 [place] [address] [address] Sep, Diabetes E11.9 [place] [address] [address] Aug, [place] [address] [address] Aug, [place] [address] [address] Jul, Essential (primary) hypertension I10 [place] [address] [address] June, [place] [address] [address] June, Diabetes E11.9 [place] [address] [address] June, Onychomycosis B35.1 and Nail ingrowing L 60.0 [place] [address] [address] June, Diabetes E11.9 ; Flat foot [pes planus] (acquired), unspecified foot M21.40 and Ingrown toenail L60.0 [place] [address] [address] May, [place] [address] [address] May, Diabetes E11.9 [place] [address] [address] Apr, Diabetes E11.9 and Schizophrenia F20.9 [place] [address] [address] Apr, [place] [address] [address] Apr, Diabetes E11.9 ; Schizophrenia F20.9 and Essential (primary) hypertension I10 [place] [address] [address] Dec, [place] [address] [address] Dec, Niko [facility] [address] [facility] [id number] [place] [id number] Nov, [place] [address] [address] Oct, Diabetes mellitus without mention of com plication, type II or unspecified type, uncontrolled 250.02 and Flat feet, bilateral 734 [place] [address] [address] Oct, [place] [address] [address] Sep, [place] [address] [address] Jul, [place] [address] [address] June, [place] [address] [id number] [place] [address] 14 May, 2014 [facility] [address] [id number] [place] [address] 13 May, 2014 [facility] [address] [id number] [place] [address] 18 Apr, 2014 [facility] [address] [id number] [place] [address] 18 Apr, 2014 [facility] [address] [id number] [place] [address] 13 Apr, 2014 [facility] [address] [id number] [place] [address] 13 Apr, 2014 [facility] [address] [id number] [place] [address] 12 Apr, 2014 [facility] [address] [id number] [place] [address] Apr, [facility] [address] [id number] [place] [address] Feb, [facility] [address] [id number] [place] [address] Feb, [facility] [address] [id number] [place] [address] Jan, [facility] [address] [id number] [place] [address] 31 Jan, 2014 [facility] [address] [id number] [place] [address] Jan, [facility] [address] [id number] [place] [address] Jan, [facility] [address] [id number] [place] [address] Dec, [facility] [address] [id number] [place] [address] Dec, [facility] [address] [id number] [place] [address] Dec, [facility] [address] [facility] [id number] [place] [address] Dec, [facility] [address] [facility] [id number] [place] [address] Nov, [facility] [address] [id number] [place] [address] Nov, [facility] [address] [id number] [place] [address] Nov, [facility] [address] [facility] [id number] [place] [address] Nov, [facility] [address] [id number] [place] [address] Oct, [facility] [address] [id number] [place] [address] Oct, [facility] [address] [id number] [place] [address] Oct, [facility] [address] [id number] [place] [address] Oct, [facility] [address] [id number] [place] [address] Oct, [facility] [address] [id number] [place] [address] Oct, [facility] [address] [id number] [place] [address] Sep, [facility] [address] [id number] [place] [address] Sep, [facility] [address] [id number] [place] [address] Sep, [facility] [address] [id number] [place] [address] Sep, [facility] [address] [id number] [place] [address] Sep, [facility] [address] [id number] [facility] [address] Sep, 2013 [facility] [address] [id number] [place] [address] Sep, [facility] [address] [facility] [id number] [place] [address] Aug, [facility] [address] [facility] [id number] [place] [address] Aug, [facility] [address] [facility] [id number] [place] [address] Aug, [facility] [address] [facility] [id number] [place] [address] Aug, [facility] [address] [facility] [id number] [place] [address] Aug, [facility] [address] [id number] [place] [address] Aug, 2013 [facility] [address] [id number] [place] [address] Aug, 2013 [facility] [address] [facility] [id number] [place] [address] Aug, 2013 [facility] [address] [id number] [place] [address] Aug, [facility] [address] [id number] [place] [address] Aug, 2013 [facility] [address] [facility] [id number] [place] [address] Aug, 2013 [facility] [address] [id number] [place] [id number] Aug, 2013 [facility] [address] [facility] [id number] [place] [address] Aug, [facility] [address] [facility] [id number] [place] [address] Aug, [facility] [address] [id number] [place] [address] Jul, [facility] [address] [facility] [id number] [place] [address] Jul, [facility] [address] [facility] [id number] [place] [address] Jul, [facility] [address] [id number] [place] [address] Jul, [facility] [address] [id number] [place] [address] May, [facility] [address] [id number] [place] [address] May, [facility] [address] [id number] [place] [address] Apr, [facility] [address] [id number] [place] [address] Apr, [facility] [address] [id number] [place] [address] Apr, [facility] [address] [id number] [place] [address] Apr, [facility] [address] [id number] [place] [address] Apr, [facility] [address] [id number] [place] [address] Apr, [facility] [address] [id number] [place] [address] Apr, [facility] [address] [facility] [address] [id number] [place] [address] Feb, [facility] [address] [id number] [place] [address] Feb, [facility] [address] [id number] [place] [address] Feb, [facility] [address] [id number] [place] [address] Feb, [facility] [address] [id number] [place] [address] Dec, [facility] [address] [id number] [place] [address] Dec, [facility] [address] [id number] [place] [address] Dec, [facility] [address] [id number] [place] [address] Dec, [facility] [address] [address] [id number] [place] [address] Nov, [facility] [facility] [address] [id number] [place] [address] Nov, [facility] [address] [id number] [place] [address] Oct, [facility] [address] [id number] [place] [address] Oct, [facility] [address] [id number] [place] [address] Oct, [facility] [address] [id number] [place] [address] Oct, [facility] [address] [id number] [place] [address] Sep, [facility] [address] [id number] [place] [address] Sep, [facility] [address] [id number] [place] [address] Sep, [facility] [address] [id number] [place] [address] Aug, [facility] [address] [id number] [place] [address] Aug, [facility] [address] [id number] [place] [address] Jul, [facility] [address] [id number] [place] [address] Mar, [facility] [address] [id number] [place] [address] Feb, [facility] [address] [id number] [place] [address] Jan, [facility] [address] [id number] [place] [address] Jan, [facility] [address] [id number] [place] [address] Jan, [facility] [id number] [place] [address] Jan, [facility] [address] [id number] [place] [address] Jan, [facility] [address] [id number] [place] [address] Jan, [facility] [address] [id number] [place] [address] Dec, [facility] [id number] [place] [address] Dec, [facility] [address] [id number] [place] [address] Dec, [facility] [address] [id number] [place] [address] Dec, IMMUNIZATIONS No Known Immunizations SOCIAL HISTORY [...]
--- OUTSIDE RECORDS SUMMARY | 2019-06-13 20:08 | XMS REPORT ---
Author Author Doug Blackmon Doctor Organization [facility] Address Unknown Phone Unavailable Care Team Providers Care Almond Blancher Operator Name Role Phone Migration, Doctor Unavailable Unavailable PROBLEMS Type Condition ICD9-CM Code YWS13-AR Code Onset Dates Condition S tatus SNOMED Code Problem Diabetes E11.9 Active 819945867 Problem Essential (primary) hypertension I10 Active 51522868 Problem Sleep apnea G47.30 Active 57782918 Problem Schizophrenia F20.9 Active 278715 04 Problem Mixed hyperlipidemia E78.2 Active 077753772 Problem Gastroesophageal reflux disease without esophagitis K21.9 Active 833007377 Problem Chronic obstructive pulmonary disease, unspecified COPD ty pe J44.9 Active 74276775 Problem Atopic dermatitis, unspecified type L20.9 Active 77515168 Problem DM neuro manif type II E11.49 Active 62300764 Problem Acute gout of right foot, unspecified cause M10.9 Active 555185948 Problem Flat foot [pes planus] (acquired), unspecified foot M21.40 Active 19881687 Problem Chronic GERD K21.9 Active 7962839 09 Problem Anxiety F41.9 Active 88764201 Problem Constipation, unspecified constipation type K59.00 Active 86467575 Problem Uncontrolled type 2 diabetes mellitus with hyperglycemia E11.65 Active [id number] ALLERGIES No Information ENCOUNTERS Encounter Location Date Diagnosis [place] [address] [address] Feb, Diabetes E11.9 [facility] [address] [address] Jan, [place] [address] [address] Dec, Diabetes E11.9 and DM neuro manif type I I E11.49 [place] [address] [place] [id number] [place] [address] Dec, Diabetes E11.9 [place] [address] [place] [address] 15 Dec, 2018 [facility] [address] [id number] [place] [id number] Dec, Dental examination Z01.20 and Caries K02 .9 [facility] [address] [address] Nov, [place] [address] [address] Nov, Hyperglycemia R73.9 and Diabetes E11.9 [place] [address] [address] Nov, [place] [address] [address] Oct, Diabetes E11.9 ; Hyperglycemia R73.9 ; E ssential (primary) hypertension I10 ; Tobacco abuse Z72.0 ; Schizophrenia F20.9 and Encounter for immunization Z23 [place] [address] [address] Oct, [place] [address] [address] Oct, Hyperglycemia R73.9 and Diabetes E11.9 [place] [address] [address] Sep, [place] [address] [address] Sep, [place] [address] [address] Sep, Diabetes E11.9 ; Hyperglycemia R73.9 and Morbid obesity E66.01 [place] [address] [address] Sep, Hyperglycemia R73.9 [facility] [address] [address] Sep, Diabetes E11.9 [place] [address] [address] Aug, Diabetes E11.9 [place] [address] [address] Aug, Hyperglycemia R73.9 [place] [address] [address] Jul, [place] [address] [address] Jul, Acute gout of right foot, unspecified ca use M10.9 and Hyperglycemia R73.9 [place] [address] [address] June, [place] [address] [address] June, [place] [address] [address] 15 May, 2018 Mouth pain K13.79 ; Diabetes E11.9 ; Hyp erglycemia R73.9 and Morbid obesity E66.01 [place] [address] [address] Apr, Diabetes E11.9 [facility] [address] [address] 16 Mar, 2018 Mouth pain K13.79 and Dental caries K02.[address] [address] 14 Mar, 2018 Chondromalacia of right knee M94.261 [facility]ALK IN [place] [id number] [place] [address] Mar, Atopic dermatitis, unspecifi ed type L20.9 and BMI 45.0- 49.9, adult Z68.42 [place] [address] [address] Feb, [place] [address] [address] Feb, [place] [address] [address] Feb, Diabetes E11.9 and DM neuro manif type I I E11.49 [facility] [address] [address] Jan, Mixed hyperlipidemia E78.2 [facility] [address] [address] Jan, Diabetes E11.9 and BMI 45.0-49.9, adult Z68.42 [place] [address] [address] Jan, Chondromalacia of right knee M94.261 and Sprain of anterior cruciate ligament of right knee, initial encounter S83.511A [place] [address] [address] Jan, [place] [address] [address] Dec, [place] [address] [address] Dec, [facility] [address] [address] Nov, [place] [address] [address] Nov, [place] [address] [address] Nov, Injury of right knee, initial encounter S89.91XA and BMI 45.0-49.9, adult Z68.42 [facility] [address] [facility] [id number] [address] [place] [address] Nov, Right knee pain M25.561 and BMI 45.0-49.9, adult Z68.42 [facility] [address] [address] Oct, [facility] [address] [address] Sep, [facility] [address] [address] Sep, Diabetes E11.9 and Arthralgia, unspecifi ed joint M25.50 [place] [address] [address] Sep, Anxiety F41.9 and Hyperglycemia R73.9 [place] [address] [address] Sep, DM neuro manif type II E11.49 ; Hypergly cemia R73.9 and Uncontrolled type 2 diabetes mellitus with hyperglycemia E11.65 [place] [address] [address] Sep, Anxiety F41.9 ; DM neuro manif type II E 11.49 and Hyperglycemia R73.9 [place] [address] [address] Sep, [place] [address] [address] Aug, [place] [address] [address] Aug, [place] [address] [address] Jul, Constipation, unspecified constipation t ype K59.00 [place] [address] [address] Jul, Hyperglycemia R73.9 [place] [address] [address] June, Essential (primary) hypertension I10 [place] [address] [address] May, Essential (primary) hypertension I10 [place] [address] [address] May, Mixed hyperlipidemia E78.2 [place] [address] [address] May, Diabetes E11.9 [place] [address] [address] May, Diabetes E11.9 ; Hyperglycemia R73.9 ; P ain in right knee M25.561 ; Pain in left knee M25.562 and BMI 45.0-49.9, adult Z68.42 [place] [address] [address] Apr, [place] [address] [address] Mar, [place] [address] [address] Feb, DM neuro manif type II E11.49 [place] [address] [address] Feb, DM neuro manif type II E11.49 [place] [address] [address] Feb, DM neuro manif type II E11.49 [place] [address] [address] Feb, Diabetes E11.9 [place] [address] [address] Feb, Fatigue, unspecified type R53.83 [place] [address] [address] Jan, Fatigue, unspecified type R53.83 [place] [address] [address] Dec, [place] [address] [address] Dec, Onychomycosis B35.1 and Ingrowing nail L 60.0 [place] [address] [address] Dec, DM neuro manif type II E11.49 and Diabet es E11.9 [place] [address] [address] Dec, DM neuro manif type II E11.49 [facility] [address] [address] Nov, Diabetes E11.9 [facility] [address] [address] Nov, Diabetes E11.9 and Ingrown nail L60.0 [facility] [address] [address] 11 Oct, 2016 Anxiety F41.9 [facility] [address] [address] 06 Oct, 2016 Diabetes E11.9 and Anxiety F41.9 [facility] [address] [address] Sep, [facility] [address] [address] Sep, Diabetes E11.9 and DM neuro manif type I I E11.49 [facility] [address] [address] Sep, [facility] [address] [address] Aug, Diabetes E11.9 and Anxiety F41.9 [facility] [address] [address] Aug, DM neuro manif type II E11.49 [facility] [address] [id number] Jul, Dental examination Z01.20 [facility] [address] [address] Jul, Dental examination Z01.20 [facility] [address] [address] Jul, Diabetes E11.9 and Abscessed tooth K04.7 [facility] [address] [id number] June, [facility] [address] [id number] [place] [id number] June, [facility] [address] [facility] [place] [id number] May, Dental examination Z01.20 [facility] [address] [address] Apr, [facility] [address] [address] Apr, DM neuro manif type II E11.49 [facility] [address] [address] Apr, [facility] [address] [address] Apr, Essential (primary) hypertension I10 [facility] [address] [address] Apr, [facility] [address] [address] Mar, Diabetes E11.9 [facility] [address] [address] Mar, Diabetes E11.9 ; Mixed hyperlipidemia E7 8.2 ; Essential (primary) hypertension I10 and Hemorrhoids, unspecified hemorrhoid type K64.9 [facility] [address] [address] Mar, [facility] [address] [address] Mar, [facility] [address] [address] Feb, Diabetes E11.9 [facility] [address] [address] Feb, [facility] [address] [address] Feb, [facility] [address] [address] Feb, Essential (primary) hypertension I10 ; M ixed hyperlipidemia E78.2 ; Diabetes E11.9 ; Chronic obstructive pulmonary disease, unspecified COPD type J44.9 and Gastroesophageal reflux disease without esophagitis K21.9 [place] [address] [address] Feb, [place] [address] [address] Jan, Essential (primary) hypertension I10 [place] [address] [address] Jan, Mixed hyperlipidemia E78.2 and Tobacco a buse Z72.[address] [address] Jan, [place] [address] [address] Dec, [place] [address] [address] Dec, [place] [address] [address] Dec, Diabetes E11.9 ; Encounter for immunizat ion Z23 and Tooth pain K08.89 [place] [address] [address] Nov, [address] [address] Nov, [address] [address] Oct, Essential (primary) hypertension I10 [place] [address] [address] Oct, [place] [address] [address] Sep, [place] [address] [address] Sep, Flat foot [pes planus] (acquired), left foot M21.42 ; Flat foot [pes planus] (acquired), right foot M21.41 and DM neuro manif type II E11.49 [place] [address] [address] Sep, Diabetes E11.9 [place] [address] [address] Aug, [place] [address] [address] Aug, [address] [address] Jul, Essential (primary) hypertension I10 [address] [address] June, [address] [address] June, Diabetes E11.[address] [address] June, Onychomycosis B35.1 and Nail ingrowing L 60.[address] [address] June, Diabetes E11.9 ; Flat foot [pes planus] (acquired), unspecified foot M21.40 and Ingrown toenail L60.[address] [address] May, [address] [address] May, Diabetes E11.[address] [address] Apr, Diabetes E11.9 and Schizophrenia F20.[address] [address] Apr, [address] [address] Apr, Diabetes E11.9 ; Schizophrenia F20.9 and Essential (primary) hypertension I10 [facility] [address] [address] Dec, [facility] [address] [address] Dec, [facility] [place] [id number] [facility] [id number] [place] [id number] Nov, [facility] [address] [address] Oct, Diabetes mellitus without mention of com plication, type II or unspecified type, uncontrolled 250.02 and Flat feet, bilateral 734 [facility] [address] [address] Oct, [facility] [address] [address] Sep, [facility] [address] [address] Jul, [facility] [address] [address] June, [facility] [address] [address] May, [facility] [address] [address] May, [facility] [address] [address] Apr, [facility] [address] [address] Apr, [facility] [address] [address] Apr, [facility] [address] [address] Apr, [facility] [address] [address] Apr, [facility] [place] [facility] [address] [id number] [place] [address] Apr, [facility] [place] [facility] [address] [id number] [place] [address] Feb, [facility] [place] [facility] [address] [id number] [place] [address] Feb, [facility] [place] [facility] [address] [id number] [place] [address] Jan, [facility] [place] [facility] [address] [id number] [place] [address] Jan, [facility] [place] [facility] [address] [id number] [place] [address] Jan, [facility] [place] [facility] [address] [id number] [place] [address] Jan, [facility] [place] [facility] [address] [place] [id number] [place] [address] Dec, [facility] [place] [facility] [address] [id number] [place] [address] Dec, [facility] [place] [facility] [address] [id number] [place] [address] Dec, [facility] [place] [facility] [address] [id number] [place] [address] Dec, [facility] [place] [facility] [address] [id number] [place] [address] Nov, [facility] [place] [facility] [address] [id number] [place] [address] Nov, [facility] [place] [facility] [address] [id number] [place] [address] Nov, [facility] [place] [facility] [address] [id number] [place] [address] Nov, [facility] [place] [facility] [address] [id number] [place] [address] Oct, [facility] [place] [facility] [address] [id number] [place] [address] Oct, [facility] [place] [facility] [address] [facility] [id number] [facility] [place] [address] Oct, [facility] [place] [facility] [address] [facility] [id number] [facility] [place] [address] Oct, [facility] [place] [facility] [address] [id number] [facility] [address] Oct, [facility] [place] [facility] [address] [facility] [id number] [place] [address] Oct, [facility] [place] [facility] [address] [facility] [id number] [facility] [place] [address] Sep, [facility] [place] [facility] [address] [facility] [id number] [facility] [address] Sep, [facility] [place] [facility] [address] [id number] [place] [address] Sep, [facility] [place] [facility] [address] [id number] [place] [address] Sep, [facility] [place] [facility] [address] [facility] [id number] [facility] [place] [address] Sep, [facility] [place] [facility] [address] [id number] [place] [address] Sep, [facility] [place] [facility] [address] [id number] [place] [address] Sep, [facility] [place] [facility] [address] [id number] [place] [address] Aug, [facility] [place] [facility] [address] [facility] [id number] [facility] [address] Aug, [facility] [place] [facility] [address] [id number] [place] [address] Aug, [facility] [place] [facility] [address] [facility] [id number] [place] [address] Aug, [facility] [place] [facility] [address] [id number] [place] [address] Aug, [facility] [place] [facility] [address] [facility] [id number] [place] [address] Aug, 2013 [facility] [place] [facility] [address] [facility] [id number] [place] [address] Aug, 2013 [facility] [place] [facility] [address] [facility] [id number] [place] [address] Aug, 2013 [facility] [place] [facility] [address] [id number] [place] [address] Aug, 2013 [facility] [place] [facility] [address] [id number] [place] [address] Aug, 2013 [facility] [place] [facility] [address] [facility] [id number] [place] [address] Aug, 2013 [facility] [place] [facility] [address] [facility] [id number] [place] [id number] Aug, [facility] [place] [facility] [address] [id number] [place] [address] Aug, [facility] [place] [facility] [address] [id number] [place] [address] Aug, [facility] [place] [facility] [address] [id number] [place] [address] Jul, [facility] [place] [facility] [address] [id number] [place] [address] Jul, [facility] [place] [facility] [address] [id number] [place] [address] Jul, [facility] [place] [facility] [address] [id number] [place] [address] Jul, [facility] [place] [facility] [address] [id number] [place] [address] May, [facility] [place] [facility] [address] [id number] [place] [address] May, [facility] [place] [facility] [address] [id number] [place] [address] Apr, [facility] [place] [facility] [address] [id number] [place] [address] Apr, [facility] [place] [facility] [address] [id number] [place] [address] Apr, [facility] [place] [facility] [address] [id number] [place] [address] Apr, [facility] [place] [facility] [address] [id number] [place] [address] Apr, [facility] [place] [facility] [address] [id number] [place] [address] Apr, [facility] [place] [facility] [address] [id number] [place] [address] Apr, [facility] [place] [facility] [address] [id number] [place] [address] Feb, [facility] [place] [facility] [address] [id number] [place] [address] Feb, [facility] [place] [facility] [address] [place] [id number] [place] [address] Feb, [facility] [place] [facility] [address] [id number] [place] [address] Feb, [facility] [place] [facility] [address] [id number] [place] [address] Dec, [facility] [place] [facility] [address] [id number] [place] [address] Dec, [facility] [place] [facility] [address] [id number] [place] [address] Dec, [facility] [place] [facility] [address] [id number] [place] [address] Dec, [facility] [place] [facility] [address] [id number] [place] [address] Nov, [facility] [place] [facility] [address] [id number] [place] [address] Nov, [facility] [place] [facility] [address] [id number] [place] [address] Oct, [facility] [place] [facility] [address] [id number] [place] [address] 21 Oct, 2012 [facility] [place] [facility] [address] [id number] [place] [address] 17 Oct, 2012 [facility] [place] [facility] [address] [id number] [place] [address] 05 Oct, 2012 [facility] [place] [facility] [address] [id number] [place] [address] 14 Sep, 2012 [facility] [place] [facility] [address] [id number] [place] [address] Sep, [facility] [address] [id number] [place] [address] Sep, [facility] [address] [id number] [place] [address] Aug, [facility] [address] [id number] [place] [address] Aug, [facility] [address] [id number] [place] [address] Jul, [facility] [address] [id number] [place] [address] Mar, [facility] [address] [id number] [place] [address] Feb, [facility] [address] [id number] [place] [address] Jan, [facility] [address] [id number] [place] [address] Jan, [facility] [address] [id number] [place] [address] Jan, [facility] [address] [id number] [place] [address] Jan, [facility] [address] [id number] [place] [address] Jan, [facility] [address] [id number] [place] [address] Jan, [facility] [address] [id number] [place] [address] Dec, [facility] [address] [id number] [place] [address] Dec, [facility] [address] [id number] [place] [address] Dec, [facility] [address] [id number] [place] [address] Dec, IMMUNIZATIONS No Known Immunizations SOCIAL HISTORY [...]
--- OUTSIDE RECORDS SUMMARY | 2019-06-13 20:09 | XMS REPORT ---
Author Author Doug WISE Organization [facility] Address [address] [place] [address] Care Team Providers Care Mechatronics Technologist Name Role Phone SUSAN WISE Unavailable PROBLEMS Type Condition ICD9-CM Code NWH29-HE Code Onset Dates Condition S tatus SNOMED Code Problem Diabetes E11.9 Active 771084149 Problem Essential (primary) hypertension I10 Active 91827172 Problem Sleep apnea G47.30 Active 73518749 Problem Schizophrenia F20.9 Active 702892 04 Problem Mixed hyperlipidemia E78.2 Active 294220887 Problem Gastroesophageal reflux disease without esophagitis K21.9 Active 209421472 Problem Chronic obstructive pulmonary disease, unspecified COPD ty pe J44.9 Active 00451748 Problem Atopic dermatitis, unspecified type L20.9 Active 86743202 Problem DM neuro manif type II E11.49 Active 46353086 Problem Acute gout of right foot, unspecified cause M10.9 Active 063411049 Problem Flat foot [pes planus] (acquired), unspecified foot M21.40 Active 02681082 Problem Chronic GERD K21.9 Active 0372744 09 Problem Anxiety F41.9 Active 15873251 Problem Constipation, unspecified constipation type K59.00 Active 47532332 Problem Uncontrolled type 2 diabetes mellitus with hyperglycemia E11.65 Active 917910620 ALLERGIES No Information ENCOUNTERS Encounter Location Date Diagnosis [facility] [id number] [place] [address] Feb, Diabetes E11.9 [facility] [id number] [place] [address] Jan, [facility] [address] [address] Dec, Diabetes E11.9 and DM neuro manif type I I E11.49 [facility] [address] [address] Dec, Diabetes E11.9 [facility] [id number] [place] [address] Dec, [facility] [address] [id number] [place] [id number] Dec, Dental examination Z01.20 and Caries K02 .9 [facility] [id number] [place] [address] Nov, [facility] [address] [address] Nov, Hyperglycemia R73.9 and Diabetes E11.9 [facility] [address] [address] Nov, [facility] [address] [address] Oct, Diabetes E11.9 ; Hyperglycemia R73.9 ; E ssential (primary) hypertension I10 ; Tobacco abuse Z72.0 ; Schizophrenia F20.9 and Encounter for immunization Z23 [facility] [id number] [place] [address] Oct, [facility] [address] [address] Oct, Hyperglycemia R73.9 and Diabetes E11.9 [facility] [id number] [place] [address] Sep, [facility] [address] [address] Sep, [facility] [address] [address] Sep, Diabetes E11.9 ; Hyperglycemia R73.9 and Morbid obesity E66.01 [facility] [address] [address] Sep, Hyperglycemia R73.9 [facility] [address] [address] Sep, Diabetes E11.9 [place] [address] [address] Aug, Diabetes E11.9 [place] [address] [address] Aug, Hyperglycemia R73.9 [place] [address] [address] Jul, [place] [address] [address] Jul, Acute gout of right foot, unspecified ca use M10.9 and Hyperglycemia R73.9 [place] [address] [address] June, [place] [address] [address] June, [place] [address] [address] May, Mouth pain K13.79 ; Diabetes E11.9 ; Hyp erglycemia R73.9 and Morbid obesity E66.01 [place] [address] [address] Apr, Diabetes E11.9 [facility] [id number] [place] [address] 16 Mar, 2018 Mouth pain K13.79 and Dental caries K02.9 [place] [address] [address] 14 Mar, 2018 Chondromalacia of right knee M94.261 [facility] [address] [place] [address] Mar, Atopic dermatitis, unspecifi ed type L20.9 and BMI 45.0- 49.9, adult Z68.42 [place] [address] [address] Feb, [place] [address] [address] Feb, [facility] [id number] [place] [address] Feb, Diabetes E11.9 and DM neuro manif type I I E11.49 [facility] [id number] [place] [address] Jan, Mixed hyperlipidemia E78.2 [facility] [address] [address] Jan, Diabetes E11.9 and BMI 45.0-49.9, adult Z68.42 [address] [address] [address] Jan, Chondromalacia of right knee M94.261 and Sprain of anterior cruciate ligament of right knee, initial encounter S83.511A [place] [id number] [place] [address] Jan, [facility] [address] [address] Dec, [address] [address] [address] Dec, [facility] [address] [address] Nov, [facility] [address] [address] Nov, [facility] [address] [address] Nov, Injury of right knee, initial encounter S89.91XA and BMI 45.0-49.9, adult Z68.42 [facility] [address] [facility] [id number] [place] [address] Nov, Right knee pain M25.561 and BMI 45.0-49.9, adult Z68.42 [facility] [id number] [place] [address] Oct, [facility] [address] [address] Sep, [place] [address] [address] Sep, Diabetes E11.9 and Arthralgia, unspecifi ed joint M25.50 [place] [address] [address] Sep, Anxiety F41.9 and Hyperglycemia R73.9 [place] [address] [address] Sep, DM neuro manif type II E11.49 ; Hypergly cemia R73.9 and Uncontrolled type 2 diabetes mellitus with hyperglycemia E11.65 [address] [address] [address] Sep, Anxiety F41.9 ; DM neuro manif type II E 11.49 and Hyperglycemia R73.9 [address] [address] [address] Sep, [place] [address] [address] Aug, [place] [address] [address] Aug, [address] [address] [address] Jul, Constipation, unspecified constipation t ype K59.00 [place] [address] [address] Jul, Hyperglycemia R73.9 [place] [address] [address] June, Essential (primary) hypertension I10 [place] [address] [address] May, Essential (primary) hypertension I10 [address] [address] [address] May, Mixed hyperlipidemia E78.2 [place] [address] [address] May, Diabetes E11.9 [place] [address] [address] May, Diabetes E11.9 ; Hyperglycemia R73.9 ; P ain in right knee M25.561 ; Pain in left knee M25.562 and BMI 45.0-49.9, adult Z68.42 [place] [address] [address] Apr, [address] [address] [address] Mar, [place] [address] [address] Feb, DM neuro manif type II E11.49 [place] [address] [address] Feb, DM neuro manif type II E11.49 [place] [address] [address] Feb, DM neuro manif type II E11.49 [place] [address] [address] Feb, Diabetes E11.9 [place] [address] [address] Feb, Fatigue, unspecified type R53.83 [place] [address] [address] Jan, Fatigue, unspecified type R53.83 [place] [address] [address] Dec, [place] [address] [address] Dec, Onychomycosis B35.1 and Ingrowing nail L 60.0 [place] [address] [address] Dec, DM neuro manif type II E11.49 and Diabet es E11.9 [facility] [address] [address] Dec, DM neuro manif type II E11.49 [facility] [address] [address] Nov, Diabetes E11.9 [facility] [address] [address] Nov, Diabetes E11.9 and Ingrown nail L60.0 [facility] [address] [address] Oct, Anxiety F41.9 [facility] [address] [address] 06 Oct, 2016 Diabetes E11.9 and Anxiety F41.9 [facility] [address] [address] Sep, [facility] [address] [address] Sep, Diabetes E11.9 and DM neuro manif type I I E11.49 [facility] [address] [address] Sep, [facility] [address] [address] Aug, Diabetes E11.9 and Anxiety F41.9 [facility] [address] [address] Aug, DM neuro manif type II E11.49 [facility] [address] [id number] [place] [id number] Jul, Dental examination Z01.20 [facility] [address] [address] Jul, Dental examination Z01.20 [facility] [address] [address] Jul, Diabetes E11.9 and Abscessed tooth K04.7 [facility] [address] [id number] [place] [id number] June, [facility] [address] [id number] June, [facility] [address] [id number] May, Dental examination Z01.20 [facility] [address] [address] Apr, [facility] [address] [address] Apr, DM neuro manif type II E11.49 [address] [address] [address] Apr, [facility] [address] [address] Apr, Essential (primary) hypertension I10 [address] [address] [address] Apr, [facility] [address] [address] Mar, Diabetes E11.9 [address] [address] [address] Mar, Diabetes E11.9 ; Mixed hyperlipidemia E7 8.2 ; Essential (primary) hypertension I10 and Hemorrhoids, unspecified hemorrhoid type K64.9 [facility] [address] [address] Mar, [facility] [address] [address] Mar, [facility] [address] [address] Feb, Diabetes E11.9 [facility] [address] [address] Feb, [facility] [address] [address] Feb, [facility] [address] [address] Feb, Essential (primary) hypertension I10 ; M ixed hyperlipidemia E78.2 ; Diabetes E11.9 ; Chronic obstructive pulmonary disease, unspecified COPD type J44.9 and Gastroesophageal reflux disease without esophagitis K21.9 [facility] [address] [address] Feb, [facility] [address] [address] Jan, Essential (primary) hypertension I10 [address] [address] [address] Jan, Mixed hyperlipidemia E78.2 and Tobacco a buse Z72.0 [facility] [address] [address] Jan, [facility] [address] [address] Dec, [facility] [address] [address] Dec, [facility] [address] [address] Dec, Diabetes E11.9 ; Encounter for immunizat ion Z23 and Tooth pain K08.89 [facility] [address] [address] Nov, [facility] [address] [address] Nov, [facility] [address] [address] Oct, Essential (primary) hypertension I10 [facility] [address] [address] Oct, [facility] [address] [address] Sep, [facility] [place] [address] [address] Sep, Flat foot [pes planus] (acquired), left foot M21.42 ; Flat foot [pes planus] (acquired), right foot M21.41 and DM neuro manif type II E11.[address] [address] Sep, Diabetes E11.9 [address] [address] [address] Aug, [address] [address] Aug, [address] [address] Jul, Essential (primary) hypertension I10 [address] [address] June, [address] [address] June, Diabetes E11.[address] [address] June, Onychomycosis B35.1 and Nail ingrowing L 60.[address] [address] June, Diabetes E11.9 ; Flat foot [pes planus] (acquired), unspecified foot M21.40 and Ingrown toenail L60.[address] [address] May, [address] [address] May, Diabetes E11.[address] [address] Apr, Diabetes E11.9 and Schizophrenia F20.[address] [address] Apr, [facility] [address] [address] Apr, Diabetes E11.9 ; Schizophrenia F20.9 and Essential (primary) hypertension I10 [facility] [id number] [place] [address] Dec, [facility] [address] [address] Dec, [address] [facility] [id number] [place] [id number] Nov, [facility] [address] [address] Oct, Diabetes mellitus without mention of com plication, type II or unspecified type, uncontrolled 250.02 and Flat feet, bilateral 734 [facility] [address] [address] Oct, [facility] [address] [address] Sep, [facility] [address] [address] Jul, [facility] [address] [address] June, [facility] [address] [address] May, [facility] [address] [address] May, [facility] [address] [address] Apr, [facility] [address] [address] Apr, [facility] [address] [address] Apr, [facility] [address] [address] Apr, [facility] [place] [facility] [address] [id number] [place] [address] Apr, [facility] [place] [facility] [address] [id number] [place] [address] Apr, [facility] [place] [facility] [address] [id number] [place] [address] Feb, [facility] [place] [facility] [address] [id number] [place] [address] Feb, [facility] [place] [facility] [address] [id number] [place] [address] Jan, [facility] [place] [facility] [address] [id number] [place] [address] Jan, [facility] [place] [facility] [address] [id number] [place] [address] Jan, [facility] [place] [facility] [id number] [place] [address] Jan, [facility] [place] [facility] [address] [id number] [place] [address] Dec, [facility] [place] [facility] [address] [id number] [place] [address] Dec, [facility] [place] [facility] [address] [id number] [place] [address] Dec, [facility] [place] [facility] [address] [id number] [place] [address] Dec, [facility] [place] [facility] [address] [id number] [place] [address] Nov, [facility] [place] [facility] [address] [id number] [place] [address] Nov, [facility] [place] [facility] [address] [id number] [place] [address] Nov, [facility] [place] [facility] [address] [id number] [place] [address] Nov, [facility] [place] [facility] [address] [id number] [place] [address] Oct, 2013 [facility] [place] [facility] [address] [id number] [place] [address] Oct, [facility] [place] [facility] [address] [facility] [id number] [place] [address] Oct, [facility] [place] [facility] [address] [id number] [place] [address] Oct, [facility] [place] [facility] [address] [facility] [id number] [place] [address] Oct, [facility] [place] [facility] [address] [facility] [id number] [place] [address] Oct, [facility] [place] [facility] [address] [facility] [id number] [place] [address] Sep, [facility] [place] [facility] [address] [id number] [place] [address] Sep, [facility] [place] [facility] [address] [id number] [place] [address] Sep, [facility] [place] [facility] [address] [facility] [id number] [place] [address] Sep, [facility] [place] [facility] [address] [id number] [place] [address] Sep, [facility] [place] [facility] [address] [id number] [place] [address] Sep, [facility] [place] [facility] [address] [id number] [place] [address] Sep, [facility] [place] [facility] [address] [facility] [id number] [place] [address] Aug, [facility] [place] [facility] [address] [id number] [place] [address] Aug, [facility] [place] [facility] [address] [facility] [id number] [place] [address] Aug, [facility] [place] [facility] [address] [id number] [place] [address] Aug, [facility] [place] [facility] [address] [facility] [id number] [place] [address] 15 Aug, 2013 [facility] [place] [facility] [address] [id number] [place] [address] Aug, 2013 [facility] [place] [facility] [address] [id number] [place] [address] Aug, 2013 [facility] [place] [facility] [address] [id number] [place] [address] Aug, 2013 [facility] [place] [facility] [address] [id number] [place] [address] Aug, 2013 [facility] [place] [facility] [address] [id number] [place] [address] Aug, 2013 [facility] [place] [facility] [address] [id number] [place] [address] Aug, 2013 [facility] [place] [facility] [address] [facility] [id number] [place] [id number] Aug, [facility] [place] [facility] [address] [id number] [place] [address] Aug, [facility] [place] [facility] [address] [id number] [place] [address] Aug, [facility] [place] [facility] [address] [id number] [place] [address] Jul, [facility] [place] [facility] [address] [id number] [place] [address] Jul, [facility] [place] [facility] [address] [id number] [place] [address] Jul, [facility] [place] [facility] [address] [id number] [place] [address] Jul, [facility] [place] [facility] [address] [id number] [place] [address] May, [facility] [place] [facility] [address] [id number] [place] [address] May, [facility] [place] [facility] [address] [id number] [place] [address] Apr, [facility] [place] [facility] [address] [id number] [place] [address] Apr, [facility] [place] [facility] [address] [id number] [place] [address] Apr, [facility] [place] [facility] [address] [id number] [place] [address] Apr, [facility] [place] [facility] [address] [id number] [place] [address] Apr, [facility] [place] [facility] [address] [id number] [place] [address] Apr, [facility] [place] [facility] [address] [id number] [place] [address] Apr, [facility] [place] [facility] [address] [id number] [place] [address] Feb, [facility] [place] [facility] [address] [id number] [place] [address] Feb, [facility] [place] [facility] [address] [id number] [place] [address] Feb, [facility] [place] [facility] [address] [id number] [place] [address] Feb, [facility] [place] [facility] [address] [id number] [place] [address] Dec, [facility] [place] [facility] [address] [id number] [place] [address] Dec, [facility] [place] [facility] [address] [id number] [place] [address] Dec, [facility] [place] [facility] [address] [id number] [place] [address] Dec, [facility] [place] [facility] [address] [id number] [place] [address] Nov, [facility] [place] [facility] [address] [id number] [place] [address] Nov, [facility] [place] [facility] [address] [id number] [place] [address] 25 Oct, 2012 [facility] [place] [facility] [address] [id number] [place] [address] 21 Oct, 2012 [facility] [place] [facility] [address] [id number] [place] [address] 17 Oct, 2012 [facility] [place] [facility] [address] [id number] [place] [address] 05 Oct, 2012 [facility] [place] [facility] [address] [id number] [place] [address] 14 Sep, 2012 [facility] [place] [facility] [address] [id number] [place] [address] 08 Sep, 2012 [facility] [place] [facility] [address] [id number] [place] [address] Sep, [facility] [place] [facility] [address] [id number] [place] [address] Aug, [facility] [place] [facility] [address] [id number] [place] [address] Aug, [facility] [place] [facility] [address] [id number] [place] [address] Jul, [facility] [place] [facility] [address] [id number] [place] [address] Mar, [facility] [place] [facility] [address] [id number] [place] [address] Feb, [facility] [place] [facility] [address] [id number] [place] [address] Jan, [facility] [place] [facility] [address] [id number] [place] [address] Jan, [facility] [place] [facility] [address] [id number] [place] [address] Jan, [facility] [place] [facility] [address] [id number] [place] [address] Jan, [facility] [place] [facility] [address] [id number] [place] [address] Jan, [facility] [place] [facility] [address] [id number] [place] [address] Jan, [facility] [address] [id number] [place] [address] Dec, [facility] [address] [facility] [id number] [place] [address] 29 Dec, 2011 [facility] [address] [facility] [id number] [place] [address] 14 Dec, 2011 [facility] [address] [id number] [place] [address] 14 Dec, 2011 IMMUNIZATIONS No Known Immunizations SOCIAL HISTORY Never Assessed REASON FOR VISIT PLAN OF CARE VITAL SIGNS Height 70 in 2013-09-03 Weight 333 lbs 2013-09-03 Temperature 98 degrees Fahrenheit 2013-09-03 Heart Rate 101 bpm 2013-09-03 Respiratory Rate 20 2013-09-03 Blood pressure systolic 132 mmHg 2013-09-03 Blood pressure diastolic 92 mmHg 2013-09-03 MEDICATIONS Unknown Medications RESULTS No Results PROCEDURES Procedure Date Ordered Result Body Site MICROALBUMIN, QUANTITATIVE September 03, 2013 URINALYSIS, AUTO, W/O SCOPE September 03, 2013 INSTRUCTIONS MEDICATIONS ADMINISTERED No Known Medications MEDICAL (GENERAL) HISTORY Type Description Date Medical History Diabetes Medical History hypertension Medical History uses inhaler but not dx with asthma or C OPD Medical History high cholestoral Surgical History heart cath 2001
--- OUTSIDE RECORDS SUMMARY | 2019-06-13 20:09 | XMS REPORT ---
Author Author Doug Panchal Organization [facility] Address [address] [place] [address] Care Team Providers Care Life Sciences Instructor Name Role Phone AnsleyVASU Unavailable PROBLEMS Type Condition ICD9-CM Code VPK34-SQ Code Onset Dates Condition S tatus SNOMED Code Problem Schizophrenia F20.9 Active 684926 04 Problem Diabetes E11.9 Active 995300130 Problem Sleep apnea G47.30 Active 81499663 Problem Essential (primary) hypertension I10 Active 54759566 Problem Mixed hyperlipidemia E78.2 Active 289257955 Problem Gastroesophageal reflux disease without esophagitis K21.9 Active 601423855 Problem Chronic obstructive pulmonary disease, unspecified COPD ty pe J44.9 Active 28671860 Problem Atopic dermatitis, unspecified type L20.9 Active 67295471 Problem DM neuro manif type II E11.49 Active 75127604 Problem Acute gout of right foot, unspecified cause M10.9 Active 903286642 Problem Flat foot [pes planus] (acquired), unspecified foot M21.40 Active 93210298 Problem Chronic GERD K21.9 Active 6849085 09 Problem Anxiety F41.9 Active 83658551 Problem Constipation, unspecified constipation type K59.00 Active 33107352 Problem Uncontrolled type 2 diabetes mellitus with hyperglycemia E11.65 Active 287884702 ALLERGIES No Information ENCOUNTERS Encounter Location Date Diagnosis [facility] [address] [id number] [place] [address] Feb, Diabetes E11.9 [facility] [id number] [place] [address] Jan, [facility] [id number] [place] [address] Dec, Diabetes E11.9 and DM neuro manif type I I E11.49 [facility] [address] [place] [address] Dec, Diabetes E11.9 [facility] [id number] [place] [address] Dec, [facility] [address] [facility] [place] [id number] 04 Dec, 2018 Dental examination Z01.20 and Caries K02 .9 [facility] [address] [address] Nov, [facility] [address] [address] Nov, Hyperglycemia R73.9 and Diabetes E11.9 [facility] [address] [address] Nov, [facility] [address] [address] Oct, Diabetes E11.9 ; Hyperglycemia R73.9 ; E ssential (primary) hypertension I10 ; Tobacco abuse Z72.0 ; Schizophrenia F20.9 and Encounter for immunization Z23 [facility] [id number] [place] [address] Oct, [facility] [address] [address] Oct, Hyperglycemia R73.9 and Diabetes E11.9 [facility] [address] [address] Sep, [facility] [address] [address] Sep, [facility] [address] [address] Sep, Diabetes E11.9 ; Hyperglycemia R73.9 and Morbid obesity E66.01 [facility] [address] [address] Sep, Hyperglycemia R73.9 [facility] [address] [address] Sep, Diabetes E11.9 [place] [address] [address] Aug, Diabetes E11.9 [place] [address] [address] Aug, Hyperglycemia R73.9 [place] [address] [address] Jul, [place] [address] [address] Jul, Acute gout of right foot, unspecified ca use M10.9 and Hyperglycemia R73.9 [place] [address] [address] June, [place] [address] [address] June, [place] [address] [address] May, Mouth pain K13.79 ; Diabetes E11.9 ; Hyp erglycemia R73.9 and Morbid obesity E66.01 [place] [address] [address] Apr, Diabetes E11.9 [facility] [address] [place] [address] 16 Mar, 2018 Mouth pain K13.79 and Dental caries K02.9 [place] [address] [address] 14 Mar, 2018 Chondromalacia of right knee M94.261 [facility] [address] [place], [place] [id number] [address] [place] [address] Mar, Atopic dermatitis, unspecifi ed type L20.9 and BMI 45.0- 49.9, adult Z68.42 [place] [address] [address] Feb, [place] [address] [address] Feb, [facility] [address] [address] Feb, Diabetes E11.9 and DM neuro manif type I I E11.49 [facility] [address] [address] Jan, Mixed hyperlipidemia E78.2 [place] [address] [address] Jan, Diabetes E11.9 and BMI 45.0-49.9, adult Z68.42 [place] [address] [address] Jan, Chondromalacia of right knee M94.261 and Sprain of anterior cruciate ligament of right knee, initial encounter S83.511A [place] [address] [address] Jan, [facility] [address] [address] Dec, [place] [address] [address] Dec, [place] [address] [address] Nov, [facility] [address] [address] Nov, [place] [address] [address] Nov, Injury of right knee, initial encounter S89.91XA and BMI 45.0-49.9, adult Z68.42 [facility] [address] [facility] [id number] [place] [address] Nov, Right knee pain M25.561 and BMI 45.0-49.9, adult Z68.42 [facility] [address] [address] Oct, [facility] [address] [address] Sep, [facility] [address] [address] Sep, Diabetes E11.9 and Arthralgia, unspecifi ed joint M25.50 [place] [address] [address] Sep, Anxiety F41.9 and Hyperglycemia R73.9 [place] [address] [address] Sep, DM neuro manif type II E11.49 ; Hypergly cemia R73.9 and Uncontrolled type 2 diabetes mellitus with hyperglycemia E11.65 [place] [address] [address] Sep, Anxiety F41.9 ; DM neuro manif type II E 11.49 and Hyperglycemia R73.9 [place] [address] [address] Sep, [place] [address] [address] Aug, [place] [address] [address] Aug, [place] [address] [address] Jul, Constipation, unspecified constipation t ype K59.00 [place] [address] [address] Jul, Hyperglycemia R73.9 [place] [address] [address] June, Essential (primary) hypertension I10 [place] [address] [address] May, Essential (primary) hypertension I10 [place] [address] [address] May, Mixed hyperlipidemia E78.2 [place] [address] [address] May, Diabetes E11.9 [place] [address] [address] May, Diabetes E11.9 ; Hyperglycemia R73.9 ; P ain in right knee M25.561 ; Pain in left knee M25.562 and BMI 45.0-49.9, adult Z68.42 [place] [address] [address] Apr, [place] [address] [address] Mar, [place] [address] [address] Feb, DM neuro manif type II E11.49 [place] [address] [address] Feb, DM neuro manif type II E11.49 [place] [address] [address] Feb, DM neuro manif type II E11.49 [place] [address] [address] Feb, Diabetes E11.9 [place] [address] [address] Feb, Fatigue, unspecified type R53.83 [place] [address] [address] Jan, Fatigue, unspecified type R53.83 [place] [address] [address] Dec, [place] [address] [address] Dec, Onychomycosis B35.1 and Ingrowing nail L 60.0 [place] [address] [address] Dec, DM neuro manif type II E11.49 and Diabet es E11.9 [facility] [address] [address] Dec, DM neuro manif type II E11.49 [facility] [address] [address] 26 Nov, 2016 Diabetes E11.9 [facility] [address] [address] Nov, Diabetes E11.9 and Ingrown nail L60.0 [facility] [address] [address] Oct, Anxiety F41.9 [facility] [address] [address] 06 Oct, 2016 Diabetes E11.9 and Anxiety F41.9 [facility] [address] [address] Sep, [facility] [address] [address] Sep, Diabetes E11.9 and DM neuro manif type I I E11.49 [facility] [address] [address] Sep, [facility] [address] [address] Aug, Diabetes E11.9 and Anxiety F41.9 [facility] [address] [address] Aug, DM neuro manif type II E11.49 [facility] [address] [facility] [place] [id number] Jul, Dental examination Z01.20 [facility] [address] [address] Jul, Dental examination Z01.20 [facility] [address] [address] Jul, Diabetes E11.9 and Abscessed tooth K04.7 [facility] [address] [facility] [place] [id number] June, [facility] [address] [id number] June, [facility] [address] [id number] May, Dental examination Z01.20 [place] [address] [address] Apr, [facility] [address] [address] Apr, DM neuro manif type II E11.49 [place] [address] [address] Apr, [place] [address] [address] Apr, Essential (primary) hypertension I10 [place] [address] [address] Apr, [facility] [address] [address] Mar, Diabetes E11.9 [place] [address] [address] Mar, Diabetes E11.9 ; Mixed hyperlipidemia E7 8.2 ; Essential (primary) hypertension I10 and Hemorrhoids, unspecified hemorrhoid type K64.9 [place] [address] [address] Mar, [facility] [address] [address] Mar, [facility] [address] [address] Feb, Diabetes E11.9 [facility] [address] [address] Feb, [facility] [address] [address] Feb, [facility] [address] [address] Feb, Essential (primary) hypertension I10 ; M ixed hyperlipidemia E78.2 ; Diabetes E11.9 ; Chronic obstructive pulmonary disease, unspecified COPD type J44.9 and Gastroesophageal reflux disease without esophagitis K21.9 [facility] [address] [address] Feb, [facility] [address] [address] Jan, Essential (primary) hypertension I10 [place] [address] [address] Jan, Mixed hyperlipidemia E78.2 and Tobacco a buse Z72.0 [place] [address] [address] Jan, [facility] [address] [address] Dec, [facility] [address] [address] Dec, [place] [address] [address] Dec, Diabetes E11.9 ; Encounter for immunizat ion Z23 and Tooth pain K08.89 [place] [address] [address] Nov, [facility] [address] [address] Nov, [facility] [address] [address] Oct, Essential (primary) hypertension I10 [facility] [address] [address] Oct, [facility] [address] [address] Sep, [place] [address] [address] Sep, Flat foot [pes planus] (acquired), left foot M21.42 ; Flat foot [pes planus] (acquired), right foot M21.41 and DM neuro manif type II E11.49 [place] [address] [address] Sep, Diabetes E11.9 [place] [address] [address] Aug, [place] [address] [address] Aug, [address] [address] Jul, Essential (primary) hypertension I10 [address] [address] June, [place] [address] [address] June, Diabetes E11.[address] [address] June, Onychomycosis B35.1 and Nail ingrowing L 60.[address] [address] June, Diabetes E11.9 ; Flat foot [pes planus] (acquired), unspecified foot M21.40 and Ingrown toenail L60.0 [place] [address] [address] May, [address] [address] May, Diabetes E11.9 [place] [address] [address] Apr, Diabetes E11.9 and Schizophrenia F20.[address] [address] 08 Apr, 2015 [facility] [address] [address] Apr, Diabetes E11.9 ; Schizophrenia F20.9 and Essential (primary) hypertension I10 [facility] [address] [address] Dec, [facility] [address] [address] Dec, [address] [address] [id number] [facility] [id number] [place] [id number] Nov, [facility] [address] [address] Oct, Diabetes mellitus without mention of com plication, type II or unspecified type, uncontrolled 250.02 and Flat feet, bilateral 734 [facility] [address] [address] Oct, [facility] [address] [address] Sep, [facility] [address] [address] Jul, [facility] [address] [address] June, [facility] [address] [address] 14 May, 2014 [facility] [address] [address] May, [facility] [address] [address] Apr, [facility] [address] [address] 18 Apr, 2014 [facility] [address] [address] Apr, [facility] [address] [address] Apr, [facility] [address] [id number] [place] [id number] Apr, [facility] [address] [id number] [place] [address] Apr, [facility] [address] [id number] [place] [address] Feb, [facility] [address] [id number] [place] [address] Feb, [facility] [address] [id number] [place] [address] Jan, [facility] [address] [id number] [place] [address] Jan, [facility] [address] [id number] [place] [address] Jan, [facility] [address] [id number] [place] [address] Jan, [facility] [address] [id number] [place] [address] Dec, [facility] [address] [id number] [place] [address] Dec, [facility] [address] [id number] [place] [id number] Dec, [facility] [address] [id number] [place] [address] Dec, [facility] [address] [id number] [place] [address] Nov, [facility] [address] [id number] [place] [id number] Nov, [facility] [address] [id number] [place] [id number] Nov, [facility] [address] [id number] [place] [address] Nov, [facility] [address] [id number] [place] [address] Oct, [facility] [address] [id number] [facility] [place] [address] Oct, [facility] [address] [facility] [id number] [place] [address] Oct, [facility] [address] [id number] [place] [address] Oct, [facility] [address] [id number] [place] [address] Oct, [facility] [address] [id number] [place] [address] Oct, [facility] [address] [id number] [place] [id number] Sep, [facility] [address] [id number] [place] [id number] Sep, [facility] [address] [id number] [place] [address] Sep, [facility] [address] [id number] [place] [address] Sep, [facility] [address] [id number] [place] [id number] Sep, [facility] [address] [id number] [place] [id number] Sep, [facility] [address] [id number] [place] [id number] Sep, [facility] [address] [id number] [place] [address] Aug, [facility] [address] [id number] [place] [id number] Aug, [facility] [address] [id number] [place] [id number] Aug, [facility] [address] [id number] [place] [id number] Aug, [facility] [address] [facility] [id number] [place] [id number] Aug, 2013 [facility] [address] [id number] [place] [id number] Aug, 2013 [facility] [address] [id number] [place] [id number] Aug, 2013 [facility] [address] [id number] [place] [id number] Aug, 2013 [facility] [address] [id number] [place] [id number] Aug, 2013 [facility] [address] [id number] [place] [id number] Aug, 2013 [facility] [address] [id number] [place] [id number] Aug, 2013 [facility] [address] [facility] [id number] [place] [id number] Aug, 2013 [facility] [address] [id number] [place] [id number] Aug, [facility] [address] [id number] [place] [id number] Aug, [facility] [address] [id number] [place] [id number] Jul, [facility] [address] [id number] [place] [id number] Jul, [facility] [address] [id number] [place] [id number] Jul, [facility] [address] [id number] [place] [id number] Jul, [facility] [address] [id number] [place] [address] May, [facility] [address] [id number] [place] [id number] May, [facility] [address] [id number] [place] [id number] Apr, [facility] [address] [id number] [place] [id number] Apr, [facility] [address] [id number] [place] [id number] Apr, [facility] [address] [id number] [place] [id number] Apr, [facility] [address] [id number] [place] [id number] Apr, [facility] [address] [id number] [place] [id number] Apr, [facility] [address] [id number] [place] [id number] Apr, [facility] [address] [id number] [place] [address] Feb, [facility] [address] [id number] [place] [address] Feb, [facility] [address] [id number] [place] [id number] Feb, [facility] [address] [id number] [place] [id number] Feb, [facility] [address] [id number] [place] [id number] Dec, [facility] [address] [id number] [place] [address] Dec, [facility] [address] [id number] [place] [id number] Dec, [facility] [address] [id number] [place] [address] Dec, [facility] [address] [id number] [place] [id number] Nov, [facility] [address] [id number] [place] [id number] Nov, [facility] [address] [id number] [place] [address] 25 Oct, 2012 [facility] [address] [facility] [id number] [facility] [place] [address] 21 Oct, 2012 [facility] [address] [id number] [place] [id number] 17 Oct, 2012 [facility] [address] [id number] [place] [id number] 05 Oct, 2012 [facility] [address] [id number] [place] [id number] 14 Sep, 2012 [facility] [address] [id number] [place] [address] Sep, [facility] [address] [id number] [place] [id number] Sep, [facility] [address] [id number] [place] [id number] Aug, [facility] [address] [id number] [place] [id number] Aug, [facility] [address] [id number] [place] [id number] Jul, [facility] [address] [id number] [place] [id number] Mar, [facility] [address] [id number] [place] [id number] Feb, [facility] [address] [id number] [place] [id number] Jan, [facility] [address] [id number] [place] [id number] Jan, [facility] [address] [id number] [place] [id number] Jan, [facility] [address] [id number] [place] [id number] Jan, [facility] [address] [id number] [place] [id number] Jan, [facility] [address] [id number] [place] [address] Jan, [facility] [address] [id number] [place] [address] Dec, [facility] [address] [id number] [place] [address] Dec, [facility] [address] [id number] [place] [address] Dec, [facility] [address] [id number] [place] [address] Dec, IMMUNIZATIONS No Known Immunizations SOCIAL HISTORY [...]
--- OUTSIDE RECORDS SUMMARY | 2019-06-13 20:09 | XMS REPORT ---
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 Name Role Phone SUSAN WISE Unavailable PROBLEMS Type Condition ICD9-CM Code [id number] Code Onset Dates Condition S tatus SNOMED Code Problem Diabetes E11.9 Active 998438074 Problem Essential (primary) hypertension I10 Active 61303019 Problem Sleep apnea G47.30 Active 38040439 Problem Schizophrenia F20.9 Active 661680 04 Problem Mixed hyperlipidemia E78.2 Active 940653296 Problem Gastroesophageal reflux disease without esophagitis K21.9 Active 425723814 Problem Chronic obstructive pulmonary disease, unspecified COPD ty pe J44.9 Active 07045461 Problem Atopic dermatitis, unspecified type L20.9 Active 00007442 Problem DM neuro manif type II E11.49 Active 74340477 Problem Acute gout of right foot, unspecified cause M10.9 Active 842728700 Problem Flat foot [pes planus] (acquired), unspecified foot M21.40 Active 79746022 Problem Chronic GERD K21.9 Active 2420932 09 Problem Anxiety F41.9 Active 36058054 Problem Constipation, unspecified constipation type K59.00 Active 27113604 Problem Uncontrolled type 2 diabetes mellitus with hyperglycemia E11.65 Active 415931341 ALLERGIES No Information ENCOUNTERS Encounter Location Date Diagnosis [facility] [id number] [place] [address] Feb, Diabetes E11.9 [facility] [id number] [place] [address] Jan, [facility] [address] [address] Dec, Diabetes E11.9 and DM neuro manif type I I E11.49 [facility] [address] [address] Dec, Diabetes E11.9 [facility] [id number] [place] [address] Dec, [facility] [address] [id number] [place] [id number] Dec, Dental examination Z01.20 and Caries K02 .9 [facility] [id number] [place] [address] Nov, [facility] [address] [address] Nov, Hyperglycemia R73.9 and Diabetes E11.9 [facility] [address] [address] Nov, [facility] [address] [address] Oct, Diabetes E11.9 ; Hyperglycemia R73.9 ; E ssential (primary) hypertension I10 ; Tobacco abuse Z72.0 ; Schizophrenia F20.9 and Encounter for immunization Z23 [facility] [id number] [place] [address] Oct, [facility] [address] [address] Oct, Hyperglycemia R73.9 and Diabetes E11.9 [facility] [id number] [place] [address] Sep, [facility] [address] [address] Sep, [facility] [address] [address] Sep, Diabetes E11.9 ; Hyperglycemia R73.9 and Morbid obesity E66.01 [facility] [address] [address] Sep, Hyperglycemia R73.9 [facility] [address] [address] Sep, Diabetes E11.9 [place] [address] [address] Aug, Diabetes E11.9 [place] [address] [address] Aug, Hyperglycemia R73.9 [place] [address] [address] Jul, [place] [address] [address] Jul, Acute gout of right foot, unspecified ca use M10.9 and Hyperglycemia R73.9 [place] [address] [address] June, [place] [address] [address] June, [place] [address] [address] May, Mouth pain K13.79 ; Diabetes E11.9 ; Hyp erglycemia R73.9 and Morbid obesity E66.01 [place] [address] [address] Apr, Diabetes E11.9 [facility] [id number] [place] [address] 16 Mar, 2018 Mouth pain K13.79 and Dental caries K02.9 [place] [address] [address] 14 Mar, 2018 Chondromalacia of right knee M94.261 [facility] [address] [place] [address] Mar, Atopic dermatitis, unspecifi ed type L20.9 and BMI 45.0- 49.9, adult Z68.42 [place] [address] [address] Feb, [place] [address] [address] Feb, [facility] [id number] [place] [address] Feb, Diabetes E11.9 and DM neuro manif type I I E11.49 [facility] [id number] [place] [address] Jan, Mixed hyperlipidemia E78.2 [facility] [address] [address] Jan, Diabetes E11.9 and BMI 45.0-49.9, adult Z68.42 [place] [address] [address] Jan, Chondromalacia of right knee M94.261 and Sprain of anterior cruciate ligament of right knee, initial encounter S83.511A [place] [id number] [place] [address] Jan, [facility] [address] [address] Dec, [place] [address] [address] Dec, [facility] [address] [address] Nov, [facility] [address] [address] Nov, [facility] [address] [address] Nov, Injury of right knee, initial encounter S89.91XA and BMI 45.0-49.9, adult Z68.42 [facility] [address] [facility] [id number] [address] [place] [address] Nov, Right knee pain M25.561 and BMI 45.0-49.9, adult Z68.42 [facility] [id number] [place] [address] Oct, [facility] [address] [address] Sep, [place] [address] [address] Sep, Diabetes E11.9 and Arthralgia, unspecifi ed joint M25.50 [place] [address] [address] Sep, Anxiety F41.9 and Hyperglycemia R73.9 [place] [address] [address] Sep, DM neuro manif type II E11.49 ; Hypergly cemia R73.9 and Uncontrolled type 2 diabetes mellitus with hyperglycemia E11.65 [place] [address] [address] Sep, Anxiety F41.9 ; DM neuro manif type II E 11.49 and Hyperglycemia R73.9 [place] [address] [address] Sep, [place] [address] [address] Aug, [place] [address] [address] Aug, [place] [address] [address] Jul, Constipation, unspecified constipation t ype K59.00 [place] [address] [address] Jul, Hyperglycemia R73.9 [place] [address] [address] June, Essential (primary) hypertension I10 [place] [address] [address] May, Essential (primary) hypertension I10 [place] [address] [address] May, Mixed hyperlipidemia E78.2 [place] [address] [address] May, Diabetes E11.9 [place] [address] [address] May, Diabetes E11.9 ; Hyperglycemia R73.9 ; P ain in right knee M25.561 ; Pain in left knee M25.562 and BMI 45.0-49.9, adult Z68.42 [place] [address] [address] Apr, [place] [address] [address] Mar, [place] [address] [address] Feb, DM neuro manif type II E11.49 [place] [address] [address] Feb, DM neuro manif type II E11.49 [place] [address] [address] Feb, DM neuro manif type II E11.49 [place] [address] [address] Feb, Diabetes E11.9 [place] [address] [address] Feb, Fatigue, unspecified type R53.83 [place] [address] [address] Jan, Fatigue, unspecified type R53.83 [place] [address] [address] Dec, [place] [address] [address] Dec, Onychomycosis B35.1 and Ingrowing nail L 60.0 [place] [address] [address] Dec, DM neuro manif type II E11.49 and Diabet es E11.9 [facility] [address] [address] Dec, DM neuro manif type II E11.49 [facility] [address] [address] Nov, Diabetes E11.9 [facility] [address] [address] Nov, Diabetes E11.9 and Ingrown nail L60.0 [facility] [address] [address] Oct, Anxiety F41.9 [facility] [address] [address] 06 Oct, 2016 Diabetes E11.9 and Anxiety F41.9 [facility] [address] [address] Sep, [facility] [address] [address] Sep, Diabetes E11.9 and DM neuro manif type I I E11.49 [facility] [address] [address] Sep, [facility] [address] [address] Aug, Diabetes E11.9 and Anxiety F41.9 [facility] [address] [address] Aug, DM neuro manif type II E11.49 [facility] [address] [id number] [place] [id number] Jul, Dental examination Z01.20 [facility] [address] [address] Jul, Dental examination Z01.20 [facility] [address] [address] Jul, Diabetes E11.9 and Abscessed tooth K04.7 [facility] [address] [id number] [place] [id number] June, [facility] [address] [id number] June, [facility] [address] [id number] May, Dental examination Z01.20 [facility] [address] [address] Apr, [facility] [address] [address] Apr, DM neuro manif type II E11.49 [place] [address] [address] Apr, [facility] [address] [address] Apr, Essential (primary) hypertension I10 [place] [address] [address] Apr, [facility] [address] [address] Mar, Diabetes E11.9 [place] [address] [address] Mar, Diabetes E11.9 ; Mixed hyperlipidemia E7 8.2 ; Essential (primary) hypertension I10 and Hemorrhoids, unspecified hemorrhoid type K64.9 [facility] [address] [address] Mar, [facility] [address] [address] Mar, [facility] [address] [address] Feb, Diabetes E11.9 [facility] [address] [address] Feb, [facility] [address] [address] Feb, [facility] [address] [address] Feb, Essential (primary) hypertension I10 ; M ixed hyperlipidemia E78.2 ; Diabetes E11.9 ; Chronic obstructive pulmonary disease, unspecified COPD type J44.9 and Gastroesophageal reflux disease without esophagitis K21.9 [facility] [address] [address] Feb, [facility] [address] [address] Jan, Essential (primary) hypertension I10 [address] [place] [address] [address] Jan, Mixed hyperlipidemia E78.2 and Tobacco a buse Z72.0 [facility] [address] [address] Jan, [facility] [address] [address] Dec, [facility] [address] [address] Dec, [facility] [address] [address] Dec, Diabetes E11.9 ; Encounter for immunizat ion Z23 and Tooth pain K08.89 [facility] [address] [address] Nov, [facility] [address] [address] Nov, [facility] [address] [address] Oct, Essential (primary) hypertension I10 [facility] [address] [address] Oct, [facility] [address] [address] Sep, [facility] [place] [address] [address] Sep, Flat foot [pes planus] (acquired), left foot M21.42 ; Flat foot [pes planus] (acquired), right foot M21.41 and DM neuro manif type II E11.[address] [address] Sep, Diabetes E11.9 [place] [address] [address] Aug, [address] [address] Aug, [address] [address] Jul, Essential (primary) hypertension I10 [address] [address] June, [address] [address] June, Diabetes E11.[address] [address] June, Onychomycosis B35.1 and Nail ingrowing L 60.[address] [address] June, Diabetes E11.9 ; Flat foot [pes planus] (acquired), unspecified foot M21.40 and Ingrown toenail L60.[address] [address] May, [address] [address] May, Diabetes E11.[address] [address] Apr, Diabetes E11.9 and Schizophrenia F20.[address] [address] Apr, [facility] [address] [address] Apr, Diabetes E11.9 ; Schizophrenia F20.9 and Essential (primary) hypertension I10 [facility] [id number] [place] [address] Dec, [facility] [address] [address] Dec, [id number] [facility] [id number] [place] [id number] Nov, [facility] [address] [address] Oct, Diabetes mellitus without mention of com plication, type II or unspecified type, uncontrolled 250.02 and Flat feet, bilateral 734 [facility] [address] [address] Oct, [facility] [address] [address] Sep, [facility] [address] [address] Jul, [facility] [address] [address] June, [facility] [address] [address] May, [facility] [address] [address] May, [facility] [address] [address] Apr, [facility] [address] [address] Apr, [facility] [address] [address] Apr, [facility] [address] [address] Apr, [facility] [place] [facility] [address] [id number] [place] [address] Apr, [facility] [place] [facility] [address] [id number] [place] [address] Apr, [facility] [place] [facility] [address] [id number] [place] [address] Feb, [facility] [place] [facility] [address] [id number] [place] [address] Feb, [facility] [place] [facility] [address] [id number] [place] [address] Jan, [facility] [place] [facility] [address] [id number] [place] [address] Jan, [facility] [place] [facility] [address] [id number] [place] [address] Jan, [facility] [place] [facility] [id number] [place] [address] Jan, [facility] [place] [facility] [address] [id number] [place] [address] Dec, [facility] [place] [facility] [address] [id number] [place] [address] Dec, [facility] [place] [facility] [address] [id number] [place] [address] Dec, [facility] [place] [facility] [address] [id number] [place] [address] Dec, [facility] [place] [facility] [address] [id number] [place] [address] Nov, [facility] [place] [facility] [address] [id number] [place] [address] Nov, [facility] [place] [facility] [address] [id number] [place] [address] Nov, [facility] [place] [facility] [address] [id number] [place] [address] Nov, [facility] [place] [facility] [address] [id number] [place] [address] Oct, 2013 [facility] [place] [facility] [id number] [place] [address] Oct, [facility] [place] [facility] [address] [facility] [id number] [place] [address] Oct, [facility] [place] [facility] [address] [id number] [place] [address] Oct, [facility] [place] [facility] [address] [facility] [id number] [place] [address] Oct, [facility] [place] [facility] [address] [facility] [id number] [place] [address] Oct, [facility] [place] [facility] [address] [facility] [id number] [place] [address] Sep, [facility] [place] [facility] [address] [id number] [place] [address] Sep, [facility] [place] [facility] [address] [id number] [place] [address] Sep, [facility] [place] [facility] [address] [facility] [id number] [place] [address] Sep, [facility] [place] [facility] [address] [id number] [place] [address] Sep, [facility] [place] [facility] [address] [id number] [place] [address] Sep, [facility] [place] [facility] [address] [id number] [place] [address] Sep, [facility] [place] [facility] [address] [facility] [id number] [place] [address] Aug, [facility] [place] [facility] [address] [id number] [place] [address] Aug, [facility] [place] [facility] [address] [facility] [id number] [place] [address] Aug, [facility] [place] [facility] [address] [id number] [place] [address] Aug, [facility] [place] [facility] [address] [facility] [id number] [place] [address] 15 Aug, 2013 [facility] [place] [facility] [address] [id number] [place] [address] Aug, 2013 [facility] [place] [facility] [address] [id number] [place] [address] Aug, 2013 [facility] [place] [facility] [address] [id number] [place] [address] Aug, 2013 [facility] [place] [facility] [address] [id number] [place] [address] Aug, 2013 [facility] [place] [facility] [address] [id number] [place] [address] Aug, 2013 [facility] [place] [facility] [address] [id number] [place] [address] Aug, 2013 [facility] [place] [facility] [address] [facility] [id number] [place] [id number] Aug, [facility] [place] [facility] [address] [id number] [place] [address] Aug, [facility] [place] [facility] [address] [id number] [place] [address] Aug, [facility] [place] [facility] [address] [id number] [place] [address] Jul, [facility] [place] [facility] [address] [id number] [place] [address] Jul, [facility] [place] [facility] [address] [id number] [place] [address] Jul, [facility] [place] [facility] [address] [id number] [place] [address] Jul, [facility] [place] [facility] [address] [id number] [place] [address] May, [facility] [place] [facility] [address] [id number] [place] [address] May, [facility] [place] [facility] [address] [id number] [place] [address] Apr, [facility] [place] [facility] [address] [id number] [place] [address] Apr, [facility] [place] [facility] [address] [id number] [place] [address] Apr, [facility] [place] [facility] [address] [id number] [place] [address] Apr, [facility] [place] [facility] [address] [id number] [place] [address] Apr, [facility] [place] [facility] [address] [id number] [place] [address] Apr, [facility] [place] [facility] [address] [id number] [place] [address] Apr, [facility] [place] [facility] [address] [id number] [place] [address] Feb, [facility] [place] [facility] [address] [id number] [place] [address] Feb, [facility] [place] [facility] [address] [id number] [place] [address] Feb, [facility] [place] [facility] [address] [id number] [place] [address] Feb, [facility] [place] [facility] [address] [id number] [place] [address] Dec, [facility] [place] [facility] [address] [id number] [place] [address] Dec, [facility] [place] [facility] [address] [id number] [place] [address] Dec, [facility] [place] [facility] [address] [id number] [place] [address] Dec, [facility] [place] [facility] [address] [id number] [place] [address] Nov, [facility] [place] [facility] [address] [id number] [place] [address] Nov, [facility] [place] [facility] [address] [id number] [place] [address] 25 Oct, 2012 [facility] [place] [address] [id number] [place] [address] 21 Oct, 2012 [facility] [address] [id number] [place] [address] 17 Oct, 2012 [facility] [address] [id number] [place] [address] 05 Oct, 2012 [facility] [address] [id number] [place] [address] 14 Sep, 2012 [facility] [address] [id number] [place] [address] 08 Sep, 2012 [facility] [address] [id number] [place] [address] Sep, [facility] [address] [id number] [place] [address] Aug, [facility] [address] [id number] [place] [address] Aug, [facility] [address] [id number] [place] [address] Jul, [facility] [address] [id number] [place] [address] Mar, [facility] [address] [id number] [place] [address] Feb, [facility] [address] [id number] [place] [address] Jan, [facility] [address] [id number] [place] [address] Jan, [facility] [address] [id number] [place] [address] Jan, [facility] [address] [id number] [place] [address] Jan, [facility] [address] [id number] [place] [address] Jan, [facility] [address] [id number] [place] [address] Jan, [facility] [address] [id number] [place] [address] Dec, [facility] [address] [id number] [place] [address] Dec, [facility] [address] [id number] [place] [address] Dec, [facility] [address] [id number] [place] [address] Dec, IMMUNIZATIONS No Known Immunizations SOCIAL HISTORY [...]
--- OUTSIDE RECORDS SUMMARY | 2019-06-13 20:09 | XMS REPORT ---
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 Name Role Phone Migration, Doctor Unavailable Unavailable PROBLEMS Type Condition ICD9-CM Code [id number] Code Onset Dates Condition S tatus SNOMED Code Problem Diabetes E11.9 Active 808649094 Problem Essential (primary) hypertension I10 Active 83014885 Problem Sleep apnea G47.30 Active 60539000 Problem Schizophrenia F20.9 Active 902560 04 Problem Mixed hyperlipidemia E78.2 Active 251078625 Problem Gastroesophageal reflux disease without esophagitis K21.9 Active 632527494 Problem Chronic obstructive pulmonary disease, unspecified COPD ty pe J44.9 Active 23144101 Problem Atopic dermatitis, unspecified type L20.9 Active 45568145 Problem DM neuro manif type II E11.49 Active 51840561 Problem Acute gout of right foot, unspecified cause M10.9 Active 263135610 Problem Flat foot [pes planus] (acquired), unspecified foot M21.40 Active 04371858 Problem Chronic GERD K21.9 Active 1113335 09 Problem Anxiety F41.9 Active 31721673 Problem Constipation, unspecified constipation type K59.00 Active 78630643 Problem Uncontrolled type 2 diabetes mellitus with hyperglycemia E11.65 Active 086741679 ALLERGIES No Information ENCOUNTERS Encounter Location Date Diagnosis [place] [address] [address] Feb, Diabetes E11.9 [facility] [address] [address] Jan, [place] [address] [address] Dec, Diabetes E11.9 and DM neuro manif type I I E11.49 [place] [address] [place] [id number] [place] [address] Dec, Diabetes E11.9 [place] [address] [place] [address] 15 Dec, 2018 [facility] [address] [id number] [place] [id number] Dec, Dental examination Z01.20 and Caries K02 .9 [facility] [address] [address] Nov, [place] [address] [address] Nov, Hyperglycemia R73.9 and Diabetes E11.9 [place] [address] [address] Nov, [place] [address] [address] Oct, Diabetes E11.9 ; Hyperglycemia R73.9 ; E ssential (primary) hypertension I10 ; Tobacco abuse Z72.0 ; Schizophrenia F20.9 and Encounter for immunization Z23 [place] [address] [address] Oct, [place] [address] [address] Oct, Hyperglycemia R73.9 and Diabetes E11.9 [place] [address] [address] Sep, [place] [address] [address] Sep, [place] [address] [address] Sep, Diabetes E11.9 ; Hyperglycemia R73.9 and Morbid obesity E66.01 [place] [address] [address] Sep, Hyperglycemia R73.9 [facility] [address] [address] Sep, Diabetes E11.9 [place] [address] [address] Aug, Diabetes E11.9 [place] [address] [address] Aug, Hyperglycemia R73.9 [place] [address] [address] Jul, [place] [address] [address] Jul, Acute gout of right foot, unspecified ca use M10.9 and Hyperglycemia R73.9 [place] [address] [address] June, [place] [address] [address] June, [place] [address] [address] 15 May, 2018 Mouth pain K13.79 ; Diabetes E11.9 ; Hyp erglycemia R73.9 and Morbid obesity E66.01 [place] [address] [address] Apr, Diabetes E11.9 [facility] [address] [address] 16 Mar, 2018 Mouth pain K13.79 and Dental caries K02.[address] [address] 14 Mar, 2018 Chondromalacia of right knee M94.261 [facility] [place] [id number] [place] [address] Mar, Atopic dermatitis, unspecifi ed type L20.9 and BMI 45.0- 49.9, adult Z68.42 [place] [address] [address] Feb, [place] [address] [address] Feb, [place] [address] [address] Feb, Diabetes E11.9 and DM neuro manif type I I E11.49 [facility] [address] [address] Jan, Mixed hyperlipidemia E78.2 [facility] [address] [address] Jan, Diabetes E11.9 and BMI 45.0-49.9, adult Z68.42 [place] [address] [address] Jan, Chondromalacia of right knee M94.261 and Sprain of anterior cruciate ligament of right knee, initial encounter S83.511A [place] [address] [address] Jan, [place] [address] [address] Dec, [place] [address] [address] Dec, [facility] [address] [address] Nov, [place] [address] [address] Nov, [place] [address] [address] Nov, Injury of right knee, initial encounter S89.91XA and BMI 45.0-49.9, adult Z68.42 [facility] [address] [facility] [id number] [place] [address] Nov, Right knee pain M25.561 and BMI 45.0-49.9, adult Z68.42 [facility] [address] [address] Oct, [facility] [address] [address] Sep, [facility] [address] [address] Sep, Diabetes E11.9 and Arthralgia, unspecifi ed joint M25.50 [place] [address] [address] Sep, Anxiety F41.9 and Hyperglycemia R73.9 [place] [address] [address] Sep, DM neuro manif type II E11.49 ; Hypergly cemia R73.9 and Uncontrolled type 2 diabetes mellitus with hyperglycemia E11.65 [place] [address] [address] Sep, Anxiety F41.9 ; DM neuro manif type II E 11.49 and Hyperglycemia R73.9 [place] [address] [address] Sep, [place] [address] [address] Aug, [place] [address] [address] Aug, [place] [address] [address] Jul, Constipation, unspecified constipation t ype K59.00 [place] [address] [address] Jul, Hyperglycemia R73.9 [place] [address] [address] June, Essential (primary) hypertension I10 [place] [address] [address] May, Essential (primary) hypertension I10 [place] [address] [address] May, Mixed hyperlipidemia E78.2 [place] [address] [address] May, Diabetes E11.9 [place] [address] [address] May, Diabetes E11.9 ; Hyperglycemia R73.9 ; P ain in right knee M25.561 ; Pain in left knee M25.562 and BMI 45.0-49.9, adult Z68.42 [place] [address] [address] Apr, [place] [address] [address] Mar, [place] [address] [address] Feb, DM neuro manif type II E11.49 [place] [address] [address] Feb, DM neuro manif type II E11.49 [place] [address] [address] Feb, DM neuro manif type II E11.49 [place] [address] [address] Feb, Diabetes E11.9 [place] [address] [address] Feb, Fatigue, unspecified type R53.83 [place] [address] [address] Jan, Fatigue, unspecified type R53.83 [place] [address] [address] Dec, [place] [address] [address] Dec, Onychomycosis B35.1 and Ingrowing nail L 60.0 [place] [address] [address] Dec, DM neuro manif type II E11.49 and Diabet es E11.9 [place] [address] [address] Dec, DM neuro manif type II E11.49 [facility] [address] [address] Nov, Diabetes E11.9 [facility] [address] [address] Nov, Diabetes E11.9 and Ingrown nail L60.0 [facility] [address] [address] 11 Oct, 2016 Anxiety F41.9 [facility] [address] [address] 06 Oct, 2016 Diabetes E11.9 and Anxiety F41.9 [facility] [address] [address] Sep, [facility] [address] [address] Sep, Diabetes E11.9 and DM neuro manif type I I E11.49 [facility] [address] [address] Sep, [facility] [address] [address] Aug, Diabetes E11.9 and Anxiety F41.9 [facility] [address] [address] Aug, DM neuro manif type II E11.49 [facility] [address] [id number] Jul, Dental examination Z01.20 [facility] [address] [address] Jul, Dental examination Z01.20 [facility] [address] [address] Jul, Diabetes E11.9 and Abscessed tooth K04.7 [facility] [address] [id number] June, [facility] [address] [id number] [place] [id number] June, [facility] [address] [facility] [place] [id number] May, Dental examination Z01.20 [facility] [address] [address] Apr, [facility] [address] [address] Apr, DM neuro manif type II E11.49 [facility] [address] [address] Apr, [facility] [address] [address] Apr, Essential (primary) hypertension I10 [facility] [address] [address] Apr, [facility] [address] [address] Mar, Diabetes E11.9 [facility] [address] [address] Mar, Diabetes E11.9 ; Mixed hyperlipidemia E7 8.2 ; Essential (primary) hypertension I10 and Hemorrhoids, unspecified hemorrhoid type K64.9 [facility] [address] [address] Mar, [facility] [address] [address] Mar, [facility] [address] [address] Feb, Diabetes E11.9 [facility] [address] [address] Feb, [facility] [address] [address] Feb, [facility] [address] [address] Feb, Essential (primary) hypertension I10 ; M ixed hyperlipidemia E78.2 ; Diabetes E11.9 ; Chronic obstructive pulmonary disease, unspecified COPD type J44.9 and Gastroesophageal reflux disease without esophagitis K21.9 [place] [address] [address] Feb, [place] [address] [address] Jan, Essential (primary) hypertension I10 [place] [address] [address] Jan, Mixed hyperlipidemia E78.2 and Tobacco a buse Z72.[address] [address] Jan, [place] [address] [address] Dec, [place] [address] [address] Dec, [place] [address] [address] Dec, Diabetes E11.9 ; Encounter for immunizat ion Z23 and Tooth pain K08.89 [place] [address] [address] Nov, [address] [address] Nov, [address] [address] Oct, Essential (primary) hypertension I10 [place] [address] [address] Oct, [place] [address] [address] Sep, [place] [address] [address] Sep, Flat foot [pes planus] (acquired), left foot M21.42 ; Flat foot [pes planus] (acquired), right foot M21.41 and DM neuro manif type II E11.49 [place] [address] [address] Sep, Diabetes E11.9 [place] [address] [address] Aug, [place] [address] [address] Aug, [address] [address] Jul, Essential (primary) hypertension I10 [address] [address] June, [address] [address] June, Diabetes E11.[address] [address] June, Onychomycosis B35.1 and Nail ingrowing L 60.[address] [address] June, Diabetes E11.9 ; Flat foot [pes planus] (acquired), unspecified foot M21.40 and Ingrown toenail L60.[address] [address] May, [address] [address] May, Diabetes E11.[address] [address] Apr, Diabetes E11.9 and Schizophrenia F20.[address] [address] Apr, [address] [address] Apr, Diabetes E11.9 ; Schizophrenia F20.9 and Essential (primary) hypertension I10 [facility] [address] [address] Dec, [facility] [address] [address] Dec, [facility] [place] [id number] [facility] [id number] [place] [id number] Nov, [facility] [address] [address] Oct, Diabetes mellitus without mention of com plication, type II or unspecified type, uncontrolled 250.02 and Flat feet, bilateral 734 [facility] [address] [address] Oct, [facility] [address] [address] Sep, [facility] [address] [address] Jul, [facility] [address] [address] June, [facility] [address] [address] May, [facility] [address] [address] May, [facility] [address] [address] Apr, [facility] [address] [address] Apr, [facility] [address] [address] Apr, [facility] [address] [address] Apr, [facility] [address] [address] Apr, [facility] [place] [facility] [address] [id number] [place] [address] Apr, [facility] [place] [facility] [address] [id number] [place] [address] Feb, [facility] [place] [facility] [address] [id number] [place] [address] Feb, [facility] [place] [facility] [address] [id number] [place] [address] Jan, [facility] [place] [facility] [address] [id number] [place] [address] Jan, [facility] [place] [facility] [address] [id number] [place] [address] Jan, [facility] [place] [facility] [address] [id number] [place] [address] Jan, [facility] [place] [facility] [address] [place] [id number] [place] [address] Dec, [facility] [place] [facility] [address] [id number] [place] [address] Dec, [facility] [place] [facility] [address] [id number] [place] [address] Dec, [facility] [place] [facility] [address] [id number] [place] [address] Dec, [facility] [place] [facility] [address] [id number] [place] [address] Nov, [facility] [place] [facility] [address] [id number] [place] [address] Nov, [facility] [place] [facility] [address] [id number] [place] [address] Nov, [facility] [place] [facility] [address] [id number] [place] [address] Nov, [facility] [place] [facility] [address] [id number] [place] [address] Oct, [facility] [place] [facility] [address] [id number] [place] [address] Oct, [facility] [place] [facility] [address] [facility] [id number] [place] [address] Oct, [facility] [place] [facility] [address] [facility] [id number] [place] [address] Oct, [facility] [place] [facility] [address] [id number] [place] [address] Oct, [facility] [place] [facility] [address] [facility] [id number] [place] [address] Oct, [facility] [place] [facility] [address] [facility] [id number] [place] [address] Sep, [facility] [place] [facility] [address] [facility] [id number] [place] [address] Sep, [facility] [place] [facility] [address] [id number] [place] [address] Sep, [facility] [place] [facility] [address] [id number] [place] [address] Sep, [facility] [place] [facility] [address] [facility] [id number] [place] [address] Sep, [facility] [place] [facility] [address] [id number] [place] [address] Sep, [facility] [place] [facility] [address] [id number] [place] [address] Sep, [facility] [place] [facility] [address] [id number] [place] [address] Aug, [facility] [place] [facility] [address] [facility] [id number] [place] [address] Aug, [facility] [place] [facility] [address] [id number] [place] [address] Aug, [facility] [place] [facility] [address] [facility] [id number] [place] [address] Aug, [facility] [place] [facility] [address] [id number] [place] [address] Aug, [facility] [place] [facility] [address] [facility] [id number] [place] [address] Aug, 2013 [facility] [place] [facility] [address] [facility] [id number] [place] [address] Aug, 2013 [facility] [place] [facility] [address] [facility] [id number] [place] [address] Aug, 2013 [facility] [place] [facility] [address] [id number] [place] [address] Aug, 2013 [facility] [place] [facility] [address] [id number] [place] [address] Aug, 2013 [facility] [place] [facility] [address] [facility] [id number] [place] [address] Aug, 2013 [facility] [place] [facility] [address] [facility] [id number] [place] [id number] Aug, [facility] [place] [facility] [address] [id number] [place] [address] Aug, [facility] [place] [facility] [address] [id number] [place] [address] Aug, [facility] [place] [facility] [address] [id number] [place] [address] Jul, [facility] [place] [facility] [address] [id number] [place] [address] Jul, [facility] [place] [facility] [address] [id number] [place] [address] Jul, [facility] [place] [facility] [address] [id number] [place] [address] Jul, [facility] [place] [facility] [address] [id number] [place] [address] May, [facility] [place] [facility] [address] [id number] [place] [address] May, [facility] [place] [facility] [address] [id number] [place] [address] Apr, [facility] [place] [facility] [address] [id number] [place] [address] Apr, [facility] [place] [facility] [address] [id number] [place] [address] Apr, [facility] [place] [facility] [address] [id number] [place] [address] Apr, [facility] [place] [facility] [address] [id number] [place] [address] Apr, [facility] [place] [facility] [address] [id number] [place] [address] Apr, [facility] [place] [facility] [address] [id number] [place] [address] Apr, [facility] [place] [facility] [address] [id number] [place] [address] Feb, [facility] [place] [facility] [address] [id number] [place] [address] Feb, [facility] [place] [facility] [address] [place] [id number] [place] [address] Feb, [facility] [place] [facility] [address] [id number] [place] [address] Feb, [facility] [place] [facility] [address] [id number] [place] [address] Dec, [facility] [place] [facility] [address] [id number] [place] [address] Dec, [facility] [place] [facility] [address] [id number] [place] [address] Dec, [facility] [place] [facility] [address] [id number] [place] [address] Dec, [facility] [place] [facility] [address] [id number] [place] [address] Nov, [facility] [place] [facility] [address] [id number] [place] [address] Nov, [facility] [place] [facility] [address] [id number] [place] [address] Oct, [facility] [place] [facility] [address] [id number] [place] [address] 21 Oct, 2012 [facility] [place] [facility] [address] [id number] [place] [address] 17 Oct, 2012 [facility] [place] [facility] [address] [id number] [place] [address] 05 Oct, 2012 [facility] [place] [facility] [address] [id number] [place] [address] 14 Sep, 2012 [facility] [place] [facility] [address] [id number] [place] [address] Sep, [facility] [place] [facility] [address] [id number] [place] [address] Sep, [facility] [address] [id number] [place] [address] Aug, [facility] [address] [id number] [place] [address] Aug, [facility] [address] [id number] [place] [address] Jul, [facility] [address] [id number] [place] [address] Mar, [facility] [address] [id number] [place] [address] Feb, [facility] [address] [id number] [place] [address] Jan, [facility] [address] [id number] [place] [address] Jan, [facility] [address] [id number] [place] [address] Jan, [facility] [address] [id number] [place] [address] Jan, [facility] [address] [id number] [place] [address] Jan, [facility] [address] [id number] [place] [address] Jan, [facility] [address] [id number] [place] [address] Dec, [facility] [address] [id number] [place] [address] Dec, [facility] [address] [id number] [place] [address] Dec, [facility] [address] [id number] [place] [address] Dec, IMMUNIZATIONS No Known Immunizations SOCIAL HISTORY [...]
[2019-06-13 20:14] VITALS: BP 144/100
--- OUTSIDE RECORDS SUMMARY | 2019-06-13 20:15 | XMS REPORT | Continuity of Care Document ---
Demographics Preferred Language Unknown Marital Status Unknown Gnosticism Affiliation Unknown Race Unknown Ethnic Group Unknown Author Organization Unknown Address Unknown Phone Unavailable Allergies Active Description Code Type Severity Reaction Onset Reported/Identified Relationship to Patient Clinical Status Yes NKANo Known Allergies NKA Miscellaneous Allergy Mild N/A 06/18/2009 Yes Cozaar 25 mg tablet Drug Aller gy N/A N/A 09/26/2012 Yes lisinopril [id number] Drug Allerg y Mild N/A 03/23/2014 Yes losartan [id number] Drug Allergy Unknown N/A 02/10/2016 Medications There is no data. 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 12/14/2011 Ot 724.5 BACK ACHE NOS 12/14/2011 Ot 789.09 ABD OMINAL PAIN, OTHER SPECIFIED SITE 12/14/2011 Ot 790.29 OTH ER ABNORMAL GLUCOSE 01/04/2012 SUSAN WISE APRN S 250.02 DIABETES II UNCONTROLLED (UNCOMPLICATED) 01/04/2012 LG WISE APRNA S 790.29 HYPERGLYCEMIA 01/04/2012 LG WISE APRNA S 250.02 DIABETES II UNCONTROLLED (UNCOMPLICATED) 01/04/2012 LG WISE APRNA S 790.29 HYPERGLYCEMIA 01/04/2012 250.02 MELISSA BETES II UNCONTROLLED (UNCOMPLICATED) 01/04/2012 790.29 HYP ERGLYCEMIA 01/04/2012 LA LINTON DO K 250.02 DIABETES II UNCONTROLLED (UNCOMPLICATED) 01/04/2012 LA LINTON DO K 790.29 HYPERGLYCEMIA 01/04/2012 HOLLI WISE APRNNDA S 250.02 DIABETES II UNCONTROLLED (UNCOMPLICATED) 01/04/2012 LG WISE APRNA S 790.29 HYPERGLYCEMIA 01/04/2012 LG WISE APRNA S 250.02 DIABETES II UNCONTROLLED (UNCOMPLICATED) 01/04/2012 BILLIE GUERRERO SUSAN S 790.29 HYPERGLYCEMIA 01/04/2012 VASU BROCK DDS 250.02 DIABETES II UNCONTROLLED (UNCOMPLICATED) 01/04/2012 DELMY JEWELLSVASU 790.29 HYPERGLYCEMIA 01/04/2012 BILLIE GUERRERO SUSAN S 250.02 DIABETES II UNCONTROLLED (UNCOMPLICATED) 01/04/2012 HOLLI WISE APRNNDA S 790.29 HYPERGLYCEMIA 01/04/2012 KOMAL GUERRERO, AUST[place] A 250.02 DIABETES II UNCONTROLLED (UNCOMPLICATED) 01/04/2012 RAJOTTE SENIOR TAX ANALYST, [place] A 790.29 HYPERGLYCEMIA 01/04/2012 HOLLI WISE APRNNDA S 250.02 DIABETES II UNCONTROLLED (UNCOMPLICATED) 01/04/2012 BILLIE GUERRERO SUSAN S 790.29 HYPERGLYCEMIA 01/04/2012 BILLIE GUERRERO SUSAN S 250.02 DIABETES II UNCONTROLLED (UNCOMPLICATED) 01/04/2012 HOLLI WISE APRNNDA S 790.29 HYPERGLYCEMIA 02/01/2012 BILLIE GUERRERO SUSAN S 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 02/01/2012 BILLIE GUERRERO SUSAN S 780.79 OTHER MALAISE AND FATIGUE 02/01/2012 BILLIE GUERRERO SUSAN S 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 02/01/2012 BILLIE GUERRERO SUSAN S 780.79 OTHER MALAISE AND FATIGUE 02/01/2012 305.90 OTH ER MIXED OR UNSPECIFIED DRUG ABUSE UNSPECIFIED USE 02/01/2012 780.79 OTH ER MALAISE AND FATIGUE 02/01/2012 LINTON DO LA K 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 02/01/2012 LINTON DO LA K 780.79 OTHER MALAISE AND FATIGUE 02/01/2012 BILLIE GUERRERO SUSAN S 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 02/01/2012 BILLIE GUERRERO SUSAN S 780.79 OTHER MALAISE AND FATIGUE 02/01/2012 VASU BROCK DDS 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 02/01/2012 VASU BROCK DDS 780.79 OTHER MALAISE AND FATIGUE 02/01/2012 HOLLI WISE APRNNDA S 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 02/01/2012 HOLLI WISE APRNNDA S 780.79 OTHER MALAISE AND FATIGUE 02/01/2012 KOMAL GUERRERO AUSTIN A 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 02/01/2012 KOMAL GUERRERO AUSTIN A 780.79 OTHER MALAISE AND FATIGUE 02/01/2012 HOLLI WISE APRNNDA S 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 02/01/2012 HOLLI WISE APRNNDA S 780.79 OTHER MALAISE AND FATIGUE 02/01/2012 BILLIE GUERRERO SUSAN S 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 02/01/2012 HOLLI WISE APRNNDA S 780.79 OTHER MALAISE AND FATIGUE 02/13/2012 Ot 250.00 MELISSA B MARGUERITE WO COMPL, TYPE II OR UNSPEC TY 02/13/2012 Ot 401.9 HYPE RTENSION NOS 02/13/2012 Ot 786.52 DAINELA NFUL RESPIRATION 02/13/[address] PAIN NEC 04/12/2012 Ot 782.3 EDEMA 09/26/2012 401.9 UNSP ECIFIED ESSENTIAL HYPERTENSION 09/26/2012 LA LINTON DO K 401.9 UNSPECIFIED ESSENTIAL HYPERTENSION 09/26/2012 LG WISE APRNA S 401.9 UNSPECIFIED ESSENTIAL HYPERTENSION 09/26/2012 VASU BROCK DDS 40 1.9 UNSPECIFIED ESSENTIAL HYPERTENSION 09/26/2012 HOLLI WISE APRNNDA S 401.9 UNSPECIFIED ESSENTIAL HYPERTENSION 09/26/2012 SHANTHI SAUCEDA APRNYL A 401.9 UNSPECIFIED ESSENTIAL HYPERTENSION 09/26/2012 HOLLI WISE APRNNDA S 401.9 UNSPECIFIED ESSENTIAL HYPERTENSION 09/26/2012 HOLLI WISE APRNNDA S 401.9 UNSPECIFIED ESSENTIAL HYPERTENSION 10/25/2012 LA LINTON DO K V15.82 Nicotine abuse 10/25/2012 HOLLI WISE APRNNDA S V15.82 Nicotine abuse 10/25/2012 VASU BROCK DDS V15.82 Nicotine abuse 10/25/2012 LG WISE APRNA S V15.82 Nicotine abuse 10/25/2012 KOMAL GUERRERO AUSTIN A V15.82 Nicotine abuse 10/25/2012 HOLLI WISE APRNNDA S V15.82 Nicotine abuse 10/25/2012 HOLLI WISE APRNNDA S V15.82 Nicotine abuse 12/07/2012 DREW VALDIVIA MD A Ot 535. 50 UNSP GASTRITIS GASTRODUODENITIS W/O ME 12/07/2012 DREW VALDIVIA MD A Ot 787. 01 NAUSEA WITH VOMITING 09/03/2013 HOLLI WISE APRNNDA S 599.70 HEMATURIA 09/03/2013 AUSTIN SAUCEDA APRN A 599.70 HEMATURIA 09/03/2013 HOLLI WISE APRNNDA S 599.70 HEMATURIA 09/03/2013 HOLLI WISE APRNNDA S 599.70 HEMATURIA 11/04/2013 HOLLI WISE APRNNDA S 780.57 SLEEP APNEA 11/04/2013 HOLLI WISE APRNNDA S 780.57 SLEEP APNEA 03/23/2014 MORGAN YANEZ DO K Ot 682.5 CELLULITIS OF BUTTOCK 02/11/2016 DREW VALDIVIA MD A Ot E11. 65 TYPE 2 DIABETES MELLITUS WITH HYPERGLYCE 02/11/2016 DREW VALDIVIA MD A Ot F17.210 NICOTINE DEPENDENCE, CIGARETTES, UNCOMPL 02/11/2016 DREW VALDIVIA MD A Ot I10 ESSENTIAL (PRIMARY) HYPERTENSION 02/11/2016 DREW VALDIVIA MD A Ot R10. 11 RIGHT UPPER QUADRANT PAIN 02/11/2016 DREW VALDIVIA MD A Ot Z79. 84 CUSTODIAL (CURRENT) USE OF ORAL HYPOGLYC 02/11/2016 DREW VALDIVIA MD A Ot Z79.899 OTHER COMPOUND MIXER (CURRENT) DRUG THERAPY 02/11/2016 DREW VALDIVIA MD A Ot E11. 65 TYPE 2 DIABETES MELLITUS WITH HYPERGLYCE 02/11/2016 DREW VALDIVIA MD A Ot F17.210 NICOTINE DEPENDENCE, CIGARETTES, UNCOMPL 02/11/2016 DREW VALDIVIA MD A Ot I10 ESSENTIAL (PRIMARY) HYPERTENSION 02/11/2016 DREW VALDIVIA MD Ot R10. 11 RIGHT UPPER QUADRANT PAIN 02/11/2016 SHEA GAMEZ, DREW Damon Ot Z79. 84 CUSTODIAL (CURRENT) USE OF ORAL HYPOGLYC 02/11/2016 SHEA GAMEZ, DREW Damon Ot Z79.899 OTHER CUSTODIAL (CURRENT) DRUG THERAPY 08/22/2017 BILLIEHOLLISUSAN QUALITY IMPROVEMENT COORDINATOR Ot K59.00 CONSTIPATION, UNSPECIFIED 08/27/2017 BILLIE SUSAN QUALITY IMPROVEMENT COORDINATOR Ot K59.00 CONSTIPATION, UNSPECIFIED 12/05/2017 MADL, LEIDY L QUALITY IMPROVEMENT COORDINATOR Ot M25.561 PAIN IN RIGHT KNEE 09/05/2018 BILLIEHOLLISUSAN QUALITY IMPROVEMENT COORDINATOR Ot K59.00 CONSTIPATION, UNSPECIFIED 09/05/2018 MADL, LEIDY L QUALITY IMPROVEMENT COORDINATOR Ot M25.561 PAIN IN RIGHT KNEE 09/10/2018 BILLIEHOLLISUSAN QUALITY IMPROVEMENT COORDINATOR Ot K59.00 CONSTIPATION, UNSPECIFIED 09/10/2018 MADL, LEIDY L QUALITY IMPROVEMENT COORDINATOR Ot M25.561 PAIN IN RIGHT KNEE 11/06/2018 JERRY AVILEZ QUALITY IMPROVEMENT COORDINATOR Ot M94.261 CHONDROMALACIA, RIGHT KNEE 11/26/2018 LG WISEA QUALITY IMPROVEMENT COORDINATOR Ot K59.00 CONSTIPATION, UNSPECIFIED 11/26/2018 MADL, LEIDY L QUALITY IMPROVEMENT COORDINATOR Ot M25.561 PAIN IN RIGHT KNEE 01/30/2019 JAYASHREE GAMEZ, EDGAR Monae Ot B88.9 INFESTATION, UNSPECIFIED 01/30/2019 JAYASHREE GAMEZ, EDGAR Monae Ot E11.9 TYPE 2 DIABETES MELLITUS WITHOUT COMPLIC 01/30/2019 JAYASHREE GAMEZ, EDGAR Monae Ot F32.9 MAJOR DEPRESSIVE DISORDER, SINGLE EPISOD 01/30/2019 EDGAR BLANC MD Ot F41.9 ANXIETY DISORDER, UNSPECIFIED 01/30/2019 EDGAR BLANC MD Ot I10 ESSENTIAL (PRIMARY) HYPERTENSION 01/30/2019 EDGAR BLANC MD Ot K02.9 DENTAL CARIES, UNSPECIFIED 01/30/2019 JAYASHREE GAMEZ, EDGAR Monae Ot R03.0 ELEVATED BLOOD-PRESSURE READING, W/O MELISSA 01/30/2019 JAYASHREE GAMEZ, EDGAR Monae Ot S16.1XXA STRAIN OF MUSCLE, FASCIA AND TENDON AT N 01/30/2019 EDGAR BLANC MD Ot X58.XXXA EXPOSURE TO OTHER SPECIFIED FACTORS, INI 01/30/2019 EDGAR BLANC MD, Ot Z88.8 ALLERGY STATUS TO OTH DRUG/MEDS/BIOL SUB 02/01/2019 EDGAR BLANC MD Ot B88.9 INFESTATION, UNSPECIFIED 02/01/2019 EDGAR BLANC MD Ot E11.9 TYPE 2 DIABETES MELLITUS WITHOUT COMPLIC 02/01/2019 EDGAR BLANC MD Ot F32.9 MAJOR DEPRESSIVE DISORDER, SINGLE EPISOD 02/01/2019 EDGAR BLANC MD Ot F41.9 ANXIETY DISORDER, UNSPECIFIED 02/01/2019 EDGAR BLANC MD Ot I10 ESSENTIAL (PRIMARY) HYPERTENSION 02/01/2019 EDGAR BLANC MD Ot K02.9 DENTAL CARIES, UNSPECIFIED 02/01/2019 EDGAR BLANC MD Ot R03.0 ELEVATED BLOOD-PRESSURE READING, W/O MELISSA 02/01/2019 EDGAR BLANC MD Ot S16.1XXA STRAIN OF MUSCLE, FASCIA AND TENDON AT N 02/01/2019 EDGAR BLANC MD Ot X58.XXXA EXPOSURE TO OTHER SPECIFIED FACTORS, INI 02/01/2019 EDGAR BLANC MD Ot Z88.8 ALLERGY STATUS TO OTH DRUG/MEDS/BIOL SUB Procedures Code Description Performed By Per lottie On Rad[facility] 01/04/2012 73113 GLUC OSE FINGER STICK 01/04/2012 91672 A1C (IN-HOUSE) 01/04/2012 43149 GLUC OSE FINGER STICK 02/01/2012 02686 MICR O ALBUMIN-IN HOUSE 02/01/2012 63020 URIN E DRUG SCREEN (IN-HOUSE) 02/01/2012 61648 MICR OALBUMIN 02/02/2012 82925 A1C (IN-HOUSE) 03/20/2012 08842 MICR O ALBUMIN-IN HOUSE 03/20/2012 03384 URIN E DRUG SCREEN (IN-HOUSE) 03/20/2012 04485 MICR OALBUMIN 03/21/2012 91971 A1C (IN-HOUSE) 09/26/2012 39493 MICR O ALBUMIN-IN HOUSE 09/26/2012 02003 ROUT INE VENIPUNCTURE 09/27/2012 63545 MICR OALBUMIN 09/27/2012 35660 CMP 09/27/2012 88568 LIPI D PANEL 09/27/2012 [id number] GF R CALC (RESULT ONLY) 09/27/2012 72152 TSH 09/27/2012 85577 URIN E DRUG SCREEN (IN-HOUSE) 10/25/2012 20815 A1C (IN-HOUSE) 04/23/2013 16122 MICR O ALBUMIN-IN HOUSE 04/23/2013 06545 MICR OALBUMIN 04/23/2013 62871 UA W / CULTURE IF INDICATED 09/03/2013 54459 MICR OALBUMIN 09/03/2013 92059 A1C (IN-HOUSE) 10/10/2013 84867 A1C (IN-HOUSE) 05/01/2014 62253 MICR O ALBUMIN-IN HOUSE 05/01/2014 52118 MICR OALBUMIN 05/01/2014 83873 ROUT INE VENIPUNCTURE 05/02/2014 69179 CBC 05/02/2014 [id number] GF R CALC (RESULT ONLY) 05/02/2014 80561 CMP 05/02/2014 39437 LIPI D PANEL 05/02/2014 Results Test Result Range Complete blood count (CBC) with automate d white blood cell (WBC) differential - 02/10/16 22:30 Blood leukocytes automated count (number/volume) 8.5 10*3/uL 4.3-11.0 Blood erythrocytes automated count (number/volume) 4.83 10*6/uL 4.35-5.85 Venous blood hemoglobin measurement (mass/volume) 15.2 g/dL 13.3-17.7 Blood hematocrit (volume fraction) 44 % 40-54 Automated erythrocyte mean corpuscular volume 90 [ foz_us] 80-99 Automated erythrocyte mean corpuscular h emoglobin (mass per erythrocyte) 32 pg 25-34 Automated erythrocyte mean corpuscular h emoglobin concentration measurement (mass/volume) 35 g/dL 32-36 Automated erythrocyte distribution width ratio 13. 8 % 10.0- 14.5 Automated blood platelet count (count/volume) 185 10*3/uL 130-400 Automated blood platelet mean volume measurement 10.4 [foz_us] 7.4-10.4 Automated blood neutrophils/100 leukocytes 58 % 42-75 Automated blood lymphocytes/100 leukocytes 35 % 12-44 Blood monocytes/100 leukocytes 6 % 0-12 Automated blood eosinophils/100 leukocytes 0 % 0-10 Automated blood basophils/100 leukocytes 0 % 0-10 Blood neutrophils automated count (number/volume) 5.0 10*3 1.8-7.8 Blood lymphocytes automated count (number/volume) 3.0 10*3 1.0-4.0 Blood monocytes automated count (number/volume) 0. 5 10*3 0.0-1.0 Automated eosinophil count 0.0 10*3/uL 0 .0-0.3 Automated blood basophil count (count/volume) 0.0 10*3/uL 0.0-0.1 Comprehensive metabolic panel - 02/10/16 22:30 Serum or plasma sodium measurement (moles/volume) 135 mmol/L 135-145 Serum or plasma potassium measurement (moles/volume) 4.1 mmol/L 3.6-5.0 Serum or plasma chloride measurement (moles/volume) 101 mmol/L 98-107 Carbon dioxide 23 mmol/L 21-32 Serum or plasma anion gap determination (moles/volume) 11 mmol/L 5-14 Serum or plasma urea nitrogen measurement (mass/volume ) 11 mg/dL 7-18 Serum or plasma creatinine measurement (mass/volume) 1.15 mg/dL 0.60-1.30 Serum or plasma urea nitrogen/creatinine mass ratio 10 NRG Serum or plasma creatinine measurement w ith calculation of estimated glomerular filtration rate > NRG Serum or plasma glucose measurement (mass/volume) 284 mg/dL 70-105 Serum or plasma calcium measurement (mass/volume) 8.9 mg/dL 8.5-10.1 Serum or plasma total bilirubin measurement (mass/volu me) 0.3 mg/dL 0.1-1.0 Serum or plasma alkaline phosphatase heron surement (enzymatic activity/volume) 94 U/L 40-136 Serum or plasma aspartate aminotransfera se measurement (enzymatic activity/volume) 23 U/L 5-34 Serum or plasma alanine aminotransferase measurement (enzymatic activity/volume) 45 U/L 0-55 Serum or plasma protein measurement (mass/volume) 6.8 g/dL 6.4-8.2 Serum or plasma albumin measurement (mass/volume) 3.7 g/dL 3.2-4.5 Lipase - 02/10/16 22:30 Lipase 72 U/L 8-78 Comp. Metabolic Panel (14) - 03/31/16 08 :55 Glucose, Serum 168 mg/dL 65-99 BUN 12 mg/dL 6-24 Creatinine, Serum 1.05 mg/dL 0.76-1.27 eGFR If NonAfricn Am 88 mL/min/1.73 >59 eGFR If Africn Am 101 mL/min/1.73 >5 9 BUN/Creatinine Ratio 11 9-20 Sodium, Serum 136 mmol/L 134-144 Potassium, Serum 4.6 mmol/L 3.5-5.2 Chloride, Serum 96 mmol/L 96-106 Carbon Dioxide, Total 21 mmol/L 18-29 Calcium, Serum 9.3 mg/dL 8.7-10.2 Protein, Total, Serum 7.1 g/dL 6.0-8.5 Albumin, Serum 4.1 g/dL 3.5-5.5 Globulin, Total 3.0 g/dL 1.5-4.5 A/G Ratio 1.4 1.1-2.5 Bilirubin, Total 0.5 mg/dL 0.0-1.2 Alkaline Phosphatase, S 113 IU/L 39-117 AST (SGOT) 32 IU/L 0-40 ALT (SGPT) 44 IU/L 0-44 Lipid Panel - 03/31/16 08:55 Cholesterol, Total 115 mg/dL 100-199 Triglycerides 277 mg/dL 0-149 HDL Cholesterol 27 mg/dL >39 VLDL Cholesterol Otf 55 mg/dL 5-40 LDL Cholesterol Calc 33 mg/dL 0-99 TSH - 02/22/17 14:14 TSH 0.71 mIU/L 0.40-4.50 LIPID PANEL - 05/31/17 09:25 CHOLESTEROL, TOTAL 102 mg/dL <200 HDL CHOLESTEROL 26 mg/dL >40 TRIGLYCERIDES 304 mg/dL <150 LDL-CHOLESTEROL 44 mg/dL (calc) NRG CHOL/HDLC RATIO 3.9 (calc) <5.0 NON HDL CHOLESTEROL 76 mg/dL (calc) <130 CMP - 05/31/17 09:25 GLUCOSE 185 mg/dL 65-99 UREA NITROGEN (BUN) 20 mg/dL 7-25 CREATININE 1.25 mg/dL 0.60-1.35 eGFR NON-AFR. CITIZEN OF [place] 71 mL/min/1.73m2 > OR = 60 eGFR 82 mL/min/1.73m2 > OR = 60 BUN/CREATININE RATIO NOT APPLICABLE (calc) 6-22 SODIUM 136 mmol/L 135-146 POTASSIUM 4.7 mmol/L 3.5-5.3 CHLORIDE 103 mmol/L 98-110 CARBON DIOXIDE 27 mmol/L 20-31 CALCIUM 9.2 mg/dL 8.6-10.3 PROTEIN, TOTAL 7.4 g/dL 6.1-8.1 ALBUMIN 3.8 g/dL 3.6-5.1 GLOBULIN 3.6 g/dL (calc) 1.9-3.7 ALBUMIN/GLOBULIN RATIO 1.1 (calc) 1.0-2. 5 BILIRUBIN, TOTAL 0.4 mg/dL 0.2-1.2 ALKALINE PHOSPHATASE 118 U/L 40-115 AST 30 U/L 10-40 ALT 40 U/L 9-46 Encounters ACCT No. Visit Date/Time Discharge Status Pt. Type Provider Facility Loc./Unit Complaint [id number] 04/01/2016 08:37:00 Document Registration [id number] 04/22/2019 13:00:00 04/22/2019 23:59:5 9 CLS Outpatient SUSAN WISE APRN [facility] [id number] 05/31/2017 09:40:00 Document Registration [id number] 02/22/2017 13:00:00 Document Registration [id number] 01/30/2019 20:46:00 21:12:00 DIS Emergency JAYASHREE GAMEZ, EDGAR Monae [facility] HIGH BLOOD PRES SURE [id number] 10/04/2018 14:30:00 08:55:00 DIS Outpatient JERRY AVILEZ [facility] REHAB CHONDROMALACIA OF R KNE E [id number] 12/04/2017 16:00:00 23:59:59 CLS Outpatient LEIDY WHITNEY [facility] RAD RIGHT KNEE PAIN [id number] 08/21/2017 11:03:00 07/02/2 018 23:59:59 CLS Outpatient SUSAN WISE [facility] RAD K59.00 [id number] 02/10/2016 23:08:00 016 00:25:00 DIS Emergency DREW VALDIVIA MD [facility] SHARP PAIN ON RT SIDE [id number] 03/23/2014 02:02:00 015 03:13:00 DIS Emergency MORGAN YANEZ DO [facility] POSS BOIL ON BACKSIDE [id number] 12/07/2012 02:35:00 013 05:12:00 DIS Emergency DREW VALDIVIA MD [facility] VOMITING,DIZZINESS [id number] 03/23/2014 02:02:00 Document Registration [id number] 04/12/2012 13:25:00 Document Registration [id number] 02/13/2012 02:33:00 Document Registration [id number] 12/14/2011 12:30:00 Document Registration [id number] 04/25/2011 20:15:00 Document Registration [id number] 05/02/2014 07:44:00 05/02/2014 23:59: 59 CLS Outpatient SUSAN WISE APRN [id number] 11/04/2013 11:51:00 11/04/2013 23:59: 59 CLS Outpatient SUSAN WISE APRN [id number] 10/14/2013 14:29:00 10/14/2013 23:59: 59 CLS Outpatient AUSTIN SAUCEDA APRN [id number] 09/03/2013 14:42:00 09/03/2013 23:59: 59 CLS Outpatient SUSAN WISE APRN S [id number] 08/26/2013 08:35:00 08/26/2013 23:59: 59 CLS Outpatient VASU BROCK DDS [id number] 04/23/2013 16:01:00 04/23/2013 23:59: 59 CLS Outpatient SUSAN WISE APRN [id number] 10/25/2012 10:23:00 10/25/2012 23:59: 59 CLS Outpatient LA LINTON DO [id number] 03/20/2012 14:27:00 03/20/2012 23:59: 59 CLS Outpatient SUSAN WISE APRN [id number] 02/01/2012 11:18:00 02/01/2012 23:59: 59 CLS Outpatient SUSAN WISE APRN [id number] 01/04/2012 14:30:00 01/04/2012 23:59:5 9 [facility] Outpatient SUSAN WISE APRN [id number] 09/27/2012 10:25:00 Document Registration
[2019-06-13] MEDS ORDERED: AMOXICILLIN 500 MG (POLYMOX) CAP PO STA (20:36)
[2019-06-13] MEDS ORDERED: AMOX500C2 PO (20:44)
[2019-06-13] MEDS ORDERED: RX-HYDROCODONE/APAP 5/325 MG #4 TAB PK PO PRN (20:45)
--- NOTE | 2019-06-13 20:45 | ED EENT ---
History of Present Illness General Chief Complaint: Cardiac/General Problems Stated Complaint: HIGH BP Source: patient Exam Limitations: no limitations History of Present Illness Date Seen by Provider: Jun 13, 2019 Time Seen by Provider: 20:40 Initial Comments To ER with reports of high blood pressure, dental pain left upper dental pain for a couple days. No fever no chills, has chronically elevated blood pressure. Timing/Duration: abrupt Severity: moderate Location: mouth Associated Symptoms: facial pain/swelling Allergies and Home Medications Allergies Coded Allergies: losartan (Verified Allergy, Unknown, 02/10/16) Home Medications Amoxicillin 500 Mg Capsule, 1,000 MG PO BID Prescribed by: EDGAR HEREDIA on 01/30/192105 Dicyclomine HCl 20 Mg Tablet, 20 MG PO ACHS Prescribed by: DREW VALDIVIA on 02/11/16 0020 Patient Home Medication List Home Medication List Reviewed: Yes Review of Systems Review of Systems Constitutional: see HPI Eyes: No Symptoms Reported Ears: No Symptoms Reported Nose: no symptoms reported Mouth: no symptoms reported Throat: no symptoms reported Respiratory: no symptoms reported Cardiovascular: no symptoms reported Musculoskeletal: no symptoms reported Skin: no symptoms reported Past Gqsjqvv-Hfxabj-Idohvi Hx Patient Social History Type Used: Cigarettes 2nd Hand Smoke Exposure: No Recent Hopitalizations: No Immunizations Up To Date Tetanus Booster (TDap): Unknown Date of Pneumonia Vaccine: Nov 25, 2009 Date of Influenza Vaccine: Oct 22, 2011 Past Medical History Surgeries: No Respiratory: Yes Sleep Apnea Cardiac: Yes Hypertension Neurological: No Reproductive Disorders: No Sexually Transmitted Disease: No HIV/AIDS: No Genitourinary: No Gastrointestinal: No Musculoskeletal: No Endocrine: Yes Diabetes, Non-Insulin dep HEENT: No Cancer: No Psychosocial: Yes Anxiety, Depression Integumentary: No Blood Disorders: No Adverse Reaction/Blood Tranf: No Physical Exam Height, Weight, BMI Height: 5'10" Weight: 300lbs. oz. 136.233640ht; 46.00 BMI Method:Stated General Appearance: WD/WN, no apparent distress, obese, other (no symptoms consistent with a blood pressure) Eyes: bilateral eye normal inspection, bilateral eye PERRL, bilateral eye EOMI Ears: bilateral ear auricle normal, bilateral ear canal normal, bilateral ear TM normal Neck: non-tender, full range of motion Respiratory: no respiratory distress Neurologic/Psychiatric: alert, normal mood/affect, oriented x 3 Skin: normal color, warm/dry Progress/Results/Core Measures Results/Orders My Orders Orders - ERIK AUGUSTIN APRN Rx-Hydrocodone/Apap 5-325 Mg (Rx-Vicodin (06/13/19 20:45) Amoxicillin Capsule (Polymox Capsule) (06/13/19 20:36) Departure Communication (Admissions) Supraperiosteal nerve block done and the location of pain using 1.5 mL of 0.5% bupivacaine with epinephrine Impression Primary Impression: Chronic hypertension Additional Impressions: Pain, dental Pain due to dental caries Disposition: HOME, SELF-CARE Condition: Stable Departure-Patient Inst. Decision time for Depature: 20:44 Referrals: [facility][1]/SE[place]ST[place] (PCP) Primary Care Physician SUSAN WISE (Family) Primary Care Physician Patient Instructions: Controlling Your Blood Pressure Through Lifestyle, Dental Pain Add. Discharge Instructions: 1. Antibiotics as directed 2. Follow-up with your doctor next week 3. All discharge instructions reviewed with patient and/or family. Voiced understanding. Scripts Amoxicillin (Amoxicillin) 500 Mg Capsule 500 MG PO TID, #21 CAP 0 Refills Prov: ERIK AUGUSTIN APRN 06/13/19 Images Mouth/Nose 1 - Caries, Fracture Tooth, Tenderness ERIK AUGUSTIN APRN Jun 13, 2019 20:45
[2019-06-14] MEDS ORDERED: HYDR-3870 PO (15:24)
== END 2019-06-13 20:50 | disposition home or self-care (01) ==
LOC: EDUNIT# 19:57 → ER 19:58
DX: I10 Essential (primary) hypertension (principal); K02.9 Dental caries, unspecified; Z88.8 Allergy status to other drugs, medicaments and biological substances
CPT/HCPCS: 99283

== ENCOUNTER 2019-06-14 13:29 | Emergency (ER) | payer OTHER ==
[~2019-06-14] VITALS: Ht 177.8 cm; Wt 146.1 kg
[2019-06-14] MEDS ORDERED: meTOprolol TARTRATE 25 MG (LOPRESSOR) TABLET PO ONE (13:45)
[2019-06-14] MEDS ORDERED: cefTRIAXone FOR IV USE 1,000 MG in WATER (STERILE) FOR INJECTION 10 ML IV ONE (13:45)
[2019-06-14] MEDS ORDERED: KETOROLAC 30 MG/ML VIAL IVP ONE (13:45)
[2019-06-14 14:04] LABS: BASOPHILS % (AUTO) 0 % (0-10); EOSINOPHILS % (AUTO) 0 % (0-10); HEMATOCRIT 42 % (40-54); HEMOGLOBIN 13.4 G/DL (13.3-17.7); LYMPHOCYTES # (AUTO) 1.7 X 10^3 (1.0-4.0); LYMPHOCYTES % (AUTO) 24 % (12-44); MEAN CORPUSCULAR HEMOGLOBIN 26 PG (25-34); MEAN CORPUSCULAR HGB CONC 32 G/DL (32-36); MEAN CORPUSCULAR VOLUME 81 FL (80-99); MEAN PLATELET VOLUME 10.6 FL (7.4-10.4); MONOCYTES # (AUTO) 0.6 X 10^3 (0.0-1.0); MONOCYTES % (AUTO) 8 % (0-12); NEUTROPHILS % (AUTO) 68 % (42-75); PLATELET COUNT 221 10^3/uL (130-400); RED CELL DISTRIBUTION WIDTH 16.4 % (10.0-14.5); WHITE BLOOD COUNT 7.3 10^3/uL (4.3-11.0)
[2019-06-14 14:44] LABS: CALCIUM 9.5 MG/DL (8.5-10.1); CREATININE SERUM 1.44 MG/DL (0.60-1.30)
[2019-06-14 14:45] LABS: POTASSIUM 5.2 MMOL/L (3.6-5.0)
[2019-06-14] MEDS ORDERED: IOHEXOL 350 MG/ML 100 ML (OMNIPAQUE 350) VIAL IV ONE (15:00)
[2019-06-14] MEDS ORDERED: NS 100 ML (IVPB) BAG IV ONE (15:00)
[2019-06-14] MEDS ORDERED: HOLD METFORMIN - RECEIVED CONTRAST 20 ML VIAL IV SCH (15:00)
--- NOTE | 2019-06-14 15:19 | Diagnostic Imaging Report ---
PROCEDURE: CT maxillofacial with contrast. TECHNIQUE: After intravenous administration of contrast, axial images were obtained through the face and reformatted into coronal and sagittal planes. Auto Exposure Controls were utilized during the CT exam to meet ALARA standards for radiation dose reduction. INDICATION: Swelling to the left side of the face. COMPARISON: No prior studies are available for comparison. FINDINGS: Both globes and orbits are unremarkable. Extraocular musculature is symmetric. There does appear to be some mild edema in the subcutaneous tissues of the left face in the pre-maxillary region medially. However, no fluid collection is identified. The maxillary sinuses are clear bilaterally. There is some mild mucosal thickening of the ethmoid air cells. The frontal sinus is clear. Mastoids are well aerated. IMPRESSION: Findings suggestive of mild left facial cellulitis. No abscess is identified. Dictated by: Dictated on workstation # [id number]
[2019-06-14] MEDS ORDERED: HYDR-3870 PO (15:24)
--- NOTE | 2019-06-14 15:25 | ED EENT ---
History of Present Illness General Chief Complaint: Dental Problems/Pain Stated Complaint: DENTAL PAIN/SWELLING Nursing Triage Note: AMB TO ROOM WAS SEEN LAST NIGHT WAS STARTED ON AMOXIL TODAY FEELS LIKE FACE SWOLLEN. Source: patient Exam Limitations: no limitations History of Present Illness Date Seen by Provider: Jun 14, 2019 Time Seen by Provider: 13:45 Initial Comments ER with persistent left facial pain and swelling. He was seen her last night diagnosed with dental infection, given prescription for hydrocodone and amoxicillin. He was also given amoxicillin here. Comes back today with a bit of worsening. No fevers. Timing/Duration: abrupt Severity: moderate Location: dental Prearrival Treatment: no prearrival treatment Associated Symptoms: denies symptoms Allergies and Home Medications Allergies Coded Allergies: losartan (Verified Allergy, Unknown, 02/10/16) Home Medications Amoxicillin 500 Mg Capsule, 1,000 MG PO BID Prescribed by: EDGAR HEREDIA on 01/30/192105 Amoxicillin 500 Mg Capsule, 500 MG PO TID Prescribed by: ERIK AUGUSTIN on 06/13/192043 Dicyclomine HCl 20 Mg Tablet, 20 MG PO ACHS Prescribed by: DREW VALDIVIA on 02/11/16 0020 Patient Home Medication List Home Medication List Reviewed: Yes Review of Systems Review of Systems Constitutional: see HPI; No chills, No fever Eyes: No Symptoms Reported Ears: No Symptoms Reported Nose: no symptoms reported Mouth: no symptoms reported Throat: no symptoms reported Respiratory: no symptoms reported Cardiovascular: no symptoms reported Musculoskeletal: no symptoms reported Skin: no symptoms reported Past Merndsi-Tyalcg-Ruokds Hx Patient Social History Alcohol Use: Denies Use Recreational Drug Use: No Smoking Status: Former Smoker Type Used: Cigarettes 2nd Hand Smoke Exposure: No Recent Foreign Travel: No Contact w/Someone Who Travel: No Recent Infectious Disease Expo: No Recent Hopitalizations: No Immunizations Up To Date Tetanus Booster (TDap): Unknown Date of Pneumonia Vaccine: Nov 25, 2009 Date of Influenza Vaccine: Oct 22, 2011 Past Medical History Surgeries: No Respiratory: Yes Sleep Apnea Cardiac: Yes Hypertension Neurological: No Reproductive Disorders: No Sexually Transmitted Disease: No HIV/AIDS: No Genitourinary: No Gastrointestinal: No Musculoskeletal: No Endocrine: Yes Diabetes, Non-Insulin dep HEENT: No Cancer: No Psychosocial: Yes Anxiety, Depression Integumentary: No Blood Disorders: No Adverse Reaction/Blood Tranf: No Physical Exam Vital Signs Vital Signs - First Documented 06/14/19 13:32 Temp 37.1 Pulse 103 Resp 18 B/P (MAP) 151/116 (128) Height, Weight, BMI Height: 5'10" Weight: 300lbs. oz. 136.090310zp; 46.00 BMI Method:Stated General Appearance: WD/WN, no apparent distress Eyes: bilateral eye normal inspection, bilateral eye PERRL, bilateral eye EOMI Ears: bilateral ear auricle normal, bilateral ear canal normal, bilateral ear TM normal Mouth/Throat: normal mouth inspection, pharynx normal, other (maxillary swelling superior to tooth #9, 10, 11 which are fractured and carious but no fluctuant drainable abscess) Neck: non-tender, full range of motion Respiratory: no respiratory distress, no accessory muscle use Gastrointestinal: normal bowel sounds, non tender, soft Neurologic/Psychiatric: alert, normal mood/affect, oriented x 3 Skin: normal color, warm/dry Progress/Results/Core Measures Results/Orders Lab Results Laboratory Tests Test 06/14/19 13:15 Range/Units White Blood Count 7.3 4.3-11.0 10^3/uL Red Blood Count 5.15 4.35-5.85 10^6/uL Hemoglobin 13.4 13.3-17.7 G/DL Hematocrit 42 40-54 % Mean Corpuscular Volume 81 80-99 FL Mean Corpuscular Hemoglobin 26 25-34 PG Mean Corpuscular Hemoglobin Concent 32 32-36 G/DL Red Cell Distribution Width 16.4 H 10.0-14.5 % Platelet Count 221 130-400 10^3/uL Mean Platelet Volume 10.6 H 7.4-10.4 FL Neutrophils (%) (Auto) 68 42-75 % Lymphocytes (%) (Auto) 24 12-44 % Monocytes (%) (Auto) 8 0-12 % Eosinophils (%) (Auto) 0 0-10 % Basophils (%) (Auto) 0 0-10 % Neutrophils # (Auto) 5.0 1.8-7.8 X 10^3 Lymphocytes # (Auto) 1.7 1.0-4.0 X 10^3 Monocytes # (Auto) 0.6 0.0-1.0 X 10^3 Eosinophils # (Auto) 0.0 0.0-0.3 10^3/uL Basophils # (Auto) 0.0 0.0-0.1 10^3/uL Sodium Level 137 135-145 MMOL/L Potassium Level 5.2 H 3.6-5.0 MMOL/L Chloride Level 103 98-107 MMOL/L Carbon Dioxide Level 20 L 21-32 MMOL/L Anion Gap 14 5-14 MMOL/L Blood Urea Nitrogen 16 7-18 MG/DL Creatinine 1.44 H 0.60-1.30 MG/DL Estimat Glomerular Filtration Rate 53 BUN/Creatinine Ratio 11 Glucose Level 155 H 70-105 MG/DL Calcium Level 9.5 8.5-10.1 MG/DL My Orders Orders - ERIK AUGUSTIN APRN Ct Maxillofacial W (06/14/19 13:35) Cbc With Automated Diff (06/14/19 13:35) Basic Metabolic Panel (06/14/19 13:35) Ketorolac Injection (Toradol Injection) (06/14/19 13:45) Ceftriaxone For Iv Use (Rocephin For I (06/14/19 13:45) Metoprolol Tartrate (Ir) Tab (Lopressor (06/14/19 13:45) Iohexol Injection (Omnipaque 350 Mg/Ml 1 (06/14/19 15:00) Received Contrast (Hold Metformin- Contr (06/14/19 15:00) Ns (Ivpb) (Sodium Chloride 0.9% Ivpb Bag (06/14/19 15:00) Medications Given in ED Current Medications Medications Dose Ordered Sig/Jennifer Route Start Time Stop Time Status Last Admin Dose Admin Ceftriaxone Sodium 1000 mg/ Sterile Water 10 ml @ 200 mls/hr ONCE ONCE IV 06/14/19 13:45 06/14/19 13:47 DC 06/14/19 13:53 200 MLS/HR Iohexol 75 ml ONCE ONCE IV 06/14/19 15:00 06/14/19 15:01 DC 06/14/19 15:07 75 ML Ketorolac Tromethamine 15 mg ONCE ONCE IVP 06/14/19 13:45 06/14/19 13:46 DC 06/14/19 13:50 15 MG Metoprolol Tartrate 25 mg ONCE ONCE PO 06/14/19 13:45 06/14/19 13:46 DC 06/14/19 13:41 25 MG Sodium Chloride 100 ml ONCE ONCE IV 06/14/19 15:00 06/14/19 15:01 DC 06/14/19 15:08 80 ML Vital Signs/I&O 06/14/19 13:32 Temp 37.1 Pulse 103 Resp 18 B/P (MAP) 151/116 (128) Blood Pressure Mean: 128 Departure Impression Primary Impression: Dental abscess Disposition: HOME, SELF-CARE Condition: Stable Departure-Patient Inst. Decision time for Depature: 15:23 Referrals: [facility] (PCP) Primary Care Physician SUSAN WISE (Family) Primary Care Physician Patient Instructions: Tooth Abscess (DC) Add. Discharge Instructions: 1. It is very important to to call a dentist 2. Expect improvement in the next 24-36 hours as the antibiotic start to get a hold on this infection. Medication as directed. Continue the antibiotic amoxicillin. All discharge instructions reviewed with patient and/or family. Voiced understanding. ERIK AUGUSTIN MEDICAL DETAIL REPRESENTATIVE Jun 14, 2019 15:25
[2019-06-14 15:33] VITALS: BP 113/89
== END 2019-06-14 15:33 | disposition home or self-care (01) ==
LOC: EDUNIT# 13:29 → ER 13:30
DX: K04.7 Periapical abscess without sinus (principal); E11.9 Type 2 diabetes mellitus without complications; Z88.8 Allergy status to other drugs, medicaments and biological substances; Z87.891 Personal history of nicotine dependence
CPT/HCPCS: 36415; 70487; 80048; 85025

== ENCOUNTER → 2019-10-03 | Outpatient (CLI) | payer SELFPAY ==
[~2019-10-03] MED LIST changes: +HYDR-3870 PO
== END ==
LOC: CARD 13:55
PROVIDERS: ATTEND Nurse Practitioner Family
DX: I10 Essential (primary) hypertension (principal); E78.2 Mixed hyperlipidemia; G47.30 Sleep apnea, unspecified; R06.00 Dyspnea, unspecified; R00.2 Palpitations
CPT/HCPCS: 93225; 93226; 93306

== ENCOUNTER → 2019-10-15 | Outpatient (CLI) | payer SELFPAY ==
[~2019-10-15] VITALS: Ht 178 cm; Wt 147.0 kg
[~2019-10-15] MED LIST changes: +CATHETER FLUSH 10 ML SYR IV PRN; +REGADENOSON 0.4 MG/5 ML SYR (LEXISCAN) IV ONE
[2019-10-15 12:27] VITALS: BP 100/69
--- NOTE | 2019-10-17 12:14 | STRESS TEST ---
DATE OF SERVICE: 10/15/2019 RESTING AND POST REGADENOSON TECHNETIUM-[address] IMAGING ORDERING PHYSICIAN: Lakia Salazar APRN. PRIMARY PHYSICIAN: [facility]. CLINICAL DIAGNOSES: Shortness of breath, palpitations and hypertension. Baseline images were carried out after injection of 10.79 mCi of technetium-99m Tetrofosmin. This was followed by 0.4 mg Regadenoson and 10.79 mCi of technetium-99m Tetrofosmin for stress imaging. The electrocardiogram showed nonspecific ST and T-wave abnormality, mild, at baseline and this did not change significantly with the Regadenoson infusion. The patient noted some shortness of breath following Regadenoson infusion, which resolved in a few minutes. Review of images at rest and following stress indicates a small basal inferior perfusion defect that appears transient. Gated images show normal global left ventricular systolic function with a normal regional wall motion. Left ventricular ejection fraction is calculated to be 72%. Left ventricular end diastolic volume is 80 mL. TID is absent (1.04). CONCLUSIONS: 1. This study is suggestive of a small amount of basal inferior ischemia. 2. Normal regional wall motion. 3. Normal global left ventricular systolic function with a calculated ejection fraction of 72%. Job ID: [id number] DocumentID: [id number] Dictated Date: 10/17/2019 09:38:52 Erp Technical Lead Date: 10/17/2019 12:14:19 Dictated By: LENA KAPOOR MD, MA, FACP, FACC,
== END ==
LOC: CARD 11:30
PROVIDERS: ATTEND Nurse Practitioner Family
DX: I10 Essential (primary) hypertension (principal); E78.2 Mixed hyperlipidemia; G47.30 Sleep apnea, unspecified; R00.2 Palpitations
CPT/HCPCS: 78452; 93017; A9502

== ENCOUNTER → 2019-11-19 | Day surgery (SDC) | payer OTHER ==
[~2019-11-19] VITALS: Ht 178 cm; Wt 148.0 kg
[2019-11-19] VITALS (10 sets, daily range): BP systolic 96–114; BP diastolic 60–77
[~2019-11-19] MED LIST changes: +ALBU18HF2 INH; +ARIP10TA17 PO; +ARIP30TA21 PO; +ASPI-1238 PO; +BUSP10TA95 PO; -CATHETER FLUSH 10 ML SYR IV PRN; +CLON0.1T PO; +EMPA25TA PO; +FERR324T PO; +FLUO20CA42 PO; +HEParin (CATH LAB) 2,000 ML IV ONE; +INSU100V16 SQ; +INSU100V5 SQ; +LIDOCAINE 1% INJ 20 ML 20 ML VIAL ONE; +LIRA0.6P SQ; +LISI40TA PO; +LOVA40TA2 PO; +METF-397 PO; +MIDAZOLAM 5 MG/5 ML (VERSED) VIAL ONE; +MIRT15TA6 PO; +MTP100TCR PO; +NICO-627 BC; +NS IV 1000 ML 1,000 ML IV SCH; +NS IV 1000 ML 1,000 ML ONE; +OMEG100032 PO; +OMEP20CA18 PO; +PATIENT MAY USE OWN MEDS, ALL PO SCH; -REGADENOSON 0.4 MG/5 ML SYR (LEXISCAN) IV ONE; +fentaNYL INJECTION 100 MCG/2 ML AMP ONE
[2019-11-19 07:40] LABS: HEMOGLOBIN 13.3 g/dL (13.3-17.7); MEAN PLATELET VOLUME 9.9 fL (9.0-12.2); WHITE BLOOD COUNT 5.6 10^3/uL (4.3-11.0)
[2019-11-19 07:52] LABS: INR 0.9 (0.8-1.4); PROTHROMBIN TIME PATIENT 12.6 SEC (12.2-14.7)
[2019-11-19 08:02] LABS: BILIRUBIN,TOTAL 0.5 MG/DL (0.1-1.0); CALCIUM 8.9 MG/DL (8.5-10.1); CREATININE SERUM 1.53 MG/DL (0.60-1.30); TOTAL PROTEIN 7.7 GM/DL (6.4-8.2)
--- NOTE | 2019-11-19 10:28 | Discharge Inst-Cardiology ---
Discharge Inst-Cardiac Discharge Medications Continued Medications: Albuterol Sulfate (Ventolin Hfa) 18 Gm Hfa.aer.ad 1 PUFF INH TID, GM Aripiprazole (Aripiprazole) 30 Mg Tablet 30 MG PO DAILY, TAB Aripiprazole (Aripiprazole) 10 Mg Tablet 10 MG PO DAILY, TAB Aspirin (Aspirin EC) 81 Mg Tablet.dr 81 MG PO DAILY, TAB Buspirone HCl (Buspirone HCl) 10 Mg Tablet 10 MG PO BID, TAB Clonidine HCl (Clonidine HCl) 0.1 Mg Tablet 0.1 MG PO BID, TAB Empagliflozin (Jardiance) 25 Mg Tablet 25 MG PO DAILY, TAB Ferrous Gluconate (Ferrous Gluconate) 324 Mg Tablet 324 MG PO DAILY, TAB Fluoxetine HCl (Prozac) 20 Mg Capsule 40 MG PO DAILY, CAP Insulin Aspart (Novolog) 100 Unit/1 Ml Susp 20 UNIT SQ AC, EACH Insulin Determir (Levemir) 1,000 Units/10 Ml Soln 40 UNITS SQ BID, EA Liraglutide (Victoza 2-Vick) 0.6 Mg/0.1 Ml Pen.injctr 1.8 MG SQ DAILY, VIAL Lisinopril (Lisinopril) 40 Mg Tablet 40 MG PO DAILY, TAB Lovastatin (Lovastatin) 40 Mg Tablet 40 MG PO DAILY, TAB Metoprolol Succinate (Metoprolol Succinate) 100 Mg Tab.er.24h 50 MG PO DAILY, TAB Mirtazapine (Mirtazapine) 15 Mg Tablet 22.5 MG PO, TAB Nicotine Polacrilex (Nicotine Lozenge) 2 Mg Lozenge 2 MG BC PRN, LOZENGE [place]-3/Dha/Epa/Fish Oil (Fish Oil 1,000 mg Softgel) 1,000 Mg Capsule 1000 MG PO TID, CAP Omeprazole (Omeprazole) 20 Mg Capsule.dr 20 MG PO DAILY, CAP Discontinued Medications: Metformin HCl (Metformin HCl) 500 Mg Tablet 1000 MG PO BID, TAB Patient Instructions Patient Instructions: Hold METFORMIN until the morning of 11/22/19. Then resume previous home dose LENA KAPOOR MD FACP [facility] Nov 19, 2019 10:28
--- NOTE | 2019-11-19 10:29 | Discharge Inst-Post CATH ---
Discharge Inst-CATH/EP Post Cardiac Cath/EP D/C Inst Follow Up/Plan F/u with Dr Sharpe in 2 weeks <b>CARDIAC CATH/EP PROCEDURE DISCHARGE INSTRUCTIONS</b> ACTIVITY * Go Home directly and rest. * Limit activity of the leg (or wrist if it was used) for 7 days including aerobics, swimming, jogging, bicycling, etc. * Restrict stair-climbing for 7 days if possible, if not, climb up with your non-cath leg, then bring together on the same step. * Avoid lifting, pushing, pulling or excessive movement of the affected extremity for 7 days. * Customary sexual activity may be resumed after 2 days-use caution not to use a position that strains or causes pain to the affected extremity. * No driving for 24 hours. * NO SMOKING. * Avoid straining for bowel movements for 7 days. * Gentle walking on level ground is allowed. * Returning to work will depend on the type of procedure and the results. Your doctor will discuss this with you. CALL YOUR DOCTOR FOR ANY OF THE FOLLOWING: *If bleeding from the puncture site occurs- Apply gentle pressure to site with clean cloth and call your doctor or EMS. * If a knot or lump forms under the skin, increases in size, or causes pain. * If bruising appears to be worsening or moving further down your leg instead of disappearing. * Temperature above 101 F. CARE OF YOUR GROIN INCISION; * Bruising or purple discoloration of the skin near the puncture site is common. * You may shower only, no bathtub bathing for 5 days. Be careful to avoid slipping as your leg may feel stiff. * If a closure device was used on your femoral artery, please see the attached guide regarding care of the device and your leg. * Leave dressing on FOR 24 hours. CARE OF YOUR WRIST INCISION; * Bruising or purple discoloration of the skin near the puncture site is common. * You may shower. * DO NOT submerge wrist. * Leave dressing on FOR 24 hours. LENA SHARPE MD FACP FAC CCDS Nov 19, 2019 10:29
--- NOTE | 2019-11-19 10:35 | Cardiac Procedure Note-CS/ASA ---
Pre-Procedure Note Pre-Op Procedure Note H&P Reviewed The H&P was reviewed, patient examined and no changes noted. Date H&P Reviewed: Nov 19, 2019 Time H&P Reviewed: 10:00 Conscious Sedation Pre-Proced Time 10:00 ASA Score 3 For ASA 3 and 4: Consider anesthesia and medical clearance. Also, for patients with a history of failed moderate sedation consider anesthesia. Airway Lungs Heart ASA score ASA 1: a normal healthy patient ASA 2: a patient with a mild systemic disease (mid diabetes, controlled hypertension, obesity ASA 3: a patient with a severe systemic disease that limits activity (angina, COPD, prior Myocardial infarction) ASA 4: a patient with an incapacitating disease that is a constant threat to life (CHF, renal failure) ASA 5: a moribund patient not expected to survive 24 hrs. (ruptured aneurysm) ASA 6: a declared brain- patient whose organs are being harvested. For emergent operations, add the letter E after the classification Mallampati Classification Grade 2 Sedation Plan Analgesia, Amnesia, Plan communicated to team members, Discussed options with patient/fam, Discussed risks with patient/fam The patient is an appropriate candidate to undergo the planned procedure, sedation, and anesthesia. The patient immediately re-assessed prior to indication. LENA KAPOOR MD FACP FAC CCDS Nov 19, 2019 10:35
--- NOTE | 2019-11-19 10:42 | CARDIAC CATHETERIZATION ---
DATE OF SERVICE: 11/19/2019 CARDIAC CATHETERIZATION REPORT INDICATION FOR PROCEDURE: The patient is a 43-year-old man with multiple coronary artery disease risk factors, who has had shortness of breath and chest discomfort and whose myocardial perfusion imaging was indicative of inferior ischemia. Cardiac catheterization was carried out today after having obtained an informed consent. DESCRIPTION OF PROCEDURE: He was brought to the cardiac catheterization laboratory in a fasting state. Right groin was prepared and draped in the usual sterile fashion. Lidocaine 1% was used as local anesthesia. Modified Seldinger technique was used to advance a 5-Venezuelan sheath in the right femoral artery, 5-[place]enezuelan JL4 catheter for left coronary angiography, 5-[place]enezuelan JR4 catheter for right coronary angiography and a 5-[place]enezuelan pigtail catheter was used for left heart catheterization. Left ventricular angiography was not performed because of the patient's creatinine was 1.5 and we wanted to conserve contrast. Vigorous perioperative hydration was continued throughout the procedure and afterwards. HEMODYNAMICS: Left ventricular and diastolic pressure following coronary angiography was 12 mmHg. There did not appear to be a significant pressure gradient on pullback across the aortic valve. Ascending aortic pressure was 94/56 with a mean of 64 mmHg. CORONARY ANGIOGRAPHY: Left main coronary artery, left anterior descending artery, left circumflex artery and right coronary artery did not exhibit angiographically significant disease. Right coronary artery was dominant. CONCLUSIONS: 1. No angiographically significant coronary artery disease. 2. Normal left ventricular end-diastolic pressure. DISCUSSION AND RECOMMENDATIONS: Based on the results of the study, it appears appropriate to continue a conservative approach. Risk factor modification was discussed. Outpatient followup is advised. Job ID: [id number] DocumentID: [id number] Dictated Date: 11/19/2019 10:34:33 Automobile Body Repair Chief Date: 11/19/2019 10:41:59 Dictated By: LENA KAPOOR MD, MA, FACP, FACC,
--- NOTE | 2019-11-19 13:58 | NUR ---
PT WILL BE RETURNING HOME VIA PUBLIC BUS. BUS PICKS UP AT 1400. PT POST PROCEDURE TIME ENDED AT 1315, BUT PT KEPT IN OPS UNTIL 1358 SO SITE COULD BE MONITORED. PT WAS UP AT 1330, WALKING SMITH WHILE BEING MONITORED. TOLERATED WELL. POST CATH INSTRUCTIONS PROVIDED. 1359 PT IN WHEEL CHAIR AND TAKEN TO [facility] TO CATCH BUS FOR RIDE HOME. DISREGARD VS DOCUMENTED AT 1420 AT THEY ARE IN ERROR, PT WAS ALREADY DC PRIOR TO THAT TIME.
== END | disposition home or self-care (01) ==
LOC: CATH 07:08 → SDC 10:41
PROVIDERS: ATTEND Internal Medicine Cardiovascular Disease
DX: R07.89 Other chest pain (principal); R06.02 Shortness of breath; G47.33 Obstructive sleep apnea (adult) (pediatric); E78.5 Hyperlipidemia, unspecified; I10 Essential (primary) hypertension; J44.9 Chronic obstructive pulmonary disease, unspecified; R00.2 Palpitations; E66.9 Obesity, unspecified; Z68.42 Body mass index [BMI] 45.0-49.9, adult; Z91.19 Patient's noncompliance with other medical treatment and regimen; F17.220 Nicotine dependence, chewing tobacco, uncomplicated; Z79.82 Long term (current) use of aspirin; Z79.899 Other long term (current) drug therapy; Z88.8 Allergy status to other drugs, medicaments and biological substances
CPT/HCPCS: 80053; 80061; 85027; 85610; 85730; 87081; 93458; C1760; C1894; 36415

== ENCOUNTER 2019-12-23 13:30 | Emergency (ER) | payer OTHER ==
[~2019-12-23] VITALS: Ht 177 cm; Wt 150.9 kg
[~2019-12-23 13:30] MED LIST changes: +CLN.1T PO; -CLON0.1T PO; -HEParin (CATH LAB) 2,000 ML IV ONE; -LIDOCAINE 1% INJ 20 ML 20 ML VIAL ONE; -MIDAZOLAM 5 MG/5 ML (VERSED) VIAL ONE; -NS IV 1000 ML 1,000 ML IV SCH; -NS IV 1000 ML 1,000 ML ONE; -PATIENT MAY USE OWN MEDS, ALL PO SCH; -fentaNYL INJECTION 100 MCG/2 ML AMP ONE
[2019-12-23 14:20] LABS: BASOPHILS % (AUTO) 0 % (0-10); EOSINOPHILS % (AUTO) 0 % (0-10); HEMATOCRIT 42 % (40-54); LYMPHOCYTES # (AUTO) 1.8 10^3/uL (1.0-4.0); LYMPHOCYTES % (AUTO) 36 % (12-44); MEAN CORPUSCULAR HEMOGLOBIN 25 pg (25-34); MEAN CORPUSCULAR HGB CONC 31 g/dL (32-36); MEAN CORPUSCULAR VOLUME 82 fL (80-99); MEAN PLATELET VOLUME 9.6 fL (9.0-12.2); MONOCYTES # (AUTO) 0.3 10^3/uL (0.0-1.0); MONOCYTES % (AUTO) 6 % (0-12); NEUTROPHILS # (AUTO) 2.9 10^3/uL (1.8-7.8); NEUTROPHILS % (AUTO) 57 % (42-75); PLATELET COUNT 205 10^3/uL (130-400)
--- NOTE | 2019-12-23 14:28 | ED General ---
General Chief Complaint: Cardiac/General Problems Stated Complaint: HTN Nursing Triage Note: ARRIVED VIA AMB TO [facility] 07 WITH COMPLAINTS OF HYPERTENSION X1 HOUR. STATES IT WAS 210/116. Nursing Sepsis Screen: No Definite Risk Source of Information: Patient Exam Limitations: No Limitations (JUAN ECHEVERRIA STUDENT) History of Present Illness Date Seen by Provider: Dec 23, 2019 Time Seen by Provider: 13:50 Initial Comments Mr. Hebert is a 44 y/o M who presents to the ED with chief complaint of "not feeling right." He said that 1 hour prior to arrival he woke up from a nap and didn't feel right. He took his blood pressure which was 210/116 and his blood s ugar which was 179. He reports that he came to the ED after seeing that blood pressure reading. He said he normally is on 50mg of metoprolol, which he takes once in the morning, and 40mg of lisinopril, which he takes once at night. He reports that he took his metoprolol this morning and that he has been taking his medications as prescribed. He reports that he has some blurry vision but denies a DAWSON. He denies any chest pain, shortness of breath, nausea, vomiting or other symptoms at this time. He was last seen in the ED for mouth pain for which he was prescribed amoxicillin, but had a rash to this medication. He said that he still has some left upper molar pain from tooth decay and denies any significant change in his pain level or that he is taking any medications for this. He said he has taken tobacco today but denies any alcohol or other drug use. (JUAN ECHEVERRIA MED STUDENT) Allergies and Home Medications Allergies Coded Allergies: losartan (Verified Allergy, Unknown, 02/10/16) Home Medications Albuterol Sulfate 18 Gm Hfa.aer.ad, 1 PUFF INH TID, (Reported) Aripiprazole 30 Mg Tablet, 30 MG PO DAILY, (Reported) Aripiprazole 10 Mg Tablet, 10 MG PO DAILY, (Reported) Aspirin 81 Mg Tablet.dr, 81 MG PO DAILY, (Reported) Buspirone HCl 10 Mg Tablet, 10 MG PO BID, (Reported) Clonidine HCl 0.1 Mg Tablet, 0.1 MG PO BID, (Reported) Empagliflozin 25 Mg Tablet, 25 MG PO DAILY, (Reported) Ferrous Gluconate 324 Mg Tablet, 324 MG PO DAILY, (Reported) Fluoxetine HCl 20 Mg Capsule, 40 MG PO DAILY, (Reported) Insulin Aspart 100 Unit/1 Ml Susp, 20 UNIT SQ AC, (Reported) Insulin Determir 1,000 Units/10 Ml Soln, 40 UNITS SQ BID, (Reported) Liraglutide 0.6 Mg/0.1 Ml Pen.injctr, 1.8 MG SQ DAILY, (Reported) Lisinopril 40 Mg Tablet, 40 MG PO DAILY, (Reported) Lovastatin 40 Mg Tablet, 40 MG PO DAILY, (Reported) Metoprolol Succinate 100 Mg Tab.er.24h, 50 MG PO DAILY, (Reported) Nicotine Polacrilex 2 Mg Lozenge, 2 MG BC PRN, (Reported) [place]-3/Dha/Epa/Fish Oil 1,000 Mg Capsule, 1,000 MG PO TID, (Reported) Omeprazole 20 Mg Capsule.dr, 20 MG PO DAILY, (Reported) Patient Home Medication List Home Medication List Reviewed: Yes (JUAN ECHEVERRIA [employer] STUDENT) Review of Systems Review of Systems Constitutional: No chills, No fever, No weakness EENTM: blurred vision, dental problems, mouth pain; No vision loss, No throat pain Respiratory: No cough, No short of breath Cardiovascular: No chest pain, No palpitations Gastrointestinal: abdominal pain; No nausea, No vomiting Genitourinary: No hematuria, No pain Musculoskeletal: No back pain Skin: No rash Psychiatric/Neurological: See HPI; Denies Headache, Denies Weakness (JUAN ECHEVERRIA [employer] STUDENT) Past Vsptvhl-Qnhdap-Nomjrv Hx Patient Social History Alcohol Use: Denies Use Recreational Drug Use: No Type Used: Smokeless Tobacco 2nd Hand Smoke Exposure: No Recent Foreign Travel: No Contact w/Someone Who Travel: No Recent Infectious Disease Expo: No Recent Hopitalizations: No (JUAN ECHEVERRIA [employer] STUDENT) Immunizations Up To Date Tetanus Booster (TDap): Less than 5yrs Date of Pneumonia Vaccine: Nov 25, 2009 Date of Influenza Vaccine: Nov 06, 2019 (JUAN ECHEVERRIA [employer] STUDENT) Past Medical History Surgeries: No Respiratory: Yes Sleep Apnea Currently Using CPAP: No Currently Using BIPAP: No Cardiac: Yes High Cholesterol, Hypertension Neurological: No Reproductive Disorders: No Sexually Transmitted Disease: No HIV/AIDS: No Genitourinary: Yes (LOW KIDNEY FUNCTION ON PREVIOUS LABS) Gastrointestinal: No Musculoskeletal: No Endocrine: Yes Diabetes, Non-Insulin dep HEENT: No Cancer: No Psychosocial: Yes Anxiety, Depression Integumentary: No Blood Disorders: No Adverse Reaction/Blood Tranf: No (JUAN ECHEVERRIA MED STUDENT) Physical Exam Vital Signs Vital Signs - First Documented 12/23/19 13:35 Temp 36.0 Pulse 69 Resp 16 B/P (MAP) 175/91 (119) Pulse Ox 99 O2 Delivery Room Air (EDGAR BLANC MD) Vital Signs Capillary Refill : Less Than 3 Seconds (JUAN ECHEVERRIA MED STUDENT) Height, Weight, BMI Height: 5'10" Weight: 300lbs. oz. 136.893613vd; 48.00 BMI Method:Stated General Appearance: WD/WN, Anxious, Mild Distress, Obese Eyes: Bilateral Eye Normal Inspection, Bilateral Eye PERRL, Bilateral Eye EOMI, Bilateral Eye Conjunctivae Pale HEENT: PERRL/EOMI, Normal ENT Inspection Neck: Full Range of Motion, Normal Inspection, Non Tender Respiratory: Chest Non Tender, Lungs Clear, Normal Breath Sounds, No Accessory Muscle Use, No Respiratory Distress Cardiovascular: Regular Rate, Rhythm, No Murmur Gastrointestinal: Normal Bowel Sounds, Non Tender, Soft Back: Normal Inspection, No CVA Tenderness Extremity: Normal Range of Motion, Non Tender, Pedal Edema Neurologic/Psychiatric: Alert, Oriented x3, No Motor/Sensory Deficits, Normal Mood/Affect, machine set up II-XII Norm as Tested; No Abnormal Cerebellar Tests Skin: Normal Color (JUAN ECHEVERRIA MED STUDENT) Progress/Results/Core Measures Suspected Sepsis Recent Fever Within 48 Hours: No Infection Criteria Present: None New/Unexplained Altered Menta: No Sepsis Screen: No Definite Risk SIRS Temperature: Pulse: 69 Respiratory Rate: 16 Laboratory Tests 12/23/19 14:10: White Blood Count 5.0 Blood Pressure 175 /91 Mean: 119 Laboratory Tests 12/23/19 14:10: Creatinine 1.36H, INR Comment 1.0, Platelet Count 205, Total Bilirubin 0.4 (JUAN ECHEVERRIA MED STUDENT) Results/Orders Lab Results Laboratory Tests Test 12/23/19 14:10 12/23/19 15:05 Range/Units White Blood Count 5.0 4.3-11.0 10^3/uL Red Blood Count 5.19 4.30-5.52 10^6/uL Hemoglobin 13.0 L 13.3-17.7 g/dL Hematocrit 42 40-54 % Mean Corpuscular Volume 82 80-99 fL Mean Corpuscular Hemoglobin 25 25-34 pg Mean Corpuscular Hemoglobin Concent 31 L 32-36 g/dL Red Cell Distribution Width 17.0 H 10.0-14.5 % Platelet Count 205 130-400 10^3/uL Mean Platelet Volume 9.6 9.0-12.2 fL Immature Granulocyte % (Auto) 0 % Neutrophils (%) (Auto) 57 42-75 % Lymphocytes (%) (Auto) 36 12-44 % Monocytes (%) (Auto) 6 0-12 % Eosinophils (%) (Auto) 0 0-10 % Basophils (%) (Auto) 0 0-10 % Neutrophils # (Auto) 2.9 1.8-7.8 10^3/uL Lymphocytes # (Auto) 1.8 1.0-4.0 10^3/uL Monocytes # (Auto) 0.3 0.0-1.0 10^3/uL Eosinophils # (Auto) 0.0 0.0-0.3 10^3/uL Basophils # (Auto) 0.0 0.0-0.1 10^3/uL Immature Granulocyte # (Auto) 0.0 0.0-0.1 10^3/uL Prothrombin Time 13.1 12.2-14.7 SEC INR Comment 1.0 0.8-1.4 Activated Partial Thromboplast Time 30 24-35 SEC Sodium Level 138 135-145 MMOL/L Potassium Level 4.4 3.6-5.0 MMOL/L Chloride Level 102 98-107 MMOL/L Carbon Dioxide Level 28 21-32 MMOL/L Anion Gap 8 5-14 MMOL/L Blood Urea Nitrogen 13 7-18 MG/DL Creatinine 1.36 H 0.60-1.30 MG/DL Estimat Glomerular Filtration Rate 57 BUN/Creatinine Ratio 10 Glucose Level 190 H 70-105 MG/DL Calcium Level 8.7 8.5-10.1 MG/DL Corrected Calcium 8.8 8.5-10.1 MG/DL Magnesium Level 1.8 1.6-2.4 MG/DL Total Bilirubin 0.4 0.1-1.0 MG/DL Aspartate Amino Transf (AST/SGOT) 33 5-34 U/L Alanine Aminotransferase (ALT/SGPT) 52 0-55 U/L Alkaline Phosphatase 76 40-136 U/L Myoglobin 78.4 10.0-92.0 NG/ML Troponin I < 0.028 <0.028 NG/ML B-Type Natriuretic Peptide 23.0 <100.0 PG/ML Total Protein 7.5 6.4-8.2 GM/DL Albumin 3.9 3.2-4.5 GM/DL TSH [place] Testing 0.92 0.35-4.94 UIU/ML Urine Color YELLOW Urine Clarity CLEAR Urine pH 6.5 5-9 Urine Specific [place] <=1.005 1.016-1.022 Urine Protein NEGATIVE NEGATIVE Urine Glucose (UA) 3+ H NEGATIVE Urine Ketones NEGATIVE NEGATIVE Urine Nitrite NEGATIVE NEGATIVE Urine Bilirubin NEGATIVE NEGATIVE Urine Urobilinogen 0.2 < = 1.0 MG/DL Urine Leukocyte Esterase NEGATIVE NEGATIVE Urine RBC (Auto) NEGATIVE NEGATIVE Urine RBC NONE /HPF Urine WBC NONE /HPF Urine Squamous Epithelial Cells NONE /HPF Urine Crystals NONE /LPF Urine Bacteria NEGATIVE /HPF Urine Casts NONE /LPF Urine Mucus NEGATIVE /LPF Urine Culture Indicated NO (EDGAR BLANC MD) My Orders Orders - EDGAR BLANC MD Cbc With Automated Diff (12/23/19 13:57) Magnesium (12/23/19 13:57) Chest 1 View, Ap/Pa Only (12/23/19 13:57) Ekg Tracing (12/23/19 13:57) Comprehensive Metabolic Panel (12/23/19 13:57) Myoglobin Serum (12/23/19 13:57) Protime With Inr (12/23/19 13:57) Partial Thromboplastin Time (12/23/19 13:57) Monitor-Rhythm Ecg Trace Only (12/23/19 13:57) Ed Iv/Invasive Line Start (12/23/19 13:57) Troponin I (12/23/19 13:57) Ua Culture If Indicated (12/23/19 13:57) BNP (12/23/19 13:57) Thyroid Analyzer (12/23/19 13:58) (EDGAR BLANC MD) Vital Signs/I&O 12/23/19 12/23/19 13:35 15:46 Temp 36.0 Pulse 69 100 Resp 16 16 B/P (MAP) 175/91 (119) 154/88 Pulse Ox 99 98 O2 Delivery Room Air Room Air (EDGAR BLANC MD) Vital Signs/I&O Capillary Refill : Less Than 3 Seconds (JUAN ECHEVERRIA MED STUDENT) Blood Pressure Mean: 119 Progress Note : Progress Note Mr. Hebert is a 44 y/o M who presents with chief complaint of "not feeling right." He was hypertensive upon arrival at 175/91. Differential at this time is hypertensive urgency vs emergency, thyroid abnormalities, anxiety or dental pain inducing higher blood pressure Will order CBC, CMP, EKG, CXR, UA. thyroid panel. Due to normal neurological exam at this time will defer CT head. Update 1525: Last BP 158/91. CBC unremarkable, CMP had elevated Cr of 1.36 which has been elevated to 1.44 as far back as May 2019. CXR unremarkable. Discussed with patient that he can be discharged but that he should return to the ED if his symptoms worsen. Recommended patient follow up outpatient with his PCP for management of his blood pressure medications. (JUAN ECHEVERRIA MED STUDENT) ECG Initial ECG Impression Date: Dec 23, 2019 Initial ECG Impression Time: 14:07 Initial ECG Rate: 66 Initial ECG Rhythm: Normal Sinus Initial ECG Intervals: Normal Comment Normal sinus rhythm with no ischemic ST elevation or depression. Subtle ST changes consistent with early repolarization. No abnormal intervals or axis deviation. (EDGAR BLANC MD) Departure Impression Primary Impression: Essential hypertension Disposition: 01 HOME, SELF-CARE Condition: Improved Departure-Patient Inst. Decision time for Depature: 15:43 (EDGAR BLANC MD) Referrals: [facility] (PCP) Primary Care Physician SUSAN WISE (Family) Primary Care Physician Patient Instructions: High Blood Pressure (DC) Add. Discharge Instructions: Continue with your blood pressure medications as previously prescribed. Avoid excessive salt or stimulants such as caffeine, diet pills, energy drinks, etc. Follow-up with your primary care provider soon as possible. Return to the emergency room if you have worsening symptoms. All discharge instructions reviewed with patient and/or family. Voiced understanding. Copy Copies To 1: LINTON,LA K DO Copies To 2: LENA KAPOOR MD FAC FAC CCDS JUAN ECHEVERRIA MED STUDENT Dec 23, 2019 14:28 EDGAR BLANC MD Dec 23, 2019 15:44
--- NOTE | 2019-12-23 14:29 | Diagnostic Imaging Report ---
INDICATION: Chest pain and disorientation. TECHNIQUE/COMPARISON: A frontal chest was obtained at 2:25 PM and compared to 02/13/2012. FINDINGS: The heart is borderline in size. The mediastinal silhouette is unremarkable. The lungs show no focal infiltrate. There is no pneumothorax or pleural fluid. There are old right-sided rib fractures noted. IMPRESSION: Borderline heart size with no acute process in the chest. Dictated by: Dictated on workstation # [id number]
[2019-12-23 14:30] LABS: ALBUMIN 3.9 GM/DL (3.2-4.5); POTASSIUM 4.4 MMOL/L (3.6-5.0)
[2019-12-23 14:31] LABS: PROTHROMBIN TIME PATIENT 13.1 SEC (12.2-14.7)
[2019-12-23 14:32] LABS: CALCIUM 8.7 MG/DL (8.5-10.1)
[2019-12-23 14:33] LABS: TOTAL PROTEIN 7.5 GM/DL (6.4-8.2)
[2019-12-23 14:35] LABS: BILIRUBIN,TOTAL 0.4 MG/DL (0.1-1.0)
[2019-12-23 14:36] LABS: CREATININE SERUM 1.36 MG/DL (0.60-1.30)
[2019-12-23 14:39] LABS: MAGNESIUM 1.8 MG/DL (1.6-2.4)
[2019-12-23 15:00] LABS: TSH (THYROID ANALYZER) 0.92 UIU/ML (0.35-4.94)
[2019-12-23 15:09] LABS: BILIRUBIN,URINE NEGATIVE (NEGATIVE); CLARITY,URINE CLEAR; COLOR,URINE YELLOW; GLUCOSE, URINE (UA) 3+ (NEGATIVE); KETONES,URINE NEGATIVE (NEGATIVE); LEUKOCYTE ESTERASE ,URINE NEGATIVE (NEGATIVE); NITRITE,URINE NEGATIVE (NEGATIVE); PH,URINE 6.5 (5-9); PROTEIN,URINE NEGATIVE (NEGATIVE)
[2019-12-23 15:20] LABS: BACTERIA,URINE NEGATIVE /HPF
--- NOTE | 2019-12-23 15:37 | NUR ---
DR BLANC IN TALKING TO THE PT AT THIS TIME.
[2019-12-23 15:46] VITALS: BP 154/88
== END 2019-12-23 15:46 | disposition home or self-care (01) ==
LOC: EDUNIT# 13:30 → ER 13:32
DX: I10 Essential (primary) hypertension (principal); E78.00 Pure hypercholesterolemia, unspecified; E66.9 Obesity, unspecified; F41.9 Anxiety disorder, unspecified; F32.9 Major depressive disorder, single episode, unspecified; E11.9 Type 2 diabetes mellitus without complications; Z68.42 Body mass index [BMI] 45.0-49.9, adult; Z88.8 Allergy status to other drugs, medicaments and biological substances; Z79.82 Long term (current) use of aspirin
CPT/HCPCS: 36415; 71045; 80053; 81000; 83735; 83874; 83880; 84443; 84484; 85025; 85610; 85730; 93005; 93041

== ENCOUNTER 2021-01-31 18:50 | Emergency (ER) | payer BC, OTHER ==
[~2021-01-31] VITALS: Ht 178 cm; Wt 136.1 kg
[~2021-01-31 18:50] MED LIST changes: -ARIP10TA17 PO; +ARIP10TA55 PO; -LISI40TA PO; +LISI40TA9 PO; +MIRT-68 PO; -MIRT15TA6 PO
[2021-01-31 19:14] LABS: BASOPHILS % (AUTO) 0 % (0-10); EOSINOPHILS % (AUTO) 0 % (0-10); HEMATOCRIT 45 % (40-54); HEMOGLOBIN 15.3 g/dL (13.3-17.7); LYMPHOCYTES # (AUTO) 1.8 10^3/uL (1.0-4.0); LYMPHOCYTES % (AUTO) 23 % (12-44); MEAN CORPUSCULAR HEMOGLOBIN 31 pg (25-34); MEAN CORPUSCULAR HGB CONC 34 g/dL (32-36); MEAN CORPUSCULAR VOLUME 91 fL (80-99); MEAN PLATELET VOLUME 9.9 fL (9.0-12.2); MONOCYTES # (AUTO) 0.3 10^3/uL (0.0-1.0); MONOCYTES % (AUTO) 4 % (0-12); NEUTROPHILS # (AUTO) 5.6 10^3/uL (1.8-7.8); NEUTROPHILS % (AUTO) 73 % (42-75); PLATELET COUNT 197 10^3/uL (130-400); WHITE BLOOD COUNT 7.7 10^3/uL (4.3-11.0)
[2021-01-31] MEDS ORDERED: LACTATED RINGERS 1,000 ML IV ONE (19:15)
[2021-01-31] MEDS ORDERED: ONDANSETRON 4 MG/2 ML (SDV) Z0FRAN IVP ONE (19:15)
[2021-01-31] MEDS ORDERED: RT-ALBUTEROL HFA 8.5 GM INHALER IH STA (19:20)
--- NOTE | 2021-01-31 19:27 | ED General ---
General Chief Complaint: COVID19 Suspect/Confirmed Stated Complaint: COUGH,SHORTNESS OF BREATH Nursing Triage Note: PT AMB TO RM 9 W REPORTS OF POSS COVID EXPOSURE. PT C/O DAWSON, COUGH, SOA, AND NAUSEA SX MONDAY. PT A&OX4. Source of Information: Patient, Old Records Exam Limitations: No Limitations History of Present Illness Date Seen by Provider: Jan 31, 2021 Time Seen by Provider: 19:02 Initial Comments This 45-year-old gentleman presents to the emergency room with concerns about flulike symptoms for the past 48 hours. He states his roommate had similar symptoms last week and he is concerned his roommate may have had COVID-19. Symptoms include headache, cough, shortness of breath, wheezing, nausea and vomiting, and mild diarrhea. He is a smoker who has comorbidities including obesity, hypertension, and insulin requiring type 2 diabetes. He was fully vaccinated for COVID-19 in May of this year. He has noted to have oxygen saturations ranging between 88 and 93% while in the exam room. He also has wheezing throughout the chest on exam. He does not currently identify any respiratory diagnoses but states he has had to use inhaled treatments when ill in the past. An H&P on file from his heart cath does note a history of COPD. He also comments on having some sharp left calf pain yesterday that has now resolved. Heart cath in 2019 revealed normal coronary arteries and no mention of heart failure. Allergies and Home Medications Allergies Coded Allergies: losartan (Verified Allergy, Unknown, 02/10/16) Patient Home Medication List Home Medication List Reviewed: Yes Albuterol Sulfate (Ventolin Hfa) 18 Gm Hfa.aer.ad, 1 PUFF INH TID, (Reported) Entered as Reported by: EDMUNDO GUZMAN on 11/19/19755 Aripiprazole (Aripiprazole) 30 Mg Tablet, 30 MG PO DAILY, (Reported) Entered as Reported by: EDMUNDO GUZMAN on 11/19/19755 Aripiprazole (Aripiprazole) 10 Mg Tablet, 10 MG PO DAILY, (Reported) Entered as Reported by: EDMUNDO GUZMAN on 11/19/19755 Aspirin (Aspirin EC) 81 Mg Tablet.dr, 81 MG PO DAILY, (Reported) Entered as Reported by: EDMUNDO GUZMAN on 11/19/19755 Azithromycin (Azithromycin) 250 Mg Tablet, 250 MG PO DAILY Prescribed by: EDGAR HEREDIA on 01/31/212152 Buspirone HCl (Buspirone HCl) 10 Mg Tablet, 10 MG PO BID, (Reported) Entered as Reported by: EDMUNDO GUZMAN on 11/19/19755 Cefdinir (Cefdinir) 300 Mg Capsule, 300 MG PO BID Prescribed by: EDGAR HEREDIA on 01/31/212152 Clonidine HCl (Clonidine HCl) 0.1 Mg Tablet, 0.1 MG PO BID, (Reported) Entered as Reported by: EDMUNDO GUZMAN on 11/19/19755 Empagliflozin (Jardiance) 25 Mg Tablet, 25 MG PO DAILY, (Reported) Entered as Reported by: EDMUNDO GUZMAN on 11/19/19755 Ferrous Gluconate (Ferrous Gluconate) 324 Mg Tablet, 324 MG PO DAILY, (Reported) Entered as Reported by: EDMUNDO GUZMAN on 11/19/19755 Fluoxetine HCl (Prozac) 20 Mg Capsule, 40 MG PO DAILY, (Reported) Entered as Reported by: EDMUNDO GUZMAN on 11/19/19755 Insulin Aspart (Novolog) 100 Unit/1 Ml Susp, 20 UNIT SQ AC, (Reported) Entered as Reported by: EDMUNDO GUZMAN on 11/19/19755 Insulin Determir (Levemir) 1,000 Units/10 Ml Soln, 40 UNITS SQ BID, (Reported) Entered as Reported by: EDMUNDO GUZMAN on 11/19/19755 Liraglutide (Victoza 2-Vick) 0.6 Mg/0.1 Ml Pen.injctr, 1.8 MG SQ DAILY, (Reported) Entered as Reported by: EDMUNDO GUZMAN on 11/19/19755 Lisinopril (Lisinopril) 40 Mg Tablet, 40 MG PO DAILY, (Reported) Entered as Reported by: EDMUNDO GUZMAN on 11/19/19755 Lovastatin (Lovastatin) 40 Mg Tablet, 40 MG PO DAILY, (Reported) Entered as Reported by: EDMUNDO GUZMAN on 11/19/19755 Metoprolol Succinate (Metoprolol Succinate) 100 Mg Tab.er.24h, 50 MG PO DAILY, (Reported) Entered as Reported by: EDMUNDO GUZMAN on 11/19/19755 Mirtazapine (Mirtazapine) 15 Mg Tablet, 22.5 MG PO, (Reported) Entered as Reported by: EDMUNDO GUZMAN on 11/19/19755 Nicotine Polacrilex (Nicotine Lozenge) 2 Mg Lozenge, 2 MG BC PRN, (Reported) Entered as Reported by: EDMUNDO GUZMAN on 11/19/19755 [place]-3/Dha/Epa/Fish Oil (Fish Oil 1,000 mg Softgel) 1,000 Mg Capsule, 1,000 MG PO TID, (Reported) Entered as Reported by: EDMUNDO GUZMAN on 11/19/19755 Omeprazole (Omeprazole) 20 Mg Capsule.dr, 20 MG PO DAILY, (Reported) Entered as Reported by: EDMUNDO GUZMAN on 11/19/19755 Review of Systems Review of Systems Constitutional: malaise EENTM: see HPI Respiratory: see HPI Cardiovascular: no symptoms reported Gastrointestinal: see HPI Genitourinary: no symptoms reported Musculoskeletal: no symptoms reported Skin: no symptoms reported Psychiatric/Neurological: See HPI Hematologic/Lymphatic: No Symptoms Reported Immunological/Allergic: no symptoms reported Past Tebwpfi-Tbhmyc-Rqfpty Hx Patient Social History Tobacco Use?: Yes Tobacco type used: Cigarettes Smoking Status: Current Everyday Smoker Use of E-Cig and/or Vaping dev: No Substance use?: No Alcohol Use?: No Immunizations Up To Date Tetanus Booster (TDap): Less than 5yrs Influenza Vaccine Up-to-Date: Yes; Up-to-Date First/Initial COVID19 Vaccinat: 2020 Second COVID19 Vaccination Gerry: 2020 COVID19 Vaccine Hoop Maker Helper Machine: FELIPE Past Medical History Surgery/Hospitalization HX: HTN Surgeries: Yes Cardiac (Heart cath 2019 with normal coronary arteries) Respiratory: Yes Sleep Apnea, COPD Currently Using CPAP: No Currently Using BIPAP: No Cardiac: Yes High Cholesterol, Hypertension Neurological: No Reproductive Disorders: No Sexually Transmitted Disease: No HIV/AIDS: No Genitourinary: Yes (LOW KIDNEY FUNCTION ON PREVIOUS LABS) Gastrointestinal: No Musculoskeletal: No Endocrine: Yes (Obesity) Diabetes, Insulin dep (Type II) HEENT: No Cancer: No Psychosocial: Yes Anxiety, Depression Integumentary: No Blood Disorders: No Adverse Reaction/Blood Tranf: No Physical Exam Vital Signs Vital Signs - First Documented 01/31/21 18:53 Temp 36.8 Pulse 104 Resp 24 B/P (MAP) 126/69 (88) Pulse Ox 92 O2 Delivery Room Air Capillary Refill : Less Than 3 Seconds Height, Weight, BMI Height: 5'10" Weight: 300lbs. oz. 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 Norm as Tested Skin: Normal Color, Warm/Dry Focused Exam Lactate Level 01/31/21 21:40: Lactic Acid Level 0.92 Lactic Acid Level Laboratory Tests Test 01/31/21 21:40 Lactic Acid Level 0.92 MMOL/L (0.50-2.00) Progress/Results/Core Measures Suspected Sepsis SIRS Temperature: Pulse: 104 Respiratory Rate: 24 Laboratory Tests 01/31/21 19:00: White Blood Count 7.7 Blood Pressure 126 /69 Mean: 88 01/31/21 21:40: Lactic Acid Level 0.92 Laboratory Tests 01/31/21 19:00: Creatinine 1.22, Platelet Count 197, Total Bilirubin 0.5 Results/Orders Lab Results Laboratory Tests Test 01/31/21 19:00 01/31/21 20:15 01/31/21 21:40 01/31/21 22:00 Range/Units White Blood Count 7.7 4.3-11.0 10^3/uL Red Blood Count 4.97 4.30-5.52 10^6/uL Hemoglobin 15.3 13.3-17.7 g/dL Hematocrit 45 40-54 % Mean Corpuscular Volume 91 80-99 fL Mean Corpuscular Hemoglobin 31 25-34 pg Mean Corpuscular Hemoglobin Concent 34 32-36 g/dL Red Cell Distribution Width 13.3 10.0-14.5 % Platelet Count 197 130-400 10^3/uL Mean Platelet Volume 9.9 9.0-12.2 fL Immature Granulocyte % (Auto) 0 % Neutrophils (%) (Auto) 73 42-75 % Lymphocytes (%) (Auto) 23 12-44 % Monocytes (%) (Auto) 4 0-12 % Eosinophils (%) (Auto) 0 0-10 % Basophils (%) (Auto) 0 0-10 % Neutrophils # (Auto) 5.6 1.8-7.8 10^3/uL Lymphocytes # (Auto) 1.8 1.0-4.0 10^3/uL Monocytes # (Auto) 0.3 0.0-1.0 10^3/uL Eosinophils # (Auto) 0.0 0.0-0.3 10^3/uL Basophils # (Auto) 0.0 0.0-0.1 10^3/uL Immature Granulocyte # (Auto) 0.0 0.0-0.1 10^3/uL D-Dimer 1.55 H 0.00-0.49 UG/ML Sodium Level 135 135-145 MMOL/L Potassium Level 4.0 3.6-5.0 MMOL/L Chloride Level 104 98-107 MMOL/L Carbon Dioxide Level 22 21-32 MMOL/L Anion Gap 9 5-14 MMOL/L Blood Urea Nitrogen 8 7-18 MG/DL Creatinine 1.22 0.60-1.30 MG/DL Estimat Glomerular Filtration Rate 64 BUN/Creatinine Ratio 7 Glucose Level 316 H 70-105 MG/DL Calcium Level 9.3 8.5-10.1 MG/DL Corrected Calcium 9.8 8.5-10.1 MG/DL Total Bilirubin 0.5 0.1-1.0 MG/DL Aspartate Amino Transf (AST/SGOT) 23 5-34 U/L Alanine Aminotransferase (ALT/SGPT) 26 0-55 U/L Alkaline Phosphatase 69 40-136 U/L C-Reactive Protein High Sensitivity 12.35 H 0.00-0.50 MG/DL Total Protein 7.2 6.4-8.2 GM/DL Albumin 3.4 3.2-4.5 GM/DL Procalcitonin 0.12 H <0.10 NG/ML Influenza Type A (RT-PCR) Not Detected Not Detecte Influenza Type B (RT-PCR) Not Detected Not Detecte SARS-CoV-2 RNA (RT-PCR) Not Detected Not Detecte B-Type Natriuretic Peptide 28.9 <100.0 PG/ML Lactic Acid Level 0.92 0.50-2.00 MMOL/L Urine Color YELLOW Urine Clarity CLEAR Urine pH 6.5 5-9 Urine Specific [place] <=1.005 1.016-1.022 Urine Protein NEGATIVE NEGATIVE Urine Glucose (UA) 3+ H NEGATIVE Urine Ketones NEGATIVE NEGATIVE Urine Nitrite NEGATIVE NEGATIVE Urine Bilirubin NEGATIVE NEGATIVE Urine Urobilinogen 0.2 < = 1.0 MG/DL Urine Leukocyte Esterase NEGATIVE NEGATIVE Urine RBC (Auto) NEGATIVE NEGATIVE Urine RBC NONE /HPF Urine WBC NONE /HPF Urine Squamous Epithelial Cells 0-2 /HPF Urine Crystals NONE /LPF Urine Bacteria NEGATIVE /HPF Urine Casts NONE /LPF Urine Mucus NEGATIVE /LPF Urine Culture Indicated NO My Orders Orders - EDGAR BLANC MD Ed Iv/Invasive Line Start (01/31/21 19:04) Lactated Ringers (Lr 1000 Ml Iv Solution (01/31/21 19:15) Ondansetron Injection (Zofran Injectio (01/31/21 19:15) Cbc With Automated Diff (01/31/21 19:05) Comprehensive Metabolic Panel (01/31/21 19:05) Procalcitonin (Pct) (01/31/21 19:05) Hs C Reactive Protein (01/31/21 19:05) Influenza A And B By Pcr (01/31/21 19:05) Chest 1 View, Ap/Pa Only (01/31/21 19:05) Covid 19 Inhouse Test (01/31/21 19:05) Fibrin Degradation Products (01/31/21 19:20) Albuterol Inhaler (Albuterol) (01/31/21 19:20) Ct Angio Chest W (01/31/21 20:11) Iohexol Injection (Omnipaque 350 Mg/Ml 1 (01/31/21 20:15) Received Contrast (Hold Metformin- Contr (01/31/21 20:15) Ns (Ivpb) (Sodium Chloride 0.9% Ivpb Bag (01/31/21 20:15) Bnp [place] (01/31/21 20:45) Blood Culture (01/31/21 21:32) Sputum Culture (01/31/21 21:32) Urinalysis (01/31/21 21:32) Urine Culture (01/31/21 21:32) Vital Signs Adult Sepsis Patie Q15M (01/31/21 21:32) Remove Rings In Anticipation O (01/31/21 21:32) Lactic Acid Analyzer (01/31/21 21:32) Cefepime Injection (Maxipime Injection) (01/31/21 21:45) Albuterol/Ipra Inhalation Soln (Duoneb I (01/31/21 21:45) Svn Small Volume Nebulizer (01/31/21 21:38) Azithromycin Tablet (Zithromax Tablet) (01/31/21 21:38) Ns Iv 1000 Ml (Sodium Chloride 0.9%) (01/31/21 21:45) Medications Given in ED Current Medications Medications Dose Ordered Sig/Jennifer Route Start Time Stop Time Status Last Admin Dose Admin Albuterol/ Ipratropium 3 ml ONCE ONCE INH 01/31/21 21:45 01/31/21 21:46 DC 01/31/21 21:55 3 ML Cefepime HCl 2000 mg/Sodium Chloride 50 ml @ 100 mls/hr ONCE ONCE IV 01/31/21 21:45 01/31/21 22:14 DC 01/31/21 21:59 100 MLS/HR Iohexol 100 ml ONCE ONCE IV 01/31/21 20:15 01/31/21 20:16 DC 01/31/21 20:23 88 ML Lactated Ringer's 1,000 ml @ 0 mls/hr Q0M ONCE IV 01/31/21 19:15 01/31/21 19:16 DC 01/31/21 19:32 0 MLS/HR Ondansetron HCl 8 mg ONCE ONCE IVP 01/31/21 19:15 01/31/21 19:16 DC 01/31/21 19:32 8 MG Sodium Chloride 100 ml ONCE ONCE IV 01/31/21 20:15 01/31/21 20:16 DC 01/31/21 20:24 80 ML Vital Signs/I&O 01/31/21 01/31/21 01/31/21 18:53 21:55 22:58 Temp 36.8 Pulse 104 108 Resp 24 22 B/P (MAP) 126/69 (88) 126/65 Pulse Ox 92 91 95 O2 Delivery Room Air Room Air Room Air Capillary Refill : Less Than 3 Seconds Blood Pressure Mean: 88 Progress Note #1: Time: 19:26 Progress Note Patient was seen and examined. Covid and influenza swabs are pending. Chest x- ray and labs are also pending. He is receiving IV fluids, Zofran, and an albuterol inhaler. Disposition will be pending his response to inhaler, progression of oxygen saturations, and findings on work-up. D-dimer was included in his labs because of the tachycardia, intermittent hypoxia, smoking status, and left calf pain. Progress Note #2: Time: 20:48 Progress Note Chest x-ray showed edema versus infiltrate. D-dimer was elevated. CT angiogram was ordered for further evaluation along with a BNP. Results are pending. Patient did improve after using an inhaler. On auscultation he still has notable wheezes but his oxygen saturations improved significantly and he does feel somewhat better. He has had no more hypoxic episodes since using the inhaler. Progress Note #3: Time: 21:[address] scan was negative for pulmonary emboli. There were patchy infiltrates suspicious for atypical pneumonia versus COVID-19. Patient has been fully vaccinated and has a negative COVID-19 test, so this is more likely related to atypical bacterial pneumonia. We will initiate treatment with cefepime and azithromycin. Oxygen saturations did improve after inhaler treatment. He is now running at 91 to 92% on room air. We will administer a DuoNeb treatment while he is receiving more IV fluids and a DuoNeb treatment. Patient was offered admission. I informed him I would feel more comfortable with him staying in the hospital overnight. He expresses a strong desire to return home. If he maintains oxygen saturations of 92% or higher after treatments, we will consider discharge home with antibiotic therapy. I have not administered any steroids for treatment of his wheezing and COPD exacerbation because of his diabetes and hyperglycemia. Blood cultures and lactic acid are being drawn now as well. Progress Note #4: Progress Note Mr. Hebert maintained an oxygen saturation of 92% prior to discharge. Therefore he was allowed to be discharged without signing AMA papers. I did express my concern about him returning home and reviewed return precautions. He did complete a dose of cefepime IV and a dose of oral azithromycin. He received about 1500 mL of IV fluids. He reported feeling "way better" multiple times to nursing staff prior to discharge. See discharge instructions for discussion reviewed with patient. Diagnostic Imaging Diagonstic Imaging: Xray Plain Films/CT/US/NM/MRI: chest Comments Chest x-ray viewed by me and report reviewed. See report below: NAME: KEMAL HEBERT [facility] REC#: [id number] PT STATUS: REG ER : 1975 PHYSICIAN: EDGAR BLANC MD ADMIT DATE: 01/31/21/ER Draft Date of Exam:01/31/21 CHEST 1 VIEW, AP/PA ONLY INDICATION: Shortness of breath and cough. EXAMINATION: Frontal chest was obtained at 8:07 p.m. COMPARISON: 12/23/2019. FINDINGS: The heart is mildly enlarged. There is increased central vascular congestion compared to the prior study with development of interstitial edema. There is no consolidation or pneumothorax or pleural fluid. IMPRESSION: Cardiomegaly with increased central vascular congestion compared to the prior study with development of interstitial edema. There is no consolidation or pleural fluid. Dictated on workstation # [id number] Dict: 01/31/212013 Trans: 01/31/212027 [facility] [id number] Interpreted by: CARSON MACIAS MD Diagonstic Imaging: CT Plain Films/CT/US/NM/MRI: chest Comments CT angiogram chest viewed by me and report reviewed. See report below: NAME: KEMAL HEBERT [facility] REC#: [id number] PT STATUS: REG ER : 1975 PHYSICIAN: EDGAR BLANC MD ADMIT DATE: 01/31/21/ER Signed Date of Exam:01/31/21 CT ANGIO CHEST W INDICATION: Cough and shortness of breath. TECHNIQUE: Multiple contiguous axial images were obtained through the chest after uneventful bolus administration of intravenous contrast. 3D reconstructed CTA MIP acquisitions were also performed. Auto Exposure Controls were utilized during the CT exam to meet ALARA standards for radiation dose reduction. COMPARISON: There is no prior CTA for comparison. FINDINGS: Study is somewhat limited by bolus timing but no definite pulmonary arterial filling defects are seen to suggest pulmonary emboli. There is no aortic aneurysm or dissection. There are scattered borderline size nodes in the mediastinum and tommy of uncertain significance. There are no enlarged axillary nodes or chest wall lesions. There is no pleural or pericardial fluid. Visualized portions of the upper abdomen show no acute findings. There is fatty infiltration of the liver. Old right-sided rib fractures are noted. Lung parenchymal windows demonstrate patchy areas of airspace disease throughout both lungs suspicious for pneumonia. Covid 19 is in the differential although other etiologies are possible. IMPRESSION: No CT evidence of pulmonary emboli or aortic dissection or aneurysm. There are borderline size nodes in the mediastinum and tommy of uncertain significance. This may be reactive, follow-up is recommended. There are patchy areas of airspace disease throughout both lungs, compatible with atypical pneumonia. Covid-19 should be in the differential although other etiologies are possible. There is fatty infiltration of the liver noted. 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 Referrals: [facility]/ (PCP) Primary Care Physician SUSAN WISE (Family) Primary Care Physician Patient Instructions: COPD Exacerbation, Adult ED, Community-Acquired Pneumonia in Adults, Quitting Smoking ED Add. Discharge Instructions: Drink plenty of water to stay well-hydrated. Complete your antibiotics as prescribed. Call your primary care provider tomorrow to schedule a follow-up appointment. Be sure to use your CPAP machine anytime you are sleeping. Use your incentive spirometer 10 times per hour while awake to exercise deep breathing. Use your albuterol inhaler as directed. You may use up to 4 puffs at a time. Do not exceed 4 puffs in a 4-hour period of time. It is critical that you stop smoking immediately and completely. Your immediate and long-term health will be negatively affected by continuing to smoke. If you are unable to stop on your own, please discuss tactics for quitting with your primary care provider. Obtain a pulse oximeter and check your oxygen several times a day or if you have increased shortness of breath. If you have multiple measurements below 92% or any measurements below 90%, please return to the emergency room. Please monitor your blood sugars closely. While you are ill you should check your blood sugars fasting in the morning and 2 hours after each meal. Eat a low carbohydrate, low sugar diet. Review your blood sugars with your doctor at the follow-up appointment. Call with questions or concerns. Return to the emergency room if you have any other worsening of condition. All discharge instructions reviewed with patient and/or family. Voiced understanding. Scripts Azithromycin (Azithromycin) 250 Mg Tablet 250 MG PO DAILY, #4 TAB 0 Refills Prov: EDGAR BLANC MD 01/31/21 Cefdinir (Cefdinir) 300 Mg Capsule 300 MG PO BID, #20 CAP 0 Refills Prov: EDGAR BLANC MD 01/31/21 Work/School Note: Work Release Form Date Seen in the Emergency Department: Jan 31, 2021 Return to Work: Feb 02, 2021 Restrictions: Return-No Fever (24hrs), Return-No Vomiting(24hrs) Other Restrictions Listed Below: May return to work when not short of breath. Restrictions: Oxygen saturations need to be consistently greater than 92% to return. Copy Copies To 1: LA LINTON JOSHUA T MD Jan 31, 2021 19:27
[2021-01-31 20:02] LABS: ALBUMIN 3.4 GM/DL (3.2-4.5); BILIRUBIN,TOTAL 0.5 MG/DL (0.1-1.0); CALCIUM 9.3 MG/DL (8.5-10.1); CREATININE SERUM 1.22 MG/DL (0.60-1.30); TOTAL PROTEIN 7.2 GM/DL (6.4-8.2)
[2021-01-31] MEDS ORDERED: HOLD METFORMIN - RECEIVED CONTRAST 20 ML VIAL IV SCH (20:15)
[2021-01-31] MEDS ORDERED: IOHEXOL 350 MG/ML 100 ML (OMNIPAQUE 350) VIAL IV ONE (20:15)
[2021-01-31] MEDS ORDERED: NS 100 ML (IVPB) BAG IV ONE (20:15)
--- NOTE | 2021-01-31 20:30 | Diagnostic Imaging Report ---
INDICATION: Shortness of breath and cough. EXAMINATION: Frontal chest was obtained at 8:07 p.m. COMPARISON: 12/23/2019. FINDINGS: The heart is mildly enlarged. There is increased central vascular congestion compared to the prior study with development of interstitial edema. There is no consolidation or pneumothorax or pleural fluid. IMPRESSION: Cardiomegaly with increased central vascular congestion compared to the prior study with development of interstitial edema. There is no consolidation or pleural fluid. Dictated by: Dictated on workstation # [id number]
--- NOTE | 2021-01-31 20:45 | Diagnostic Imaging Report ---
INDICATION: Cough and shortness of breath. TECHNIQUE: Multiple contiguous axial images were obtained through the chest after uneventful bolus administration of intravenous contrast. 3D reconstructed CTA MIP acquisitions were also performed. Auto Exposure Controls were utilized during the CT exam to meet ALARA standards for radiation dose reduction. COMPARISON: There is no prior CTA for comparison. FINDINGS: Study is somewhat limited by bolus timing but no definite pulmonary arterial filling defects are seen to suggest pulmonary emboli. There is no aortic aneurysm or dissection. There are scattered borderline size nodes in the mediastinum and tommy of uncertain significance. There are no enlarged axillary nodes or chest wall lesions. There is no pleural or pericardial fluid. Visualized portions of the upper abdomen show no acute findings. There is fatty infiltration of the liver. Old right-sided rib fractures are noted. Lung parenchymal windows demonstrate patchy areas of airspace disease throughout both lungs suspicious for pneumonia. Covid 19 is in the differential although other etiologies are possible. IMPRESSION: No CT evidence of pulmonary emboli or aortic dissection or aneurysm. There are borderline size nodes in the mediastinum and tommy of uncertain significance. This may be reactive, follow-up is recommended. There are patchy areas of airspace disease throughout both lungs, compatible with atypical pneumonia. Covid-19 should be in the differential although other etiologies are possible. There is fatty infiltration of the liver noted. Dictated by: Dictated on workstation # [id number]
[2021-01-31] MEDS ORDERED: AZITHROMYCIN 250 MG TAB (ZITHROMAX) PO STA (21:38)
[2021-01-31] MEDS ORDERED: CEFEPIME INJECTION 2,000 MG in NS (IVPB) 50 ML IV ONE (21:45)
[2021-01-31] MEDS ORDERED: NS IV 1000 ML 1,000 ML IV SCH (21:45)
[2021-01-31] MEDS ORDERED: RT-ALBUTEROL/IPRATROPIUM 3 ML (DUONEB) VIAL INH ONE (21:45)
[2021-01-31] MEDS ORDERED: AZIT250T12 PO (21:53)
[2021-01-31] MEDS ORDERED: CEFD300C3 PO (21:53)
[2021-01-31 22:09] LABS: BILIRUBIN,URINE NEGATIVE (NEGATIVE); CLARITY,URINE CLEAR; COLOR,URINE YELLOW; GLUCOSE, URINE (UA) 3+ (NEGATIVE); KETONES,URINE NEGATIVE (NEGATIVE); LEUKOCYTE ESTERASE ,URINE NEGATIVE (NEGATIVE); NITRITE,URINE NEGATIVE (NEGATIVE); PH,URINE 6.5 (5-9); PROTEIN,URINE NEGATIVE (NEGATIVE)
[2021-01-31 22:16] LABS: BACTERIA,URINE NEGATIVE /HPF; SQUAMOUS EPITHELIAL CELL,UR 0-2 /HPF
[2021-01-31 22:58] VITALS: BP 126/65
== END 2021-01-31 22:58 | disposition home or self-care (01) ==
LOC: EDUNIT# 18:50 → ER 18:54
DX: J18.9 Pneumonia, unspecified organism (principal); J44.1 Chronic obstructive pulmonary disease with (acute) exacerbation; R79.89 Other specified abnormal findings of blood chemistry; E11.65 Type 2 diabetes mellitus with hyperglycemia; E66.9 Obesity, unspecified; R00.0 Tachycardia, unspecified; G47.30 Sleep apnea, unspecified; I10 Essential (primary) hypertension; E78.00 Pure hypercholesterolemia, unspecified; F41.9 Anxiety disorder, unspecified; F32.9 Major depressive disorder, single episode, unspecified; F17.210 Nicotine dependence, cigarettes, uncomplicated; Z68.41 Body mass index [BMI] 40.0-44.9, adult; Z20.822 Contact with and (suspected) exposure to COVID-19; Z79.4 Long term (current) use of insulin; Z79.899 Other long term (current) drug therapy; Z79.82 Long term (current) use of aspirin
CPT/HCPCS: 36415; 71045; 71275; 80053; 81000; 83605; 83880; 84145; 85025; 85379; 86141; 87040; 87088; 87636; 94640; 94664; 96361; 96365; 96375

== ENCOUNTER 2021-08-02 18:20 | Emergency (ER) | payer BC ==
[~2021-08-02] VITALS: Ht 177 cm; Wt 142.0 kg
[~2021-08-02 18:20] MED LIST changes: +AZIT250T12 PO; +CEFD300C3 PO
[2021-08-02] MEDS ORDERED: ALBUTEROL/IPRATROP (COMBIVENT RESPIMAT) 4 GM INHALER IH STA (18:36)
[2021-08-02] MEDS ORDERED: NS IV 500 ML 500 ML IV STA (18:42)
--- NOTE | 2021-08-02 18:42 | ED Cough/URI ---
General Chief Complaint: Respiratory Problems Stated Complaint: SOB/COUGH/FEVER Source: patient Exam Limitations: no limitations History of Present Illness Date Seen by Provider: Aug 02, 2021 Time Seen by Provider: 18:21 Initial Comments 45yoM with PMH of COPD and DM coming in due to cough, fever, diarrhea, nausea, and SOB. Started Monday. Temp has been up to 100F. Has not taken any meds for this. Has COPD but has not used his inhalers in over 6 months. Has not had COVID before that he knows of. Has had the Moderna vaccine x2. Denies any chest pain, severe abd pain, weakness, numbness, or any other concerns. Allergies and Home Medications Allergies Coded Allergies: losartan (Verified Allergy, Unknown, 02/10/16) Patient Home Medication List Home Medication List Reviewed: Yes Albuterol Sulfate (Ventolin Hfa) 18 Gm Hfa.aer.ad, 1 PUFF INH TID, (Reported) Entered as Reported by: EDMUNDO GUZMAN on 11/19/19 075 Albuterol Sulfate (Ventolin Hfa) 1 Puff Puff, 2 PUFF INH Q4H Prescribed by: JODEE VAUGHAN on 08/02/21 193 Aripiprazole (Aripiprazole) 30 Mg Tablet, 30 MG PO DAILY, (Reported) Entered as Reported by: EDMUNDO GUZMAN on 11/19/19 075 Aripiprazole (Aripiprazole) 10 Mg Tablet, 10 MG PO DAILY, (Reported) Entered as Reported by: EDMUNDO GUZMAN on 11/19/19755 Aspirin (Aspirin EC) 81 Mg Tablet.dr, 81 MG PO DAILY, (Reported) Entered as Reported by: EDMUNDO GUZMAN on 11/19/19 075 Azithromycin (Azithromycin) 250 Mg Tablet, 250 MG PO DAILY Prescribed by: EDGAR HEREDIA on 01/31/212152 Buspirone HCl (Buspirone HCl) 10 Mg Tablet, 10 MG PO BID, (Reported) Entered as Reported by: EDMUNDO GUZMAN on 11/19/19755 Cefdinir (Cefdinir) 300 Mg Capsule, 300 MG PO BID Prescribed by: EDGAR HEREDIA on 01/31/212152 Clonidine HCl (Clonidine HCl) 0.1 Mg Tablet, 0.1 MG PO BID, (Reported) Entered as Reported by: EDMUNDO GUZMAN on 11/19/19755 Doxycycline Hyclate (Doxycycline Hyclate) 100 Mg Tablet, 100 MG PO BID Prescribed by: JODEE VAUGHAN on 08/02/211935 Empagliflozin (Jardiance) 25 Mg Tablet, 25 MG PO DAILY, (Reported) Entered as Reported by: EDMUNDO GUZMAN on 11/19/19755 Ferrous Gluconate (Ferrous Gluconate) 324 Mg Tablet, 324 MG PO DAILY, (Reported) Entered as Reported by: EDMUNDO GUZMAN on 11/19/19755 Fluoxetine HCl (Prozac) 20 Mg Capsule, 40 MG PO DAILY, (Reported) Entered as Reported by: EDMUNDO GUZMAN on 11/19/19755 Insulin Aspart (Novolog) 100 Unit/1 Ml Susp, 20 UNIT SQ AC, (Reported) Entered as Reported by: EDMUNDO GUZMAN on 11/19/19755 Insulin Determir (Levemir) 1,000 Units/10 Ml Soln, 40 UNITS SQ BID, (Reported) Entered as Reported by: EDMUNDO GUZMAN on 11/19/19755 Liraglutide (Victoza 2-Vick) 0.6 Mg/0.1 Ml Pen.injctr, 1.8 MG SQ DAILY, (Reported) Entered as Reported by: EDMUNDO GUZMAN on 11/19/19755 Lisinopril (Lisinopril) 40 Mg Tablet, 40 MG PO DAILY, (Reported) Entered as Reported by: EDMUNDO GUZMAN on 11/19/19755 Lovastatin (Lovastatin) 40 Mg Tablet, 40 MG PO DAILY, (Reported) Entered as Reported by: EDMUNDO GUZMAN on 11/19/19755 Methylprednisolone (Methylprednisolone Dose Pack) 4 Mg Tab.ds.pk, 4 MG PO UD Prescribed by: JODEE VAUGHAN on 08/02/211935 Metoprolol Succinate (Metoprolol Succinate) 100 Mg Tab.er.24h, 50 MG PO DAILY, (Reported) Entered as Reported by: EDMUNDO GUZMAN on 11/19/19755 Mirtazapine (Mirtazapine) 15 Mg Tablet, 22.5 MG PO, (Reported) Entered as Reported by: EDMUNDO GUZMAN on 11/19/19755 Nicotine Polacrilex (Nicotine Lozenge) 2 Mg Lozenge, 2 MG BC PRN, (Reported) Entered as Reported by: EDMUNDO GUZMAN on 11/19/19755 [place]-3/Dha/Epa/Fish Oil (Fish Oil 1,000 mg Softgel) 1,000 Mg Capsule, 1,000 MG PO TID, (Reported) Entered as Reported by: EDMUNDO GUZMAN on 11/19/19755 Omeprazole (Omeprazole) 20 Mg Capsule.dr, 20 MG PO DAILY, (Reported) Entered as Reported by: EDMUNDO GUZMAN on 11/19/19755 Review of Systems Review of Systems Constitutional: fever EENTM: No blurred vision Respiratory: cough, short of breath Cardiovascular: No chest pain Gastrointestinal: diarrhea, nausea; No vomiting Genitourinary: no symptoms reported Musculoskeletal: no symptoms reported Skin: no symptoms reported Psychiatric/Neurological: No Symptoms Reported Hematologic/Lymphatic: No Symptoms Reported Immunological/Allergic: no symptoms reported All Other Systems Reviewed Negative Unless Noted: Yes Past Rdvvgdz-Bnzclh-Ygasik Hx Patient Social History Tobacco Use?: Yes Tobacco type used: Cigarettes Immunizations Up To Date Tetanus Booster (TDap): Less than 5yrs First/Initial COVID19 Vaccinat: 2020 Second COVID19 Vaccination Gerry: 2020 Past Medical History Surgery/Hospitalization HX: HTN Surgeries: Yes Cardiac Respiratory: Yes Sleep Apnea, COPD Currently Using CPAP: No Currently Using BIPAP: No Cardiac: Yes High Cholesterol, Hypertension Neurological: No Reproductive Disorders: No Sexually Transmitted Disease: No HIV/AIDS: No Genitourinary: Yes (LOW KIDNEY FUNCTION ON PREVIOUS LABS) Gastrointestinal: No Musculoskeletal: No Endocrine: Yes (Obesity) Diabetes, Insulin dep HEENT: No Cancer: No Psychosocial: Yes Anxiety, Depression Integumentary: No Blood Disorders: No Adverse Reaction/Blood Tranf: No Physical Exam Vital Signs - First Documented 08/02/21 18:31 Temp 37.7 Pulse 104 Resp 22 B/P (MAP) 126/85 (99) Pulse Ox 95 O2 Delivery Nasal Cannula O2 Flow Rate 2.00 Capillary Refill : Height: 5'10" Weight: 300lbs. oz. 136.731835tt; 42.00 BMI Method:Stated General Appearance: WD/WN, no apparent distress Eyes: Bilateral Eye Normal Inspection HEENT: PERRL/EOMI, normal ENT inspection, pharynx normal Neck: non-tender, full range of motion, supple, normal inspection Respiratory: chest non-tender, no accessory muscle use, crackles, wheezing Cardiovascular: no edema, no murmur, tachycardia Gastrointestinal: normal bowel sounds, non tender, soft; No distended, No guarding, No rebound Extremities: normal range of motion, non-tender, normal inspection, no pedal edema, no calf tenderness, normal capillary refill Neurologic/Psychiatric: no motor/sensory deficits, alert, normal mood/affect Skin: normal color, warm/dry Lymphatic: no adenopathy Progress/Results/Core Measures Suspected Sepsis SIRS Temperature: Pulse: Respiratory Rate: Laboratory Tests 08/02/21 18:53: White Blood Count 9.6 Blood Pressure / Mean: Laboratory Tests 08/02/21 18:53: Creatinine 1.48H, INR Comment 1.0, Platelet Count 169, Total Bilirubin 0.5 Results/Orders Lab Results Laboratory Tests Test 08/02/21 18:44 08/02/21 18:53 Range/Units Influenza Type A (RT-PCR) Not Detected Not Detecte Influenza Type B (RT-PCR) Not Detected Not Detecte SARS-CoV-2 RNA (RT-PCR) Not Detected Not Detecte White Blood Count 9.6 4.3-11.0 10^3/uL Red Blood Count 4.82 4.30-5.52 10^6/uL Hemoglobin 15.2 13.3-17.7 g/dL Hematocrit 45 40-54 % Mean Corpuscular Volume 92 80-99 fL Mean Corpuscular Hemoglobin 32 25-34 pg Mean Corpuscular Hemoglobin Concent 34 32-36 g/dL Red Cell Distribution Width 14.5 10.0-14.5 % Platelet Count 169 130-400 10^3/uL Mean Platelet Volume 9.9 9.0-12.2 fL Immature Granulocyte % (Auto) 0 % Neutrophils (%) (Auto) 72 42-75 % Lymphocytes (%) (Auto) 22 12-44 % Monocytes (%) (Auto) 5 0-12 % Eosinophils (%) (Auto) 0 0-10 % Basophils (%) (Auto) 0 0-10 % Neutrophils # (Auto) 6.9 1.8-7.8 10^3/uL Lymphocytes # (Auto) 2.1 1.0-4.0 10^3/uL Monocytes # (Auto) 0.5 0.0-1.0 10^3/uL Eosinophils # (Auto) 0.0 0.0-0.3 10^3/uL Basophils # (Auto) 0.0 0.0-0.1 10^3/uL Immature Granulocyte # (Auto) 0.0 0.0-0.1 10^3/uL Neutrophils % (Manual) 69 % Lymphocytes % (Manual) 28 % Monocytes % (Manual) 3 % Blood Morphology Comment NORMAL Prothrombin Time 14.0 12.2-14.7 SEC INR Comment 1.0 0.8-1.4 Activated Partial Thromboplast Time 42 H 24-35 SEC Sodium Level 132 L 135-145 MMOL/L Potassium Level 4.0 3.6-5.0 MMOL/L Chloride Level 102 98-107 MMOL/L Carbon Dioxide Level 20 L 21-32 MMOL/L Anion Gap 10 5-14 MMOL/L Blood Urea Nitrogen 16 7-18 MG/DL Creatinine 1.48 H 0.60-1.30 MG/DL Estimat Glomerular Filtration Rate 59 BUN/Creatinine Ratio 11 Glucose Level 143 H 70-105 MG/DL Calcium Level 8.9 8.5-10.1 MG/DL Total Bilirubin 0.5 0.1-1.0 MG/DL Direct Bilirubin 0.3 0.0-0.3 MG/DL Indirect Bilirubin 0.2 MG/DL Aspartate Amino Transf (AST/SGOT) 27 5-34 U/L Alanine Aminotransferase (ALT/SGPT) 30 0-55 U/L Alkaline Phosphatase 73 40-136 U/L Troponin I < 0.028 <0.028 NG/ML C-Reactive Protein High Sensitivity 13.68 H 0.00-0.50 MG/DL B-Type Natriuretic Peptide < 10.0 <100.0 PG/ML Total Protein 7.6 6.4-8.2 GM/DL Albumin 3.7 3.2-4.5 GM/DL My Orders Orders - JODEE VAUGHAN MD Chest 1 View, Ap/Pa Only (08/02/21 18:27) Covid 19 Inhouse Test (08/02/21 18:27) Influenza A And B By Pcr (08/02/21 18:27) Monitor-Rhythm Ecg Trace Only (08/02/21 18:36) Pulse Oximetry Order (08/02/21 18:36) Methylprednisolone Sod Succ (Solu-Medrol (08/02/21 18:45) Cbc And Manual Diff (08/02/21 18:36) Basic Metabolic Panel (08/02/21 18:36) Liver Panel (08/02/21 18:36) Bnp [place] (08/02/21 18:36) Ekg Tracing (08/02/21 18:36) Doxycycline Hyclate Tablet (Vibramycin T (08/02/21 18:45) Hs C Reactive Protein (08/02/21 18:36) Troponin I [place] (08/02/21 18:36) Protime With Inr (08/02/21 18:36) Partial Thromboplastin Time (08/02/21 18:36) Ondansetron Injection (Zofran Injectio (08/02/21 18:45) Ns Iv 500 Ml (Sodium Chloride 0.9%) (08/02/21 18:42) Albuterol Inhaler (Albuterol) (08/02/21 19:00) Albuterol/Ipra Inhalation Soln (Duoneb I (08/02/21 19:15) Svn Small Volume Nebulizer (08/02/21 19:11) Medications Given in ED Current Medications Medications Dose Ordered Sig/Jennifer Route Start Time Stop Time Status Last Admin Dose Admin Albuterol/ Ipratropium 3 ml ONCE ONCE INH 08/02/21 19:15 08/02/21 19:16 DC 08/02/21 19:55 3 ML Doxycycline Hyclate 100 mg ONCE ONCE PO 08/02/21 18:45 08/02/21 18:46 DC 08/02/21 18:50 100 MG Methylprednisolone Sodium Succinate 60 mg ONCE ONCE IV 08/02/21 18:45 08/02/21 18:46 DC 08/02/21 18:49 60 MG Ondansetron HCl 4 mg ONCE ONCE IV 08/02/21 18:45 08/02/21 18:46 DC 08/02/21 18:49 4 MG Vital Signs/I&O 08/02/21 08/02/21 08/02/21 18:31 18:45 19:56 Temp 37.7 Pulse 104 Resp 22 B/P (MAP) 126/85 (99) Pulse Ox 95 94 O2 Delivery Nasal Cannula Nasal Cannula Nasal Cannula O2 Flow Rate 2.00 2.00 3.00 Capillary Refill : Progress Note : Progress Note 45-year-old male with above history coming in due to cough and shortness of breath. ABCs were intact and vitals were stable on presentation although he was mildly hypoxic. He ranged from 89 to 91% on arrival. He was placed on supplemental oxygen, an IV was placed and he was given steroids, doxycycline, and albuterol treatment was given an inhaler while COVID test was pending. Pushpa st x-ray my interpretation with likely pneumonia. COVID test came back negative and then a DuoNeb treatment was ordered. He was feeling significantly better after that. Labs essentially unremarkable including negative troponin, normal white blood count, normal creatinine. Patient was feeling significantly better after the DuoNeb treatments. He says he would like to go home. His oxygen on room air is still around 90 to 91%. With COPD history this is probably not far off from where he typically is. Princess millan he is stable for discharge with outpatient follow-up. He was sent home with strict return precautions. ECG Initial ECG Impression Date: Aug 02, 2021 Initial ECG Impression Time: 18:47 Initial ECG Rate: 101 Initial ECG Rhythm: S.Tach Comment Narrow QRS, normal axis, no significant ST changes, isolated T wave inversion in lead III which is nonspecific, appears similar to prior EKG other than being slightly faster Diagnostic Imaging Diagonstic Imaging: Xray Plain Films/CT/US/NM/MRI: chest Comments NAME: KEMAL HERNANDEZ [facility] REC#: [id number] PT STATUS: REG ER : 1975 PHYSICIAN: JODEE VAUGHAN MD ADMIT DATE: 08/02/21/ER Draft Date of Exam:08/02/21 CHEST 1 VIEW, AP/PA ONLY EXAM: CHEST 1 VIEW, AP/PA ONLY INDICATION: Shortness of breath. COPD. COMPARISON: 01/31/2021. FINDINGS: Cardiomegaly and mild pulmonary vascular congestion. Focal airspace opacity in the right lung base. No pleural effusion or pneumothorax. No acute osseous findings. IMPRESSION: 1. Focal airspace opacity in the right lung base suspicious for pneumonitis. 2. Cardiomegaly and mild pulmonary vascular congestion. Dictated on workstation # [id number] Dict: 08/02/211930 Trans: 08/02/211933 [facility] [id number] Interpreted by: FRANCIS DUNCAN MD Electronically signed by: Departure Impression Primary Impression: COPD exacerbation Disposition: HOME, SELF-CARE Condition: Stable Departure-Patient Inst. Decision time for Depature: 20:28 Referrals: [facility]/ (PCP) Primary Care Physician SUSAN WISE (Family) Primary Care Physician Patient Instructions: COPD Exacerbation, Adult ED Add. Discharge Instructions: You will be on steroids and antibiotics for roughly the next week. A new inhaler was also sent to [facility]. Take 2-4 puffs every 2 to 4 hours when feeling short of breath or wheezing. If you start feeling worse or have any concerns then please come back to the ER or call your regular doctor. Take ibuprofen and/or Tylenol as needed for fever. Your COVID test was negative. Scripts Albuterol Sulfate (VENTOLIN HFA) 1 Puff Puff 2 PUFF INH Q4H for 30 Days, #1 EA 1 PUFF = 90 MCG Prov: JODEE VAUGHAN MD 08/02/21 Methylprednisolone (Methylprednisolone Dose Pack) 4 Mg Tab.ds.pk 4 MG PO UD for 6 Days, #21 PKG PER DOSE PACK INSTRUCTIONS Prov: JODEE VAUGHAN MD 08/02/21 Doxycycline Hyclate (Doxycycline Hyclate) 100 Mg Tablet 100 MG PO BID for 7 Days, #14 TAB 0 Refills Prov: JODEE VAUGHAN MD 08/02/21 Work/School Note: Work Release Form Date Seen in the Emergency Department: Aug 02, 2021 Return to Work: Aug 04, 2021 Restrictions: Return-No Fever (24hrs) JODEE VAUGHAN MD Aug 02, 2021 18:42
[2021-08-02] MEDS ORDERED: methylPREDNISolone 125 MG (Solu-MEDROL) VIAL IV ONE (18:45)
[2021-08-02] MEDS ORDERED: ONDANSETRON 4 MG/2 ML (SDV) Z0FRAN IV ONE (18:45)
[2021-08-02] MEDS ORDERED: DOXYCYCLINE 100 MG (VIBRAMYCIN) TABLET PO ONE (18:45)
[2021-08-02 19:00] LABS: BASOPHILS % (AUTO) 0 % (0-10); EOSINOPHILS % (AUTO) 0 % (0-10); HEMATOCRIT 45 % (40-54); HEMOGLOBIN 15.2 g/dL (13.3-17.7); LYMPHOCYTES # (AUTO) 2.1 10^3/uL (1.0-4.0); LYMPHOCYTES % (AUTO) 22 % (12-44); MEAN CORPUSCULAR HEMOGLOBIN 32 pg (25-34); MEAN CORPUSCULAR HGB CONC 34 g/dL (32-36); MEAN CORPUSCULAR VOLUME 92 fL (80-99); MEAN PLATELET VOLUME 9.9 fL (9.0-12.2); MONOCYTES # (AUTO) 0.5 10^3/uL (0.0-1.0); MONOCYTES % (AUTO) 5 % (0-12); NEUTROPHILS # (AUTO) 6.9 10^3/uL (1.8-7.8); NEUTROPHILS % (AUTO) 72 % (42-75); PLATELET COUNT 169 10^3/uL (130-400); WHITE BLOOD COUNT 9.6 10^3/uL (4.3-11.0)
[2021-08-02] MEDS ORDERED: RT-ALBUTEROL HFA 8.5 GM INHALER IH STA (19:00)
[2021-08-02 19:08] LABS: ALBUMIN 3.7 GM/DL (3.2-4.5); CHLORIDE 102 MMOL/L (98-107)
[2021-08-02 19:09] LABS: SODIUM 132 MMOL/L (135-145)
[2021-08-02 19:10] LABS: CALCIUM 8.9 MG/DL (8.5-10.1)
[2021-08-02 19:11] LABS: GLUCOSE 143 MG/DL (70-105); TOTAL PROTEIN 7.6 GM/DL (6.4-8.2)
[2021-08-02 19:12] LABS: CARBON DIOXIDE 20 MMOL/L (21-32)
[2021-08-02 19:13] LABS: BILIRUBIN,TOTAL 0.5 MG/DL (0.1-1.0)
[2021-08-02 19:14] LABS: LYMPHOCYTES % (MANUAL) 28 %; MONOCYTES % (MANUAL) 3 %; NEUTROPHILS % (MANUAL) 69 %; RBC MORPH NORMAL
[2021-08-02 19:15] LABS: ALKALINE PHOSPHATASE 73 U/L (40-136); CREATININE SERUM 1.48 MG/DL (0.60-1.30); GFR ESTIMATED 59
[2021-08-02] MEDS ORDERED: RT-ALBUTEROL/IPRATROPIUM 3 ML (DUONEB) VIAL INH ONE (19:15)
[2021-08-02 19:16] LABS: BILIRUBIN,DIRECT 0.3 MG/DL (0.0-0.3); BILIRUBIN,INDIRECT 0.2 MG/DL; BUN/CREATININE RATIO 11
[2021-08-02 19:18] LABS: ALANINE AMINOTRANSFERASE 30 U/L (0-55)
--- NOTE | 2021-08-02 19:35 | Diagnostic Imaging Report ---
EXAM: CHEST 1 VIEW, AP/PA ONLY INDICATION: Shortness of breath. COPD. COMPARISON: 01/31/2021. FINDINGS: Cardiomegaly and mild pulmonary vascular congestion. Focal airspace opacity in the right lung base. No pleural effusion or pneumothorax. No acute osseous findings. IMPRESSION: 1. Focal airspace opacity in the right lung base suspicious for pneumonitis. 2. Cardiomegaly and mild pulmonary vascular congestion. Dictated by: Dictated on workstation # [id number]
[2021-08-02] MEDS ORDERED: DOXY100T2 PO (19:36)
[2021-08-02] MEDS ORDERED: METH4TAB10 PO (19:36)
[2021-08-02] MEDS ORDERED: RT-ALBUINH INH (19:37)
[2021-08-02 20:37] VITALS: BP 126/85
== END 2021-08-02 20:37 | disposition home or self-care (01) ==
LOC: EDUNIT# 18:20 → ER 18:22
DX: J44.1 Chronic obstructive pulmonary disease with (acute) exacerbation (principal); E11.9 Type 2 diabetes mellitus without complications; E66.9 Obesity, unspecified; F17.210 Nicotine dependence, cigarettes, uncomplicated; Z79.4 Long term (current) use of insulin; Z68.41 Body mass index [BMI] 40.0-44.9, adult; Z20.822 Contact with and (suspected) exposure to COVID-19
CPT/HCPCS: 36415; 71045; 80048; 80076; 83880; 84484; 85007; 85027; 85610; 85730; 86141; 87636; 93005; 93041; 94640

== ENCOUNTER → 2022-12-14 | Outpatient (CLI) | payer BC ==
[~2022-12-14] MED LIST changes: +DOXY100T2 PO; +METH4TAB10 PO; +RT-ALBUINH INH
--- NOTE | 2022-12-14 11:41 | Diagnostic Imaging Report ---
INDICATION: Pain in back thoracic. Deep lungs not getting better. Onset couple of wks. COMPARISON: 08/02/2021. FINDINGS: Frontal and lateral views of the chest demonstrate normal heart size and pulmonary vascularity. Evaluation of the lung hendrix suggests a small right basilar effusion. There is no large effusion on the left. No pneumothorax is seen on either side. There is no focal consolidation. The visualized osseous structures show no acute abnormalities. IMPRESSION: Probable small right basilar effusion. Dictated by: Dictated on workstation # [id number]
== END ==
LOC: RAD 10:35
PROVIDERS: ATTEND Family Medicine
DX: M54.6 Pain in thoracic spine (principal); R91.8 Other nonspecific abnormal finding of lung field
CPT/HCPCS: 71046

== ENCOUNTER → 2022-12-27 | Outpatient (CLI) | payer BC ==
--- NOTE | 2022-12-27 13:49 | Diagnostic Imaging Report ---
INDICATION: Pleural effusion, pain in the lower lung. COMPARISON: 12/14/2022 FINDINGS: Air trapping and COPD with chronic flattening of the diaphragms. No acute infiltrate, failure pattern, effusion or pneumothorax. IMPRESSION: Stable chronic flattening of the diaphragms and air trapping. No change or acute abnormality. Old healed right rib deformities chronic. Dictated by: Dictated on workstation # [id number]
== END ==
LOC: RAD 09:21
PROVIDERS: ATTEND Family Medicine
DX: J90 Pleural effusion, not elsewhere classified (principal)
CPT/HCPCS: 71046